=== PATIENT | female | born 2000 | race Caucasian/White ===

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

== ENCOUNTER → 2022-02-28 14:38 | Outpatient (CLI) | payer MEDICAID, SELFPAY ==
--- NOTE | 2022-02-28 14:38 | US_ITS ---
FINAL REPORT TECHNIQUE: Transvaginal sonographic images of the pelvis were obtained. CLINICAL HISTORY: pelvic pain FINDINGS: PELVIC ULTRASOUND The uterus measures 6.8 x 2.9 x 3.5 cm. The endometrial stripe measures 4 mm which is normal. The right ovary measures 3.8 x 2.6 x 2.3 cm and is normal. The left ovary measures 2.8 x 2.4 x 2.2 cm and is normal. Normal flow is seen by Doppler exam There is no free fluid. IMPRESSION: Unremarkable pelvic ultrasound. Reviewed, Interpreted and Dictated by Dominic Nicholson III, MD Transcribed by Damaris Montanez Authenticated and [facility]
== END ==
PROVIDERS: PCP Nurse Practitioner; Visit Provider Obstetrics & Gynecology
DX: R10.2 Pelvic and perineal pain (principal)
CPT/HCPCS: 76856

== ENCOUNTER 2022-05-24 08:04 | Emergency (ER) | payer MEDICAID, SELFPAY ==
--- NOTE | 2022-05-24 08:40 | EXP.UTC ---
Discharge Plan Disposition Patient Disposition: Home, Self-Care Condition: Good Prescriptions Prescriptions: New ondansetron 4 mg tablet,disintegrating 4 mg PO Q8H PRN (Reason: nausea and vomiting) Qty: 10 0RF cefdinir 300 mg capsule 300 mg PO BID Qty: 20 0RF prednisone 20 mg tablet 20 mg PO BID Qty: 10 0RF No Action lisinopril 10 mg tablet 10 mg PO DAILY citalopram [Celexa] 10 mg tablet 10 mg PO DAILY naproxen 500 mg tablet 500 mg PO BID PRN (Reason: pain) Qty: 30 0RF amlodipine 10 mg tablet 10 mg PO DAILY 30 Days norgestimate-ethinyl estradiol 0.18/0.215/0.25 mg-35 mcg (28) tablet 1 tab PO DAILY 28 Days hydroxyzine HCl 25 MG tablet 25 mg PO BIDP PRN (Reason: Anxiety) Referrals Follow up/Referrals: Trisha Cortes APRN [Primary Care Provider] - See instructions Activity Restrictions/Add. Instructions Additional Instructions/Restrictions: *Monitor Temp, Over the counter Motrin or Tylenol as directed/as needed Tylenol every 4 hours and Motrin every 6 hours (as long as your family doctor has told you that you can take it) for fever or pain. and straight to ER if unable to lower temp less than 101.0 after medication given *Warm salt water gargles may help to soothe the throat *Throat Lozenges? *Warm fluids like tea with honey may help to soothe the throat? *Sleep elevated *Humidifier/Vaporizer Drink extra fluids with and between meals. If you have difficulty drinking, try very small amounts of water or suck on ice chips. ? Avoid fruit juices, as these do not replace minerals and can actually increase diarrhea. ? Children and adults can use sports drinks to replenish electrolytes. Younger children and infants should use products formulated for children, like oral rehydration solutions. ? Eat food in small amounts and let your stomach recover. ? Get lots of rest. You may feel tired or weak. ? No greasy or fried foods for the next 24-48 hours BRAT diet Bananas Rice Apples and [place] ? Make sure to drink plenty of liquids ? Return if needed ? Straight to ER if any life threatening symptoms ? Zofran as prescribed ? You was given an outpatient order for diarrhea panel, please collect specimen and bring back to outpatient lab then call back to the [facility] or follow up with family doctor for results ? Follow up with family doctor in the next 48-72 hours if no improvement or any worsening of symptoms Your throat swab was sent for culture. Those results are typically sent to your primary care. Be sure to follow up in 2-3 days with your family doctor/primary care physician if no improvement so they can review those result and treat if necessary. If you don?t have a primary care doctor, I recommend you get one but in the mean time, you will have to return to a walk in clinic Follow up IMMEDIATELY for new or worsening symptoms or no Noticeable improvement over the next 48-72 hours. 911 for difficulty breathing or swallowing You were tested for today for COVID19 your test result should be back in the next 24-48 hours, you may check your results on the [facility] Health Portal Clinical Impressions Clinical Impression: URI (upper respiratory infection) Qualifiers: URI type: unspecified URI Qualified Code(s): J06.9 - Acute upper respiratory infection, unspecified Stand Alone Forms Stand Alone Forms: Work/School Release Instructions Patient Instructions: Sore Throat, Diarrhea, Acute Bronchitis, Nausea and Vomiting-Adult Discharge ED Provider: Maya Laguerre [facility] [place] HPI General Stated complaint: Cough, nausea, diahrrea, sore throat, SOA Time Seen by Provider: 05/24/22 08:40 History of Present Illness Provider Complaint: Patient states that she has been having sore throat, sinus congestion, N/V/D and cough States that at times the cough makes her feel a little SOA States that toda
[2022-05-24 08:51] VITALS: BP 143/92; PULSE 78; RESP 18; TEMP 36.8; O2SAT 98; BMI 48.9
[2022-05-24 08:51] LABS: UTC Influenza A Antigen Negative (Negative); UTC Influenza B Antigen Negative (Negative); UTC Strep Screen (Rapid) Negative (Negative)
[2022-05-24 09:04] VITALS: BP 143/92; PULSE 78; RESP 18; TEMP 36.8
[2022-05-24 09:08] LABS: Adenovirus,PCR Not Detected (NotDetected); Bordetella Pertussis Not Detected (NotDetected); Chlamydophila Pneumoniae, PCR Not Detected (NotDetected); Coronavirus 19, PCR Not Detected (NotDetected); Coronavirus 229E Not Detected (NotDetected); Coronavirus NL63 Not Detected (NotDetected); Coronavirus OC43 Not Detected (NotDetected); Coronovirus HKU1,PCR Not Detected (NotDetected); Human Metapneumovirus Not Detected (NotDetected); Influenza A, PCR Not Detected (NotDetected); Influenza AH1, 2009 Not Detected (NotDetected); Influenza AH1, PCR Not Detected (NotDetected); Influenza AH3,PCR Not Detected (NotDetected); Influenza B, PCR Not Detected (NotDetected); Mycoplasma Pneumoniae, PCR Not Detected (NotDetected); Parainfluenza 1, PCR Not Detected (NotDetected); Parainfluenza 2, PCR Not Detected (NotDetected); Parainfluenza 3, PCR Not Detected (NotDetected); Parainfluenza 4, PCR Not Detected (NotDetected); Respiratory Syncytial Virus Not Detected (NotDetected); Rhinovirus/Enterovirus Not Detected (NotDetected)
== END 2022-05-24 09:04 | disposition home or self-care (01) ==
PROVIDERS: Emergency Provider Nurse Practitioner; PCP Nurse Practitioner
DX: J06.9 Acute upper respiratory infection, unspecified (principal)
CPT/HCPCS: 87581; 87632; 87798; 87804; 87880; 99212; C9803; G0463; U0003; U0005

== ENCOUNTER 2022-05-29 14:10 | Emergency (ER) | payer MEDICAID, SELFPAY ==
[2022-05-29 15:05] VITALS: BP 164/65; PULSE 67; RESP 20; TEMP 37.2; O2SAT 98; BMI 45.1
--- NOTE | 2022-05-29 15:33 | EXP.UTC ---
Discharge Plan Disposition Patient Disposition: Home, Self-Care Condition: Good Prescriptions Prescriptions: New azithromycin [azithromycin] 250 mg tablet 250 mg PO DIRECTED Qty: 6 0RF Rx Instructions: Take two (2) tablets on day #1, then one (1) tablet day #2 thru #5 fluconazole [Diflucan] 100 mg tablet 100 mg PO ONCE Qty: 1 1RF Rx Instructions: one tab after finishing antibiotics and may repeat after 3 days if no improvement Discontinued cefdinir 300 mg capsule 300 mg PO BID Qty: 20 0RF No Action lisinopril 10 mg tablet 10 mg PO DAILY citalopram [Celexa] 10 mg tablet 10 mg PO DAILY naproxen 500 mg tablet 500 mg PO BID PRN (Reason: pain) Qty: 30 0RF amlodipine 10 mg tablet 10 mg PO DAILY 30 Days norgestimate-ethinyl estradiol 0.18/0.215/0.25 mg-35 mcg (28) tablet 1 tab PO DAILY 28 Days hydroxyzine HCl 25 MG tablet 25 mg PO BIDP PRN (Reason: Anxiety) ondansetron 4 mg tablet,disintegrating 4 mg PO Q8H PRN (Reason: nausea and vomiting) Qty: 10 0RF prednisone 20 mg tablet 20 mg PO BID Qty: 10 0RF Referrals Follow up/Referrals: Coni Cortes PA [Primary Care Provider] - See instructions Activity Restrictions/Add. Instructions Additional Instructions/Restrictions: Start antibiotic today. Be sure to complete entire prescription even if feeling better Tylenol and ibuprofen as needed for pain or fever Humidifier/vaporizer/hot steamy shower Follow-up with primary care tomorrow. Follow-up immediately in the ER of the [facility] for new or worsening symptoms or no noticeable improvement over the next 48-72 hours. Stop smoking Inhaler every 4-6 hours as needed. Should help open airways improved cough, wheezing, shortness of breath Zack Carrion will not cause drowsiness to use at bedtime to help stop cough so that she can get some sleep Start steroids today. Helps with inflammation therefore coughing and wheezing. Follow directions on package. Clinical Impressions Clinical Impression: Bronchitis Stand Alone Forms Stand Alone Forms: Work/School Release Discharge ED Provider: Michelle ([facility])Nabil [facility] [place] General Stated complaint: Chest congestion, cough, possible yeast infection Mode of Arrival: Ambulatory Source of Information: Patient Limitations: No Limitations Time Seen by Provider: 05/29/22 15:33 Description of Symptoms (Recalled from Triage Doc. by RN): PATIENT C/O EAR PAIN, POSSIBLE YEAST INFECTION, AND WORSENING BRONCHITIS HEENT Symptoms (Recalled from RN notes): Yes Resp Symptoms (Recalled from RN notes): Yes Skin Symptoms (Recalled from RN notes): No MS Symptoms (Recalled from RN notes): No Functional Status (Recalled from RN notes): WNL History of Present Illness Provider Complaint: 21 yr old female presents for worsening of bronchitis, and yeast infection. pt states she finished up steroids and started to feel better but last night and today she is having increase coughing, wheezing and thinks she is starting to get a yeast infection Related Data Home Medications Medication Instructions Recorded Confirmed lisinopril 10 mg tablet 10 mg PO DAILY bp 05/23/18 02/23/22 amlodipine 10 mg tablet 10 mg PO DAILY bp 30 days 06/14/18 02/23/22 norgestimate-ethinyl estradiol 1 tab PO DAILY bc 28 days 06/14/18 02/23/22 0.18 mg/0.215mg/0.25mg-35 mcg(28)tablet hydroxyzine HCl 25 mg tablet 25 mg PO BIDP PRN Anxiety 09/30/18 02/23/22 citalopram 10 mg tablet (Celexa) 10 mg PO DAILY 02/23/22 02/23/22 Previous Rx's Medication Instructions Recorded naproxen 500 mg tablet 500 mg PO BID PRN pain #30 tabs 02/23/22 ondansetron 4 mg disintegrating 4 mg PO Q8H PRN nausea and 05/24/22 tablet vomiting #10 tabs prednisone 20 mg tablet 20 mg PO BID #10 tabs 05/24/22 azithromycin 250 mg tablet 250 mg PO DIRECTED #6 tabs 05/29/22 fluconazole 100 mg tablet 100 mg PO ONCE #1 tab 05/29/22 (Diflucan) Allergies Allergy/AdvRe
[2022-05-29 15:47] VITALS: BP 164/65; PULSE 67; RESP 20; TEMP 37.2; O2SAT 98
== END 2022-05-29 15:57 | disposition home or self-care (01) ==
PROVIDERS: Emergency Provider Nurse Practitioner Family; PCP Physician Assistant
DX: J40 Bronchitis, not specified as acute or chronic (principal)
CPT/HCPCS: 99212; G0463

== ENCOUNTER 2022-07-14 11:56 | Emergency (ER) | payer MEDICAID, SELFPAY ==
--- NOTE | 2022-07-14 12:27 | EXP.UTC ---
Discharge Plan Disposition Patient Disposition: Home, Self-Care Condition: Good Prescriptions Prescriptions: New promethazine 25 mg Tablet 25 mg PO Q6H PRN (Reason: Nausea And Vomiting) Qty: 20 0RF ondansetron 4 mg Tablet,Disintegrating 4 mg PO Q8H PRN (Reason: Nausea) Qty: 20 0RF No Action lisinopril 10 mg tablet 10 mg PO DAILY citalopram [Celexa] 10 mg tablet 10 mg PO DAILY naproxen 500 mg tablet 500 mg PO BID PRN (Reason: pain) Qty: 30 0RF amlodipine 10 mg tablet 10 mg PO DAILY 30 Days norgestimate-ethinyl estradiol 0.18/0.215/0.25 mg-35 mcg (28) tablet 1 tab PO DAILY 28 Days azithromycin [azithromycin] 250 mg tablet 250 mg PO DIRECTED Qty: 6 0RF Rx Instructions: Take two (2) tablets on day #1, then one (1) tablet day #2 thru #5 fluconazole [Diflucan] 100 mg tablet 100 mg PO ONCE Qty: 1 1RF Rx Instructions: one tab after finishing antibiotics and may repeat after 3 days if no improvement hydroxyzine HCl 25 MG tablet 25 mg PO BIDP PRN (Reason: Anxiety) ondansetron 4 mg tablet,disintegrating 4 mg PO Q8H PRN (Reason: nausea and vomiting) Qty: 10 0RF prednisone 20 mg tablet 20 mg PO BID Qty: 10 0RF Referrals Follow up/Referrals: Trisha Cortes APRN [Primary Care Provider] - See instructions Activity Restrictions/Add. Instructions Additional Instructions/Restrictions: Drink plenty of fluids. Take tylenol or ibuprofen for pain or fever. Take the medications as directed. Follow up with your regular doctor. GO TO THE ER FOR ANY WORSENING SYMPTOMS Clinical Impressions Clinical Impression: Gastroenteritis Stand Alone Forms Stand Alone Forms: Work/School Release Instructions Patient Instructions: DI for Viral Gastroenteritis -- Adult, Ondansetron, Promethazine Discharge ED Provider: Tim Irvin [facility] General Stated complaint: Nausea, upset stomach Time Seen by Provider: 07/14/22 12:26 History of Present Illness Provider Complaint: She states that since early this morning she has had n/v/d. She had vomited X1. She has had multiple episodes of diarrhea. She denies fever but she has had some chilling. Related Data Home Medications Medication Instructions Recorded Confirmed lisinopril 10 mg tablet 10 mg PO DAILY bp 05/23/18 02/23/22 amlodipine 10 mg tablet 10 mg PO DAILY bp 30 days 06/14/18 02/23/22 norgestimate-ethinyl estradiol 1 tab PO DAILY bc 28 days 06/14/18 02/23/22 0.18 mg/0.215mg/0.25mg-35 mcg(28)tablet hydroxyzine HCl 25 mg tablet 25 mg PO BIDP PRN Anxiety 09/30/18 02/23/22 citalopram 10 mg tablet (Celexa) 10 mg PO DAILY 02/23/22 02/23/22 Previous Rx's Medication Instructions Recorded naproxen 500 mg tablet 500 mg PO BID PRN pain #30 tabs 02/23/22 ondansetron 4 mg disintegrating 4 mg PO Q8H PRN nausea and 05/24/22 tablet vomiting #10 tabs prednisone 20 mg tablet 20 mg PO BID #10 tabs 05/24/22 azithromycin 250 mg tablet 250 mg PO DIRECTED #6 tabs 05/29/22 fluconazole 100 mg tablet 100 mg PO ONCE #1 tab 05/29/22 (Diflucan) ondansetron 4 mg disintegrating 4 mg PO Q8H PRN Nausea #20 tabs 07/14/22 tablet promethazine 25 mg tablet 25 mg PO Q6H PRN Nausea And 07/14/22 Vomiting #20 tabs Allergies Allergy/AdvReac Type Severity Reaction Status Date / Time No Known Allergies Allergy Verified 05/24/22 08:54 [facility] Disclaimer: The information contained in this section may have been updated after the patient was seen, as this information can be updated by other users. Medical History Anxiety Depression Hypertension Urinary tract infection Social History Smoking Status: Never smoker alcohol intake: never substance use type: denies use current occupational status: other Travel in the last 8 weeks: None caffeine: No ROS Obtained: Yes All
[2022-07-14 12:35] VITALS: BP 144/63; PULSE 88; RESP 16; TEMP 37.1; O2SAT 98; BMI 49.4
[2022-07-14 13:00] VITALS: BP 144/63; PULSE 88; RESP 16; TEMP 37.1; O2SAT 98
== END 2022-07-14 13:04 | disposition home or self-care (01) ==
PROVIDERS: Emergency Provider Nurse Practitioner Family; PCP Nurse Practitioner
DX: K52.9 Noninfective gastroenteritis and colitis, unspecified (principal)
CPT/HCPCS: 99212; G0463

== ENCOUNTER 2022-07-18 16:02 | Emergency (ER) | payer MEDICAID, SELFPAY ==
--- NOTE | 2022-07-18 19:07 | EXP.UTC ---
Discharge Plan Disposition Patient Disposition: Home, Self-Care Condition: Good Prescriptions Prescriptions: No Action lisinopril 10 mg tablet 10 mg PO DAILY citalopram [Celexa] 10 mg tablet 10 mg PO DAILY naproxen 500 mg tablet 500 mg PO BID PRN (Reason: pain) Qty: 30 0RF amlodipine 10 mg tablet 10 mg PO DAILY 30 Days norgestimate-ethinyl estradiol 0.18/0.215/0.25 mg-35 mcg (28) tablet 1 tab PO DAILY 28 Days azithromycin [azithromycin] 250 mg tablet 250 mg PO DIRECTED Qty: 6 0RF Rx Instructions: Take two (2) tablets on day #1, then one (1) tablet day #2 thru #5 fluconazole [Diflucan] 100 mg tablet 100 mg PO ONCE Qty: 1 1RF Rx Instructions: one tab after finishing antibiotics and may repeat after 3 days if no improvement promethazine 25 mg Tablet 25 mg PO Q6H PRN (Reason: Nausea And Vomiting) Qty: 20 0RF ondansetron 4 mg Tablet,Disintegrating 4 mg PO Q8H PRN (Reason: Nausea) Qty: 20 0RF hydroxyzine HCl 25 MG tablet 25 mg PO BIDP PRN (Reason: Anxiety) ondansetron 4 mg tablet,disintegrating 4 mg PO Q8H PRN (Reason: nausea and vomiting) Qty: 10 0RF prednisone 20 mg tablet 20 mg PO BID Qty: 10 0RF Referrals Follow up/Referrals: Trisha Cortes APRN [Primary Care Provider] - See instructions Activity Restrictions/Add. Instructions Additional Instructions/Restrictions: *Monitor Temp, Over the counter Motrin or Tylenol as directed/as needed Tylenol every 4 hours and Motrin every 6 hours (as long as your family doctor has told you that you can take it) for fever or pain. and straight to ER if unable to lower temp less than 101.0 after medication given *Warm salt water gargles may help to soothe the throat *Throat Lozenges? *Warm fluids like tea with honey may help to soothe the throat? *Sleep elevated *Humidifier/Vaporizer Your throat swab was sent for culture. Those results are typically sent to your primary care. Be sure to follow up in 2-3 days with your family doctor/primary care physician if no improvement so they can review those result and treat if necessary. If you don?t have a primary care doctor, I recommend you get one but in the mean time, you will have to return to a walk in clinic Follow up IMMEDIATELY for new or worsening symptoms or no Noticeable improvement over the next 48-72 hours. 911 for difficulty breathing or swallowing You were tested for today for Upper Respiratory Panel with COVID19 your test result should be back in the next 24-48 hours, you may check your Results on the [facility] Portal Clinical Impressions Clinical Impression: Viral upper respiratory tract infection with cough Stand Alone Forms Stand Alone Forms: Work/School Release Instructions Patient Instructions: DI for COVID-19 (Suspected or Confirmed ), COVID-19 Viral Test Discharge ED Provider: Maya Laguerre [facility] [place] HPI General Stated complaint: no taste/smell, cough, sore throat, soa, h/a Time Seen by Provider: 07/18/22 19:08 History of Present Illness Provider Complaint: Patient states that she has been having a little sore throat, cough, nasal congestion and feeling achy States that this morning she got her some lemonaide and had them put her some strawberry in it and she couldnt taste it State that through out the day she noticed she couldnt taste or smell several things so she came in worried that she may have COVID and wanted to get tested Related Data Home Medications Medication Instructions Recorded Confirmed lisinopril 10 mg tablet 10 mg PO DAILY bp 05/23/18 02/23/22 amlodipine 10 mg tablet 10 mg PO DAILY bp 30 days 06/14/18 02/23/22 norgestimate-ethinyl estradiol 1 tab PO DAILY bc 28 days 06/14/18 02/23/22 0.18 mg/0.215mg/0.25mg-35 mcg(28)tablet hydroxyzine HCl 25 mg tablet 25 mg PO BIDP PRN Anxiety 09/30/18 02/23/22 citalopram 10 mg tablet (Celexa) 10 mg PO DAILY 02/23/22 02/23/22 Previo
[2022-07-18 19:11] LABS: Adenovirus,PCR Not Detected (NotDetected); Bordetella Pertussis Not Detected (NotDetected); Chlamydophila Pneumoniae, PCR Not Detected (NotDetected); Coronavirus 19, PCR Not Detected (NotDetected); Coronavirus 229E Not Detected (NotDetected); Coronavirus NL63 Not Detected (NotDetected); Coronavirus OC43 Not Detected (NotDetected); Coronovirus HKU1,PCR Not Detected (NotDetected); Human Metapneumovirus Not Detected (NotDetected); Influenza A, PCR Not Detected (NotDetected); Influenza AH1, 2009 Not Detected (NotDetected); Influenza AH1, PCR Not Detected (NotDetected); Influenza AH3,PCR Not Detected (NotDetected); Influenza B, PCR Not Detected (NotDetected); Mycoplasma Pneumoniae, PCR Not Detected (NotDetected); Parainfluenza 1, PCR Not Detected (NotDetected); Parainfluenza 2, PCR Not Detected (NotDetected); Parainfluenza 3, PCR Not Detected (NotDetected); Parainfluenza 4, PCR Not Detected (NotDetected); Respiratory Syncytial Virus Not Detected (NotDetected); Rhinovirus/Enterovirus Not Detected (NotDetected)
[2022-07-18 19:15] LABS: UTC Strep Screen (Rapid) Negative (Negative)
[2022-07-18 19:18] VITALS: BP 136/84; PULSE 101; RESP 19; TEMP 36.4; O2SAT 98; BMI 49.5
[2022-07-18 19:32] VITALS: BP 136/84; PULSE 101; RESP 19; TEMP 36.4; O2SAT 98
== END 2022-07-18 19:37 | disposition home or self-care (01) ==
PROVIDERS: Emergency Provider Nurse Practitioner; PCP Nurse Practitioner
DX: J06.9 Acute upper respiratory infection, unspecified (principal)
CPT/HCPCS: 87581; 87632; 87798; 87880; 99212; C9803; G0463; U0003; U0005

== ENCOUNTER 2022-08-01 18:06 | Emergency (ER) | payer OTHER, SELFPAY ==
[2022-08-01 18:07] VITALS: BP 155/85; PULSE 98; RESP 16; TEMP 36.7; O2SAT 100; BMI 48.4
[2022-08-01 18:25] LABS: Microscopic, Urine URINE MICROSCOPIC (MICROSCOPIC)
--- NOTE | 2022-08-01 18:25 | HMH.EDGENADL ---
Discharge Plan Disposition Patient Disposition: Home, Self-Care Condition: Good Prescriptions Prescriptions: New cefdinir 300 mg capsule 300 mg PO BID 10 Days Qty: 20 0RF No Action lisinopril 10 mg tablet 10 mg PO DAILY citalopram [Celexa] 10 mg tablet 10 mg PO DAILY naproxen 500 mg tablet 500 mg PO BID PRN (Reason: pain) Qty: 30 0RF amlodipine 10 mg tablet 10 mg PO DAILY 30 Days norgestimate-ethinyl estradiol 0.18/0.215/0.25 mg-35 mcg (28) tablet 1 tab PO DAILY 28 Days azithromycin [azithromycin] 250 mg tablet 250 mg PO DIRECTED Qty: 6 0RF Rx Instructions: Take two (2) tablets on day #1, then one (1) tablet day #2 thru #5 fluconazole [Diflucan] 100 mg tablet 100 mg PO ONCE Qty: 1 1RF Rx Instructions: one tab after finishing antibiotics and may repeat after 3 days if no improvement promethazine 25 mg Tablet 25 mg PO Q6H PRN (Reason: Nausea And Vomiting) Qty: 20 0RF ondansetron 4 mg Tablet,Disintegrating 4 mg PO Q8H PRN (Reason: Nausea) Qty: 20 0RF hydroxyzine HCl 25 MG tablet 25 mg PO BIDP PRN (Reason: Anxiety) ondansetron 4 mg tablet,disintegrating 4 mg PO Q8H PRN (Reason: nausea and vomiting) Qty: 10 0RF prednisone 20 mg tablet 20 mg PO BID Qty: 10 0RF Referrals Follow up/Referrals: Trisha Cortes APRN [Primary Care Provider] - See instructions Activity Restrictions/Add. Instructions Additional Instructions/Restrictions: Please take antibiotic as prescribed. Please follow up with your primary care physician in 2-3 days and return to ED for any worsening symptoms. Clinical Impressions Clinical Impression: UTI (urinary tract infection) Instructions Patient Instructions: DI for Urinary Tract Infection (UTI) Print Language Print Language: Mexican Discharge ED Provider: Cyn Carney General Adult HPI General Chief complaint: Urogenital-Female Stated complaint: blood in urine, fever, abd pain Time Seen by Provider: 08/01/22 18:07 Mode of Arrival: Ambulatory Source of Information: Patient Limitations: No Limitations History of Present Illness HPI narrative: Miss Yi is a 21 yo female presenting to the ED for dysuria and suprapubic pain for 2-3 days. Patient denies fevers, flank pain or any other systemic signs of infection. No N/V/D. No hematuria. Patient has been taking azo for pain control. MD complaint: dysuria, suprapubic pain Onset (ago): day(s) Location: abdomen (suprapubic) Radiation: non-radiation Severity: mild Severity scale (1-10): 3 Quality: burning Relieving factors: none Exacerbating factors: none Associated symptoms: denies other symptoms Related Data Home Medications Medication Instructions Recorded Confirmed lisinopril 10 mg tablet 10 mg PO DAILY bp 05/23/18 02/23/22 amlodipine 10 mg tablet 10 mg PO DAILY bp 30 days 06/14/18 02/23/22 norgestimate-ethinyl estradiol 1 tab PO DAILY bc 28 days 06/14/18 02/23/22 0.18 mg/0.215mg/0.25mg-35 mcg(28)tablet hydroxyzine HCl 25 mg tablet 25 mg PO BIDP PRN Anxiety 09/30/18 02/23/22 citalopram 10 mg tablet (Celexa) 10 mg PO DAILY 02/23/22 02/23/22 Previous Rx's Medication Instructions Recorded naproxen 500 mg tablet 500 mg PO BID PRN pain #30 tabs 02/23/22 ondansetron 4 mg disintegrating 4 mg PO Q8H PRN nausea and 05/24/22 tablet vomiting #10 tabs prednisone 20 mg tablet 20 mg PO BID #10 tabs 05/24/22 azithromycin 250 mg tablet 250 mg PO DIRECTED #6 tabs 05/29/22 fluconazole 100 mg tablet 100 mg PO ONCE #1 tab 05/29/22 (Diflucan) ondansetron 4 mg disintegrating 4 mg PO Q8H PRN Nausea #20 tabs 07/14/22 tablet promethazine 25 mg tablet 25 mg PO Q6H PRN Nausea And 07/14/22 Vomiting #20 tabs cefdinir 300 mg capsule 300 mg PO BID 10 days #20 caps 08/01/22 Allergies Allergy/AdvReac Type Severity Reaction Status Date / Time No Known Allergies Allergy Verified 05/24/22 08:54 [facility] Disclaimer: The information
[2022-08-01 18:41] LABS: Appearance,Urine CLEAR (Clear); Blood, Urine 2+ (Negative); Color,Urine ORANGE (Yellow); Glucose,Urine (UA) TRACE (Negative); Ketones,Urine TRACE (Negative); Leukocyte Esterase,Urine TRACE (Negative); Nitrate,Urine POSITIVE (Negative); PH,Urine 5.5 (5.0-8.5); Protein,Urine 3+ (Negative); Specific Gravity, Urine 1.025 (1.005-1.030)
[2022-08-01 18:42] LABS: Bilirubin,Urine 1+ (Negative)
[2022-08-01 18:51] LABS: Bacteria,Urine Trace /lpf; RBC,Urine 20-50 #/hpf (0-3)
[2022-08-01 19:05] VITALS: BP 138/75; PULSE 102; RESP 16; TEMP 36.3; O2SAT 98
== END 2022-08-01 19:06 | disposition home or self-care (01) ==
PROVIDERS: Emergency Provider Student in an Organized Health Care Education/Training Program; PCP Nurse Practitioner
DX: N39.0 Urinary tract infection, site not specified (principal); F41.9 Anxiety disorder, unspecified; Z87.440 Personal history of urinary (tract) infections; I10 Essential (primary) hypertension
CPT/HCPCS: 81001; 87086; 99283; 99284

== ENCOUNTER 2022-08-14 10:29 | Emergency (ER) | payer OTHER, SELFPAY ==
--- NOTE | 2022-08-14 10:32 | EXP.UTC ---
Discharge Plan Disposition Patient Disposition: Home, Self-Care Condition: Good Prescriptions Prescriptions: New azithromycin [Zithromax] 250 mg tablet 250 mg PO UD DOSE PK Qty: 6 0RF Rx Instructions: Take two (2) tablets today, then one (1) tablet days #2 thru #5 dxecaieqbpmvcdb-jugqmstdo-GP [Bromfed DM] 2-30-10 mg/5 mL Syrup 5 ml PO Q6H PRN (Reason: Cough) Qty: 240 0RF methylprednisolone 4 mg Tablets,Dose Pack 4 mg PO DIRECTED Qty: 21 0RF No Action lisinopril 10 mg tablet 10 mg PO DAILY citalopram [Celexa] 10 mg tablet 10 mg PO DAILY amlodipine 10 mg tablet 10 mg PO DAILY 30 Days norgestimate-ethinyl estradiol 0.18/0.215/0.25 mg-35 mcg (28) tablet 1 tab PO DAILY 28 Days hydroxyzine HCl 25 MG tablet 25 mg PO BIDP PRN (Reason: Anxiety) aripiprazole 2 mg tablet 2 mg PO DAILY Referrals Follow up/Referrals: Trisha Cortes APRN [Primary Care Provider] - See instructions Activity Restrictions/Add. Instructions Additional Instructions/Restrictions: Drink plenty of fluids. Take tylenol or ibuprofen for pain or fever. Take the medications as directed. Follow up with your regular doctor. GO TO THE ER FOR ANY WORSENING SYMPTOMS Clinical Impressions Clinical Impression: Acute viral syndrome, Bronchitis Stand Alone Forms Stand Alone Forms: Work/School Release Instructions Patient Instructions: DI for Viral Syndrome, Coronavirus Disease 2019, Preventing the Spread of Coronavirus Discharge Instructions Discharge ED Provider: Tim Irvin [facility] General Stated complaint: headache,nausea,cough,congestion,body aches Time Seen by Provider: 08/14/22 10:32 History of Present Illness Provider Complaint: She states that for the past 2 days she has ran a fever, had chills, and malaise. She has had a productive cough. Related Data Home Medications Medication Instructions Recorded Confirmed lisinopril 10 mg tablet 10 mg PO DAILY bp 05/23/18 08/14/22 amlodipine 10 mg tablet 10 mg PO DAILY bp 30 days 06/14/18 08/14/22 norgestimate-ethinyl estradiol 1 tab PO DAILY bc 28 days 06/14/18 08/14/22 0.18 mg/0.215mg/0.25mg-35 mcg(28)tablet hydroxyzine HCl 25 mg tablet 25 mg PO BIDP PRN Anxiety 09/30/18 08/14/22 citalopram 10 mg tablet (Celexa) 10 mg PO DAILY mood 02/23/22 08/14/22 aripiprazole 2 mg tablet 2 mg PO DAILY . 08/14/22 08/14/22 Previous Rx's Medication Instructions Recorded azithromycin 250 mg tablet 250 mg PO UD DOSE PK #6 tabs 08/14/22 (Zithromax) rucvhljpbfacwfc-ftogaywyemvksro-XF 5 ml PO Q6H PRN Cough #240 mL 08/14/22 2 mg-30 mg-10 mg/5 mL oral syrup (Bromfed DM) methylprednisolone 4 mg tablets in 4 mg PO DIRECTED #21 tabs 08/14/22 a dose pack Allergies Allergy/AdvReac Type Severity Reaction Status Date / Time No Known Allergies Allergy Verified 08/14/22 11:04 [facility] Disclaimer: The information contained in this section may have been updated after the patient was seen, as this information can be updated by other users. Medical History Anxiety Depression Hypertension Urinary tract infection Social History Smoking Status: Never smoker alcohol intake: never substance use type: denies use current occupational status: other Travel in the last 8 weeks: None caffeine: No ROS Obtained: Yes All systems reviewed & no additional complaints except as documented Constitutional Constitutional: Reports chills and Reports fever(s) Eyes Eyes: Denies eye discharge ENT Ears, Nose, Mouth, and Throat: Reports as per HPI Cardiovascular Cardiovascular: Denies chest pain Respiratory Respiratory: Denies chest congestion and Reports cough Gastrointestinal Gastrointestingal: Reports nausea; Denies abdominal pain, constipation, cramping, diarrhea or vomiting Musculoskeletal Musculoskeletal
[2022-08-14 10:45] VITALS: BP 152/76; PULSE 102; RESP 20; TEMP 36.8; O2SAT 98; BMI 48.4
[2022-08-14 11:49] VITALS: BP 152/76; PULSE 102; RESP 20; TEMP 36.8; O2SAT 98
== END 2022-08-14 11:48 | disposition home or self-care (01) ==
PROVIDERS: Emergency Provider Nurse Practitioner Family; PCP Nurse Practitioner
DX: J40 Bronchitis, not specified as acute or chronic (principal); B34.9 Viral infection, unspecified
CPT/HCPCS: 99212; 99213; C9803; G0463; U0003; U0005

== ENCOUNTER 2023-03-13 11:36 | Emergency (ER) | payer OTHER, SELFPAY ==
[2023-03-13 11:45] VITALS: BP 134/88; PULSE 94; RESP 18; TEMP 36.9; O2SAT 100; BMI 54.7
--- NOTE | 2023-03-13 12:15 | EXP.UTC ---
Discharge Plan Disposition Patient Disposition: Home, Self-Care Condition: Good Prescriptions Prescriptions: New amoxicillin 875 mg tablet 875 mg PO BID Qty: 20 0RF fluticasone propionate [Flonase Allergy Relief] 50 mcg/actuation spray,suspension 1 - 2 spray intranasal DAILY Qty: 16 0RF Rx Instructions: administer into each nostril No Action lisinopril 10 mg tablet 10 mg PO DAILY citalopram [Celexa] 10 mg tablet 10 mg PO DAILY amlodipine 10 mg tablet 10 mg PO DAILY 30 Days norgestimate-ethinyl estradiol 0.18/0.215/0.25 mg-35 mcg (28) tablet 1 tab PO DAILY 28 Days hydroxyzine HCl 25 MG tablet 25 mg PO BIDP PRN (Reason: Anxiety) aripiprazole 2 mg tablet 2 mg PO DAILY azithromycin [Zithromax] 250 mg tablet 250 mg PO UD DOSE PK Qty: 6 0RF Rx Instructions: Take two (2) tablets today, then one (1) tablet days #2 thru #5 viuhzedyudlycns-dobzvbipo-LR [Bromfed DM] 2-30-10 mg/5 mL Syrup 5 ml PO Q6H PRN (Reason: Cough) Qty: 240 0RF methylprednisolone 4 mg Tablets,Dose Pack 4 mg PO DIRECTED Qty: 21 0RF Referrals Follow up/Referrals: Trisha Cortes APRN [Primary Care Provider] - See instructions Ena Carter APRN [Nurse Practitioner] - See instructions Activity Restrictions/Add. Instructions Additional Instructions/Restrictions: Take medication as prescribed Follow up with your Family Doctor or ENT for further evaluation and treatment Return if needed Straight to ER if any life threatening symptoms Clinical Impressions Clinical Impression: Otitis media Qualifiers: Otitis media type: unspecified Laterality: left Qualified Code(s): H66.92 - Otitis media, unspecified, left ear Instructions Patient Instructions: Middle Ear Infection, Amoxicillin Discharge ED Provider: Maya Laguerre [facility] General Stated complaint: knot behind left ear, h/a, upset stomach Mode of Arrival: Ambulatory Source of Information: Patient Limitations: No Limitations Time Seen by Provider: 03/13/23 12:15 Description of Symptoms (Recalled from Triage Doc. by RN): PATIENT C/O BUMP BEHIND LEFT EAR, NAUSEA AND HEADACHE X 2 DAYS HEENT Symptoms (Recalled from RN notes): No Resp Symptoms (Recalled from RN notes): No Skin Symptoms (Recalled from RN notes): No MS Symptoms (Recalled from RN notes): No Functional Status (Recalled from RN notes): WNL History of Present Illness Provider Complaint: Patient states that she noticed a little bump like area on the back of her ear a few days ago that would move when she touched it thinks it may be a little cyst or something States that now she is having a throbbing pain in her left ear and feels like she may have an ear infection so she came in to get her ear checked out States that the pain in her ear even hurts into her throat area Related Data Home Medications Medication Instructions Recorded Confirmed lisinopril 10 mg tablet 10 mg PO DAILY bp 05/23/18 08/14/22 amlodipine 10 mg tablet 10 mg PO DAILY bp 30 days 06/14/18 08/14/22 norgestimate-ethinyl estradiol 1 tab PO DAILY bc 28 days 06/14/18 08/14/22 0.18 mg/0.215mg/0.25mg-35 mcg(28)tablet hydroxyzine HCl 25 mg tablet 25 mg PO BIDP PRN Anxiety /10/1608/14/22 citalopram 10 mg tablet (Celexa) 10 mg PO DAILY mood 02/23/22 08/14/22 aripiprazole 2 mg tablet 2 mg PO DAILY . 08/14/22 08/14/22 Previous Rx's Medication Instructions Recorded azithromycin 250 mg tablet 250 mg PO UD DOSE PK #6 tabs 08/14/22 (Zithromax) vokwrxjtsauiuqf-qwusdmdsdeqyaii-PT 5 ml PO Q6H PRN Cough #240 mL 08/14/22 2 mg-30 mg-10 mg/5 mL oral syrup (Bromfed DM) methylprednisolone 4 mg tablets in 4 mg PO DIRECTED #21 tabs 08/14/22 a dose pack amoxicillin 875 mg tablet 875 mg PO BID #20 tabs 03/13/23 fluticasone propionate 50 1 - 2 spray intranasal DAILY #16 03/13/23 mcg/actuation nasal grams spray,suspension (Flonase Allergy Relief) Allergies Allergy/AdvReac Type S
[2023-03-13 12:28] VITALS: BP 134/88; PULSE 94; RESP 18; TEMP 36.9; O2SAT 100
== END 2023-03-13 12:30 | disposition home or self-care (01) ==
PROVIDERS: Emergency Provider Nurse Practitioner; PCP Nurse Practitioner
DX: H66.92 Otitis media, unspecified, left ear (principal); I10 Essential (primary) hypertension; F41.9 Anxiety disorder, unspecified; F32.A Depression, unspecified
CPT/HCPCS: 99212; 99214; G0463

== ENCOUNTER 2023-05-08 12:03 | Emergency (ER) | payer OTHER, SELFPAY ==
[2023-05-08 13:10] VITALS: BP 153/92; PULSE 106; RESP 19; TEMP 36.7; O2SAT 99; BMI 52.4
[2023-05-08 13:34] LABS: UTC Influenza A Antigen Negative (Negative); UTC Strep Screen (Rapid) Negative (Negative)
[2023-05-08 13:35] LABS: UTC Influenza B Antigen Negative (Negative)
--- NOTE | 2023-05-08 13:42 | EXP.UTC ---
Discharge Plan Disposition Patient Disposition: Home, Self-Care Condition: Good Prescriptions Prescriptions: New cefdinir 300 mg capsule 300 mg PO BID 10 Days Qty: 20 0RF methylprednisolone [Medrol ([place])] 4 mg tablets,dose pack See Rx Instructions .Route .COMPLEX 6 Days Qty: 21 0RF Rx Instructions: taper pack; benzonatate 100 mg capsule 100 mg PO TID PRN (Reason: cough) Qty: 30 0RF ondansetron 4 mg tablet,disintegrating 4 mg PO Q8H PRN (Reason: nausea and vomiting) Qty: 10 0RF No Action lisinopril 10 mg tablet 10 mg PO DAILY citalopram [Celexa] 10 mg tablet 10 mg PO DAILY amlodipine 10 mg tablet 10 mg PO DAILY 30 Days norgestimate-ethinyl estradiol 0.18/0.215/0.25 mg-35 mcg (28) tablet 1 tab PO DAILY 28 Days hydroxyzine HCl 25 MG tablet 25 mg PO BIDP PRN (Reason: Anxiety) aripiprazole 2 mg tablet 2 mg PO DAILY buspirone 15 mg tablet 15 mg PO DAILY Referrals Follow up/Referrals: Trisha Cortes APRN [Primary Care Provider] - See instructions Activity Restrictions/Add. Instructions Additional Instructions/Restrictions: *Monitor Temp, Over the counter Motrin or Tylenol as directed/as needed Tylenol every 4 hours and Motrin every 6 hours (as long as your family doctor has told you that you can take it) for fever or pain. and straight to ER if unable to lower temp less than 101.0 after medication given *Warm salt water gargles may help to soothe the throat *Throat Lozenges? *Warm fluids like tea with honey may help to soothe the throat? *Sleep elevated *Humidifier/Vaporizer Take medication as prescribed Your throat swab was sent for culture. Those results are typically sent to your primary care. Be sure to follow up in 2-3 days with your family doctor/primary care physician if no improvement so they can review those result and treat if necessary. If you don?t have a primary care doctor, I recommend you get one but in the mean time, you will have to return to a walk in clinic Follow up IMMEDIATELY for new or worsening symptoms or no Noticeable improvement over the next 48-72 hours. 911 for difficulty breathing or swallowing You were tested for today for ?Upper Respiratory Panel with COVID19 your test result should be back in the next 24 you may check your results on the [facility] My Health Portal and if positive for COVID you will need to quarantine for 5 days Clinical Impressions Clinical Impression: Otitis media Qualifiers: Otitis media type: unspecified Laterality: left Qualified Code(s): H66.92 - Otitis media, unspecified, left ear Stand Alone Forms Stand Alone Forms: Work/School Release Instructions Patient Instructions: Sore Throat, DI for Sinusitis, Nausea and Vomiting-Adult Discharge ED Provider: Maya Laguerre [facility] [place] HPI General Stated complaint: sore throat, cough, nausea, drainage, body aches Mode of Arrival: Ambulatory Source of Information: Patient Limitations: No Limitations Time Seen by Provider: 05/08/23 13:42 Description of Symptoms (Recalled from Triage Doc. by RN): PATIENT C/O SORE THROAT, COUGH, RUNNY NOSE, SINUS DRAINAGE, BODY ACHES, FEVER AND NAUSEA X 2 DAYS HEENT Symptoms (Recalled from RN notes): Yes Resp Symptoms (Recalled from RN notes): Yes Skin Symptoms (Recalled from RN notes): No MS Symptoms (Recalled from RN notes): No Functional Status (Recalled from RN notes): WNL History of Present Illness Provider Complaint: Patient states that she started feeling bad about 2 days ago and has continued to feel worse State that she has been having bilateral ear pain, sore throat, fever, nausea sinus congestion and pressure and headache States that today she was feeling worse so she came in to get checked out Related Data Home Medications Medication Instructions Recorded Confirmed lisinopril 10 mg tablet 10 mg PO DAILY Hypertension 05/23/18 05/08/23 amlodipine 10 mg table
[2023-05-08 13:57] VITALS: BP 153/92; PULSE 106; RESP 19; TEMP 36.7; O2SAT 99
== END 2023-05-08 14:08 | disposition home or self-care (01) ==
PROVIDERS: Emergency Provider Nurse Practitioner; PCP Nurse Practitioner
DX: H66.92 Otitis media, unspecified, left ear (principal); J01.90 Acute sinusitis, unspecified; R11.2 Nausea with vomiting, unspecified; R50.9 Fever, unspecified; I10 Essential (primary) hypertension; F41.9 Anxiety disorder, unspecified; F32.A Depression, unspecified
CPT/HCPCS: 87635; 87804; 87880; 99212; 99214; G0463

== ENCOUNTER 2023-08-31 15:49 | Outpatient (CLI) | payer OTHER, SELFPAY ==
--- NOTE | 2023-08-31 15:55 | US_ITS ---
FINAL REPORT TECHNIQUE: Ultrasound images of the kidneys and bladder were obtained. CLINICAL HISTORY: REFLUX FINDINGS: The right kidney measures 8.6 cm in length. It is normal in echogenicity. The left kidney measures 9.2 cm in length. It is normal in echogenicity. There is no hydronephrosis to indicate significant reflux. There is lobulation of the right mid kidney, likely resulting in pseudo mass. Lobulation could be congenital or sequela of scarring. IMPRESSION: No dilatation of the collecting system to indicate reflux to the level of the kidneys. Mild lobulation right kidney which could be due to congenital lobulation or scarring. Reviewed, Interpreted and Dictated by Jose R Rocha MD Transcribed by Shayna Dukes Authenticated and [facility]
[2023-08-31 17:07] LABS: Hematocrit 39.9 % (37.0-47.0); Hemoglobin 13.9 g/dL (12.2-16.2); Mean Corpuscular HGB Conc 34.8 g/dL (31.8-35.4); Mean Corpuscular Hemoglobin 29.1 pg (27.0-31.2); Mean Corpuscular Volume 83.8 fl (81-99); Platelet Count 262 K/mm3 (142-424); Red Blood Count 4.76 M/mm3 (4.20-5.40); Red Cell Distribution Width 13.8 % (11.5-17.5); White Blood Count 5.8 K/mm3 (4.5-13.0)
[2023-08-31 17:42] LABS: Anion Gap 14.1 mEq/L (5-15); Blood Urea Nitrogen 10 mg/dl (7-17); Calcium 9.7 mg/dl (8.4-10.2); Carbon Dioxide 20 mmol/L (22.0-30.0); Chloride 109 mmol/L (98-107); Estimated Glomerular Filt Rate 71 ml/min (>60); GFR (African American) 86 ML/MIN (>60); Glucose 88 mg/dl (74-100); Potassium 4.1 mmoL/L (3.5-5.1); Sodium 139 mmol/L (136-145)
== END 2023-08-31 23:59 ==
LOC: RAD 15:51
PROVIDERS: PCP Nurse Practitioner; Visit Provider Nurse Practitioner Family
DX: N39.0 Urinary tract infection, site not specified (principal); N13.70 Vesicoureteral-reflux, unspecified
CPT/HCPCS: 36415; 76770; 80048; 85014; 85018; 85048; 85049

== ENCOUNTER 2024-03-10 11:44 | Emergency (ER) | payer OTHER, SELFPAY ==
[2024-03-10 11:45] VITALS: BP 155/93; PULSE 104; RESP 18; TEMP 36.8; O2SAT 98; BMI 51.7
[2024-03-10 11:49] VITALS: BP 155/93; PULSE 127; O2SAT 98
--- NOTE | 2024-03-10 11:54 | XR_ITS ---
PROCEDURE INFORMATION: Exam: XR Left Forearm Exam date and time: 03/10/2024 12:09 PM Age: 23 years old Clinical indication: Injury or trauma; Fall; Blunt trauma (contusions or hematomas); Arm, lower; Left TECHNIQUE: Imaging protocol: Radiologic exam of the left forearm. Views: 2 views. COMPARISON: CR XR WRIST LT MIN 3V 03/10/2024 12:05 PM FINDINGS: Bones/joints: Normal. Soft tissues: Normal. IMPRESSION: No acute findings.
--- NOTE | 2024-03-10 11:54 | XR_ITS ---
PROCEDURE INFORMATION: Exam: XR Left Wrist Exam date and time: 03/10/2024 12:05 PM Age: 23 years old Clinical indication: Injury or trauma; Fall; Blunt trauma (contusions or hematomas); Wrist; Left TECHNIQUE: Imaging protocol: Radiologic exam of the left wrist. Views: 3 or more views. COMPARISON: CR XR HAND LT MIN 3V 03/10/2024 12:04 PM FINDINGS: Bones/joints: Normal. Soft tissues: Normal. IMPRESSION: No acute findings.
--- NOTE | 2024-03-10 11:54 | XR_ITS ---
PROCEDURE INFORMATION: Exam: XR Left Hand Exam date and time: 03/10/2024 12:04 PM Age: 23 years old Clinical indication: Injury or trauma; Fall; Blunt trauma (contusions or hematomas); Hand; Left TECHNIQUE: Imaging protocol: Radiologic exam of the left hand. Views: 3 or more views. COMPARISON: CR XR HAND LT MIN 3V 03/10/2024 12:04 PM FINDINGS: Bones/joints: Normal. Soft tissues: Normal. IMPRESSION: No acute findings.
[2024-03-10 12:00] VITALS: BP 134/75; PULSE 109; O2SAT 99
--- NOTE | 2024-03-10 12:01 | ED_ITS ---
Discharge Plan Disposition Patient Disposition: Home, Self-Care Condition: Good Prescriptions Prescriptions: No Action lisinopril 10 mg tablet 10 mg PO DAILY citalopram [Celexa] 10 mg tablet 10 mg PO DAILY amlodipine 10 mg tablet 10 mg PO DAILY 30 Days norgestimate-ethinyl estradiol 0.18/0.215/0.25 mg-35 mcg (28) tablet 1 tab PO DAILY 28 Days hydroxyzine HCl 25 MG tablet 25 mg PO BIDP PRN (Reason: Anxiety) aripiprazole 2 mg tablet 2 mg PO DAILY buspirone 15 mg tablet 15 mg PO DAILY cefdinir 300 mg capsule 300 mg PO BID 10 Days Qty: 20 0RF methylprednisolone [Medrol ([place])] 4 mg tablets,dose pack See Rx Instructions .Route .COMPLEX 6 Days Qty: 21 0RF Rx Instructions: taper pack; benzonatate 100 mg capsule 100 mg PO TID PRN (Reason: cough) Qty: 30 0RF ondansetron 4 mg tablet,disintegrating 4 mg PO Q8H PRN (Reason: nausea and vomiting) Qty: 10 0RF Referrals Follow up/Referrals: Trisha Cortes APRN [Primary Care Provider] - See instructions Activity Restrictions/Add. Instructions Additional Instructions/Restrictions: Please use a splint as needed for comfort. Please follow-up for repeat x-ray if you have persistent pain. Please return with any new or worsening symptoms. Clinical Impressions Clinical Impression: Injury of wrist Qualifiers: Encounter type: initial encounter Laterality: left Qualified Code(s): S69.92XA - Unspecified injury of left wrist, hand and finger(s), initial encounter Print Language Print Language: [place] Discharge ED Provider: Blas Hughes Adult HPI General Chief complaint: PAIN Stated complaint: left wrist pain fall 03/09 Time Seen by Provider: 03/10/24 12:01 Mode of Arrival: Ambulatory Source of Information: Patient Limitations: No Limitations Description of Symptoms (Recalled from ER Triage Doc. by RN): PT REPORTS TRIPPING AND FALLING ON TO LEFT HAND. REPORTS LEFT WRIST PAIN. History of Present Illness HPI narrative: The patient presents with a chief complaint of left wrist pain after a fall. She reports that last night, while attempting to stand up from sitting on the grass, her foot went into a hole, causing her to fall backward and catch herself with her left hand. She believes her hand bent back further than it should have, resulting in pain. The patient describes the pain as being located from the base of her thumb to her wrist, with the most intense pain in the wrist area. The pain is present throughout the entire area, except for the fingertips. She also reports experiencing tightness and tingling in the affected area. She denies any numbness but admits to experiencing some tingling. Upon examination, the patient experienced pain when making a fist and had difficulty spreading her fingers. She also reported pain when pressure was applied to the wrist and thumb area. Please note that above description of symptoms, in this electronic medical record under categorization of recalled from ER triage doctor by RN are reflective of an initial nursing assessment, however, is not reflective of my full history and physical exam that was personally taken and clarified. Consequentially, this preceding description of symptoms, which may include the patient's categorized chief complaint in the EMR, do not reflect my personal clinical impression, and the ultimate description of history of present illness and patient stated complaints should be deferred to this section of the note. Unless stated otherwise or congruent with this section of the note, additional signs, symptoms, or incongruence should be interpreted as inaccurate with my clinical impression. Related Data Home Medications ?Medication ?Instructions ?Recorded ?Confirmed lisinopril 10 mg tablet 10 mg PO DAILY Hypertension 05/23/18 05/08/23 amlodipine 10 mg tablet 10 mg PO DAILY Hypertension 30 days 06/14/18 05/08/23 norgestimate-ethinyl estradiol 1 tab PO DAILY Control 28 06/14/18 05/08/23 0.18 mg/0.215mg/0.25mg-35 days mcg(28)tablet hydroxyzine HCl 25 mg tablet 25 mg PO BIDP PRN Anxiety 09/30/18 05/08/23 citalopram 10 mg tablet (Celexa) 10 mg PO DAILY Depression 02/23/22 05/08/23 aripiprazole 2 mg tablet 2 mg PO DAILY MOOD 08/14/22 05/08/23 buspirone 15 mg tablet 15 mg PO DAILY Depression 05/08/23 05/08/23 Previous Rx's ?Medication ?Instructions ?Recorded benzonatate 100 mg capsule 100 mg PO TID PRN cough #30 caps 05/08/23 cefdinir 300 mg capsule 300 mg PO BID 10 days #20 caps 05/08/23 methylprednisolone 4 mg tablets in See Rx Instructions .Route 05/08/23 a dose pack (Medrol ([place])) .COMPLEX 6 days #21 tabs ondansetron 4 mg disintegrating 4 mg PO Q8H PRN nausea and 05/08/23 tablet vomiting #10 tabs Allergies Allergy/AdvReac Type Severity Reaction Status Date / Time No Known Allergies Allergy Verified 08/14/22 11:04 [facility] Disclaimer: The information contained in this section may have been updated after the patient was seen, as this information can be updated by other users. Medical History Anxiety Depression Hypertension Urinary tract infection Social History Smoking Status: Never smoker alcohol intake: never substance use type: denies use current occupational status: other Travel in the last 8 weeks: None caffeine: No ROS Obtained: Yes other As per HPI Physical Exam General General appearance: alert and in no apparent distress Head Head exam: atraumatic and normocephalic Eye Eye exam: Present normal appearance Neck Neck exam: Present normal inspection Chest Chest inspection: Present normal inspection and symmetric chest wall rise Respiratory Respiratory exam: Present normal lung sounds bilaterally; Absent respiratory distress Cardiovascular Cardiovascular exam: Present regular rate and normal rhythm Abdominal Exam Abdominal exam: Present soft Neurological Exam Neurological exam: Present alert and oriented X3 Psychiatric Psychiatric exam: Present normal affect and normal mood Skin Skin exam: Present warm and dry Other Other exam information: Tenderness to palpation throughout left wrist, distally neurovascularly intact. No overt bony tenderness to palpation. Reported mild tenderness to palpation over anatomic snuffbox. Medical Decision Making Medical Records Medical records reviewed: Yes I reviewed the patient's medical records. [place] Inquiry Pt receiving controlled substance: No Vital Signs: 03/10/24 11:45 03/10/24 11:49 03/10/24 12:00 Temperature 98.3 F Temperature Source Oral Pulse Rate 127 H 109 H Pulse Rate [Radial] 104 H Respiratory Rate 18 Blood Pressure 155/93 H 134/75 Blood Pressure [Right Arm] 155/93 H Blood Pressure Mean [Right Arm] 113 Blood Pressure Source Blood Pressure Source [Right Arm] Automatic Cuff Blood Pressure Position Blood Pressure Position [Right Arm] Sitting 02 Sat by Pulse Oximetry 98 98 99 Oxygen Delivery Method Room Air Room Air Room Air 03/10/24 12:31 03/10/24 12:51 Temperature 98.0 F Temperature Source Oral Pulse Rate 93 H 93 H Pulse Rate [Radial] Respiratory Rate 18 Blood Pressure 149/76 H 149/76 H Blood Pressure [Right Arm] Blood Pressure Mean [Right Arm] Blood Pressure Source Automatic Cuff Blood Pressure Source [Right Arm] Blood Pressure Position Sitting Blood Pressure Position [Right Arm] 02 Sat by Pulse Oximetry 97 Oxygen Delivery Method Room Air Room Air Orders (Tests/Meds): ORDERS Category Date Time Status XR forearm LT 2V Stat Exams 03/10/24 11:54 Completed XR hand LT min 3V Stat Exams 03/10/24 11:54 Completed XR wrist LT min 3V Stat Exams 03/10/24 11:54 Completed Medical Decision Narrative: Patient with history and exam per above presenting for evaluation of wrist injury Diagnoses considered include fracture, sprain, strain, no clinical evidence to suggest vascular injury or nerve injury or injury elsewhere. ED workup and treatment included: ORDERS Category Date Time Status XR forearm LT 2V Stat Exams 03/10/24 11:54 Completed XR hand LT min 3V Stat Exams 03/10/24 11:54 Completed XR wrist LT min 3V Stat Exams 03/10/24 11:54 Completed Imaging was independently visualized and interpreted by me, significant for no acute findings Please refer to radiology report for full details. My clinical impression at this time is most consistent with wrist sprain. Although patient will follow-up with primary care physician for repeat evaluation given tenderness over anatomic snuffbox. I discussed my clinical impression with patient and answered all questions. At this time, the evidence for any other entities in the differential is insufficient to warrant any further testing or ED observation. This was explained to the patient. The patient was advised that persistent or worsening symptoms require further evaluation. I confirmed the patient's understanding of this discussion. Critical Care Critical Care Time Critical Care Time: No
--- NOTE | 2024-03-10 12:13 | PC.NURSE ---
PT TO XR
--- NOTE | 2024-03-10 12:21 | PC.NURSE ---
PT RETURNED FROM XR
--- NOTE | 2024-03-10 12:29 | PC.NURSE ---
DR BILLINGSLEY AT BEDSIDE
[2024-03-10 12:31] VITALS: BP 149/76; PULSE 93; O2SAT 97
--- NOTE | 2024-03-10 12:44 | PC.NURSE ---
DR BILLINGSLEY AT BEDSIDE TO UPDATE PT AND MOTHER
--- NOTE | 2024-03-10 12:48 | PC.NURSE ---
Pt placed in a velcro splint on her L wrist. Pt given instructions on care. CR
[2024-03-10 12:51] VITALS: BP 149/76; PULSE 93; RESP 18; TEMP 36.7; O2SAT 97
== END 2024-03-10 12:53 | disposition home or self-care (01) ==
PROVIDERS: Emergency Provider Emergency Medicine; PCP Nurse Practitioner
DX: S69.92XA Unspecified injury of left wrist, hand and finger(s), initial encounter (principal); W19.XXXA Unspecified fall, initial encounter
CPT/HCPCS: 73090; 73110; 73130; 99283

== ENCOUNTER 2024-05-22 10:20 | Outpatient (CLI) | payer OTHER, SELFPAY ==
--- NOTE | 2024-05-22 10:24 | US_ITS ---
PROCEDURE INFORMATION: Exam: US Right Breast, Complete Exam date and time: 05/22/2024 11:01 AM Age: 23 years old Clinical indication: Region of palpable concern in the right breast. TECHNIQUE: Imaging protocol: Complete ultrasound of all four quadrants of the right breast and the retroareolar regions, including ultrasound of the axilla when performed. COMPARISON: No relevant prior studies available. FINDINGS: ULTRASOUND: Breast ultrasound findings: Right breast ultrasound: No sonographic abnormality region of palpable concern at 11 o'clock 3 cm nipple. No cysts, masses, regions of shadowing or distortion are seen. No abnormal lymph nodes in the axilla. IMPRESSION: No sonographic finding to explain the region of palpable concern in the right breast. Recommend clinical follow-up. There are no findings suspicious for malignancy. Annual mammographic screening is recommended to commence at age 40 unless otherwise clinically indicated. ASSESSMENT: BI-RADS Category 1: Negative.
== END 2024-05-22 23:59 | disposition home or self-care (01) ==
LOC: RAD 10:20
PROVIDERS: PCP Nurse Practitioner; Visit Provider Nurse Practitioner
DX: N63.11 Unspecified lump in the right breast, upper outer quadrant (principal)
CPT/HCPCS: 76641

== ENCOUNTER 2025-03-17 08:05 | Outpatient (CLI) | payer OTHER, SELFPAY ==
--- OUTSIDE RECORDS SUMMARY | 2025-03-17 08:08 | XMS_ITS | Clinical Summary ---
Author Organization [facility] Address [address] [place] [address] Care Team Providers Care Instructor Private Name Role Phone Kassidy Rodriges APRN Primary Care Provider [phone] Allergies No known active allergies Medications amLODIPine (Norvasc) 10 MG tablet 10/24/2022 Active ARIPiprazole (Abilify) 2 MG tablet 10/24/2022 Active busPIRone (Buspar) 15 MG tablet 10/24/2022 Active citalopram (CeleXA) 20 MG tablet 10/24/2022 Active hydrOXYzine HCl (Atarax) 25 MG tablet 10/24/2022 Active lisinopril 5 MG tablet 7 mg. 10/24/2022 Active Tri-Sprintec 0.18/0.215/0.25 MG-35 MCG tablet 10/04/2022 Ac tive ondansetron ODT (Zofran-ODT) 4 MG disintegrating tablet 05/08/2023 Active Active Problems Problem Noted Date Diagnosed Date Urinary urgency 11/02/2023 Reflux of urine 10/31/2022 Recurrent UTI 10/31/2022 Myositis 09/30/2021 05/02/2023 Overview (05/02/2023): Problem Code: M60.9; Problem Code Type: ICD-10; Problem Code: M60.9; Problem Code Type: ICD-10; Problem Code: M60.9; Problem Code Type: ICD-10; Otogenic otalgia 08/26/2021 05/02/2023 Candidiasis of vulva 01/22/2021 05/02/2023 Dysuria 01/22/2021 05/02/2023 Overview (05/02/2023): Problem Code: R30.0; Problem Code Type: ICD-10; Problem Code: R30.0; Problem Code Type: ICD-10; Otitis externa of left ear 01/09/202105/02 Overview (05/02/2023): Problem Code: H60.332; Problem Code Type: ICD-10; Healthy pediatric patient 08/04/20202022 Muscle pain 09/23/2019 05/02/2023 Overview (05/02/2023): Problem Code: M79.10; Problem Code Type: ICD-10; Chronic fatigue syndrome 09/03/2019 023 Overview (05/02/2023): Problem Code: R53.82; Problem Code Type: ICD-10; 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 05/02/2023 Overview (05/02/2023): Problem Code: H53.8; Problem Code Type: ICD-10; Depression with anxiety 08/07/2019 Tachycardia 08/05/2019 05/02/2023 Acute cystitis 11/06/2018 05/02/2023 Overview (05/02/2023): Problem Code: J20; Problem Code Type: ICD-10; Problem Code: N30.00; Problem Code Type: ICD-10; Gastro-esophageal reflux disease with esophagiti s 09/18/2018 05/02/2023 Overview (05/02/2023): Problem Code: K21.0; Problem Code Type: ICD-10; Common cold 09/03/2018 05/02/2023 Epigastric pain 08/14/2018 05/02/2023 Overview (05/02/2023): Problem Code: R10.13; Problem Code Type: ICD-10; Allergic rhinitis due to pollen 07/09/2018 05/02/2023 Overview (05/02/2023): Problem Code: J30.1; Problem Code Type: ICD-10; Problem Code: J30.1; Problem Code Type: ICD-10; Cough 07/09/2018 05/02/2023 Overview (05/02/2023): Problem Code: R05; Problem Code Type: ICD-10; Problem Code: R05; Problem Code Type: ICD-10; Problem Code: R05; Problem Code Type: ICD-10; Disorder of upper respiratory system 05/17/2018 05/02/2023 Overview (05/02/2023): Problem Code: J06.9; Problem Code Type: ICD-10; Problem Code: J06.9; Problem Code Type: ICD-10; Noninflammatory disorder of vagina 02/13/2018 05/02/2023 Overview (05/02/2023): Problem Code: 623.8; Problem Code Type: ICD-9; Epidermoid cyst of skin 11/27/2017 05/02/20 Overview (05/02/2023): Problem Code: L72.3; Problem Code Type: ICD-10; Benign essential hypertension 10/03/2017 Overview (05/02/2023): Problem Code: 401.1; Problem Code Type: ICD-9; Problem Code: 401.1; Problem Code Type: ICD-9; Right lower quadrant pain 10/03/20172022 Overview (05/02/2023): Problem Code: R10.31; Problem Code Type: ICD-10; Sprain of distal tibiofibular ligament 7 05/02/2023 Overview (05/02/2023): Problem Code: S93.432A; Problem Code Type: ICD-10; Ankle joint pain 05/18/2017 05/02/2023 Diarrhea 04/04/2017 05/02/2023 Overview (05/02/2023): Problem Code: R19.7; Problem Code Type: ICD-10; Problem Code: R19.7; Problem Code Type: ICD-10; Problem Code: R19.7; Problem Code Type: ICD-10; Nausea and vomiting 04/04/2017 05/02/2023 Overview (05/02/2023): Problem Code: R11.0; Problem Code Type: ICD-10; Problem Code: R11.2; Problem Code Type: ICD-10; Moderate major depression, single episode 201605/02/2023 Overview (05/02/2023): Problem Code: F32.9; Problem Code Type: ICD-10; Problem Code: F32.1; Problem Code Type: ICD-10; 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 Chronic kidney disease, stage 2 (mild) 4 Hypertension 04/16/2014 Childhood obesity 04/16/2014 05/02/2023 Overview (05/02/2023): Problem Code: Z68.54; Problem Code Type: ICD-10; Problem Code: Z68.54; Problem Code Type: ICD-10; IBS (irritable bowel syndrome) 04/16/2014 1 Colitis 12/02/2013 05/02/2023 Encounters Date Type Department Care Team Description 01/14/2025 Telephone [facility] Urology [address] [place] [address] Maya Osman, CLINICAL APPEALS REVIEWER, DNP HCN Clinical Concern/Question; Appointment Changes from Last 3 Months Immunizations Immunization Administration Dates Next Due DTaP 11/29/2006, 4,08/04/2003,01/01 DTaP, Unspecified 03/21/2003 HPV 9-Valent 08/04/2020,02/13/2018 HPV, Quadrivalent 09/18/2018 Hep A, ped/adol, 2 dose 09/18/2018,02/13/2018 Hep B, Adolescent or Pediatric 2002 Hib (PRP-OMP) 03/21/2003 Hib / Hep B 02/20/2004,01/01/2003 IPV 11/29/2006, 4,03/21/2003,01/01 MMR 11/29/2006,05/20/2004 Meningococcal MCV4O 08/04/2020,02/13/2018 Moderna COVID-19 Vaccine (Re d Cap) 12+ years 09/17/2021,01/27/2021,12/19/2020 Pneumococcal Conjugate PCV 7 02/20/2004, 08/04/2003,03/21/2003,01/01 Tdap 09/18/2018 Varicella 02/20/2004 Family History Medical History Relation Name Comments Diabetes type II Maternal Grandfather Hypertension Maternal Grandmother Obesity Maternal Grandmother Conversions - Other Mother cardiova scular disease Enuresis Other 1 Asthma Other 2 Asthma Other 3 Kidney disease Other 4 Conversions - Other Other 5 Urinary reflux Hypertension Paternal Grandmother Relation Name Status Comments Maternal Grandfather Maternal Grandmother Mother Other 1 Other 2 Other 3 Other 4 Other 5 Paternal Grandmother Social History Tobacco Use Types Packs/Day Years Used Date Smoking Tobacco: Never Passive Smoke Exposure: Yes Smokeless Tobacco: Never Tobacco Cessation:Counseling Given: Not Answered Alcohol Use Standard Drinks/Week Comments Never 0 (1 standard drink = 0.6 oz pur e alcohol) PHQ-2 Answer Date Recorded Patient Health Questionnaire-2 Score 0 05/02/2024 PHQ-2A Answer Date Recorded Patient Health Questionnaire-2 Score 0 05/02/2023 Comments Unknown Sex and Gender Information Value Date Recorded Sex Assigned at Not on file Legal Sex Female 7:35 PM EDT Gender Identity Not on file Sexual Orientation Not on file Last Filed Vital Signs Vital Sign Reading Time Taken Comments Blood Pressure 158/73 10/31/2022 12:24 PM EDT Pulse 96 10/31/2022 12:24 PM EDT Temperature 36.8 C (98.3 F) 05/21/2019 3:54 PM EDT Respiratory Rate 16 08/07/2019 10:42 AM EST Oxygen Saturation - - Inhaled Oxygen Concentration - - Weight 145 kg (320 lb 8.8 oz) 05/02/2024 11:31 A M EDT Height 162.6 cm (5' 4 ) 05/02/2024 11:31 AM EDT Body Mass Index 55.02 05/02/2024 11:31 AM EDT Plan of Treatment Upcoming Encounters Date Type Department Care Team (Late st Contact Info) Description 03/24/2025 9:00 AM EDT Office Visit [facility] Urology [address], [address] [place] [address] Maya Osman, JEFFERSON, DNP [address] [place] [address] 03/24/2025 10:50 AM EDT Consult [facility] Medicine Specialties [address] [place] [address] Silvia Merlos, CLINICAL APPEALS REVIEWER [address] [place] [address] Health Maintenance Due Date Last Done Comments [facility]-HIV Screening 2002 [facility]-Hepatitis C Screening 2002 [facility]-Infant/Child/Adol SDOH Screenings 2002 [facility]-Varicella Vaccines (2 of 2 - 2-dose childhood series) 12/27/2006 02/20/2004 [facility]- SDOH Screenings 2020 [facility]-Adult SDOH Screenings 2020 [facility]-Pap Smear 2023 [id number] Vaccine ( season) 2024 09/17/2021, 01/27/2021, 12/19/2020 [facility]-Influenza Vaccine (#1) 2025 [facility]-Depression Screening 05/02/2025 05/02/2024 [facility]-DTaP,Tdap,and Td Vaccines (7 - Td or Tdap) 09/18/2028 09/18/2018, 11/29/2006, 05/20/2004, Additional history exists [facility]-Zoster Vaccines (1 of 2) 2052 02/20/2004 [facility]-HIB Vaccines Completed 02/20/2004, , 01/01/2003 [facility]-Hepatitis B Vaccines Completed 004, 01/01/2003, 2002 [facility]-Pneumococcal Vaccine: Pediatrics (0 to 5 Years) and At-Risk Patients (6 to 49 Years) Aged Out 02/20/2004, 08/04/2003, 03/21/2003, Additional history exists No longer eligible based on patient's age to complete this topic [facility]-IPV Vaccines Completed 11/29/2006, 11/2003, 03/21/2003, Additional history exists [facility]-Hepatitis A Vaccines Completed 09/18/2018, 01/28 HPV Vaccines Completed 08/04/2020, 08/31, 02/13/2018 [facility]-Obesity Intervention Completed 05/02/2024, 10/2023 [facility]-Rotavirus Vaccines Aged Out No lo nger eligible based on patient's age to complete this topic Insurance [facility] MEDICAID Care Teams Instructor Private Relationship Specialty Start Date End Date Kassidy Rodriges APRN [address] [place] [address] [facility] - General 12/11/20
--- OUTSIDE RECORDS SUMMARY | 2025-03-17 08:08 | XMS_ITS | Encounter Summary ---
Author Organization [facility] Address [address] [place] [address] Care Team Providers Care Convention Services Director Name Role Phone Kassdiy Rodriges JEFFERSON Primary Care Provider [phone] Reason for Referral * Consultation (Routine) - Closed Specialty Diagnoses / Procedures Referred By Racquel t Referred To Contact Nephrology Diagnoses Urinary tract infection without hematuria, site unspecified Trisha Cortes APRN [address] [place] [address] Phone: tel: fax: Referral ID Status Reason Start Date Expiration Date V isits Requested Visits Authorized [id number] Closed Specialty Services Required 08/09/2022 02/08/2024 1 1 Encounter Details Date Type Department Care Team (Late st Contact Info) Description 08/09/2022 Community [facility] [address] [place] [address] Trisha Cortes APRN [address] [place], [place] [id number] Urinary tract infection without hematuria, site unspecified (Primary Dx) Social History Tobacco Use Types Packs/Day Years Used Date Smoking Tobacco: Passive Smo ke Exposure - Never Smoker Comments Unknown Sex and Gender Information Value Date Recorded Sex Assigned at Not on file Legal Sex Female 7:35 PM EDT Gender Identity Not on file Sexual Orientation Not on file documented as of this encounter Plan of Treatment Upcoming Encounters Date Type Department Care Team (Late st Contact Info) Description 03/24/2025 9:00 AM EDT Office Visit [facility] Urology [address] [place] [address] Maya Osman, GARMENT FORM ASSEMBLER, DNP [address] [place] [address] 03/24/2025 10:50 AM EDT Consult [facility] Medicine Specialties [address] [place] [address] Silvia Merlos, GARMENT FORM ASSEMBLER [address] [place] [address] Scheduled Referrals Name Type Priority Associated Diagnoses Orde r Schedule Ambulatory referral to Nephrology Outpatient Referral Routine Urinary tract infection without hematuria, site unspecified Expected: 08/09/2022 (Approximate), Expires: 02/07/2024 documented as of this encounter Visit Diagnoses Diagnosis Urinary tract infection without hematuria, site unspecified- Primary documented in this encounter Care Teams Convention Services Director Relationship Specialty Start Date End Date Kassidy Rodriges, GARMENT FORM ASSEMBLER Count includes the [facility] [place] [address] PCP - General 12/11/20 documented as of this encounter
[2025-03-17 08:41] LABS: Hematocrit 41.4 % (37.0-47.0); Hemoglobin 13.9 g/dL (12.2-16.2); Immature Granulocytes % 0.1 %; Mean Corpuscular HGB Conc 33.6 g/dL (31.8-35.4); Mean Corpuscular Hemoglobin 28.1 pg (27.0-31.2); Mean Corpuscular Volume 83.8 fl (81-99); Nucleated Red Blood Cells % 0 %; Platelet Count 283 K/mm3 (142-424); Red Blood Count 4.94 M/mm3 (4.20-5.40); Red Cell Distribution Width-SD 39.7 fL; White Blood Count 6.7 K/mm3 (4.8-10.8)
[2025-03-17 09:24] LABS: Albumin Level 4.5 g/dl (3.5-5.0); Chloride 108 mmol/L (98-107); Sodium 139 mmol/L (136-145)
[2025-03-17 09:25] LABS: Potassium 4.2 mmoL/L (3.5-5.1)
[2025-03-17 09:27] LABS: Alanine Aminotransferase 16 U/L (12-78); Albumin/Globulin Ratio 1.9 (1.1-1.8); Alkaline Phosphatase 99 U/L (38-126); Anion Gap 14.2 mEq/L (5-15); Aspartate Amino Transferase 24 U/L (14-36); Bilirubin,Total 0.6 mg/dl (0.2-1.3); Blood Urea Nitrogen 12 mg/dl (7-17); Calcium 9.5 mg/dl (8.4-10.2); Carbon Dioxide 21 mmol/L (22.0-30.0); Creatinine,Serum 0.90 mg/dl (0.52-1.04); Estimated Glomerular Filt Rate 78 ml/min (>60); GFR (African American) 95 ML/MIN (>60); Globulin 2.4 g/dL (1.3-3.2); Glucose 97 mg/dl (74-100); Magnesium 1.7 mg/dl (1.6-2.3); Total Protein,Serum 6.9 g/dl (6.3-8.2)
[2025-03-17 09:41] LABS: Free T4 (Free Thyroxine) 1.03 ng/dl (0.78-2.19)
[2025-03-17 09:49] LABS: Hemoglobin A1C 4.9 % (4.0-6.0)
[2025-03-17 09:56] LABS: Thyroid Stimulating Hormone 1.72 uIU/mL (0.465-4.68)
[2025-03-17 16:25] LABS: 25-OH Vitamin D, Total 18.6 ng/mL (30-100)
[2025-03-17 19:42] LABS: Vitamin B12 218 pg/mL (239-931)
[2025-03-17 21:44] LABS: Folate 13.80 ng/mL
== END 2025-03-17 23:59 | disposition home or self-care (01) ==
PROVIDERS: PCP Nurse Practitioner; Visit Provider Nurse Practitioner
DX: R20.2 Paresthesia of skin (principal)
CPT/HCPCS: 36415; 80053; 82306; 82607; 82746; 83036; 83735; 84439; 84443; 85025

== ENCOUNTER 2025-03-26 08:08 | Outpatient (CLI) | payer OTHER, SELFPAY ==
--- OUTSIDE RECORDS SUMMARY | 2025-03-24 09:00 | XMS_ITS | Encounter Summary ---
Author Organization [facility] Address [address] [place] [address] Care Team Providers Care College Counselor Name Role Phone SebastianTrisha JEFFERSON Primary Care Provider + [phone] Maya Osman APRN, DNP Unavailable [phone] Reason for Referral * Imaging (Routine) - Authorized Specialty Diagnoses / Procedures Referred By Racquel t Referred To Contact Diagnoses Reflux of urine Recurrent UTI Procedures US Renal Complete Maya Osman APRN, DNP [address] [place] [address] Phone: tel: fax: Referral ID Status Reason Start Date Expiration Date V isits Requested Visits Authorized [id number] Authorized 03/24/2025 09/23/2026 1 1 Reason for Visit * Reason Comments Follow-up Pt notes that she do es get the burning sensation after urination often. She does note 2-3 UTIs since the last visit. Encounter Details Date Type Department Care Team (Late st Contact Info) Description 03/24/2025 9:00 AM EDT Office Visit [facility] [address] [place] [address] Maya Osman APRN, DNP [address] [facility] [address] [place] [address] High-tone pelvic floor dysfunction (Primary [...] APRN, DNP - 03/24/2025 9:00 AM EDT [facility] Clinic Note Consulting provider: [...] effective. 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 [id number]. She was advised to discuss this with her primary care provider during her upcoming appointment. 7. Due to history of VUR and UTIs, have SANDRA. Will call for most recent blood work. Follow-up A follow-up visit is scheduled in 3 months via telehealth. ADDENDUM: Outside lab results were obtained: 03/17/2025: CMP: Cr 0.9 eGFR 78 Plan: Keep 24 hour voiding diary, send via [employer] for my review Begin OTC D-mannose 2 grams daily for UTI prevention Behavioral modifications for pelvic floor dysfunction and IBS Begin Robaxin 500 mg 1 tablet at bedtime, slowly increase as needed/tolerated to a maximum dose of 2 tablets TID Follow-up with PCP regarding edema and elevated HR Will call for outside blood work Return in 3 months via with [facility] Maya Osman APRN, DNP Verbal consent was obtained to use ambient listening technology to assist in the documentation of the encounter: yes documented in this encounter Plan of Treatment Upcoming Encounters Date Type Department Care Team (Late st Contact Info) Description 07/03/2025 12:40 PM EST Office Visit [facility] Urology [address] [place] [address] Maya Osman APRN, DNP [address] [place] [address] Scheduled Orders Name Type Priority [...] Urine Color Yellow 03/24/2025 9:07 AM EDT [facility] UR[facility] POCT Urine Clarity Clear 03/24/2025 9:07 AM EDT [facility] POCT Urine Glucose Negative Negative mg/dL 03/24/2025 9:07 AM EDT [facility] POCT Urine Bilirubin Negative Negative mg/dL 03/24/2025 9:07 AM EDT [facility] POCT Urine Ketones Negative Negative mg/dL 03/24/2025 9:07 AM EDT [facility] POCT Urine Specific [place] 1.025 1.005 - 1.030 03/24/2025 9:07 AM EDT [facility] POCT Urine Blood Negative Negative 03/24/2025 9:07 AM EDT [facility] POCT pH, Urine 5.5 5.0 - 8.0 03/24/2025 9:07 AM EDT [facility] POCT Protein, Urine Negative Negative mg/dL 03/24/2025 9:07 AM EDT [facility] POCT Urobilinogen, Urine 0.2 0.2, 1.0 EU/dL 03/24/2025 9:07 AM EDT [facility] POCT Nitrite, Urine Negative Negative 03/24/2025 9:07 AM EDT [facility] POCT Urine Leukocyte Esterase Negative Negative 03/24/2025 9:07 AM EDT [facility] Urine 03/24/2025 9:06 AM EDT 03/24/2025 9:08 AM EDT Maya Osman APRN, DNP LAB POINT OF C ARE TEST DOCKED DEVICE UNSOLICITED RESULTS Final Result [facility] [address] [place], [place] documented in this encounter Visit Diagnoses [...] documented as of this encounter Care Teams College Counselor Relationship Specialty Start Date End Date Trisha Cortes APRN [address] [place] [address] PCP - General 03/24/25 Maya Osman APRN, GWENDOLYN [address] [place] [address] Nurse Practitioner Urology 03/24/25 documented as of this encounter
--- OUTSIDE RECORDS SUMMARY | 2025-03-24 10:50 | XMS_ITS | Encounter Summary ---
Author Organization [facility] Address [address] [place] [address] Care Team Providers Care Shingle Catcher Name Role Phone Trisha Cortes JEFFERSON Primary Care Provider + [phone] OsmanMaya maldonado APRN, DNP Unavailable [phone] Reason for Visit * Reason Comments Joint Pain Consult * Consultation (Routine) - Closed Specialty Diagnoses / Procedures Referred By Racquel t Referred To Contact Rheumatology Diagnoses Multiple joint pain Sebastian JAMILAH RicoN [address] [place] [address] Phone: tel: fax: Referral ID Status Reason Start Date Expiration Date V isits Requested Visits Authorized [id number] Closed Specialty Services Required 02/21/2025 08/23/2026 1 1 Encounter Details Date Type Department Care Team (Late st Contact Info) Description 03/24/2025 10:50 AM EDT Consult [facility] [address] [place] [address] Silvia Merlos, LEARNING ENGINEER [address] [place] [address] Back pain, unspecified back location, unspecified back pain laterality, unspecified chronicity (Primary Dx); Dry mouth; Spasms of the hands or feet; Vapes nicotine containing substance Social History Tobacco Use Types Packs/Day Years [...] Sign Reading Time Taken Comments Blood Pressure 123/72 03/24/2025 10:42 AM EDT Pulse 108 03/24/2025 10:42 AM EDT Temperature 36.9 C (98.4 F) 03/24/2025 10:42 AM EDT Respiratory Rate 16 03/24/2025 10:42 AM EDT Oxygen Saturation 100% 03/24/2025 10:42 AM EDT Inhaled Oxygen Concentration - - Weight 156 kg (343 lb 14.7 oz) 03/24/2025 10:42 AM EDT Height 162.6 cm (5' 4 ) 03/24/2025 10:42 AM EDT Body Mass Index 59.03 03/24/2025 10:42 AM EDT documented in this encounter Functional [...] drinking? 1 or 2 03/24/2025 10:47 AM EDT Nu Laguerre Q3: How often do you have six or more drinks on one occasion? Never 03/24/2025 10:47 AM EDT Nu Laguerre * Over the past 2 weeks, how often have you been bothered by any of the following problems? Question Answer Date of Assessment Author Little interest or pleasure in doing things Not at all 03/24/2025 10:45 AM SHERICET Nu Laguerre Feeling down, depressed, or hopeless Several days 03/24/2025 10:45 AM SHERICET Nu Laguerre Patient Health Questionnaire -2 Score 1 03/24/2025 10:45 AM EDT Nu Laguerre * Question Answer Date of Assessment Author Trouble falling or staying asleep, or sleeping too much Several days 03/24/2025 9:17 AM EDT Rosie Smith Feeling tired or having little energy Several days 03/24/2025 9:17 AM EDT Rosie Smith Poor appetite or overeating Several days 03/24/2025 9: 17 AM EDRosie Hayes Feeling bad about yourself - or that you are a failure or have let yourself or your family down Several days 03/24/2025 9:17 AM Rosie Barros Trouble concentrating on things, such as reading the newspaper or watching television Not at all 03/24/2025 9:17 AM EDT Rosie Smith Moving or speaking so slowly that other people could have noticed? Or the opposite - being so fidgety or restless that you have been moving around a lot more than usual. Several days 03/24/2025 9:17 AM EDRosie Hayes Thoughts that you would be better off or hurting yourself in some way Not at all 03/24/2025 9:17 AM EDT Lissa Smith Patient Health Questionnaire-9 Score 6 03/24/2025 9:17 AM EDT Tae Smith * If you checked off any problems [...] as of this encounter Miscellaneous Notes * Patient Instructions - Silvia Merlos APRN - 03/24/2025 10:50 AM EDT Recommend discussing neurology and [place] ophthalmology referral with primary care provider. documented in this encounter Plan of Treatment Upcoming Encounters Date Type Department Care Team (Late st Contact Info) Description 07/03/2025 12:40 PM EST Office Visit [facility] Urology [address] [place] [address] Maya Osman APRN, DNP [address] [place] [address] Scheduled Orders Name Type Priority Associated Diagnoses Orde r Schedule Cyclic Citrul Peptide Antibody IgG Lab Routine Dry mouth Spasms of the hands or feet Expected: 03/24/2025 (Approximate), Expires: 09/24/2026 XR Hand and Wrist Bilateral 2 Views Imaging Routine Dry mouth Expected: 03/24/2025 (Approximate), Expires: 09/24/2026 ENAII Lab Routine Dry mouth Expected: 03/24/2025 (Approximate), Expires: 09/25/2026 HLA B27 Typing Lab Routine Back pain, unspecified back location, unspecified back pain laterality, unspecified chronicity Expected: 03/24/2025 (Approximate), Expires: 09/24/2026 XR Sacroiliac Joints 3+ Views Imaging Routine Back pain, unspecified back location, unspecified back pain laterality, unspecified chronicity Expected: 03/24/2025, Expires: 09/25/2026 documented as of this encounter Visit Diagnoses Diagnosis Back pain, unspecified back location, unspecified back pain laterality, unspecified chronicity- Primary Dry mouth Disturbance of salivary secretion Spasms of the hands or feet [place] Vapes nicotine containing substance documented in this encounter Additional Health Concerns Assessment Noted Time PHQ-9 Depression Total Score: 6 03/24/20 9:17 AM EDT A fall risk assessment has been complete d for the patient 03/24/2025 10:45 AM EDT A Body Mass Index follow-up plan has been documented for the patient 03/24/2025 12:15 PM EDT documented as of this encounter Care Teams Shingle Catcher Relationship Specialty Start Date End Date Trisha Cortes APRN [address] [place] [address] PCP - General 03/24/25 Maya Osman APRN, GWENDOLYN [address] [place] [address] Nurse Practitioner Urology 03/24/25 documented as of this encounter
--- OUTSIDE RECORDS SUMMARY | 2025-03-26 08:14 | XMS_ITS | Encounter Summary ---
Author Organization [facility] Address [address] [place] [address] Care Team Providers Care Signwriter Name Role Phone Kassidy Rodriges JEFFERSON Primary Care Provider + [phone] Trisha Cortes APRN Primary Care Provider + [phone] Maya Osman APRN, DNP Unavailable + [phone] Reason for Referral * Consultation (Routine) - Closed Specialty Diagnoses / Procedures Referred By Racquel t Referred To Contact Nephrology Diagnoses Urinary tract infection without hematuria, site unspecified Trisha Cortes APRN [address] [place] [address] Phone: tel: fax: Referral ID Status Reason Start Date Expiration Date V isits Requested Visits Authorized [id number] Closed Specialty Services Required 08/09/2022 02/08/2024 1 1 Encounter Details Date Type Department Care Team (Late st Contact Info) Description 08/09/2022 Community [facility] [address] [place] [address] Trisha Cortes APRN [address] [place], [place] [id number] Urinary tract infection without hematuria, site unspecified [...] Description 07/03/2025 12:40 PM EST Office Visit [facility] [address] [place] [address] Maya Osman APRN, GWENDOYLN [address] [address] Scheduled Referrals Name Type Priority Associated Diagnoses Orde r Schedule Ambulatory referral to Nephrology Outpatient Referral Routine Urinary tract infection without hematuria, site unspecified Expected: 08/09/2022 (Approximate), Expires: 02/07/2024 documented as of this encounter Visit Diagnoses Diagnosis Urinary tract infection without hematuria, site unspecified- Primary documented in this encounter Care Teams Signwriter Relationship Specialty Start Date End Date Kassidy Rodriges APRN [address] [place] [address] PCP - General 12/11/20 03/23/25 Trisha Cortes APRN [address] [place] [address] PCP - General 03/24/25 Maya Osman APRN, GWENDOLYN [address] [id number] Nurse Practitioner Urology 03/24/25 documented as of this encounter
--- OUTSIDE RECORDS SUMMARY | 2025-03-26 08:14 | XMS_ITS | Clinical Summary ---
Author Organization [facility] Address [address] [place] [address] Care Team Providers Care Air Control Electronics Operator Name Role Phone Trisha Cortes JEFFERSON Primary Care Provider + [phone] OsmanMaya maldonado APRN, DNP Unavailable + [phone] Allergies No known active allergies Medications amLODIPine (Norvasc) 10 MG tablet 10/25/19 23 Active ARIPiprazole (Abilify) 2 MG tablet 10/25/19 23 Active busPIRone (Buspar) 15 MG tablet 10/25/19 23 Active citalopram (CeleXA) 20 MG tablet 10/25/19 23 Active hydrOXYzine HCl (Atarax) 25 MG tablet 10/25/19 23 Active lisinopril 5 MG tablet 7 mg. 10/25/19 23 Active cholecalciferol (Vitamin D-3) 1.25 MG (08005 UT) capsule Take 1 capsule by mouth 1 time per week. Active clonazePAM (KlonoPIN) 0.5 MG tablet TAKE 1/2 TABLET BY MOUTH ONCE A DAY NEEDED FOR ANXIETY Active Cariprazine HCl (VRAYLAR PO) 1.5 mg. Active hydrOXYzine pamoate (Vistaril) 25 MG capsule 2 capsules. 03/13/20 25 Active citalopram (CeleXA) 40 MG tablet Take 1 tablet by mouth daily. 03/21/20 25 Active methocarbamol (Robaxin) 500 MG tabletIndications: High-tone pelvic floor dysfunction Start by taking 1 pill by mouth every night. Slowly increase to 1 pill 2x/day as needed, with a maximum of 2 pills 3x/day. 180 tablet 11 03/24/20 25 Active Tri-Sprintec 0.18/0.215/0.25 MG-35 MCG tablet 10/05/19 025 Discontinued ondansetron ODT (Zofran-ODT) 4 MG disintegrating tablet 05/08/20 025 Discontinued Active Problems Problem Noted Date Diagnosed Date [...] Encounters Date Type Department Care Team Description 03/24/2025 10:50 AM EDT Consult [facility] Medicine Specialties [address], [address] [place] [phone] Silvia Merlos APRN Back pain, unspecified back location, unspecified back pain laterality, unspecified chronicity (Primary Dx); Dry mouth; Spasms of the hands or feet; Vapes nicotine containing substance 03/24/2025 9:00 AM EDT Office Visit [facility] Urology [address], [address] [place] [phone] Maya Osman APRN, GWENDOLYN High-tone pelvic floor dysfunction (Primary Dx); Reflux of urine; Recurrent UTI 03/24/2025 Telephone [facility] Urology [address] [phone] Maya Osman APRN, GWENDOLYN Lab Results 03/24/2025 Telephone [facility] Urology [address] [phone] Maya Osman APRN, DNP 03/24/2025 Travel 01/14/2025 Telephone [facility] Urology [address] [place] [phone] Maya Osman APRN, GWENDOLYN HCN Clinical Concern/Question; Appointment Changes from Last 3 Months Immunizations Immunization Administration Dates Next Due DTaP 11/29/2006, 4,08/04/2003,03/21,01/01/2003 DTaP, Unspecified 11/29/2006, 4,08/04/2003,03/21,01/01/2003 HPV 9-Valent 08/04/2020,02/13/2018 HPV, Quadrivalent 09/18/2018 Hep A, ped/adol, 2 dose 09/18/2018,02/13/2018 Hep B, Adolescent or Pediatric 2002 Hib (PRP-OMP) 03/21/2003 Hib / Hep B 02/20/2004,01/01/2003 IPV 11/29/2006, 4,03/21/2003,01/01 MMR 11/29/2006,05/20/2004 Meningococcal MCV4O 08/04/2020,02/13/2018 Meningococcal MCV4P 08/04/2020,02/13/2018 Moderna COVID-19 Vaccine (Re d Cap) 12+ years 09/17/2021,01/27/2021,12/19/2020 Pneumococcal Conjugate PCV 7 02/20/2004, 08/04/2003,03/21/2003,01/01 Tdap 09/18/2018 Varicella 02/20/2004 Family History Medical History Relation Name Comments Diabetes type II Maternal Grandfather Hypertension Maternal Grandmother Bridgette Del Rosario Obesity Maternal Grandmother Bridgette Del Rosario Conversions - Other Mother cardiova scular disease Enuresis Other 1 Asthma Other 2 Asthma Other 3 Kidney disease Other 4 Conversions - Other Other 5 Urinary reflux Hypertension Paternal Grandmother Relation Name Status Comments Maternal Grandfather Maternal Grandmother Bridgette Del Rosario Mother Other 1 Other 2 Other 3 [...] Mass Index 59.03 03/24/2025 10:42 AM EDT Plan of Treatment Upcoming Encounters Date Type Department Care Team (Late st Contact Info) Description 07/03/2025 12:40 PM EST Office Visit [place] [facility] [address], [address] [place] [address] Maya Osman APRN, DNP [address] [place] [address] Health Maintenance Due Date Last Done Comments [facility]-HIV Screening 2002 [facility]-Hepatitis C Screening 2002 [facility]-/Child/Adol SDOH Screenings 2002 [facility]-Varicella Vaccines (2 of 2 - 2-dose childhood series) 12/27/2006 02/20/2004 [facility]- SDOH Screenings 2020 [facility]-Adult SDOH Screenings 2020 [facility]-Pap Smear 2023 [id number] Vaccine ( season) 2024 09/17/2021, 01/27/2021, 12/19/2020 [facility]-Influenza Vaccine (#1) 2025 [facility]-Depression Screening 03/24/2026 03/24/2025, 03/01 [facility]-DTaP,Tdap,and Td Vaccines (7 - Td or Tdap) 09/18/2028 09/18/2018, 11/29/2006, 11/29/2006, Additional history exists [facility]-Zoster Vaccines (1 of [...] Completed 08/04/2020, 08/31, 02/13/2018 [facility]-Obesity Intervention Completed 025, 05/02/2024, 11/02/2023 [facility]-Rotavirus Vaccines Aged Out No lo nger eligible based on patient's age to complete this topic Procedures Procedure Name Priority Date/Time Associated Diagnosis Comments POCT URINALYSIS DIPSTICK Routine 03/24/2025 9:06 AM EDT from Last 3 Months Results * POCT URINALYSIS DIPSTICK (03/24/2025 9:06 AM EDT) POCT Urine Color Yellow 03/24/2025 9:[address] [facility] POCT Urine Clarity Clear 03/24/2025 9:[address] [facility] POCT Urine Glucose Negative Negative mg/dL 03/24/2025 9:[address] [facility] POCT Urine Bilirubin Negative Negative mg/dL 03/24/2025 9:[address] [facility] POCT Urine Ketones Negative Negative mg/dL 03/24/2025 9:[address] [facility] POCT Urine Specific [place] 1.025 1.005 - 1.030 03/24/2025 9:[address] [facility] POCT Urine Blood Negative Negative 03/24/2025 9:[address] [facility] POCT pH, Urine 5.5 5.0 - 8.0 03/24/2025 9:[address] [facility] POCT Protein, Urine Negative Negative mg/dL 03/24/2025 9:[address] [facility] POCT Urobilinogen, Urine 0.2 0.2, 1.0 EU/dL 03/24/2025 9:[address] [facility] POCT Nitrite, Urine Negative Negative 03/24/2025 9:[address] [facility] POCT Urine Leukocyte Esterase Negative Negative 03/24/2025 9:[address] [facility] Urine 03/24/2025 9:06 AM EDT 03/24/2025 9:08 AM EDT us Maya Osman CREDIT PROFESSIONAL, DNP LAB POINT OF C ARE TEST DOCKED DEVICE UNSOLICITED RESULTS Final Result Performing Organization Address City/State/[facility] de Phone Number [facility] [address], [place] from Last 3 Months Insurance [employer] [facility] MEDICAID Care Teams Air Control Electronics Operator Relationship Specialty Start Date End Date Trisha Cortes APRN [address] [place] [address] PCP - General 03/24/25 Maya Osman APRN, DNP [address] [facility] [address] [place] [address] Nurse Practitioner Urology 03/24/25
--- OUTSIDE RECORDS SUMMARY | 2025-03-26 08:14 | XMS_ITS | Clinical Summary ---
Author Organization [facility] Address [address] [place] [address] Care Team Providers Care Nutrition Instructor Name Role Phone Lazaro Bran M.D. Primary Care Provider [phone] Source Comments [facility] is fully rolled out with thefollowing exceptions:General Clinical Research [facility] Allergies No known active allergies Medications lisinopril (PRINIVIL) 5 MG tablet 5 mg 1 time a day. Active lisinopril (PRINIVIL) 2.5 MG tablet Take 2.5 mg by mouth every morning. Active Active Problems Problem Noted Date Diagnosed Date Colitis 12/02/2013 Social History Tobacco Use Types Packs/Day Years Used Date Smoking Tobacco: Never Assessed Comments Unknown Sex and Gender Information Value Date Recorded Sex Assigned at Not on file Legal Sex Female 10:11 AM EDT Gender Identity Not on file Sexual Orientation Not on file Last Filed Vital Signs Vital Sign Reading Time Taken Comments Blood Pressure 117/65 01/14/2014 11:26 AM EDT Pulse 96 01/14/2014 11:26 AM EDT Temperature 36.4 C (97.5 F) 01/14/2014 10:55 AM EDT Respiratory Rate 20 01/14/2014 11:26 AM EDT Oxygen Saturation 99% 01/14/2014 11:15 AM EDT Inhaled Oxygen Concentration - - Weight 74.2 kg (163 lb 9.3 oz) 01/14/2014 8:57 A M EDT Height 151 cm (4' 11.45 ) 01/14/2014 8:57 AM EDT Body Mass Index 32.54 01/14/2014 8:57 AM EDT Plan of Treatment Health Maintenance Due Date Last Done Comments MMR IMMUNIZATION (1 of 1 - S tandard series) 2003 DTAP/Tdap/Td IMMUNIZATION (1 - Tdap) 2009 VARICELLA IMMUNIZATION (1 of 2 - 13+ 2-dose series) 2015 HPV IMMUNIZATION (1 - 3-dose series) 2017 MENINGOCOCCAL B VACCINE (1 o f 2 - Standard) 2018 HEPATITIS B IMMUNIZATION (1 of 3 - 19+ 3-dose series) 2021 COVID-19 Vaccine (1 - 2023-2 5 season) 2024 AMB SEASONAL FLU VACCINE (#1) 05/31/2025 HIB IMMUNIZATION Aged Out No longer e ligible based on patient's age to complete this topic IPV IMMUNIZATION Aged Out No longer e ligible based on patient's age to complete this topic MCV4 IMMUNIZATION Aged Out No longer eligible based on patient's age to complete this topic PNEUMOCOCCAL IMMUNIZATION Aged Out No longer eligible based on patient's age to complete this topic Respiratory Syncytial Virus (RSV) <20mo Aged Out No longer eligible b ased on patient's age to complete this topic [facility] Care Teams Nutrition Instructor Relationship Specialty Start Date End Date Lazaro Bran M.D. [facility] [address] [place] [address] PCP - General External Family Practice 11/18/13
--- OUTSIDE RECORDS SUMMARY | 2025-03-26 08:15 | XMS_ITS | Encounter Summary ---
Author Organization [facility] Address [address] [place] [address] Care Team Providers Care Athletic Agent Name Role Phone Trisha Cortes APRN Primary Care Provider + [phone] OsmanMaya maldonado APRN, DNP Unavailable + [phone] Encounter Details Date Type Department Care Team (Latest Contact Info) Description 03/24/2025 Travel Social History Tobacco Use Types Packs/Day Years [...] on file documented as of this encounter Functional Status * AUDIT-C Score Answer Date of Assessment Author 2 03/24/2025 10:47 AM Nu Alfonso * Question Answer Date of Assessment Author Q1: How often do you have a drink containing alcohol? 2-4 times a month 03/24/2025 10:47 AM Nu Alfonso Q2: How many drinks containing alcohol do [...] little energy Several days 03/24/2025 9:17 AM Rosie Barros Poor appetite or overeating Several days 03/24/2025 9: 17 AM Rosie Barros Feeling bad about yourself - or that [...] 6 03/24/2025 9:17 AM EDT Tae Smith W * If you checked off any problems [...] Rosie Hollis documented as of this encounter Plan of Treatment Upcoming Encounters Date Type Department Care Team (Late st Contact Info) Description 07/03/2025 12:40 PM EST Office Visit [facility] [address], [address] [place] [address] Maya Osman APRN, GWENDOLYN [address] [phone] documented as of this encounter Visit Diagnoses Not on filedocumented in this encounter Additional Health Concerns Assessment Noted Time PHQ-9 Depression Total Score: 6 03/24/20 9:17 AM EDT A fall risk assessment has been complete d for the patient 03/24/2025 10:45 AM EDT A Body Mass Index follow-up plan has been documented for the patient 03/24/2025 12:15 PM EDT documented as of this encounter Care Teams Athletic Agent Relationship Specialty Start Date End Date Trisha Cortes APRN [address] [place] [address] PCP - General 03/24/25 Maya Osman APRN, GWENDOLYN [id number] [place] [address] Nurse Practitioner Urology 03/24/25 documented as of this encounter
--- OUTSIDE RECORDS SUMMARY | 2025-03-26 08:15 | XMS_ITS | Encounter Summary ---
Author Organization [facility] Address [address] [place] [address] Care Team Providers Care Insole And Heel Stiffener Name Role Phone SebastianTrisha JEFFERSON Primary Care Provider + [phone] Maya Osman APRN, GWENDOLYN Unavailable + [phone] Reason for Visit * Reason Onset Date Comments Lab Results 03/24/2025 Encounter Details Date Type Department Care Team (Late st Contact Info) Description 03/24/2025 Telephone [facility] [address] [place] [address] Maya Osman APRN, DNP [address] [place] [address] Lab Results Social History Tobacco Use Types Packs/Day Years [...] of Assessment Author 2 03/24/2025 10:47 AM SHERICET Nu Laguerre * Question Answer Date of [...] overeating Several days 03/24/2025 9: 17 AM EDT Rosie Smith Feeling bad about yourself - or that you are a failure or have let yourself or your family down Several days 03/24/2025 9:17 AM EDT Rosie Smith Trouble concentrating on things, such as reading the newspaper or watching television Not at all 03/24/2025 9:17 AM EDT Rosie Smith Moving or speaking so slowly that other people could have noticed? Or the opposite - being so fidgety or restless that you have been moving around a lot more than usual. Several days 03/24/2025 9:17 AM EDT Rosie Smith Thoughts that you would be better off [...] as of this encounter Miscellaneous Notes * Telephone Encounter - Purnima Guaman - 03/24/2025 10:40 AM EDT Uploaded 03/17/25 Lab Results from [facility] documented in this encounter Plan of Treatment Upcoming Encounters Date Type Department Care Team (Late st Contact Info) Description 07/03/2025 12:40 PM EST Office Visit [facility] [address] [place] [address] Maya Osman APRN, DNP [address] [place] [address] documented as of this encounter Visit [...] documented as of this encounter Care Teams Insole And Heel Stiffener Relationship Specialty Start Date End Date Trisha Cortes APRN [address] [place] [address] PCP - General 03/24/25 Maya Osman APRN, GWENDOLYN [address] [place] [address] Nurse Practitioner Urology 03/24/25 documented as of this encounter
--- OUTSIDE RECORDS SUMMARY | 2025-03-26 08:15 | XMS_ITS | Encounter Summary ---
Author Organization [facility] Address [address] [place] [address] Care Team Providers Care Momd Teacher Name Role Phone SebastianTrisha JEFFERSON Primary Care Provider + [phone] Maya Osman APRN, DNP Unavailable + [phone] Encounter Details Date Type Department Care Team (Late st Contact Info) Description 03/24/2025 Telephone [place] [facility] [address] [place] [address] Maya Osman APRN, DNP [address] [place] [address] Social History Tobacco Use Types Packs/Day Years [...] as of this encounter Functional Status * Over the past 2 weeks, how often have you been bothered by any of the following problems? Question Answer Date of Assessment Author Little interest or pleasure in doing things Not at all 03/24/2025 9:17 AM EDT Rosie Smith Feeling down, depressed, or hopeless Several days 03/24/2025 9:17 AM EDT Rosie Smith Patient Health Questionnaire-2 Score 1 03/24/2025 9:17 AM EDT Tae Smith * Question Answer Date of Assessment Author [...] encounter Miscellaneous Notes * Telephone Encounter - Rashmi Bermudez - 03/24/2025 10:38 AM EDT Labs received, uploaded to media, provider notified in original message. * Telephone Encounter - Rashmi Bermudez - 03/24/2025 10:33 AM EDT Images from the original note were not included. Maya Osman APRN, GWENDOLYN P [facility] Urology Medical Records Requests Will you please call [facility] for a copy of her most recent CMP/BMP; stated had performed last week. Unable to see via Care Everywhere. Thank you. ====== Called [phone], #1, spoke with Jennifer who is to fax labs, stated she had some done on 03/17/25. CH documented in this encounter Plan of Treatment Upcoming Encounters Date Type Department Care Team (Late st Contact Info) Description 07/03/2025 12:40 PM EST Office Visit [facility] Urology [address] [place] [address] Maya Osman APRN, GWENDOLYN [address] [place] [phone] documented as of this encounter Visit Diagnoses [...] documented as of this encounter Care Teams Momd Teacher Relationship Specialty Start Date End Date Trisha Cortes APRN [address] [place] [address] PCP - General 03/24/25 Maya Osman APRN, GWNEDOLYN [address] [place] [address] Nurse Practitioner Urology 03/24/25 documented as of this encounter
[2025-03-26 08:57] LABS: Hematocrit 41.4 % (37.0-47.0); Hemoglobin 13.4 g/dL (12.2-16.2); Immature Granulocytes % 0.5 %; Mean Corpuscular HGB Conc 32.4 g/dL (31.8-35.4); Mean Corpuscular Hemoglobin 27.2 pg (27.0-31.2); Mean Corpuscular Volume 84.1 fl (81-99); Nucleated Red Blood Cells % 0 %; Platelet Count 264 K/mm3 (142-424); Red Blood Count 4.92 M/mm3 (4.20-5.40); Red Cell Distribution Width-SD 39.8 fL; White Blood Count 6.5 K/mm3 (4.8-10.8)
[2025-03-26 09:36] LABS: Iron 88 ug/dL (37-170)
[2025-03-26 09:45] LABS: Total Iron Binding Capacity 382 ug/dL (265-497)
[2025-03-26 17:49] LABS: Folate 17.00 ng/mL
[2025-03-26 19:34] LABS: Ferritin 16.5 ng/ml (6.24-137)
[2025-03-26 19:48] LABS: Vitamin B12 246 pg/mL (239-931)
[2025-03-29 08:32] LABS: Intrinsic Factor Abs, Serum 1.0 AU/mL (0.0-1.1)
== END 2025-03-26 23:59 | disposition home or self-care (01) ==
LOC: LAB 08:10
PROVIDERS: PCP Nurse Practitioner; Visit Provider Nurse Practitioner Family
DX: D51.0 Vitamin B12 deficiency anemia due to intrinsic factor deficiency (principal); R68.2 Dry mouth, unspecified; R25.2 Cramp and spasm; M54.9 Dorsalgia, unspecified
CPT/HCPCS: 36415; 82607; 82728; 82746; 83516; 83540; 83550; 85025; 86200; 86340; 86812

== ENCOUNTER 2025-04-11 08:03 | Outpatient (CLI) | payer OTHER, SELFPAY ==
--- OUTSIDE RECORDS SUMMARY | 2025-03-24 09:00 | XMS_ITS | Encounter Summary ---
Author Organization [facility] Address [address] [address] Care Team Providers Care Computer Programming Manager Name Role Phone SebastianTrisha JEFFERSON Primary Care Provider + [phone] Maya Osman APRN, DNP Unavailable [phone] Reason for Referral * Imaging (Routine) - Authorized Specialty Diagnoses / Procedures Referred By Racquel t Referred To Contact Diagnoses Reflux of urine Recurrent UTI Procedures US Renal Complete Maya Osman APRN, DNP [address] [phone] Phone: tel: fax: Referral ID Status Reason Start Date Expiration Date V isits Requested Visits Authorized [id number] Authorized 03/24/2025 09/23/2026 1 1 Reason for Visit * Reason Comments Follow-up Pt notes that she do es get the burning sensation after urination often. She does note 2-3 UTIs since the last visit. Encounter Details Date Type Department Care Team (Late st Contact Info) Description 03/24/2025 9:00 AM EDT Office Visit [facility] [address] [phone] Maya Osman APRN, DNP [address] [facility] [address] [phone] High-tone pelvic floor dysfunction (Primary Dx); Reflux of urine; Recurrent UTI Social History Tobacco Use Types Packs/Day Years Used Date Smoking Tobacco: Never Passive Smoke Exposure: Yes Smokeless Tobacco: Never Alcohol Use Standard Drinks/Week Comments Never 0 (1 standard drink = 0.6 oz pur e alcohol) PHQ-2 Answer Date Recorded Patient Health Questionnaire-2 Score 1 03/24/2025 PHQ-9 Answer Date Recorded Patient Health Questionnaire-9 Score 6 03/24/2025 AUDIT-C Answer Date Recorded Q1: How often do you have a drink containing alc ohol? 2-4 times a month 03/24/2025 Q2: How many drinks containi ng alcohol do you have on a typical day when you are drinking? 1 or 2 03/24/2025 Q3: How often do you have si x or more drinks on one occasion? Never 03/24/2025 PHQ-2A Answer Date Recorded Patient Health Questionnaire-2 Score 0 05/02/2023 Comments No Sex and Gender Information Value Date Recorded Sex Assigned at Not on file Legal Sex Female 7:35 PM EDT Gender Identity Not on file Sexual Orientation Not on file documented as of this encounter Last Filed Vital Signs Vital Sign Reading Time Taken Comments Blood Pressure 132/80 03/24/2025 9:09 AM EDT Pulse 131 03/24/2025 9:09 AM EDT Pt notes it has been running high Temperature - - Respiratory Rate - - Oxygen Saturation 99% 03/24/2025 9:0 9 AM EDT Inhaled Oxygen Concentration - - Weight 155 kg (341 lb 11.4 oz) 03/24/2025 9:09 AM EDT Height 162.6 cm (5' 4 ) 03/24/2025 9:09 AM EDT Body Mass Index 58.65 03/24/2025 9:09 AM EDT documented in this encounter Functional Status * AUDIT-C Score Answer Date of Assessment Author 2 03/24/2025 10:47 AM EDT Nu Laguerre * Question Answer Date of Assessment Author Q1: How often do you have a drink containing alcohol? 2-4 times a month 03/24/2025 10:47 AM EDT Nu Laguerre Q2: How many drinks containing alcohol do you have on a typical day when you are drinking? 1 or 2 03/24/2025 10:47 AM Nu Alfonso Q3: How often do you have six or more drinks on one occasion? Never 03/24/2025 10:47 AM Nu Alfonso * Over the past 2 weeks, how often have you been bothered by any of the following problems? Question Answer Date of Assessment Author Little interest or pleasure in doing things Not at all 03/24/2025 10:45 AM Nu Alfonso Feeling down, depressed, or hopeless Several days 03/24/2025 10:45 AM Nu Alfonso Patient Health Questionnaire -2 Score 1 03/24/2025 10:45 AM Nu Alfonso * Question Answer Date of Assessment Author Trouble falling or staying asleep, or sleeping too much Several days 03/24/2025 9:17 AM Rosie Barros Feeling tired or having little energy Several days 03/24/2025 9:17 AM EDRosie Hayes Poor appetite or overeating Several days 03/24/2025 9: 17 AM EDRosie Hayes Feeling bad about yourself - or that you are a failure or have let yourself or your family down Several days 03/24/2025 9:17 AM Rosie Barros Trouble concentrating on things, such as reading the newspaper or watching television Not at all 03/24/2025 9:17 AM Rosie Barros Moving or speaking so slowly that other people could have noticed? Or the opposite - being so fidgety or restless that you have been moving around a lot more than usual. Several days 03/24/2025 9:17 AM Rosie Barros Thoughts that you would be better off or hurting yourself in some way Not at all 03/24/2025 9:17 AM EDLissa Hayes Patient Health Questionnaire-9 Score 6 03/24/2025 9:17 AM EDTae Hayes * If you checked off any problems on this questionnaire so far, Question Answer Date of Assessment Author How difficult have these problems made it for you to do your work, take care of things at home, or get along with other people? Somewhat difficult 03/24/2025 9:17 AM EDT Rosie Smith * How difficult have these problems made it for you to do your work, take care of things at home, or get along with other people? Answer Date of Assessment Author Somewhat difficult 03/24/2025 9:17 AM EDT Rosie Hollis documented as of this encounter Miscellaneous Notes * Progress Notes - Maya Osman APRN, DNP - 03/24/2025 9:00 AM EDT [facility] Note Consulting provider: No ref. provider found CC: Follow-up (Pt notes that she does get the burning sensation after urination often. She does note 2-3 UTIs since the last visit. ) HPI: Nury Yi is a 24 y.o. F who I initially saw October 2022 for consultation of recurrent UTIs and history of reflux. UTIs: Previously had near monthly UTIs, which had decreased in frequency within the last year as she had increased her water and cranberry juice intake. Recalled 1 UTI within the last year. Recalled that UTI became a kidney infection, treated with PO abx. Typically UTI symptoms include frequency, ur gency, dysuria, vaginal rawness, SP pressure. Would be treated with empiric abx with symptom resolution within 3 days, occasionally required 2 rounds of abx. History of reflux: From ages [age] she was always sick , at age 5 diagnosed with reflux on daily Macrodantin x 2 years. At age 7 had bilateral ureteral reimplantation surgery. Previously followed by pediatric nephrology. Continued amlodipine by PCP, Trisha Cortes APRN. Between infections: voiding frequency of 5-10x/day, nocturia 0-1x, denied other LUTS, neurological changes, or history of kidney stones. History of Present Illness The patient is a 24-year-old female who presents today for a 1-year follow-up of recurrent urinary tract infections (UTIs). UTIs: Since her last visit, she has experienced 2 to 3 UTIs, an increase from her usual one per year. Endorses pain after urination, which lasts for about 5 to 10 minutes before subsiding. This symptom is not constant but occurs intermittently. Worse at night in in AM. Occasionally, this symptom persists and develops into a UTI. She also notes a decrease in the frequency of urination, now only urinating 3 to 4 times a day compared to her previous 7 to 10 times. Despite increasing her fluid intake, she feels that her urine output is less than expected. States concern regarding decreased urinary output. She occasionally needs to exert pressure to initiate urination but generally feels that her bladder empties completely. Her UTI symptoms include frequent urination, burning sensation during urination, and lower back pain. Her last UTI treatment was approximately 4 to 5 months ago, which was effective. She was advised to take Azo [id number] three times a day for a day, which resolved her symptoms. She recently switched from toilet paper to water wipes for personal hygiene and believes this may be helping. She has not had any recent imaging studies of her kidneys. She has been experiencing twitching and other symptoms, which her primary care doctor attributed todehydration. She was advised to increase her fluid intake, which she did while on antibiotics for arecent illness. She has been experiencing a high heart rate, around 120 beats per minute, during her doctor's visits over the past 6 months. She feels physical symptoms of the high heart rate, such as a sensation ofher skin crawling. She did not experience these symptoms when she was on propranolol. She has been experiencing some swelling and believes she may have edema. PMHx: Patient Active Problem List Diagnosis Reflux of urine Recurrent UTI Bilateral reflux nephropathy Chronic kidney disease, stage 2 (mild) Depression with anxiety Hypertension Acute cystitis Allergic rhinitis due to pollen Ankle joint pain Benign essential hypertension Candidiasis of vulva Childhood obesity Chronic fatigue syndrome Colitis Common cold Cough Diarrhea Disorder of upper respiratory system Dysuria Epidermoid cyst of skin Epigastric pain Gastro-esophageal reflux disease with esophagitis Healthy pediatric patient IBS (irritable bowel syndrome) Moderate major depression, single episode (CMS/HCC) Muscle pain Myositis Nausea and vomiting Negative dysphotopsia Noninflammatory disorder of vagina Otitis externa of left ear Otogenic otalgia Right lower quadrant pain Sprain of distal tibiofibular ligament Tachycardia Urinary urgency Past Medical History: Diagnosis Date Abnormal weight gain Abnormal weight gain Anxiety Bipolar 1 disorder (CMS/HCC) Chronic kidney disease Hypertension Personal history of diseases of the blood and blood-forming organs and certain disorders involving the immune mechanism History of iron deficiency anemia Personal history of other endocrine, nutritional and metabolic disease History of hyperglycemia Personal history of urinary (tract) infections History of urinary tract infection PTSD (post-traumatic stress disorder) PSHx: Past Surgical History: Procedure Laterality Date OTHER SURGICAL HISTORY N/A Vesicoureteral Reimplantation from [employer] TONSILLECTOMY N/A Tonsillectomy from [employer] FHx: Family History Problem Relation Name Age of Onset Enuresis Other Asthma Other Asthma Other Conversions - Other Mother cardiovascular disease Hypertension Maternal Grandmother Bridgette Del Rosario Obesity Maternal Grandmother Bridgette Del Rosario Hypertension Paternal Grandmother Kidney disease Other Diabetes type II Maternal Grandfather Conversions - Other Other Urinary reflux Denies family history of kidney cancer or bladder cancer SHx: Social History Tobacco Use Smoking status: Never Passive exposure: Yes Smokeless tobacco: Never Vaping Use Vaping status: Every Day Substance Use Topics Alcohol use: Never Drug use: Never 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 G 0 Ovaries: present bilaterally Uterus: present Vaginal estrogen: No Systemic estrogen: No Review of Systems : See HPI Physical Exam: Vitals: 03/24/25 0909 BP: 132/80 Pulse: (!) 131 SpO2: 99% General: Pleasant, alert, in no acute distress, well appearing Pulmonary: no increased work of breathing or signs of respiratory distress. Musculoskeletal: normal gait and station. Psychiatric: oriented to person, place, and time. Mood and affect appeared normal. Results/Data: Recent Results (from the past 24 hours) POCT URINALYSIS DIPSTICK Collection Time: 03/24/25 9:06 AM Result Value Ref Range POCT Urine Color Yellow POCT Urine Clarity Clear POCT Urine Glucose Negative Negative mg/dL POCT Urine Bilirubin Negative Negative mg/dL POCT Urine Ketones Negative Negative mg/dL POCT Urine Specific [place] 1.025 1.005 - 1.030 POCT Urine Blood Negative Negative POCT pH, Urine 5.5 5.0 - 8.0 POCT Protein, Urine Negative Negative mg/dL POCT Urobilinogen, Urine 0.2 0.2, 1.0 EU/dL POCT Nitrite, Urine Negative Negative POCT Urine Leukocyte Esterase Negative Negative Labs: Lab Results Component Value Date HGBA1C 4.7 10/31/2017 Lab Results Component Value Date GLUCOSE 86 10/31/2017 NA 140 10/31/2017 K 3.0 (L) 10/31/2017 CO2 22 10/31/2017 CL 98 (L) 10/31/2017 BUN 7 10/31/2017 CREATININE 0.78 (H) 10/31/2017 EGFR 10/31/2017 GFR not estimated when patient is <18 years or if age is not specified. EGFR 10/31/2017 GFR not estimated when patient is <18 years or if age is not specified. Most recent outside blood work: 08/31/2023: BMP: Cr 1 eGFR 71. Cultures: No results found for: URINECX Previous outside UA/cultures: 08/01/2022: UA: SG 1.025, pH 5.5, trace glucose, trace protein 2_ blood, nitrite positive, trace LE. Urine culture: mixed tiffanie 08/08/2022: UA: SG 1.030, pH 5.5, all others negative. 02/24/2023: UA: SG 1.010, pH 5.5, all others negative 03/09/2023: UA: SG 1.010, pH 5.5, all others negative Imaging: Previous outside imagin08/31/2023: SANDRA: The right kidney measures 8.6 cm in length. It is normal in echogenicity. The left kidney measures 9.2 cm in length. It is normal in echogenicity. There is no hydronephrosis to indicate significant reflux. There is lobulation of the right mid kidney, likely resulting in pseduo mass. L obulation could be congenital or sequela of scarring. BMP: Cr 1 eGFR 71. Procedure: Assessment: Nury Yi is a 24 y.o. F Will call for outside labs Valerie Return in 3months via or sooner asneeded Assessment & Plan 1. Recurrent urinary tract infections (UTIs). Her urine sample today showed no signs of infection or blood. The burning sensation post-urination could be due to high tone pelvic floor dysfunction. Due to increased frequency of UTIs, will begin OTC D-mannose 2 grams daily. Will consider addition of Hiprex 1 gram BID in the future for continued UTIs. 2. High tone pelvic floor dysfunction. Discussed characterized by over-spasming of the pelvic floormuscles. This condition can cause pain after urination, frequency, urgency, incomplete emptying, difficulty initiating urination, and discomfort during intercourse or tampon use. Can contribute to bowel issues such as constipation, difficulty with bowel movements, and pain during bowel movements. Triggers for pelvic floor dysfunction include frequent UTIs, increased stress and anxiety, type A personality traits, constipation, IBS, surgical history, and trauma. The goal is to relax the pelvic floor muscles. A handout on high tone pelvic floor dysfunction was provided. She was encouraged to take warm baths or showers, allowing hot water to hit her lower abdomen and back, and to use a heating pad on these areas. She was also advised to prevent constipation by maintaining adequate fluid intake and using fiber supplements or MiraLAX if necessary. A prescription for methocarbamol 500 mg was provided, with instructions to start with half or one tablet at bedtime and increase the dose if needed, up to a maximum of 2 tablets three times a day. If symptoms persist, pelvic floor physical therapy may be considered. 3. Decreased urinary frequency: She was advised to maintain a voiding diary for 24 hours to monitorher fluid intake and output. An order for an ultrasound was given to check her kidney function. If she continues to experience symptoms, pelvic floor physical therapy may be considered. 4. Irritable bowel syndrome (IBS). Her IBS, which alternates between diarrhea and constipation, may contribute to her high tone pelvicfloor dysfunction. She was advised to manage her IBS symptoms by maintaining adequate fluid intake and using fiber supplements or MiraLAX if necessary. 5. Edema. She reported some swelling in her legs, which could be contributing to her decreased urine output. She was advised to follow up with her primary care provider regarding this issue. 6. Elevated heart rate. Her heart rate has been consistently in the 120s during doctor visits over the past 6 months. [id number]. She was advised to discuss this with her primary care provider during her upcoming appointment. 7. Due to history of VUR and UTIs, have SANDRA. Will call for most recent blood work. Follow-up A follow-up visit is scheduled in 3 months via telehealth. ADDENDUM: Outside lab results were obtained: 03/17/2025: CMP: Cr 0.9 eGFR 78 Plan: Keep 24 hour voiding diary, send via Med ePad for my review Begin OTC D-mannose 2 grams daily for UTI prevention Behavioral modifications for pelvic floor dysfunction and IBS Begin Robaxin 500 mg 1 tablet at bedtime, slowly increase as needed/tolerated to a maximum dose of 2 tablets TID Follow-up with PCP regarding edema and elevated HR Will call for outside blood work Return in 3 months via with [facility] Maya Osman APRN, DNP Verbal consent was obtained to use ambient listening technology to assist in the documentation of the encounter: yes documented in this encounter Plan of Treatment Upcoming Encounters Date Type Department Care Team (Late st Contact Info) Description 07/03/2025 12:40 PM EST Office Visit [facility] [address] [place] [address] Maya Osman APRN, DNP [address] [phone] 11/07/2025 10:[address] [facility] [address] [place] [address] Chasity Mendoza MD [address] [phone] Scheduled Orders Name Type Priority Associated Diagnoses Orde r Schedule US Renal Complete Imaging Routine Reflux of urine Recurrent UTI Expected: 03/24/2025 (Approximate), Expires: 09/24/2026 documented as of this encounter Procedures Procedure Name Priority Date/Time Associated Diagnosis Comments POCT URINALYSIS DIPSTICK Routine 03/24/2025 9:06 AM EDT documented in this encounter Results * POCT URINALYSIS DIPSTICK (03/24/2025 9:06 AM EDT) POCT Urine Color Yellow 03/24/2025 9:07 AM EDT [facility] POCT Urine Clarity Clear 03/24/2025 9:07 AM EDT [facility] POCT Urine Glucose Negative Negative mg/dL 03/24/2025 9:07 AM EDT [facility] POCT Urine Bilirubin Negative Negative mg/dL 03/24/2025 9:07 AM EDT [facility] POCT Urine Ketones Negative Negative mg/dL 03/24/2025 9:07 AM EDT [facility] POCT Urine Specific [place] 1.025 1.005 - 1.030 03/24/2025 9:07 AM EDT [facility] POCT Urine Blood Negative Negative 03/24/2025 9:07 AM EDT [facility] POCT pH, Urine 5.5 5.0 - 8.0 03/24/2025 9:07 AM EDT [facility] POCT Protein, Urine Negative Negative mg/dL 03/24/2025 9:07 AM EDT [facility] POCT Urobilinogen, Urine 0.2 0.2, 1.0 EU/dL 03/24/2025 9:07 AM EDT [facility] POCT Nitrite, Urine Negative Negative 03/24/2025 9:07 AM EDT [facility] POCT Urine Leukocyte Esterase Negative Negative 03/24/2025 9:07 AM EDT [facility] Urine 03/24/2025 9:06 AM EDT 03/24/2025 9:08 AM EDT Maya Osman APRN, DNP LAB POINT OF C ARE TEST DOCKED DEVICE UNSOLICITED RESULTS Final Result Performing Organization Address City/State/[facility] Co de Phone Number [facility] [address] [place], [place] documented in this encounter Visit Diagnoses Diagnosis High-tone pelvic floor dysfunction- Primary Reflux of urine Recurrent UTI Urinary tract infection, site not specified documented in this encounter Additional Health Concerns Assessment Noted Time PHQ-9 Depression Total Score: 6 03/24/20 9:17 AM EDT A fall risk assessment has been complete d for the patient 03/24/2025 10:45 AM EDT A Body Mass Index follow-up plan has been documented for the patient 03/24/2025 12:15 PM EDT documented as of this encounter Care Teams Computer Programming Manager Relationship Specialty Start Date End Date Trisha Cortes APRN [address] [place] [address] PCP - General 03/24/25 Maya Osman APRN, DNP [address] [facility] [address] [id number] Nurse Practitioner Urology 03/24/25 documented as of this encounter
--- OUTSIDE RECORDS SUMMARY | 2025-03-24 10:50 | XMS_ITS | Encounter Summary ---
Author Organization [facility] Address [address] [place] [address] Care Team Providers Care Crown Pouncer Name Role Phone Trisha Cortes JEFFERSON Primary Care Provider + [phone] OsmanMaya maldonado APRN, DNP Unavailable [phone] Reason for Visit * Reason Comments Joint Pain Consult * Consultation (Routine) - Closed Specialty Diagnoses / Procedures Referred By Racquel t Referred To Contact Rheumatology Diagnoses Multiple joint pain Sebastian JEFFERSON Rico [address] [place] [address] Phone: tel: fax: Referral ID Status Reason Start Date Expiration Date V isits Requested Visits Authorized [id number] Closed Specialty Services Required 02/21/2025 08/23/2026 1 1 Encounter Details Date Type Department Care Team (Late st Contact Info) Description 03/24/2025 10:50 AM EDT Consult [facility] [address] [place] [address] Silvia Merlos, WATCH TECHNICIAN [address] [place] [address] Back pain, unspecified back location, [...] [facility] referral with primary care provider. * Addendum Note - Pantera Hawley MD - 03/24/2025 10:50 AM EDTAddended by: PANTERA HAWLEY on: 03/26/2025 11:51 AM Modules accepted: Level of Service * Progress Notes - Silvia Merlos APRN - 03/24/2025 10:50 AM EDT Images from the original note were not included. Verbal consent was obtained to use ambient listening technology to assist in the documentation of the encounter: yes, but text was reviewed and then not used. 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 Chronic kidney disease, stage 2 (mild) 04/16/2014 Depression with anxiety 08/07/2019 Hypertension 04/16/2014 Acute cystitis 11/06/2018 Allergic rhinitis due to pollen 07/09/2018 Ankle joint pain 05/18/2017 Benign essential hypertension 10/03/2017 Candidiasis of vulva 01/22/2021 Childhood obesity 04/16/2014 Chronic fatigue syndrome 09/03/2019 Colitis 12/02/2013 Common cold 09/03/2018 Cough 07/09/2018 Diarrhea 04/04/2017 Disorder of upper respiratory system 05/17/2018 Dysuria 01/22/2021 Epidermoid cyst of skin 11/27/2017 Epigastric pain 08/14/2018 Gastro-esophageal reflux disease with esophagitis 09/18/2018 Healthy pediatric patient 08/04/2020 IBS (irritable bowel syndrome) 04/16/2014 Moderate major depression, single episode (CMS/HCC) 02/02/2017 Muscle pain 09/23/2019 Myositis 09/30/2021 Nausea and vomiting 04/04/2017 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 Noninflammatory disorder of vagina 02/13/2018 Otitis externa of left ear 01/09/2021 Otogenic otalgia 08/26/2021 Right lower quadrant pain 10/03/2017 Sprain of distal tibiofibular ligament 06/13/2017 Tachycardia 08/05/2019 Urinary urgency 11/02/2023 Resolved Ambulatory Problems Diagnosis Date Noted No Resolved Ambulatory Problems Past Medical History: Diagnosis Date Abnormal weight gain Anxiety Bipolar 1 disorder (CMS/HCC) Chronic kidney disease Personal history of diseases of the blood and blood-forming organs and certain disorders involving the immune mechanism Personal history of other endocrine, nutritional and metabolic disease Personal history of urinary (tract) infections PTSD (post-traumatic stress disorder) VERITO Yi is a 24 y.o. female with PMH significant for anxiety, depression, bi-polar, HTN, vitamin D deficiency, renal reflux (causing chronic kidney disease), who presents (03/24/25) for CONSULTATION at [facility]. Pt was referred by Trisha Cortes. Vitals: 03/24/25 1042 BP: 123/72 Pulse: 108 Resp: 16 Temp: 36.9 ??C (98.4 ??F) SpO2: 100% Allergies[1] Subjective Initially presenting at [facility] with the following hx: Referred with concern for multiple joint pain, Labs on 12/2024/ show negative CHANEL, normal RF, CRP and sed rate, obtained from referral notes. Initial evaluation at [facility] on 03/24/25 comes with mother. Has discussed symptoms with primary care provider and they felt symptoms could be MS related, has list of symptoms. See media 03/24/25 for list of symptoms from patient's phone, Some symptoms started as early as 2019. Started with fatigue, can't get out of bed fatigue. Reportsback pain, along spine and shooting down the leg. Reports tension pain in head, over occipital bone, had to hold head to reduce the pain. Worsening since 2021. Notes right hand/palm, spasm, twitching, constant since January 2025. Since the constant issues, feels arm weakness/aching, only on right side. Feels spontaneous body spasms/twitching/jerking, different areas at different times, started 02/2025, lasting 0.5-5 minutes. Occurring every hour or more. Reports spasm of tongue, tongue shriveled up on right side, this has occurred a few times, [id number] seconds. Feels frequent hot flashes and cold chills. Started December 2024, had heat stroke episode where she stopped sweating. Feels like she does not adjust to the temperature very well. Sensitive to light touch, bruises easily. Feels nodules under arms and back of legs. Has discoloration on legs, the michaels more. Reports elevated blood pressure for the last several years, unknown reason. Worsening prescription.Has seen [facility]. Has hypermobility of knees. States back and hip are the worst joints, worse at night. Feels stiff in the morning, 4-5 hours. Denies hot/red/swollen joints in the hands. Initial Rheum ROS: Rheumatological ROS positive for on 03/24/25:significant daily dry mouth (no issues with dental decay, worse recently, multiple mediations that could contribute). Has rock hard bump on roof of her mouth, has occurred three times, painful. Nail pitting (see media 03/24/25). Renal disease (see above). severe muscle weakness (struggling to do makup and brush teeth, no issues getting out of a chair. Notes balance issues recently, also worsening blurred vision. Issues swallowing, feels due to twitching in mouth. Rest ROS negative for: significant daily dry eyes, painless recurrent oral ulcers or nasal ulcers, alopecia, recurring serositis (pericarditis, pleurisy, peritonitis), psoriasis, no recurrent enthesitis, recurring rash, Photosensitivity (rashes, fever, fatigue, joint pain with <30 min exposure to sun), Raynaud's symptoms, digit ulcerations, gross hematuria, recurrent fevers with flares, recurrent sinusitis (more than 3 times per year), unexplained hearing loss, psychosis or delirium, seizures, Crohn's, ulcerative colitis, uveitis, MS or other demyelinating disease, blood clots. complications (One or more unexplained deaths after 10 weeks of gestation, deliverybefore 34 weeks due to severe preeclampsia or placental insufficiency, three or more unexplained consecutive miscarriages before 10 weeks of gestation, unexplained severe growth restriction). Family History: FH of autoimmune diseases? Mother, maternal grandmother and second cousin with MS. Maternal great grandmother with RA. Social History: Exposure to HCV, HBV, HIV or TB. No hx IV drug use. None hx of tobacco use. Current use of vape nicotine, advised to quit 03/24/25 hx of alcohol abuse. None Occupational hx: unable to work. Summery of prior rheumatology visits: Last visit labs: Office Visit on 03/24/2025 Component Date Value Ref Range Status POCT Urine Color 03/24/2025 Yellow Final POCT Urine Clarity 03/24/2025 Clear Final POCT Urine Glucose 03/24/2025 Negative Negative mg/dL Final POCT Urine Bilirubin 03/24/2025 Negative Negative mg/dL Final POCT Urine Ketones 03/24/2025 Negative Negative mg/dL Final POCT Urine Specific [place] 03/24/2025 1.025 1.005 - 1.030 Final POCT Urine Blood 03/24/2025 Negative Negative Final POCT pH, Urine 03/24/2025 5.5 5.0 - 8.0 Final POCT Protein, Urine 03/24/2025 Negative Negative mg/dL Final POCT Urobilinogen, Urine 03/24/2025 0.2 0.2, 1.0 EU/dL Final POCT Nitrite, Urine 03/24/2025 Negative Negative Final POCT Urine Leukocyte Esterase 03/24/2025 Negative Negative Final Follow up 03/24/25: Consult. Rheum Medication History: Review of Systems Physical Exam Constitutional: General: She is not in acute distress. Appearance: Normal appearance. She is well-developed. She is obese. She is not diaphoretic. HENT: Head: Normocephalic and atraumatic. Eyes: General: No scleral icterus. Right eye: No discharge. Left eye: No discharge. Conjunctiva/sclera: Conjunctivae normal. Pulmonary: Effort: Pulmonary effort is normal. No respiratory distress. Musculoskeletal: Comments: See homunculus. Skin: General: Skin is warm and dry. Neurological: Mental Status: She is alert and oriented to person, place, and time. Psychiatric: Mood and Affect: Mood normal. Behavior: Behavior normal. Thought Content: Thought content normal. Judgment: Judgment normal. The above medical information was reviewed for this encounter and updated as appropriate: Current Medications[2] Patient global assessment: 2/10 Rapid 3 score: 5.7/30 Swollen Joint Count: Swollen: 0 Tender Joint Count: Tender: 1 CDAI: CDAI Interpretation: 0-2.8 Remission 2.9 -10 Low disease activity 10.1-22.0 Moderate Activity 22.1-76.0 High Activity Assessment and Plan of Care: Plan of care developed with Nury Yi on (03/24/25): Consult labs/imagin. Back pain, unspecified back location, unspecified back pain laterality, unspecified chronicity -several hours morning back stiffness. This would be the symptom most consistent with an autoimmuneillness. Overall symptoms sound neurologic and have discussed requesting referral form primary careprovider for neurology. Hypermobility of knees, no other joints appear hypermobility, decreased flexibility of many joints. - HLA B27 Typing; Future - XR Sacroiliac Joints 3+ Views; Future 2. Dry mouth Chronic dry mouth symptoms, likely related to multiple mediations. Also reports elevated eye pressure and would recommend patient see [facility] for management. - Cyclic Citrul Peptide Antibody IgG; Future - XR Hand and Wrist Bilateral 2 Views; Future - ENAII; Future 3. Spasms of the hands or feet RF, sed rate and crp all normal, symptoms not consistent with RA, will complete workup with anti-ccp. - Cyclic Citrul Peptide Antibody IgG; Future 4. Current use of vape nicotine. advised to quit 03/24/25 RTC PRN if new concerning symptoms and/or pending labs/imaging. Patient is agreeable to the above treatment plan and had no further questions. Thanks for the opportunity to participate in the care of this patient! If there are any questions or concerns, please reach out to me personally. Thanks! Silvia Merlos APRN The patient was counseled about diagnostic results, instruction for management, risk factors reduction, prognosis, compliance with visits and treatment, risks and benefits of treatments options. Prior notes (by external physicians) and results were reviewed by me with independent interpretation of labs and imaging. My note will be sent to PCP and other consulting physicians. [1] No Known Allergies [2] Current Outpatient Medications Medication Sig Dispense Refill amLODIPine (Norvasc) 10 MG tablet busPIRone (Buspar) 15 MG tablet Cariprazine HCl (VRAYLAR PO) 1.5 mg. cholecalciferol (Vitamin D-3) 1.25 MG (37989 UT) capsule Take 1 capsule by mouth 1 time per week. citalopram (CeleXA) 40 MG tablet Take 1 tablet by mouth daily. clonazePAM (KlonoPIN) 0.5 MG tablet TAKE 1/2 TABLET BY MOUTH ONCE A DAY NEEDED FOR ANXIETY hydrOXYzine pamoate (Vistaril) 25 MG capsule 2 capsules. lisinopril 5 MG tablet 7 mg. methocarbamol (Robaxin) 500 MG tablet Start by taking 1 pill by mouth every night. Slowly increase to 1 pill 2x/day as needed, with a maximum of 2 pills 3x/day. 180 tablet 11 ARIPiprazole (Abilify) 2 MG tablet (Patient not taking: Reported on 03/24/2025) citalopram (CeleXA) 20 MG tablet hydrOXYzine HCl (Atarax) 25 MG tablet No current facility-administered medications for this visit. Cosigned by Pantera Hawley MD at 03/26/2025 11:50 AM EDT Associated attestation - Pantera Hawley MD - 03/26/2025 11:50 AM EDT I saw and evaluated the patient with the AJAY. I discussed the case with the AJAY and agree with the findings and plan as documented. The patient was counseled about diagnostic results, instruction for management, risk factors reduction, prognosis, compliance with visits and treatment, risks and benefits of treatments options. Prior notes (by external physicians) and results were reviewed by me with independent interpretation of labs and imaging. My note will be sent to PCP and other consulting physicians. Pantera Hawley MD Hockey Player Division of Rheumatology Department of Internal Medicine [facility] documented in this encounter Plan of Treatment Upcoming Encounters Date Type Department Care Team (Late st Contact Info) Description 07/03/2025 12:40 PM EST Office Visit [facility] Urology [address] [place] [address] Maya Osman APRN, DNP [address] [place] [address] 11/07/2025 10:00 AM EDT Consult [facility] [address] [place] [address] Chasity Mendoza MD [address] [place] [address] Scheduled Orders Name Type Priority [...] documented as of this encounter Care Teams Crown Pouncer Relationship Specialty Start Date End Date Trisha Cortes APRN [address] [place] [address] PCP - General 03/24/25 Maya Osman APRN, DNP [address] [facility] [address] [place] [address] Nurse Practitioner Urology 03/24/25 documented as of this encounter
--- NOTE | 2025-04-11 | XR_ITS ---
FINAL REPORT CLINICAL HISTORY: evaluation for inflammatory changes COMPARISON: None FINDINGS: RIGHT HAND Two views demonstrate no acute fracture or dislocation. The joint spaces appear normal. There is normal mineralization. No erosions are identified. No acute soft tissue abnormality is seen. IMPRESSION: No acute bony abnormality. Reviewed, Interpreted and Dictated by Alondra Rivera MD Transcribed by Beth Yang Authenticated and [facility]
--- NOTE | 2025-04-11 | XR_ITS ---
FINAL REPORT CLINICAL HISTORY: evaluation for inflammatory changes COMPARISON: None FINDINGS: LEFT HAND Two views demonstrate no acute fracture or dislocation. The joint spaces appear normal. There is normal mineralization. No erosions are identified. No acute soft tissue abnormality is seen. IMPRESSION: No acute bony abnormality. Reviewed, Interpreted and Dictated by Alondra Rivera MD Transcribed by Beth Yang Authenticated and [facility]
--- NOTE | 2025-04-11 08:08 | XR_ITS ---
FINAL REPORT CLINICAL HISTORY: evaluation for inflammatory changes. back pain COMPARISON: None FINDINGS: SACROILIAC JOINTS SERIES AP and oblique views were obtained. There is no acute fracture or dislocation. The joint spaces appear normal. The visualized bony structures are well aligned. There are no erosions. There is no ankylosis. No soft tissue abnormality is seen. IMPRESSION: No acute bony abnormality. Reviewed, Interpreted and Dictated by Alondra Rivera MD Transcribed by Beth Yang Authenticated and . [facility]
--- NOTE | 2025-04-11 08:08 | XR_ITS ---
FINAL REPORT CLINICAL HISTORY: BACK PAIN, DRY MOUTH. evaluation for inflammatory changes COMPARISON: None FINDINGS: RIGHT WRIST Two views demonstrate no acute fracture or dislocation. The joint spaces appear normal. No acute soft tissue abnormality is seen. IMPRESSION: No acute bony abnormality. Reviewed, Interpreted and Dictated by Alondra Rivera MD Transcribed by Beth Yang Authenticated and [facility]
--- NOTE | 2025-04-11 08:08 | XR_ITS ---
FINAL REPORT CLINICAL HISTORY: evaluation for inflammatory changes COMPARISON: None FINDINGS: LEFT WRIST Two views demonstrate no acute fracture or dislocation. The joint spaces appear normal. No acute soft tissue abnormality is seen. IMPRESSION: No acute bony abnormality. Reviewed, Interpreted and Dictated by Alondra Rivera MD Transcribed by Beth Yang Authenticated and [facility]
--- OUTSIDE RECORDS SUMMARY | 2025-04-11 08:27 | XMS_ITS | Clinical Summary ---
Author Organization [facility] Address [address] [place] [address] Care Team Providers Care Interdisciplinary Professor Name Role Phone Lazaro Bran M.D. Primary Care Provider [phone] Source Comments [facility] is fully rolled out with thefollowing exceptions:General Clinical Research [facility] Allergies No known active allergies [...] of 3 - 19+ 3-dose series) 2021 AMB SEASONAL FLU VACCINE (#1) 03/31/2025 COVID-19 Vaccine (1 - 2023-2 5 season) 2025 HIB IMMUNIZATION Aged Out No longer e [...] patient's age to complete this topic [facility] Care Teams Interdisciplinary Professor Relationship Specialty Start Date End Date Lazaro Bran M.D. [facility] [address] [place] [address] PCP - General External Family Practice 11/18/13
--- OUTSIDE RECORDS SUMMARY | 2025-04-11 08:27 | XMS_ITS | Encounter Summary ---
Author Organization [facility] Address [address] [place] [address] Care Team Providers Care Director Patient Financial Services Name Role Phone Kassidy Rodriges JEFFERSON Primary Care Provider + [phone] Trisha Cortes APRN Primary Care Provider + [phone] Maya Osman APRN, DNP Unavailable + [phone] Reason for Referral * Consultation (Routine) - Closed Specialty Diagnoses / Procedures Referred By Racquel t Referred To Contact Nephrology Diagnoses Urinary tract infection without hematuria, site unspecified Trisha Cortes APRN [address] [place] [address] Phone: tel: fax: Referral ID Status Reason Start Date Expiration Date V isits Requested Visits Authorized [id number] Closed Specialty Services Required 08/09/2022 02/08/2024 1 1 Encounter Details Date Type Department Care Team (Late st Contact Info) Description 08/09/2022 Community Orders Community Practice [address] [place] [address] Trisha Cortes APRN [address] [place], [place] [id number] Urinary tract infection without hematuria, site unspecified [...] Description 07/03/2025 12:40 PM EST Office Visit [facility] Urology [address] [place] [address] Maya Osman APRN, GWENDOLYN [address] [facility] [address] [place] [address] 11/07/2025 10:00 AM EDT Consult [facility] [address] [place] [address] Chasity Mendoza MD [address] [facility] [address] [place] [address] Scheduled Referrals Name Type Priority Associated Diagnoses Orde r Schedule Ambulatory referral to Nephrology Outpatient Referral Routine Urinary tract infection without hematuria, site unspecified Expected: 08/09/2022 (Approximate), Expires: 02/07/2024 documented as of this encounter Visit Diagnoses Diagnosis Urinary tract infection without hematuria, site unspecified- Primary documented in this encounter Care Teams Director Patient Financial Services Relationship Specialty Start Date End Date Kassidy Rodriges APRN [address] [place], [place] [id number] PCP - General 12/11/20 03/23/25 Trisha Cortes APRN [address] [place], [place] [id number] PCP - General 03/24/25 Maya Osman APRN, GWENDOLYN [address] [facility] [address] [place] [address] Nurse Practitioner Urology 03/24/25 documented as of this encounter
--- OUTSIDE RECORDS SUMMARY | 2025-04-11 08:28 | XMS_ITS | Clinical Summary ---
Author Organization [facility] Address [address] [place] [address] Care Team Providers Care Lamina Searcher Name Role Phone Trisha Cortes JEFFERSON Primary Care Provider + [phone] OsmanMaya maldonado APRN, DNP Unavailable + [phone] Allergies No known active allergies Medications amLODIPine (Norvasc) 10 MG tablet 10/25/19 23 Active ARIPiprazole (Abilify) 2 MG tablet 10/25/19 23 Active busPIRone (Buspar) 15 MG tablet 10/25/19 23 Active citalopram (CeleXA) 20 MG tablet 10/25/19 23 Active hydrOXYzine HCl (Atarax) 25 MG tablet 10/25/19 23 Active lisinopril 5 MG tablet 7 mg. 10/25/19 23 Active cholecalciferol (Vitamin D-3) 1.25 MG (71556 UT) capsule Take 1 capsule by mouth [...] Encounters Date Type Department Care Team Description 04/09/2025 Orders Only [facility] Medicine Specialties [address], [address] [place] [address] Provider, Historical 04/02/2025 Telephone [facility] Urology [address], [address] [place] [address] Maya Osman APRN, GWENDOLYN HCN Clinical Concern/Question; HCN Status Update Call #1 03/24/2025 10:50 AM EDT Consult [facility] Medicine Specialties [address], [facility] [place] [address] Silvia Merlos APRN Back pain, unspecified back location, unspecified back pain laterality, unspecified chronicity (Primary Dx); Dry mouth; Spasms of the hands or feet; Vapes nicotine containing substance 03/24/2025 9:00 AM EDT Office Visit [facility] Urology [address], [address] [place] [address] Maya Osman APRN, GWENDOLYN High-tone pelvic floor dysfunction (Primary Dx); Reflux of urine; Recurrent UTI 03/24/2025 Telephone [facility] Urology [address], [address] [place] [address] Maya Osman APRN, GWENDOLYN Lab Results 03/24/2025 Telephone [facility] Urology [address], [address] [place] [address] [place] [address] Maya Osman APRN, DNP 03/24/2025 Travel 01/14/2025 Telephone [facility] [address], [address] [place] [address] Maya Osman, JEFFERSON, DNP HCN Clinical Concern/Question; Appointment Changes from [...] Description 07/03/2025 12:40 PM EST Office Visit [facility] Urology [address], [address] [place] [address] Maya Osman, JEFFERSON, DNP [address] [place] [address] 11/07/2025 10:00 AM EDT Consult [place] [facility] [address], [address] [place] [address] Chasity Mendoza MD [address] [place] [address] Health Maintenance Due Date Last Done Comments [facility]-HIV Screening 2002 [facility]-Hepatitis C Screening 2002 [facility]-Infant/Child/Adol SDOH Screenings 2002 [facility]-Varicella Vaccines (2 of 2 - 2-dose childhood series) 12/27/2006 02/20/2004 [facility]- SDOH Screenings 2020 [facility]-Adult SDOH Screenings 2020 [facility]-Pap Smear 2023 [id number] Vaccine ( - 2024- season) 2025 09/17/2021, 01/27/2021, 12/19/2020 [facility]-Influenza Vaccine (#1) 2025 [...] Procedure Name Priority Date/Time Associated Diagnosis Comments HLA B27 TYPING Routine 04/09/2025 3:45 PM EDT CYCLIC CITRUL PEPTIDE ANTIBODY IGG Routine 04/09/2025 3:45 PM EDT POCT URINALYSIS DIPSTICK Routine 03/24/2025 9:06 AM EDT from Last 3 Months Results * HLA B27 Typing (04/09/2025 3:45 PM EDT) Blood Venous blood specimen / Unknown [facility] Provider LAB BLOOD ORDERABLES Final R esult * Cyclic Citrul Peptide Antibody IgG (04/09/2025 3:45 PM EDT) Blood Venous blood specimen / Unknown [facility] Provider LAB BLOOD ORDERABLES Final R esult * POCT URINALYSIS DIPSTICK (03/24/2025 9:06 AM EDT) POCT Urine Color Yellow 03/24/2025 9:07 AM EDT [facility] UROLOGY POCT Urine Clarity Clear 03/24/2025 9:07 AM EDT [facility] UROLOGY POCT Urine Glucose Negative Negative mg/dL 03/24/2025 9:07 AM EDT [facility] UROLOGY POCT Urine Bilirubin Negative Negative mg/dL 03/24/2025 9:07 AM EDT [facility] UROLOGY POCT Urine Ketones Negative Negative mg/dL 03/24/2025 9:07 AM EDT [facility] UROLOGY POCT Urine Specific [place] 1.025 1.005 - 1.030 03/24/2025 9:07 AM EDT [facility] UROLOGY POCT Urine Blood Negative Negative 03/24/2025 9:07 AM EDT [facility] UROLOGY POCT pH, Urine 5.5 5.0 - 8.0 03/24/2025 9:07 AM EDT [facility] UROLOGY POCT Protein, Urine Negative Negative mg/dL 03/24/2025 9:07 AM EDT [facility] UROLOGY POCT Urobilinogen, Urine 0.2 0.2, 1.0 EU/dL 03/24/2025 9:07 AM EDT [facility] UROLOGY POCT Nitrite, Urine Negative Negative 03/24/2025 9:07 AM EDT [facility] UROLOGY POCT Urine Leukocyte Esterase Negative Negative 03/24/2025 9:07 AM EDT [facility] UROLOGY Urine 03/24/2025 9:06 AM EDT 03/24/2025 9:08 AM EDT us Maya Osman APRN, GWENDOLYN LAB POINT OF C ARE TEST DOCKED DEVICE UNSOLICITED RESULTS Final Result Performing Organization Address City/State/[facility] Co de Phone Number [facility] UROLOGY [address], [place] from Last 3 Months Insurance MEDICAID Care Teams Lamina Searcher Relationship Specialty Start Date End Date Trisha Cortes APRN [address] [place] [address] PCP - General 03/24/25 Maya Osman APRN, GWENDOLYN [address] [facility] [address] [place] [address] Nurse Practitioner Urology 03/24/25
--- OUTSIDE RECORDS SUMMARY | 2025-04-11 08:28 | XMS_ITS | Encounter Summary ---
Author Organization [facility] Address [address] [place] [address] Care Team Providers Care Microarray Operations Vice President Name Role Phone SebastianTrisha JEFFERSON Primary Care Provider + [phone] Maya Osman APRN, DNP Unavailable + [phone] Reason for Visit * Reason Onset Date Comments HCN Clinical Concern/Question 04/02/2025 HCN Status Update Call #1 04/02/2025 Encounter Details Date Type Department Care Team (Late st Contact Info) Description 04/02/2025 Telephone [place] [facility] [address], [address] [place] [address] Maya Osman, JEFFERSON, DNP [address] [place] [address] HCN Clinical Concern/Question; HCN Status Update Call #1 Social History Tobacco Use Types Packs/Day Years [...] on file documented as of this encounter Miscellaneous Notes * Telephone Encounter - Chan Paris - 04/03/2025 12:29 PM EDT Status Update Call #1 1st call regarding the status of the initial request. Best contact number: [phone] (mobile) Optimal time of day to reach caller: ANYTIME Additional comments/information from caller: None Note: Please do not reply to this message. Follow-up communication and further actions as a result of this message need to be communicated with the patient directly, if the patient is not active onMyChart. If the patient is active on MyChart, they will receive notification of the communication/outcome via [employer]. * Telephone Encounter - Maya Osman APRN, DNP - 04/02/2025 11:27 AM EDT Can add to waitlist or can be seen via TH in next available TH slot if sooner than previous appt. Thank you. * Telephone Encounter - Chan Paris - 04/02/2025 8:58 AM EDT Clinical Concern/Question Reason for Call: None She is needing to be seen. The fluid intake and void amount (for 24 hours) is41oz more than her output. MKS said that she needed to be seen if there was a significant difference. Best contact number: [phone] (mobile) Optimal time of day to reach caller: ANYTIME Additional comments/information from caller: None Note: Please do not reply to this message. Follow-up communication and further actions as a result of this message need to be communicated with the patient directly, if the patient is not active onMyChart. If the patient is active on MyChart, they will receive notification of the communication/outcome via MyChart. documented in this encounter Plan of Treatment Upcoming Encounters Date Type Department Care Team (Late st Contact Info) Description 07/03/2025 12:40 PM EST Office Visit [facility] Urology [address], [address] [place] [address] Maya Osman APRN, DNP [address] [place] [address] 11/07/2025 10:00 AM EDT Consult [facility] [address], [address] [place] [address] Chasity Mendoza MD [address] [place] [address] documented as of this encounter [...] documented as of this encounter Care Teams Microarray Operations Vice President Relationship Specialty Start Date End Date Trisha Cortes APRN [address] [place] [address] PCP - General 03/24/25 Maya Osman APRN, GWENDOLYN [address] [place] [address] Nurse Practitioner Urology 03/24/25 documented as of this encounter
--- OUTSIDE RECORDS SUMMARY | 2025-04-11 08:28 | XMS_ITS | Encounter Summary ---
Author Organization [facility] Address [address] [place] [address] Care Team Providers Care Salvager Helper Name Role Phone SebastianTrisha JEFFERSON Primary Care Provider + [phone] Maya Osman APRN, DNP Unavailable + [phone] Encounter Details Date Type Department Care Team (Late st Contact Info) Description 03/24/2025 Telephone [place] [facility] [address], [address] [place] [address] Maya Osman APRN, DNP [address] [place] [address] Social History Tobacco Use Types [...] included. Maya Osman APRN, GWENDOLYN [facility] Urology Medical Records Requests Will you please call [facility] for a copy of her most recent CMP/BMP; stated had performed last week. Unable to see via Care Everywhere. Thank you. ====== Called [phone], #1, spoke with Jennifer who is to fax labs, stated she had some done on 03/17/25. CH documented in this encounter Plan of Treatment Upcoming Encounters Date Type Department Care Team (Late st Contact Info) Description 07/03/2025 12:40 PM EST Office Visit [facility] Urology [address], [address] [place] [address] Maya Osman APRN, GWENDOLYN [address] [place] [address] 11/07/2025 10:00 AM EDT Consult [facility] [address], 1[address] [place] [address] Chasity Mendoza MD [address] [place] [address] documented as of this encounter [...] documented as of this encounter Care Teams Salvager Helper Relationship Specialty Start Date End Date Trisha Cortes APRN [address] [place] [address] PCP - General 03/24/25 Maya Osman APRN, GWENDOLYN [address] [place] [address] Nurse Practitioner Urology 03/24/25 documented as of this encounter
--- OUTSIDE RECORDS SUMMARY | 2025-04-11 08:28 | XMS_ITS | Encounter Summary ---
Author Organization [facility] Address [address] [place] [address] Care Team Providers Care Funeral Home Makeup Artist Name Role Phone SebastianTrisha JEFFERSON Primary Care Provider + [phone] Maya Osman APRN, GWENDOLYN Unavailable + [phone] Reason for Visit * Reason Onset Date Comments Lab Results 03/24/2025 Encounter Details Date Type Department Care Team (Late st Contact Info) Description 03/24/2025 Telephone [place] [facility] [address], [address] [place] [address] Maya Osman APRN, DNP [address] [place] [address] Lab Results Social History Tobacco [...] AM EDT Uploaded 03/17/25 Lab Results from [facility] documented in this encounter Plan of Treatment Upcoming Encounters Date Type Department Care Team (Late st Contact Info) Description 07/03/2025 12:40 PM EST Office Visit [facility] Urology [address], [address] [place] [address] Maya Osman APRN, DNP [address] [place] [address] 11/07/2025 10:00 AM EDT Consult [facility] [address], [address]st [place] [address] Chasity Mendoza MD [address] [place] [address] documented as of this encounter [...] documented as of this encounter Care Teams Funeral Home Makeup Artist Relationship Specialty Start Date End Date Trisha Cortes APRN [address] [place] [address] PCP - General 03/24/25 Maya Osman APRN, GWENDOLYN [address] [place] [address] Nurse Practitioner Urology 03/24/25 documented as of this encounter
--- OUTSIDE RECORDS SUMMARY | 2025-04-11 08:28 | XMS_ITS | Encounter Summary ---
Author Organization [facility] Address [address] [place] [address] Care Team Providers Care Resistor Coater Name Role Phone Trisha Cortes JEFFERSON Primary Care Provider + [phone] OsmanMaya maldonado APRN, DNP Unavailable + [phone] Encounter Details Date Type Department Care Team (Late st Contact Info) Description 04/09/2025 Orders Only [facility] Medicine Specialties [address], [address] [place] [address] Provider, [place] [address] [place] [address] Social History Tobacco Use Types Packs/Day Years [...] Description 07/03/2025 12:40 PM EST Office Visit [facility] Urology [address], [address] [place] [address] Maya Osman APRN, GWENDOLYN [address] [place] [address] 11/07/2025 10:00 AM EDT Consult [facility] [address], [address] [place] [address] Chasity Mendoza MD [address] [place] [address] documented as of this encounter Procedures Procedure Name Priority Date/Time Associated Diagnosis Comments HLA B27 TYPING Routine 04/09/2025 3:45 PM EDT CYCLIC CITRUL PEPTIDE ANTIBODY IGG Routine 04/09/2025 3:45 PM EDT documented in this encounter Results * HLA B27 Typing (04/09/2025 3:45 PM EDT) Blood Venous blood specimen / Unknown Historical Provider LAB BLOOD ORDERABLES Final R esult * Cyclic Citrul Peptide Antibody IgG (04/09/2025 3:45 PM EDT) Blood Venous blood specimen / Unknown Historical Provider LAB BLOOD ORDERABLES Final R esult documented in this encounter Visit Diagnoses Not on filedocumented in this encounter Additional Health Concerns Assessment Noted Time PHQ-9 Depression Total Score: 6 03/24/20 25 9:17 AM EDT A fall risk assessment has been complete d for the patient 03/24/2025 10:45 AM EDT A Body Mass Index follow-up plan has been documented for the patient 03/24/2025 12:15 PM EDT documented as of this encounter Care Teams Resistor Coater Relationship Specialty Start Date End Date Trisha Cortes APRN [address] [place] [address] PCP - General 03/24/25 Maya Osman APRN, DNP [address] [place] [address] Nurse Practitioner Urology 03/24/25 documented as of this encounter
--- OUTSIDE RECORDS SUMMARY | 2025-04-11 08:28 | XMS_ITS | Encounter Summary ---
Author Organization Address [address] [place] [address] Care Team Providers Care Aluminum Boat Inspector Name Role Phone Trisha Cortes APRN Primary Care Provider + [phone] OsmanMaya maldonado APRN, DNP Unavailable + [phone] Encounter Details Date Type Department Care Team [...] 07/03/2025 12:40 PM EST Office Visit [facility] Urology [address], [address] [place] [address] Maya Osman APRN, GWENDOLYN [address] [place] [address] 11/07/2025 10:[address] [facility] [address], [address] [place] [address] Chasity Mendoza MD [address] [place] [address] documented as of this encounter [...] documented as of this encounter Care Teams Aluminum Boat Inspector Relationship Specialty Start Date End Date Trisha Cortes APRN [address] [place] [address] PCP - General 03/24/25 Maya Osman APRN, GWENDOLYN [address] [place] [address] Nurse Practitioner Urology 03/24/25 documented as of this encounter
== END 2025-04-11 23:59 | disposition home or self-care (01) ==
LOC: RAD 08:04
PROVIDERS: PCP Nurse Practitioner; Visit Provider Nurse Practitioner Family
DX: M54.9 Dorsalgia, unspecified (principal); R68.2 Dry mouth, unspecified
CPT/HCPCS: 72202; 73100; 73120

== ENCOUNTER 2025-04-16 13:30 | Outpatient (CLI) | payer OTHER, SELFPAY ==
--- OUTSIDE RECORDS SUMMARY | 2025-03-24 09:00 | XMS_ITS | Encounter Summary ---
Author Organization [facility] Address [address] [place] [address] Care Team Providers Care Air Quality Manager Name Role Phone SebastianTrisha JEFFERSON Primary Care Provider + [phone] Maya Osman APRN, DNP Unavailable [phone] Reason for Referral * Imaging (Routine) - Authorized Specialty Diagnoses / Procedures Referred By Racquel t Referred To Contact Diagnoses Reflux of urine Recurrent UTI Procedures US Renal Complete Maya Osman APRN, DNP [address] [place] [address] Phone: tel: fax: Referral ID Status Reason Start Date Expiration Date V isits Requested Visits Authorized [id number] Authorized 03/24/2025 09/23/2026 1 1 Reason for Visit * Reason Comments Follow-up Pt notes that she do es get the burning sensation after urination often. She does note 2-3 UTIs since the last visit. Encounter Details Date Type Department Care Team (Late st Contact Info) Description 03/24/2025 9:00 AM EDT Office Visit [facility] [address] [place] [address] Maya Osman APRN, DNP [address] [facility] [address] [place] [address] High-tone pelvic floor dysfunction (Primary Dx); [...] APRN, DNP - 03/24/2025 9:00 AM EDT [facility] Urology Clinic Note Consulting provider: No ref. [...] effective. 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 [id number]. She was advised to discuss this with her primary care provider during her upcoming appointment. 7. Due to history of VUR and UTIs, have SANDRA. Will call for most recent blood work. Follow-up A follow-up visit is scheduled in 3 months via telehealth. ADDENDUM: Outside lab results were obtained: 03/17/2025: CMP: Cr 0.9 eGFR 78 Plan: Keep 24 hour voiding diary, send via [employer] for my review Begin OTC D-mannose 2 grams daily for UTI prevention Behavioral modifications for pelvic floor dysfunction and IBS Begin Robaxin 500 mg 1 tablet at bedtime, slowly increase as needed/tolerated to a maximum dose of 2 tablets TID Follow-up with PCP regarding edema and elevated HR Will call for outside blood work Return in 3 months via with [facility] Maya Osman APRN, DNP Verbal consent was obtained to use ambient listening technology to assist in the documentation of the encounter: yes documented in this encounter Plan of Treatment Upcoming Encounters Date Type Department Care Team (Late st Contact Info) Description 07/03/2025 12:40 PM EST Office Visit [facility] Urology [address] [place] [address] Maya Osman APRN, DNP [address] [place] [address] 11/07/2025 10:00 AM EDT Consult [facility] [address] [place] [address] Chasity Mendoza MD [address] [place] [address] Scheduled Orders Name Type Priority Associated [...] Urine Color Yellow 03/24/2025 9:[address] [facility] POCT Urine Clarity Clear 03/24/2025 9:[address] [facility] POCT Urine Glucose Negative Negative mg/dL 03/24/2025 9:[address] [facility] POCT Urine Bilirubin Negative Negative mg/dL 03/24/2025 9:[address] [facility] POCT Urine Ketones Negative Negative mg/dL 03/24/2025 9:[address] [facility] POCT Urine Specific [place] 1.025 1.005 - 1.030 03/24/2025 9:[address] [facility] POCT Urine Blood Negative Negative 03/24/2025 9:[address] [facility] POCT pH, Urine 5.5 5.0 - 8.0 03/24/2025 9:[address] [facility] POCT Protein, Urine Negative Negative mg/dL 03/24/2025 9:[address] [facility] POCT Urobilinogen, Urine 0.2 0.2, 1.0 EU/dL 03/24/2025 9:[address] [facility] POCT Nitrite, Urine Negative Negative 03/24/2025 9:[address] [facility] POCT Urine Leukocyte Esterase Negative Negative 03/24/2025 9:[address] [facility] Urine 03/24/2025 9:06 AM EDT 03/24/2025 9:08 AM EDT Maya Osman APRN, DNP LAB POINT OF C ARE TEST DOCKED DEVICE UNSOLICITED RESULTS Final Result Performing Organization Address City/State/[facility] Co de Phone Number [facility] [address] [place], [place] documented in this encounter Visit Diagnoses [...] documented as of this encounter Care Teams Air Quality Manager Relationship Specialty Start Date End Date Trisha Cortes APRN [address] [place] [address] PCP - General 03/24/25 Maya Osman APRN, DNP [address] [facility] [address] [place] [address] Nurse Practitioner Urology 03/24/25 documented as of this encounter
--- OUTSIDE RECORDS SUMMARY | 2025-03-24 10:50 | XMS_ITS | Encounter Summary ---
Author Organization [facility] Address [address] [place] [address] Care Team Providers Care Manager Recovery Name Role Phone Trisha Cortes JEFFERSON Primary Care Provider + [phone] OsmanMaya maldonado APRN, DNP Unavailable [phone] Reason for Visit * Reason Comments Joint Pain Consult * Consultation (Routine) - Closed Specialty Diagnoses / Procedures Referred By Racquel t Referred To Contact Rheumatology Diagnoses Multiple joint pain Sebastian JEFFERSON Rico [address] [place] [address] Phone: tel: fax: Referral ID Status Reason Start Date Expiration Date V isits Requested Visits Authorized [id number] Closed Specialty Services Required 02/21/2025 08/23/2026 1 1 Encounter Details Date Type Department Care Team (Late st Contact Info) Description 03/24/2025 10:50 AM EDT Consult [facility] [address] [place] [address] Silvia Merlos, WORKING MANAGER [address] [place] [address] Back pain, unspecified back location, [...] side, this has occurred a few times, [id number] seconds. Feels frequent hot flashes and cold [...] Negative Negative mg/dL Final POCT Urine Specific [place] 03/24/2025 1.025 1.005 - 1.030 Final POCT [...] 1.5 mg. cholecalciferol (Vitamin D-3) 1.25 MG (92923 UT) capsule Take 1 capsule by mouth [...] and other consulting physicians. Pantera Hawley MD Termite Renewal Inspector Division of Rheumatology Department of Internal Medicine [facility] documented in this encounter Plan of Treatment Upcoming Encounters Date Type Department Care Team (Late st Contact Info) Description 07/03/2025 12:40 PM EST Office Visit [facility] Urology [address] [place] [address] Maya Osman APRN, DNP [address] [place] [address] 11/07/2025 10:00 AM EDT Consult [facility] [address] [place] [address] Chasity Mendoza MD [address] [place] [address] Scheduled Orders Name Type Priority [...] documented as of this encounter Care Teams Manager Recovery Relationship Specialty Start Date End Date Trisha Cortes APRN [address] [place] [address] PCP - General 03/24/25 Maya Osman APRN, DNP [address] [facility] [address] [place] [address] Nurse Practitioner Urology 03/24/25 documented as of this encounter
--- OUTSIDE RECORDS SUMMARY | 2025-04-16 10:40 | XMS_ITS | Encounter Summary ---
Author Organization [facility] Address [address] [place] [address] Care Team Providers Care Careers Counsellor Name Role Phone Trisha Cortes JEFFERSON Primary Care Provider + [phone] Maya Osman APRN, DNP Unavailable [phone] Reason for Referral * Consultation (Routine) - Pending Review Specialty Diagnoses / Procedures Referred By Contac t Referred To Contact Physical Therapy Diagnoses Recurrent UTI High-tone pelvic floor dysfunction Maya Osman APRN, DNP [address] [address] Phone: tel: fax: Referral ID Status Reason Start Date Expiration Date Visits Requested Visits Authorized [id number] Pending Review Specialty Services Required 04/16/2025 10/16/2026 1 1 * Medications - Authorized Specialty Diagnoses / Procedures Referred By Contac t Referred To Contact Diagnoses High-tone pelvic floor dysfunction Maya Osman APRN, DNP [address] [address] Phone: tel: fax: Referral ID Status Reason Start Date Expiration Date V isits Requested Visits Authorized [id number] Authorized 1 1 Reason for Visit * Reason Comments UTI Burning with urinati on and pain in lower back. Encounter Details Date Type Department Care Team (Late st Contact Info) Description 04/16/2025 10:40 AM EDT Office Visit [facility] [address] [place] [address] Osman, Maya Barakat, HOSPITAL LABORATORY TECHNICIAN, DNP [address] [place] [address] Recurrent UTI (Primary Dx); High-tone [...] all 04/16/2025 10:23 AM EDT Lissa Smith Feeling down, depressed, or hopeless Not at all 04/16/2025 10:23 AM EDT Lissa Smith Patient Health Questionnaire -2 Score 0 04/16/2025 10:23 AM EDT Lissa Smith documented as of this encounter Miscellaneous Notes * Progress Notes - Maya Osman, JEFFERSON, DNP - 04/16/2025 10:40 AM EDT [facility] Note Consulting provider: No ref. 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 [...] avoid nocturia Follow-up - Ultrasound scheduled at [facility] today. Return for previously scheduled appt inD2024 Plan: Continue OTC D-mannose 2 grams daily [...] Description 07/03/2025 12:40 PM EST Office Visit [facility] Urology [address] [place] [id number] Maya Osman APRN, DNP [address] [place] [address] 11/07/2025 10:00 AM EDT Consult [facility] [address] [place] [address] Chasity Mendoza MD [address] [place] [address] Scheduled Orders Name Type Priority Associated Diagnoses Orde r Schedule Urine Culture Microbiology Routine Recurrent UTI High-tone pelvic floor dysfunction Ordered: 04/16/2025 Urinalysis, Microscopic Lab Routine Recurrent UTI High-tone pelvic floor dysfunction Ordered: 04/16/2025 Scheduled Referrals Name Type Priority Associated Diagnoses Order Schedule Ambulatory referral to Pelvic Floor Physical Therapy Outpatient Referral Routine Recurrent UTI High-tone pelvic floor dysfunction 1 Occurrences starting 04/16/2025 until 10/18/2026 documented as of this encounter Procedures Procedure Name Priority Date/Time Associated Diagnosis Comments POC US BLADDER SCAN FOR VOLUME Routine 04/16/2025 10:28 AM EDT Recurrent UTI POCT URINALYSIS DIPSTICK Routine 04/16/2025 10:13 AM EDT documented in this encounter Results * POC US Bladder Volume (04/16/2025 10:28 AM EDT) Urine, Volume 0 mL IMAGING Anatomical Region Laterality Modality Other Maya Osman HOSPITAL LABORATORY TECHNICIAN, DNP IMG POINT OF CARE ULTR ASOUND Final Result * (ABNORMAL) POCT URINALYSIS DIPSTICK (04/16/2025 10:13 AM EDT) POCT Urine Color Yellow 04/16/2025 10:15 AM EDT [facility] POCT Urine Clarity Sl.Cloudy 04/16/2025 10:15 AM EDT [facility] POCT Urine Glucose Negative Negative mg/dL 04/16/2025 10:15 AM EDT [facility] POCT Urine Bilirubin Negative Negative mg/dL 04/16/2025 10:15 AM EDT [facility] POCT Urine Ketones Negative Negative mg/dL 04/16/2025 10:15 AM EDT [facility] POCT Urine Specific [place] 1.015 1.005 - 1.030 04/16/2025 10:15 AM EDT [facility] POCT Urine Blood Negative Negative 04/16/2025 10:15 AM EDT [facility] POCT pH, Urine 6.0 5.0 - 8.0 04/16/2025 10:15 AM EDT [facility] POCT Protein, Urine Negative Negative mg/dL 04/16/2025 10:15 AM EDT [facility] POCT Urobilinogen, Urine 0.2 0.2, 1.0 EU/dL 04/16/2025 10:15 AM EDT [facility] POCT Nitrite, Urine Negative Negative 04/16/2025 10:15 AM EDT [facility] POCT Urine Leukocyte Esterase Trace(A) Negative 04/16/2025 10:15 AM EDT [facility] Urine 04/16/2025 10:1 3 AM EDT 04/16/2025 10:15 AM EDT Maya Osman APRN, DNP LAB POINT OF C ARE TEST DOCKED DEVICE UNSOLICITED RESULTS Final Result [facility] [address] [place], [place] documented in this encounter Visit Diagnoses [...] documented as of this encounter Care Teams Careers Counsellor Relationship Specialty Start Date End Date Trisha Cortes APRN [address] [place] [address] PCP - General 03/24/25 Maya Osman APRN, GWENDOLYN [address] [place] [address] Nurse Practitioner Urology 03/24/25 documented as of this encounter
--- NOTE | 2025-04-16 13:33 | US_ITS ---
FINAL REPORT TECHNIQUE: Ultrasound images of the kidneys and bladder were obtained. CLINICAL HISTORY: REFLUX OF URINE COMPARISON: None FINDINGS: The right kidney measures 9.7 cm in length. It is normal in echogenicity. There is no hydronephrosis. The left kidney measures 11 cm in length. It is normal in echogenicity. There is no hydronephrosis. IMPRESSION: No hydronephrosis. No significant atrophy or scarring is identified. Reviewed, Interpreted and Dictated by Jose R Rocha MD Transcribed by Fidelina Denson Authenticated and [facility]
--- OUTSIDE RECORDS SUMMARY | 2025-04-16 13:40 | XMS_ITS | Clinical Summary ---
Author Organization [facility] Address [address] [place] [address] Care Team Providers Care Wheel Loader Operator Name Role Phone Trisha Cortes JEFFERSON Primary Care Provider + [phone] OsmanMaya maldonado APRN, DNP Unavailable + [phone] Allergies No known active allergies Medications amLODIPine (Norvasc) 10 MG tablet 023 Active ARIPiprazole (Abilify) 2 MG tablet 023 Active busPIRone (Buspar) 15 MG tablet 023 Active citalopram (CeleXA) 20 MG tablet 023 Active hydrOXYzine HCl (Atarax) 25 MG tablet 023 Active lisinopril 5 MG tablet 7 mg. 023 Active clonazePAM (KlonoPIN) 0.5 MG tablet TAKE 1/2 TABLET BY MOUTH ONCE A DAY NEEDED FOR ANXIETY Active hydrOXYzine pamoate (Vistaril) 25 MG capsule 2 capsules. 025 Active citalopram (CeleXA) 40 MG tablet Take 1 tablet by mouth daily. 025 Active cyanocobalamin (Vitamin B-12) 1000 MCG/ML injection Inject 1 mL every week by subcutaneous route for 30 days. 025 Active ergocalciferol 1.25 MG (07460 UT) capsule Take 1 capsule by mouth 1 time per week. 025 Active hydroCHLOROthiazi de 12.5 MG PO tablet TAKE 1 TABLET BY MOUTH ONCE A DAY NEEDED FOR EDEMA Active propranolol (Inderal) 10 MG tablet Take 2 tablets by mouth 2 times a day. 025 Active sulfamethoxazole- trimethoprim (Bactrim DS) 800-160 MG tablet take 1 tablet by mouth every twelve hours for 10 days 025 Active Vraylar 1.5 MG capsule Take 1 capsule by mouth daily. Active metaxalone (Skelaxin) 400 MG tabletIndications :High-tone pelvic floor dysfunction Start by taking 1 pill by mouth at bedtime. Increase to 1 pill 2x/day as needed, maximum of 2 pills 3x/day as needed/tolerate d. 180 tablet 11 025 Active Tri-Sprintec 0.18/0.215/0.25 MG-35 MCG tablet 023 2024 Discontinued ondansetron ODT (Zofran-ODT) 4 MG disintegrating tablet 023 2024 Discontinued cholecalciferol (Vitamin D-3) 1.25 MG (78679 UT) capsule Take 1 capsule by mouth 1 time per week. 2024 Discontinued(D ose adjustment) Cariprazine HCl (VRAYLAR PO) 1.5 mg. 2024 Discontinued(D ose adjustment) methocarbamol (Robaxin) 500 MG tabletIndications :High-tone pelvic floor dysfunction Start by taking 1 pill by mouth every night. Slowly increase to 1 pill 2x/day as needed, with a maximum of 2 pills 3x/day. 180 tablet 11 025 2024 Discontinued Active Problems Problem Noted Date Diagnosed [...] Encounters Date Type Department Care Team Description 04/16/2025 10:40 AM EDT Office Visit [facility] Urology [address], [address] [place] [address] Maya Osman, DATER ASSEMBLER, DNP Recurrent UTI (Primary Dx); High-tone pelvic floor dysfunction 04/16/2025 Travel 04/14/2025 Telephone [facility] Urology [address], [address] [place] [address] Maya Osman APRN, GWENDOLYN HCN Same Day Appt/Overbook Request; Final U/C 04/11/2025 Telephone [facility]rology [address] [facility] [place] [address] Maya Osman, JEFFERSON, GWENDOLYN HCN Paperwork/Documentat ion Request 04/09/2025 Orders Only [facility] Medicine Specialties [address], [address] [place] [address] [place] [address] Provider, Historical 04/02/2025 Telephone [facility] Urology [address] [place] [address] [place] [address] Maya Osman APRN, GWENDOLYN HCN Clinical Concern/Question; HCN Status Update Call #1 03/24/2025 10:50 AM EDT Consult [facility] Medicine Specialties [address], [address] [place] [address] [place] [address] Silvia Merlos APRN Back pain, unspecified back location, unspecified back pain laterality, unspecified chronicity (Primary Dx); Dry mouth; Spasms of the hands or feet; Vapes nicotine containing substance 03/24/2025 9:00 AM EDT Office Visit [facility] Urology [address], [address] [place] [address] [place] [address] Maya Osman APRN, GWENDOLYN High-tone pelvic floor dysfunction (Primary Dx); Reflux of urine; Recurrent UTI 03/24/2025 Telephone [facility]rology [address], [address] [place] [address] [place] [address] Maya Osman APRN, GWENDOLYN Lab Results 03/24/2025 Telephone [facility]rology [address], [address] [place] [address] [place] [address] Maya Osman APRN, GWENDOLYN 03/24/2025 Travel 01/14/2025 Telephone [facility]rology [address], [address] [place] [address] [place] [address] Maya Osman, DATER ASSEMBLER, DNP HCN Clinical Concern/Question; Appointment Changes from [...] Pulse 97 04/16/2025 10:16 AM EDT Temperature 36.9 C (98.4 F) 03/24/2025 10:42 AM EDT Respiratory Rate 16 03/24/2025 10:42 AM EDT Oxygen Saturation 100% 04/16/2025 10:16 AM EDT Inhaled Oxygen Concentration - - Weight 156 kg (343 lb 14.7 oz) 04/16/2025 10:16 AM EDT Height 162.6 cm (5' 4 ) 04/16/2025 10:16 AM EDT Body Mass Index 59.03 04/16/2025 10:16 AM EDT Plan of Treatment Upcoming Encounters Date Type Department Care Team (Late st Contact Info) Description 07/03/2025 12:40 PM EST Office Visit [facility] Urology [address], [address] [place] [address] Maya Osman APRN, DNP [address] [place] [address] 11/07/2025 10:00 AM EDT Consult [facility] [address], [address] [place] [address] Chasity Mendoza MD [address] [place] [address] [place] [address] Health Maintenance Due Date Last Done Comments [facility]-HIV Screening 2002 [facility]-Hepatitis C Screening 2002 [facility]-Infant/Child/Adol SDOH Screenings 2002 [facility]-Varicella Vaccines (2 of 2 - 2-dose childhood series) 12/27/2006 02/20/2004 [facility]- SDOH Screenings 2020 [facility]-Adult SDOH Screenings 2020 [facility]-Pap Smear 2023 [id number] Vaccine (2024- season) 2025 09/17/2021, 01/27/2021, 12/19/2020 [facility]-Influenza Vaccine (#1) 2025 [facility]-Depression Screening 04/16/2026 04/16/2025, 03/01 [facility]-DTaP,Tdap,and Td Vaccines (7 - Td [...] 08/04/2020, 08/31, 02/13/2018 [facility]-Obesity Intervention Completed 025, 03/24/2025, 05/02/2024, Additional history exists [facility]-Rotavirus Vaccines Aged Out No lo nger eligible based on patient's age to complete this topic Procedures Procedure Name Priority Date/Time Associated Diagnosis Comments POC US BLADDER SCAN FOR VOLUME Routine 04/16/2025 10:28 AM EDT Recurrent UTI POCT URINALYSIS DIPSTICK Routine 04/16/2025 10:13 AM EDT HLA B27 TYPING Routine 04/09/2025 3:45 PM EDT CYCLIC CITRUL PEPTIDE ANTIBODY IGG Routine 04/09/2025 3:45 PM EDT POCT URINALYSIS DIPSTICK Routine 03/24/2025 9:06 AM EDT from Last 3 Months Results * POC US Bladder Volume (04/16/2025 10:28 AM EDT) Urine, Volume 0 mL IMAGING Anatomical Region Laterality Modality Other Maya Osman DATER ASSEMBLER, DNP IMG POINT OF CARE ULTR ASOUND Final Result * (ABNORMAL) POCT URINALYSIS DIPSTICK (04/16/2025 10:13 AM EDT) Only the most recent of2 resultswithin the time period is included. POCT Urine Color Yellow 04/16/2025 10:15 AM EDT [facility] POCT Urine Clarity Sl.Cloudy 04/16/2025 10:15 AM EDT [facility] POCT Urine Glucose Negative Negative mg/dL 04/16/2025 10:15 AM EDT [facility] POCT Urine Bilirubin Negative Negative mg/dL 04/16/2025 10:15 AM EDT [facility] POCT Urine Ketones Negative Negative mg/dL 04/16/2025 10:15 AM EDT [facility] POCT Urine Specific [place] 1.015 1.005 - 1.030 04/16/2025 10:15 AM EDT [facility] POCT Urine Blood Negative Negative 04/16/2025 10:15 AM EDT [facility] POCT pH, Urine 6.0 5.0 - 8.0 04/16/2025 10:15 AM EDT [facility] POCT Protein, Urine Negative Negative mg/dL 04/16/2025 10:15 AM EDT [facility] POCT Urobilinogen, Urine 0.2 0.2, 1.0 EU/dL 04/16/2025 10:15 AM EDT [facility] POCT Nitrite, Urine Negative Negative 04/16/2025 10:15 AM EDT [facility] POCT Urine Leukocyte Esterase Trace(A) Negative 04/16/2025 10:15 AM EDT [facility] Urine 04/16/2025 10:1 3 AM EDT 04/16/2025 10:15 AM EDT Result [facility] Maya Osman DATER ASSEMBLER, DNP LAB POINT OF C ARE TEST DOCKED DEVICE UNSOLICITED RESULTS Final Result [facility] [address], [place] * HLA B27 Typing (04/09/2025 3:45 PM EDT) Blood Venous blood specimen / Unknown Result [facility] Provider LAB BLOOD ORDERABLES Final R esult * Cyclic Citrul Peptide Antibody IgG (04/09/2025 3:45 PM EDT) Blood Venous blood specimen / Unknown [facility] Provider LAB BLOOD ORDERABLES Final R esult from Last 3 Months Insurance [employer] [facility] MEDICAID Care Teams Wheel Loader Operator Relationship Specialty Start Date End Date Trisha Cortes APRN [address] [place] [address] PCP - General 03/24/25 Maya Osman APRN, DNP [address] [facility] [address] [place] [address] Nurse Practitioner Urology 03/24/25
--- OUTSIDE RECORDS SUMMARY | 2025-04-16 13:40 | XMS_ITS | Clinical Summary ---
Author Organization [facility] Address [address] [place] [address] Care Team Providers Care Research Specialist Name Role Phone Lazaro Bran M.D. Primary Care Provider [phone] Source Comments [facility] is fully rolled out with thefollowing exceptions:General Clinical Research [facility] Allergies No known active allergies Medications lisinopril [...] patient's age to complete this topic Insurance [facility] Care Teams Research Specialist Relationship Specialty Start Date End Date Lazaro Bran M.D. [facility] [address] [place] [address] PCP - General External Family Practice 11/18/13
--- OUTSIDE RECORDS SUMMARY | 2025-04-16 13:40 | XMS_ITS | Encounter Summary ---
Author Organization [facility] Address [address] [place] [address] Care Team Providers Care Engineering Surveyor Name Role Phone Trisha Cortes APRN Primary Care Provider + [phone] OsmanMaya maldonado APRN, DNP Unavailable + [phone] Encounter Details Date Type Department Care Team [...] Description 07/03/2025 12:40 PM EST Office Visit [facility] [address], [address]nd [place] [address] Maya Osman APRN, GWENDOLYN [address] [place] [address] 11/07/2025 10:00 AM EDT Consult [facility] [address], 1st [place] [address] Chasity Mendoza MD [address] [place] [address] documented as of this encounter [...] documented as of this encounter Care Teams Engineering Surveyor Relationship Specialty Start Date End Date Trisha Cortes APRN [address] [place] [address] PCP - General 03/24/25 Maya Osman APRN, GWENDOLYN [address] [place] [address] [place] [address] Nurse Practitioner Urology 03/24/25 documented as of this encounter
--- OUTSIDE RECORDS SUMMARY | 2025-04-16 13:40 | XMS_ITS | Encounter Summary ---
Author Organization [facility] Address [address] [place] [address] Care Team Providers Care Ball Points Inspector Name Role Phone Kassidy Rodriges JEFFERSON Primary Care Provider + [phone] Trisha Cortes APRN Primary Care Provider + [phone] Maya Osman APRN, DNP Unavailable + [phone] Reason for Referral * Consultation (Routine) - Closed Specialty Diagnoses / Procedures Referred By Racquel t Referred To Contact Nephrology Diagnoses Urinary tract infection without hematuria, site unspecified Trisha Cortes APRN [address] [place] [address] Phone: tel: fax: Referral ID Status Reason Start Date Expiration Date V isits Requested Visits Authorized [id number] Closed Specialty Services Required 08/09/2022 02/08/2024 1 1 Encounter Details Date Type Department Care Team (Late st Contact Info) Description 08/09/2022 Community Orders [facility] [address] [place] [address] Trisha Cortes APRN [address] [place], [place] [id number] Urinary tract infection without hematuria, site unspecified [...] Description 07/03/2025 12:40 PM EST Office Visit [facility] Urology [address], [address] [place] [address] Maya Osman APRN, GWENDOLYN [address] [facility] [address] [place] [address] 11/07/2025 10:00 AM EDT Consult [facility] [address], 1st [place] [address] Chasity Mendoza MD [address] [facility] [address] [place] [address] Scheduled Referrals Name Type Priority Associated Diagnoses Orde r Schedule Ambulatory referral to Nephrology Outpatient Referral Routine Urinary tract infection without hematuria, site unspecified Expected: 08/09/2022 (Approximate), Expires: 02/07/2024 documented as of this encounter Visit Diagnoses Diagnosis Urinary tract infection without hematuria, site unspecified- Primary documented in this encounter Care Teams Ball Points Inspector Relationship Specialty Start Date End Date Kassidy Rodriges APRN [address] [place], [place] [address] PCP - General 12/11/20 03/23/25 Trisha Cortes APRN [address] [place], [place] [id number] PCP - General 03/24/25 Maya Osman APRN, GWENDOLYN [address] [facility] [address] [place] [address] Nurse Practitioner Urology 03/24/25 documented as of this encounter
--- OUTSIDE RECORDS SUMMARY | 2025-04-16 13:40 | XMS_ITS | Encounter Summary ---
Author Organization [facility] Address [address] [place] [address] Care Team Providers Care Tuyere Fitter Name Role Phone SebastianTrisha JEFFERSON Primary Care Provider + [phone] Maya Osman APRN, DNP Unavailable + [phone] Encounter Details Date Type Department Care Team (Late st Contact Info) Description 03/24/2025 Telephone [facility] [address], [address] [place] [address] Maya Osman APRN, DNP [address] [place] [address] Social History Tobacco Use Types [...] down Several days 03/24/2025 9:17 AM EDT oRsie Smith Trouble concentrating on things, such as [...] included. Maya Osman APRN, GWENDOLYN P [facility] Urology Medical Records Requests Will you please call [facility] for a copy of her most recent CMP/BMP; stated had performed last week. Unable to see via Care Everywhere. Thank you. ====== Called [phone], #1, spoke with Jennifer who is to fax labs, stated she had some done on 03/17/25. CH documented in this encounter Plan of Treatment Upcoming Encounters Date Type Department Care Team (Late st Contact Info) Description 07/03/2025 12:40 PM EST Office Visit [facility] Urology [address], [address] [place] [address] Maya Osman APRN, GWENDOLYN [address] [place] [address] 11/07/2025 10:00 AM EDT Consult [facility] [address], 1st [place] [address] Chasity Mendoza MD [address] [place] [address] documented as of this encounter [...] documented as of this encounter Care Teams Tuyere Fitter Relationship Specialty Start Date End Date Trisha Cortes APRN [address] [place] [address] PCP - General 03/24/25 Maya Osman APRN, GWENDOLYN [address] [place] [address] Nurse Practitioner Urology 03/24/25 documented as of this encounter
--- OUTSIDE RECORDS SUMMARY | 2025-04-16 13:40 | XMS_ITS | Encounter Summary ---
Author Organization [facility] Address [address] [place] [address] Care Team Providers Care Search Engine Marketing Specialist Name Role Phone Trisha Cortes JEFFERSON Primary Care Provider + [phone] OsmanMaya maldonado APRN, DNP Unavailable + [phone] Encounter Details Date Type Department Care Team (Late st Contact Info) Description 04/09/2025 Orders Only [facility] Medicine Specialties [address], [address] [place] [address] Provider, [address] [place] [address] Social History Tobacco Use Types [...] Description 07/03/2025 12:40 PM EST Office Visit [facility] Urology [address], [address] [place] [address] Maya Osman APRN, GWENDOLYN [address] [place] [address] 11/07/2025 10:00 AM EDT Consult [facility] [address], [address] [place] [address] Chasity Mendoza MD [address] [place] [address] documented as of this encounter [...] documented as of this encounter Care Teams Search Engine Marketing Specialist Relationship Specialty Start Date End Date Trisha Cortes APRN [address] [place] [address] PCP - General 03/24/25 Maya Osman APRN, DNP [address] [place] [address] Nurse Practitioner Urology 03/24/25 documented as of this encounter
--- OUTSIDE RECORDS SUMMARY | 2025-04-16 13:40 | XMS_ITS | Encounter Summary ---
Author Organization [facility] Address [address] [place] [address] Care Team Providers Care Reception Specialist Name Role Phone SebastianTrisha JEFFERSON Primary Care Provider + [phone] Maya Osman APRN, DNP Unavailable + [phone] Reason for Visit * Reason Onset Date Comments HCN Clinical Concern/Question 04/02/2025 HCN Status Update Call #1 04/02/2025 Encounter Details Date Type Department Care Team (Late st Contact Info) Description 04/02/2025 Telephone [facility] [address], [address] [place] [address] Maya Osman, JEFFERSON, DNP [address] [place] [address] HCN Clinical Concern/Question; HCN Status [...] of the initial request. Best contact number: [phone] (mobile) Optimal time of day to reach caller: ANYTIME Additional comments/information from caller: None Note: Please do not reply to this message. Follow-up communication and further actions as a result of this message need to be communicated with the patient directly, if the patient is not active onMyChart. If the patient is active on MyChart, they will receive notification of the communication/outcome via [employer]. * Telephone Encounter - Maya Osman APRN, [...] was a significant difference. Best contact number: [phone] (mobile) Optimal time of day to reach [...] 07/03/2025 12:40 PM EST Office Visit [facility] Urology [address], [address] [place] [address] Maya Osman APRN, DNP [address] [place] [address] 11/07/2025 10:00 AM EDT Consult [facility] [address], [address] [place] [address] Chasity Mendoza MD [address] [place] [address] documented as of this encounter [...] documented as of this encounter Care Teams Reception Specialist Relationship Specialty Start Date End Date Trisha Cortes APRN [address] [place] [address] PCP - General 03/24/25 Maya Osman APRN, GWENDOLYN [address] [place] [address] Nurse Practitioner Urology 03/24/25 documented as of this encounter
--- OUTSIDE RECORDS SUMMARY | 2025-04-16 13:41 | XMS_ITS | Encounter Summary ---
Author Organization [facility] Address [address] [place] [address] Care Team Providers Care Web Content Writer Name Role Phone SebastianTrisha JEFFERSON Primary Care Provider + [phone] Maya Osman APRN, GWENDOLYN Unavailable + [phone] Reason for Visit * Reason Onset Date Comments Lab Results 03/24/2025 Encounter Details Date Type Department Care Team (Late st Contact Info) Description 03/24/2025 Telephone [facility] [address], [address] [place] [address] Maya Osman APRN, DNP [address] [place] [address] Lab Results Social History Tobacco [...] AM EDT Uploaded 03/17/25 Lab Results from [facility] documented in this encounter Plan of Treatment Upcoming Encounters Date Type Department Care Team (Late st Contact Info) Description 07/03/2025 12:40 PM EST Office Visit [facility] Urology [address], 2nd [place] [address] Maya Osman APRN, DNP [address] [place] [address] 11/07/2025 10:00 AM EDT Consult [facility] [address], 1st [place] [address] Chasity Mendoza MD [address] [place] [address] documented as of this encounter [...] documented as of this encounter Care Teams Web Content Writer Relationship Specialty Start Date End Date Trisha Cortes APRN [address] [place] [address] PCP - General 03/24/25 Maya Osman APRN, GWENDOLYN [address] [place] [address] Nurse Practitioner Urology 03/24/25 documented as of this encounter
--- OUTSIDE RECORDS SUMMARY | 2025-04-16 13:41 | XMS_ITS | Encounter Summary ---
Author Organization [facility] Address [address] [place] [address] Care Team Providers Care Registered Dietitian Name Role Phone SebastianTrisha JEFFERSON Primary Care Provider + [phone] Maya Osman APRN, DNP Unavailable + [phone] Reason for Visit * Reason Onset Date Comments HCN Same Day Appt/Overbook Request 04/14/2025 Final U/C 04/14/2025 Encounter Details Date Type Department Care Team (Late st Contact Info) Description 04/14/2025 Telephone [facility] [address], [address] [place] [address] Maya Osman, JEFFERSON, DNP [address] [place] [address] [facility]CN Same Day Appt/Overbook Request; Final U/C Social History Tobacco Use Types Packs/Day Years [...] encounter Miscellaneous Notes * Telephone Encounter - Maya Osman APRN, DNP - 04/16/2025 10:31 AM EDT Will review during appt today. * Telephone Encounter - Purnima Guaman - 04/15/2025 1:51 PM EDT Uploaded 04/14/2025 Final Urine Culture Results from [facility] * Telephone Encounter - Hermelinda Saleh - 04/15/2025 1:45 PM EDT 04/15- patient is scheduled tomorrow in UDS slot. 07/03 has been changed to in person. MKM * Telephone Encounter - Maya Osman APRN, DNP - 04/15/2025 1:01 PM EDT patient day coordinator - Can change 07/03 from TH to inperson. Clinical staff - please call to assess pain/symptoms. Can schedule tomorrow in open UDS slot at 1040. If unable to come or pain worsens she should present to ER. * Telephone Encounter - Hermelinda Saleh - 04/15/2025 10:36 AM EDT 04/15- Please advise. First available is in 2025 with all female providers including waitlisted patients. Patient is requesting in person, 07/03 is Maya Osman DNP, APRN telehealth time. MKM * Telephone Encounter - Emily Harris - 04/14/2025 11:14 AM EDT Same Day Appt/Overbook Request Reason for Call: Increased pain Best contact number: [phone] (home) Optimal time of day to reach caller: ANYTIME Additional comments/information from caller: Pt mother is calling requesting to make appt for daughter who is having increased pain with UTI and kidney stones. States this is the worst pain she has ever had. Please advise. Also states an appt n 06/30 was cancelled and needs that R/S for an in personvisit. Note: Please do not reply to this message. Follow-up communication and further actions as a result of this message need to be communicated with the patient directly, if the patient is not active onMyChart. If the patient is active on MyChart, they will receive notification of the communication/outcome via Beatsyhart. documented in this encounter Plan of Treatment Upcoming Encounters Date Type Department Care Team (Late st Contact Info) Description 07/03/2025 12:40 PM EST [facility] [address] [place] [address] Maya Osman APRN, GWENDOLYN [address] [place] [address] 11/07/2025 10:00 AM EDT [facility] [address] [place] [address] Chasity Mendoza MD [address] [place] [address] documented as of this encounter [...] documented as of this encounter Care Teams Registered Dietitian Relationship Specialty Start Date End Date Trisha Cortes APRN [address] [place] [address] PCP - General 03/24/25 Maya Osman APRN, GWENDOLYN [address] [place] [address] Nurse Practitioner Urology 03/24/25 documented as of this encounter
--- OUTSIDE RECORDS SUMMARY | 2025-04-16 13:41 | XMS_ITS | Encounter Summary ---
Author Organization [facility] Address [address] [place] [address] Care Team Providers Care Juice Tester Name Role Phone SebastianTrisha JEFFERSON Primary Care Provider + [phone] Maya Osman APRN, DNP Unavailable + [phone] Reason for Visit * Reason Onset Date Comments HCN Paperwork/Documentation Request 04/11/2025 Encounter Details Date Type Department Care Team (Late st Contact Info) Description 04/11/2025 Telephone [facility] [address] [place] [address] Maya Osman APRN, DNP [address] [place] [address] [facility]CN Paperwork/Documentation Request Social History Tobacco Use Types Packs/Day Years [...] encounter Miscellaneous Notes * Telephone Encounter - Noelle Schreiber LPN - 04/11/2025 11:07 AM EDT I called [facility] and told them there was no PA required. They requested to send another order with the detail on it and they will get the patient scheduled. Sent new order as requested. * Telephone Encounter - Charli Parham - 04/11/2025 10:39 AM EDT Clinical Concern/Question Reason for Call: Gladis maoyrga/ [facility] Received order for Renal US needing a PA sent over before they are able to schedule Please fax over to [phone] Best contact number: Other: [phone] Optimal time of day to reach caller: ANYTIME Additional comments/information from caller: None Note: Please do not reply to this message. Follow-up communication and further actions as a result of this message need to be communicated with the patient directly, if the patient is not active onMyChart. If the patient is active on MyChart, they will receive notification of the communication/outcome via Finoverahart. documented in this encounter Plan of Treatment Upcoming Encounters Date Type Department Care Team (Late st Contact Info) Description 07/03/2025 12:40 PM EST Office Visit [facility] Urology [address] [place] [address] Maya Osman APRN, GWENDOLYN [address] [place] [address] 11/07/2025 10:00 AM EDT Consult [facility] [address] [place] [address] Chasity Mendoza MD [address] [place] [address] documented as of this encounter [...] documented as of this encounter Care Teams Juice Tester Relationship Specialty Start Date End Date Trisha Cortes APRN [address] [place] [address] PCP - General 03/24/25 Maya Osman APRN, GWENDOLYN [address] [place] [address] Nurse Practitioner Urology 03/24/25 documented as of this encounter
--- OUTSIDE RECORDS SUMMARY | 2025-04-16 13:41 | XMS_ITS | Encounter Summary ---
Author Organization [facility] Address [address] [place] [address] Care Team Providers Care Websphere Commerce Architect Name Role Phone Trisha Cortes CLINICAL PSYCHOLOGIST Primary Care Provider + [phone] OsmanMaya maldonado APRN, DNP Unavailable + [phone] Encounter Details Date Type Department Care Team (Latest Contact Info) Description 04/16/2025 Travel Social History Tobacco Use Types Packs/Day [...] Lissa Smith documented as of this encounter Plan of Treatment Upcoming Encounters Date Type Department Care Team (Late st Contact Info) Description 07/03/2025 12:40 PM EST Office Visit [facility] Urology [address] [place] [address] Maya Osman APRN, GWENDOLYN [address] [place] [address] 11/07/2025 10:00 AM EDT Consult [facility] [address] [place] [address] Chasity Mendoza MD [address] [place] [address] documented as of this encounter [...] documented as of this encounter Care Teams Websphere Commerce Architect Relationship Specialty Start Date End Date Trisha Cortes APRN [address] [place] [address] PCP - General 03/24/25 Maya Osman APRN, DNP [address] [place] [address] Nurse Practitioner Urology 03/24/25 documented as of this encounter
== END 2025-04-16 23:59 | disposition home or self-care (01) ==
LOC: RAD 13:31
PROVIDERS: PCP Nurse Practitioner; Visit Provider Nurse Practitioner Family
DX: N13.70 Vesicoureteral-reflux, unspecified (principal); N39.0 Urinary tract infection, site not specified
CPT/HCPCS: 76770

== ENCOUNTER 2025-06-03 10:10 | Outpatient (CLI) | payer OTHER, SELFPAY ==
--- OUTSIDE RECORDS SUMMARY | 2025-04-16 09:40 | XMS_ITS | Encounter Summary ---
Author Organization [facility] Address [address] [place] [address] Care Team Providers Care Power Engineer Name Role Phone SebastianTrisha JEFFERSON Primary Care Provider + [phone] Maya Osman APRN, DNP Unavailable [phone] Reason for Referral * Consultation (Routine) - Pending Review Specialty Diagnoses / Procedures Referred By Racquel gilmore Referred To Contact Physical Therapy Diagnoses Recurrent UTI High-tone pelvic floor dysfunction Maya Osman APRN, DNP [address] [place] [address] Phone: tel: fax: Referral ID Status Reason Start Date Expiration Date Visits Requested Visits Authorized [id number] Pending Review Specialty Services Required 04/16/2025 10/16/2026 1 1 Reason for Visit * Reason Comments UTI Burning with urinati on and pain in lower back. Encounter Details Date Type Department Care Team (Late st Contact Info) Description 04/16/2025 10:40 AM EDT Office Visit [facility] [address] [place] [address] Maya Osman APRN, DNP [address] [place] [address] Recurrent UTI (Primary Dx); High-tone pelvic floor dysfunction Social History Tobacco Use Types Packs/Day Years Used Date Smoking Tobacco: Never Passive Smoke Exposure: Yes Smokeless Tobacco: Never Alcohol Use Standard Drinks/Week Comments Never 0 (1 standard drink = 0.6 oz pur e alcohol) PHQ-2 Answer Date Recorded Patient Health Questionnaire-2 Score 0 04/16/2025 PHQ-9 Answer Date Recorded Patient Health Questionnaire-9 [...] Sign Reading Time Taken Comments Blood Pressure 125/76 04/16/2025 10:16 AM EDT Pulse 97 04/16/2025 10:16 AM EDT Temperature - - Respiratory Rate - - Oxygen Saturation 100% 04/16/2025 10:16 AM EDT Inhaled Oxygen Concentration - - Weight 156 kg (343 lb 14.7 oz) 04/16/2025 10:16 AM EDT Height 162.6 cm (5' 4 ) 04/16/2025 10:16 AM EDT Body Mass Index 59.03 04/16/2025 10:16 AM EDT documented in this encounter Functional Status * Over the past 2 weeks, how often have you been bothered by any of the following problems? Question Answer Date of Assessment Author Little interest or pleasure in doing things Not at all 04/16/2025 10:23 AM EDT Sa yusra Smith LPN Feeling down, depressed, or hopeless Not at all 04/16/2025 10:23 AM EDT Lissa Smith LPN Patient Health Questionnaire-2 Score 0 04/16/2025 10:23 AM EDT Joe Smith LPN documented as of this encounter Miscellaneous Notes * Progress Notes - Dawson Maya Barakat APRN, DNP - 04/16/2025 10:40 AM EDT [facility] Note Consulting provider: No ref. provider found CC: UTI (Burning with urination and pain in lower back.) HPI: Nury Yi is a 24 y.o. F with a history of recurrent UTIs and VUR. UTIs: Typical UTI symptoms include frequency, urgency, dysuria, vaginal rawness, SP pressure. Wouldbe treated with empiric abx with symptom resolution within 3 days, occasionally required 2 rounds of abx. -Feb 2025, recalled 2-3 UTIs/year, increased fro her typical 1/year. Symptoms included pain after urination that would linger. History of reflux: From ages [age] she was always sick , at age 5 diagnosed with reflux on daily Macrodantin x 2 years. At age 7 had bilateral ureteral reimplantation surgery. Previously followed by pediatric nephrology. Continued amlodipine by PCP, Trisha Cortes APRN. LUTS: Between infections: voiding frequency of 5-10x/day, nocturia 0-1x, denied other LUTS, neurological changes, or history of kidney stones. Pelvic floor dysfunction: History of Present Illness 24-year-old female with UTI concerns. UTI Concerns - Severe pain despite treatment by outside provider. - Reviewed records from Trisha Cortes APRN, dated 04/11/2025: urine culture 25-50 K mixed tiffanie, urinalysis specific gravity 1.025, pH 6.0, moderate leukocytes, trace ketones. - Symptoms began last Monday or , sought medical attention Monday, diagnosed with UTI, prescribed Bactrim, no improvement. - Reports fluid retention and edema. Medication Side Effects - Taking Robaxin nightly and every other morning for 2 weeks, initially alleviated pain, now causesdaytime drowsiness and blurry vision in mornings. - Previously tried cyclobenzaprine, caused excessive sleepiness. Abdominal Pain - Sharp right lower abdominal pain upon waking, persisted throughout day, radiated to back, hip, and upwards, similar to previous ovarian cyst rupture. - Pain subsided after 2 hours, recurring intermittently, triggered by movement, deep breaths, laughter, or bending over. - Describes pain as a jolt from kidney, spreading to legs, buttocks, sides, and front. - Reports heavy feeling and pain in lower stomach. Avoiding deep breaths due to pain, does not believe related to back pain. Prescribed hydrochlorothiazide for leg edema, not taken due to fear of side effects. Currently on propranolol, improved heart rate. 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 G 0 Ovaries: present bilaterally Uterus: present Vaginal estrogen: No Systemic estrogen: No Review of Systems : See HPI Physical Exam: Vitals: 04/16/25 1016 BP: 125/76 Pulse: 97 SpO2: 100% Physical Exam General Appearance: No acute distress Vital signs: WNL HEENT: WNL Respiratory: WNL Gastrointestinal: Right lower abdominal tenderness Extremities: Leg swelling Skin: Warm, dry, no rash Neurological: Normal Psychiatric: Normal Results/Data: Recent Results (from the past 24 hours) POCT URINALYSIS DIPSTICK Collection Time: 04/16/25 10:13 AM Result Value Ref Range POCT Urine Color Yellow POCT Urine Clarity Sl.Cloudy POCT Urine Glucose Negative Negative mg/dL POCT Urine Bilirubin Negative Negative mg/dL POCT Urine Ketones Negative Negative mg/dL POCT Urine Specific [place] 1.015 1.005 - 1.030 POCT Urine Blood Negative Negative POCT pH, Urine 6.0 5.0 - 8.0 POCT Protein, Urine Negative Negative mg/dL POCT Urobilinogen, Urine 0.2 0.2, 1.0 EU/dL POCT Nitrite, Urine Negative Negative POCT Urine Leukocyte Esterase Trace (A) Negative POC US Bladder Volume Collection Time: 04/16/25 10:28 AM Result Value Ref Range Urine, Volume 0 mL Results - Outside records were reviewed and interpreted independently - Laboratory Studies: - Urine culture (04/11/2025): 25-50 K mixed tiffanie - Urinalysis (04/11/2025): - Specific gravity: 1.025 - pH: 6.0 - Moderate leukocytes - Trace ketones - All others negative Labs: Lab Results Component Value Date HGBA1C [...] not specified. Most recent outside blood work: 03/17/2025: CMP: Cr 0.9 eGFR 78 Cultures: No results found for: URINECX Previous [...] y.o. F Will call for outside labs Robaxin and high Return in 3months via or sooner asneeded Assessment & Plan 1. Pelvic floor dysfunction: Symptoms consistent with pelvic floor dysfunction, intermittent pain associated with movement. Pain location suggests pelvic floor muscle involvement. Contributing factors: constipation, UTIs, stress, anxiety. - Discontinue methocarbamol due to blurred vision and daytime fatigue - Prescribe Skelaxin - Refer to physical therapy, order and contact list provided 2. Urinary tract infection (UTI): Urine culture from 04/11/2025 showed 25-50 K mixed tiffanie, indicative of normal vaginal contamination. Today's urinalysis: small amount of white blood cells, no nitrites or blood. Previous Bactrim treatment ineffective, discussed symptoms likely related to pelvic floor dysfunction. - Send clean-catch urine specimen for culture and microscopy 3. Edema: Normal kidney function, likely prerenal origin. - Continue hydrochlorothiazide for edema management - Advise daytime diuretic use to avoid nocturia Follow-up - Ultrasound scheduled at [facility] today. Return for previously scheduled appt inDec 2024 Plan: Continue OTC D-mannose 2 grams daily for UTI prevention Behavioral modifications for pelvic floor dysfunction and IBS Stop Robaxin 500 mg 1 tablet at bedtime, begin Skelaxin 400 mg 1 tablet at bedtime, slowly increaseas needed/tolerated to a maximum dose of 2 tablets TID Have SANDRA today, will watch for results Will send urine for microscopic analysis and culture Return for previously scheduled appointment in Jun 2025 or sooner as needed Maya Osman APRN, DNP Verbal consent was obtained to use ambient listening technology to assist in the documentation of the encounter: yes documented in this encounter Plan of Treatment Upcoming Encounters Date Type Department Care Team (Late st Contact Info) Description 07/03/2025 12:40 PM EST Office Visit [facility] Urology [address] [place] [address] Maya Osman APRN, DNP [address] [place] [address] 11/07/2025 10:00 AM EDT Consult [facility] [address] [place] [address] Chasity Mendoza MD [address] [place] [address] Scheduled Referrals Name Type Priority Associated Diagnoses Order Schedule Ambulatory referral to Pelvic Floor Physical Therapy Outpatient Referral Routine Recurrent UTI High-tone pelvic floor dysfunction 1 Occurrences starting 04/16/2025 until 10/18/2026 documented as of this encounter Procedures Procedure Name Priority Date/Time Associated Diagnosis Comments URINALYSIS, MICROSCOPIC Routine 04/16/2025 11:12 AM EDT Recurrent UTI High-tone pelvic floor dysfunction URINE CULTURE Routine 04/16/2025 11:12 AM EDT Recurrent UTI High-tone pelvic floor dysfunction POC US BLADDER SCAN FOR VOLUME Routine 04/16/2025 10:28 AM EDT Recurrent UTI POCT URINALYSIS DIPSTICK Routine 04/16/2025 10:13 AM EDT documented in this encounter Results * Urinalysis, Microscopic (04/16/2025 11:12 AM EDT) RBC, Urine 2 0 to 3 /HPF LAB URINALYSIS - AUTOMATED METHOD 04/16/2025 4:09 PM EDT [facility] WBC, Urine 0 - 5 0 to 5 /HPF LAB URINALYSIS - AUTOMATED METHOD 04/16/2025 4:09 PM EDT [facility] Squamous Epithelial Cells 3 - 5 0 to 5 /HPF LAB URINALYSIS - AUTOMATED METHOD 04/16/2025 4:09 PM EDT [facility] Hyaline Casts 0 - 2 0 to 5 /LPF LAB URINALYSIS - AUTOMATED METHOD 04/16/2025 4:09 PM EDT [facility] Bacteria, Urine Negative Negative LAB URINALYSIS - AUTOMATED METHOD 04/16/2025 4:09 PM EDT [facility] Urine Urine specimen obtained by clean catch procedure / Unknown Non-blood Collection / Unknown 04/16/2025 11:12 AM EDT 04/16/2025 2:27 PM EDT us Maya Osman APRN, GWENDOLYN LAB URINE ORDERABLES F inal Result Performing Organization Address City/[facility]/ZIP Co de Phone Number [facility] [address] [place] [address] * Urine Culture (04/16/2025 11:12 AM EDT) Culture 10,000 - 100,000 CFU/mL Mixed urogenital, fecal, or skin tiffanie present. 04/17/2025 1:42 PM EDT [facility] Urine Urine specimen obtained by clean catch procedure / Unknown Non-blood Collection / Unknown 04/16/2025 11:12 AM EDT 04/16/2025 2:27 PM EDT us Maya Osman APRN, GWENDOLYN LAB MICROBIOLOGY - GEN ERAL ORDERABLES Final Result [facility] [address] [place] [address] * POC US Bladder Volume (04/16/2025 10:28 AM EDT) Urine, Volume 0 mL IMAGING Anatomical Region Laterality Modality Other us Maya Osman HUMAN RESOURCES MGR, DNP IMG POINT OF CARE ULTR ASOUND Final Result * (ABNORMAL) POCT URINALYSIS DIPSTICK (04/16/2025 10:13 AM EDT) POCT Urine Color Yellow 04/16/2025 10:[address] [facility] POCT Urine Clarity Sl.Cloudy 04/16/2025 10:[address] [facility] POCT Urine Glucose Negative Negative mg/dL 04/16/2025 10:[address] [facility] POCT Urine Bilirubin Negative Negative mg/dL 04/16/2025 10:[address] [facility] POCT Urine Ketones Negative Negative mg/dL 04/16/2025 10:[address] [facility] POCT Urine Specific [place] 1.015 1.005 - 1.030 04/16/2025 10:[address] [facility] POCT Urine Blood Negative Negative 04/16/2025 10:[address] [facility] POCT pH, Urine 6.0 5.0 - 8.0 04/16/2025 10:[address] [facility] POCT Protein, Urine Negative Negative mg/dL 04/16/2025 10:[address] [facility] POCT Urobilinogen, Urine 0.2 0.2, 1.0 EU/dL 04/16/2025 10:[address] [facility] POCT Nitrite, Urine Negative Negative 04/16/2025 10:[address] [facility] POCT Urine Leukocyte Esterase Trace(A) Negative 04/16/2025 10:[address] [facility] Urine 04/16/2025 10:1 3 AM EDT 04/16/2025 10:15 AM EDT Maya Osman APRN, DNP LAB POINT OF C ARE TEST DOCKED DEVICE UNSOLICITED RESULTS Final Result [facility] [address] [place], [place] documented in this encounter Visit Diagnoses Diagnosis Recurrent UTI- Primary Urinary tract infection, site not specified High-tone pelvic floor dysfunction documented in this encounter Additional Health Concerns Assessment Noted Time PHQ-9 Depression Total Score: 6 03/24/20 9:17 AM EDT A fall risk assessment has been complete d for the patient 04/16/2025 10:23 AM EDT A Body Mass Index follow-up plan has been documented for the patient 04/16/2025 11:12 AM EDT documented as of this encounter Care Teams Power Engineer Relationship Specialty Start Date End Date Trisha Cortes APRN [address] [place] [address] PCP - General 03/24/25 Maya Osman APRN, GWENDOLYN [address] [place] [address] Nurse Practitioner Urology 03/24/25 documented as of this encounter
--- OUTSIDE RECORDS SUMMARY | 2025-06-02 09:20 | XMS_ITS | Encounter Summary ---
Author Organization [facility] Address [address] [place] [address] Care Team Providers Care Director Of Financial Planning Name Role Phone Trisha Cortes JEFFERSON Primary Care Provider + [phone] Maya Osman APRN, DNP Unavailable + [phone] Reason for Visit * Reason Comments Follow-up Back Pain Encounter Details Date Type Department Care Team (Late st Contact Info) Description 06/02/2025 9:20 AM EST Office Visit [facility] [address] [place] [address] Silvia Merlos APRN [address] [place] [address] Dry mouth (Primary Dx) Social [...] 06/02/2025 9:34 AM Jennifer Munoz R * Question Answer Date of Assessment Author [...] on one occasion? Never 06/02/2025 9:34 AM Yudy Munoz R * Over the past 2 [...] Score 0 06/02/2025 9:36 AM Garry Munoz * Question Answer Date of Assessment Author [...] moving around a lot more than usual. Not at all 06/02/2025 9:36 AM Garry Munoz Thoughts that you would be better off or hurting yourself in some way Not at all 06/02/2025 9:36 AM Yudy Munoz Patient Health Questionnaire-9 Score 2 06/02/2025 9:36 AM Kelly Munoz * How difficult have these problems made it for you to do your work, take care of things at home, or get along with other people? Answer Date of Assessment Author Not difficult at all 06/02/2025 9:36 AM Jennifer Patel documented as of this encounter Miscellaneous Notes * Progress Notes - Silvia Merlos, BANDOLEER STRAIGHTENER STAMPER - 06/02/2025 9:20 AM EST Images from [...] side, this has occurred a few times, -22 seconds. Feels frequent hot flashes and cold [...] Negative Negative mg/dL Final POCT Urine Specific [place] 04/16/2025 1.015 1.005 - 1.030 Final POCT [...] is currently no information documented on the homunculus. Go to the Rheumatology activity andcomplete the homunculus joint exam. Current Medications[2] Patient global assessment: [...] out to me personally. Thanks! Silvia Merlos, BANDOLEER STRAIGHTENER STAMPER Time Spent: I personally spent a total [...] route for 30 days. ergocalciferol 1.25 MG (77014 UT) capsule Take 1 capsule by mouth [...] [facility] Urology [address] [place] [address] Maya Osman APRN, DNP [address] [place] [address] 11/07/2025 10:00 AM EDT Consult [facility] [address] [place] [address] Chasity Mendoza MD [address] [place] [address] documented as of this encounter Visit Diagnoses [...] documented as of this encounter Care Teams Director Of Financial Planning Relationship Specialty Start Date End Date Trisha Cortes APRN [address] [place], [place] [id number] PCP - General 03/24/25 Maya Osman APRN, GWENDOLYN [address] [place] [address] Nurse Practitioner Urology 03/24/25 documented as of this encounter
--- OUTSIDE RECORDS SUMMARY | 2025-06-03 10:14 | XMS_ITS | Encounter Summary ---
Author Organization [facility] Address [address] [place] [address] Care Team Providers Care Light Rail Vehicle Operator Name Role Phone Trisha Cortes APRN Primary Care Provider + [phone] OsmanMaya maldonado APRN, DNP Unavailable + [phone] Encounter Details Date Type Department Care Team (Late st Contact Info) Description 05/19/2025 Results Follow-Up [facility] Medicine Specialties [address] [place] [address] Silvia Merlos APRN [address] [place] [address] Social History Tobacco Use Types [...] Description 07/03/2025 12:40 PM EST Office Visit [facility] [address] [place] [address] Maya Osman APRN, GWENDOLYN [address] [place] [address] 11/07/2025 10:00 AM EDT Consult [facility] [address] [place] [address] Chasity Mendoza MD [address] [place] [address] documented as of this encounter [...] documented as of this encounter Care Teams Light Rail Vehicle Operator Relationship Specialty Start Date End Date Trisha Cortes APRN [address] [place] [address] PCP - General 03/24/25 Maya Osman APRN, DNP [address] [place] [address] Nurse Practitioner Urology 03/24/25 documented as of this encounter
--- OUTSIDE RECORDS SUMMARY | 2025-06-03 10:14 | XMS_ITS | Continuity of Care Document ---
Author Organization [facility] [employer] [facility] Address [address] [place] [id number] Care Team Providers Care Lpn Instructor Name Role Phone CHRIS BARGER Primary Care Provider Brandy cordova Assessment No assessment recorded. Plan of Treatment Reminders Order Date Submit Date Provider Last Modified By Organization Details Last Modified Time Details Appointments None recorded. Lab rapid flu (A+B) [address], [address], 13:13:44 rapid SARS CoV 2 Ag, QL, [place], upper respiratory specimen [address], [address], 13:13:44 urinalysis, dipstick [address], [address], 13:02:41 test, urine [address], [address], 13:02:42 Referral None recorded. Procedures None recorded. Surgeries None recorded. Imaging None recorded. Medication Orders ciprofloxac in 500 mg tablet 2024 [facility], [address], [address], 13:15:06 ondansetron 4 mg disintegrat ing tablet 2024 [facility], [address], [address], 13:15:07 Probiotic 20 billion cell capsule 2024 [facility], [address], [address], 13:15:07 Patient TargetsNo targets recorded. Patient InstructionsNo instructions recorded. Reason for Referral None Reported. Results Created Date Observation Date Name Description Value Unit Range Abnormal Flag Note LastModifiedBy Organization Detail LastModifiedTime 05/24/2005/24/2025 rapid SARS CoV 2 Ag, QL, [place], upper respi rator y speci men SARS CoV Ag negati ve Not Available [address], [address], 05/24/2025 12:44:32 05/24/2005/24/2025 rapid flu (A+B) Flu A negati ve Not Available [address], [address], 05/24/2025 12:44:26 05/24/2005/24/2025 rapid flu (A+B) Flu B negati ve Not Available [address], [address], 05/24/2025 12:44:26 05/24/2005/24/2025 urina lysis , dipst ick Leukocytes Trace Not Available [address] [place], [address], 05/24/2025 12:44:33 05/24/2005/24/2025 urina lysis , dipst ick Nitrite negati ve Not Available [address], [address], 05/24/2025 12:44:33 05/24/2005/24/2025 urina lysis , dipst ick Urobilinogen .2 Not Available [address], [address], 05/24/2025 12:44:33 05/24/2005/24/2025 urina lysis , dipst ick Protein Negati ve Not Available [address], [address], 05/24/2025 12:44:33 05/24/2005/24/2025 urina lysis , dipst ick pH 5.5 Not Available [address], [address], 05/24/2025 12:44:33 05/24/2005/24/2025 urina lysis , dipst ick Blood Negati ve Not Available [address], [address], 05/24/2025 12:44:33 05/24/2005/24/2025 urina lysis , dipst ick Specific [place] 1.025 Not Available [address], [address], 05/24/2025 12:44:33 05/24/2005/24/2025 urina lysis , dipst ick Ketone Small Not Available [address] [place], [address], 05/24/2025 12:44:33 05/24/2005/24/2025 urina lysis , dipst ick Bilirubin Negati ve Not Available [address], [address], 05/24/2025 12:44:33 05/24/2005/24/2025 urina lysis , dipst ick Glucose Negati ve Not Available [address], [address], 05/24/2025 12:44:33 05/24/2005/24/2025 urina lysis , dipst ick Appearance Cloudy Not Available [address], [address], 05/24/2025 12:44:33 05/24/2005/24/2025 urina lysis , dipst ick Color Dark Yellow Not Available [address], [address], 05/24/2025 12:44:33 05/24/2005/24/2025 pregn geovanny test, urine HCG negati ve Not Available [address], [address], 05/24/2025 12:44:34 Result Notes None recorded. Problems Name Problem SNOMED Code Status Onset Date Resolution Date Notes Provider Name and Address Organization Details Recorded Time Moderate major depressi on, single episode 71677010 Completed 201604/28/2017 Problem Code: F32.1; Problem Code Type: ICD-10; Not Available [facility] 20:58:04 Major depressi on, single episode 25882281 Completed 201603/09/2017 Problem Code: F32.9; Problem Code Type: ICD-10; Not Available [employer] 2 20:58:05 Depressi ve disorder 02562289 Completed 201604/28/2017 Problem Code: 311; Problem Code Type: ICD-9; Not Available [facility] 2 20:58:19 Nausea and vomiting 52568692 Completed 201604/18/2017 Problem Code: R11.2; Problem Code Type: ICD-10; Not Available [facility] 2 20:58:11 Diarrhea 56783792 Completed 201604/18/2017 Problem Code: R19.7; Problem Code Type: ICD-10; DIMITRI luke [facility] [employer] [facility]. 08:25:35 Depressi ve disorder 97544272 Completed 201601/22/2021 Problem Code: 311; Problem Code Type: ICD-9; Not Available [facility] 2 20:58:20 Generali zed anxiety disorder 73207241 Completed 201605/18/2017 Problem Code: F41.1; Problem Code Type: ICD-10; Not Available [facility] 2 20:58:05 Pain of joint of ankle 273329527 Completed 201606/01/2017 Not Available [facility] 2 20:58:18 Joint pain in ankle and foot Completed 201606/01/2017 Problem Code: 719.47; Problem Code Type: ICD-9; Not Available [facility] 2 20:58:26 Depressi ve disorder 40207276 Completed 201601/22/2021 Problem Code: 311; Problem Code Type: ICD-9; Not Available [facility] 2 20:58:20 Sprain of distal tibiofib ular ligament 28148822 Completed 201608/12/2017 Problem Code: S93.432A ; Problem Code Type: ICD-10; Not Available [facility] 2 20:58:23 Right lower quadrant pain 365706586 Completed 201712/02/2017 Problem Code: R10.31; Problem Code Type: ICD-10; Not Available [facility] 2 20:58:11 Generali zed anxiety disorder 27440350 Completed 201701/22/2021 Problem Code: 300.02; Problem Code Type: ICD-9; Not Available [facility] 2 20:58:18 Depressi ve disorder 83597796 Completed 201701/22/2021 Problem Code: 311; Problem Code Type: ICD-9; Not Available [facility] 2 20:58:18 Benign essentia l hyperten citlali 0566975 Completed 201701/22/2021 Problem Code: 401.1; Problem Code Type: ICD-9; Not Available [facility] 2 20:58:26 Epidermo id cyst of skin 403477008 Completed 201701/31/2020 Problem Code: L72.3; Problem Code Type: ICD-10; Not Available [facility] 2 20:58:07 Uses combined oral contrace ption 193272605 Completed 201701/26/2018 Problem Code: Z30.011; Problem Code Type: ICD-10; Not Available [facility] 2 20:58:16 Benign essentia l hyperten citlali 0912634 Completed 201701/22/2021 Problem Code: 401.1; Problem Code Type: ICD-9; Not Available [facility] 2 20:58:19 Oral contrace ptive prescrib ed Completed 201701/26/2018 Problem Code: V25.01; Problem Code Type: ICD-9; Not Available [facility] 2 20:58:23 Vaginola bial hernia Completed 201704/14/2018 Problem Code: N89.8; Problem Code Type: ICD-10; Not Available [facility] 2 20:58:09 Noninfla mmatory disorder of the vagina 14671600 Completed 201704/14/2018 Problem Code: 623.8; Problem Code Type: ICD-9; Not Available [facility] 2 20:58:22 Acute pharyngi tis 468967166 Completed 201707/16/2018 Problem Code: J02.8; Problem Code Type: ICD-10; DIMITRI SOLISNER [employer] 2 08:25:35 Disorder of upper respirat ory system 618238825 Completed 201705/31/2018 Problem Code: J06.9; Problem Code Type: ICD-10; Not Available [facility] 2 20:58:06 Acute upper respirat ory infectio n of multiple sites Completed 201705/31/2018 Problem Code: 465.8; Problem Code Type: ICD-9; Not Available [facility] 2 20:58:20 Allergic rhinitis caused by pollen 82029562 Completed 201709/07/2018 Problem Code: J30.1; Problem Code Type: ICD-10; Not Available [facility] 2 20:58:16 Cough 54101826 Completed 201707/23/2018 Problem Code: R05; Problem Code Type: ICD-10; Deann [place] Laiyaoyao, [employer] 4 14:51:23 Epigastr ic pain 19983527 Completed 201804/15/2022 Problem Code: R10.13; Problem Code Type: ICD-10; DIMITRI SOLISNER [employer] 2 08:25:36 Common cold 73035534 Completed 201804/15/2022 DIMITRISALVATORE CSOTT [employer] 2 08:25:36 Gastro-e sophagea l reflux disease with esophagi tis 697317230 Active 2018 Problem Code: K21.0; Problem Code Type: ICD-10; Not Available [facility] 2 20:58:07 Influenz a vaccine needed 97519869619 06 Completed 201801/31/2020 Problem Code: Z23; Problem Code Type: ICD-10; [employer]ALVATORE [employer] 2 08:25:35 Acute pharyngi tis 147194676 Completed 201801/31/2020 DIMITRI SCOTT [employer] 2 08:25:35 Acute pharyngi tis 021300581 Completed 201804/15/2022 Problem Code: J02.8; Problem Code Type: ICD-10; DIMITRI SCOTT [employer] 2 08:25:35 Urinary tract infectio us disease 42213967 Completed 201801/31/2020 Problem Code: N39.0; Problem Code Type: ICD-10; Not Available [facility] 2 20:58:08 Acute cystitis 27118016 Completed 201804/15/2022 Problem Code: N30.00; Problem Code Type: ICD-10; DIMITRI SCOTT [employer] 2 08:25:35 Diarrhea 54025930 Completed 201801/31/2020 Problem Code: R19.7; Problem Code Type: ICD-10; DIMITRI SCOTT [employer] 2 08:25:35 Disorder of upper respirat ory system 105922768 Completed 201801/31/2020 Problem Code: J06.9; Problem Code Type: ICD-10; Not Available [facility] 2 20:58:06 Generali zed anxiety disorder 30921845 Active 2019 Problem Code: F41.1; Problem Code Type: ICD-10; Not Available [facility] 2 20:58:05 Hyperten sive disorder 34839131 Active 2019 Problem Code: I10; Problem Code Type: ICD-10; Not Available [facility] 2 20:58:05 Tachycar kvng 7838933 Completed 201904/15/2022 DIMITRISALVATORE SCOTT [employer] 2 08:25:35 Childhoo d obesity 630622886 Completed 201901/22/2021 Problem Code: Z68.54; Problem Code Type: ICD-10; Not Available [facility] 2 20:58:17 Negative dysphoto psia 345666944 Completed 201901/31/2020 Problem Code: H53.8; Problem Code Type: ICD-10; Not Available [facility] 2 20:58:05 Chronic fatigue syndrome 86381763 Completed 201901/31/2020 Problem Code: R53.82; Problem Code Type: ICD-10; Not Available [facility] 2 20:58:12 Acute respirat ory infectio ns 936431424 Completed 201904/15/2022 Problem Code: J22; Problem Code Type: ICD-10; DIMITRI SCOTT [employer] 2 08:25:35 Muscle pain 26526902 Completed 201904/15/2022 Problem Code: M79.10; Problem Code Type: ICD-10; DIMITRI SCOTT [employer] 2 08:25:35 Well child 783473050 Completed 202004/15/2022 DIMITRISALVATORE SCOTT [employer], [employer] 2 08:25:35 Childhoo d obesity 432718139 Completed 202001/22/2021 Problem Code: Z68.54; Problem Code Type: ICD-10; Not Available [facility] 2 20:58:16 Influenz a vaccine needed 61574480164 06 Completed 202001/22/2021 Problem Code: Z23; Problem Code Type: ICD-10; DIMITRI SCOTT Lai[employer]ao, [employer] 2 08:25:35 Influenz a vaccine needed 38498099151 06 Completed 202004/15/2022 Problem Code: Z23; Problem Code Type: ICD-10; DIMITRI SCOTT Lai[employer], [employer] 2 08:25:35 Otitis externa of left ear 85993928491 79852 Completed 202001/22/2021 Problem Code: H60.332; Problem Code Type: ICD-10; Not Available [facility] 2 20:58:05 Candidia sis of vulva 5149468 Completed 202004/15/2022 [employer] 2 08:25:35 Dysuria 68327026 Completed 202008/26/2021 Problem Code: R30.0; Problem Code Type: ICD-10; Deann luke, [employer]. 5 16:05:22 Influenz a vaccine needed 90365287519 06 Completed 202008/26/2021 Problem Code: Z23; Problem Code Type: ICD-10; DIMITRI luke [employer] 2 08:25:35 Exposure to SARS-CoV -2 Completed 202008/26/2021 Problem Code: Z20.822; Problem Code Type: ICD-10; Not Available [facility] 2 20:58:14 Otogenic otalgia 16697562 Completed 202104/15/2022 DIMITRI luke, [employer] 2 08:25:35 Urinary tract infectio us disease 32749307 Completed 202109/30/2021 Problem Code: N39.0; Problem Code Type: ICD-10; Not Available [facility] 2 20:58:09 Dysuria 28439783 Completed 202109/30/2021 Problem Code: R30.0; Problem Code Type: ICD-10; Deann luke [employer] 5 16:05:22 Uses combined oral contrace ption 832139994 Completed 202109/30/2021 Problem Code: Z30.41; Problem Code Type: ICD-10; Not Available [facility] 2 20:58:14 Finding of body mass index 782382975 Completed 202109/30/2021 Problem Code: Z68.41; Problem Code Type: ICD-10; Not Available [facility] 2 20:58:17 Acute pharyngi tis 812191283 Completed 202110/15/2021 DIMITRI luke, [employer] 2 08:25:35 Myositis 72354537 Completed 202110/15/2021 Problem Code: M60.9; Problem Code Type: ICD-10; DIMITRI luke, [employer] 2 08:25:35 General examinat ion of patient Completed 202104/15/2022 DIMITRI luke, [employer]. 2 08:25:35 Finding of body mass index 390258935 Completed 202110/18/2021 Problem Code: Z68.41; Problem Code Type: ICD-10; Not Available [facility] 2 20:58:17 Myositis 35929139 Completed 202111/16/2021 Problem Code: M60.9; Problem Code Type: ICD-10; DIMITRI luke, [employer] 2 08:25:35 Cough 64663799 Completed 202104/15/2022 Problem Code: R05; Problem Code Type: ICD-10; Deann luke, [employer]. 4 14:51:23 Diarrhea 69279770 Completed 202104/15/2022 Problem Code: R19.7; Problem Code Type: ICD-10; DIMITRI luke, [employer] 2 08:25:35 Allergic rhinitis caused by pollen 40716220 Completed 202102/18/2022 Problem Code: J30.1; Problem Code Type: ICD-10; Not Available [facility] 2 20:58:07 Nausea 026290183 Completed 202102/18/2022 Problem Code: R11.0; Problem Code Type: ICD-10; Not Available [facility] 2 20:58:10 Candidia sis of vulva 8919870 Completed 202102/18/2022 DIMITRI SOLISNER marly, [employer] 2 08:25:35 Acute bronchit is 78954064 Completed 202104/15/2022 Problem Code: J20; Problem Code Type: ICD-10; DIMITRI SOLISQUINN luke, [employer] 2 08:25:35 Cough 72680180 Completed 202102/18/2022 Problem Code: R05; Problem Code Type: ICD-10; Deann luke, [employer] 4 14:51:23 Myositis 58132930 Completed 202104/15/2022 Problem Code: M60.9; Problem Code Type: ICD-10; DIMITRI luke, [employer] 2 08:25:35 Cough 36848595 Active 2023 Problem Code: R05; Problem Code Type: ICD-10; Deann Ogden null, [employer] 4 14:51:23 Sore throat 584513171 Active 2023 Deann luke, [employer] 4 14:51:36 Acute cough Active 2024 Deann luke, [employer] 5 15:25:22 Paresthe arnold 75554663 Active 2024 KERI RIBEIRO NP [address] [place] [address], [address] , [employer] 5 11:29:32 Vitamin D deficien cy 52886627 Active 2024 KERI RIBEIRO NP [address] [place], [address] , [employer] 5 11:56:04 Pelvic floor dysfunct ion 753810862 Active 2024 Deann luke [employer] 11:14:02 Cobalami n deficien cy 658890971 Active 2024 Deann luke [employer] 17:11:29 Dysuria 45109329 Active 2024 Problem Code: R30.0; Problem Code Type: ICD-10; Deann luke [employer] 16:05:22 Acute vomiting 03840815 Active 2024 Ariane Garcia, SENIOR C [employer] ENGINE[employer] [address] [place], [address] , [employer]. 12:44:16 Gastroen teritis 21447223 Active 2024 Arianedonaldo Garcia, [employer] [address] [place], [address] , [employer]. 13:13:52 Problem Notes None recorded. Procedures Surgical History Date Name Laterality Status Provider Name and Address Organization Details Recorded Time 04/22/2024 Date of Last Pap Smear completed Deann Ogden [employer]. 05/16/2024 10:37:35 Imaging Results None recorded. Procedure Notes None recorded. Medical Equipment None Reported. Allergies No known drug allergies Medications Name Sig Start Date Stop Date Status Note LastModified by Organization Details LastModified Time amoxicill in 500 mg capsule take 1 capsule (500 mg) by oral route every 12 hours for 10 days 08/12 completed Not Available Not Available Not Available fluconazo le 100 mg tablet TAKE ONE TABLET BY MOUTH A ONE-TIME DOSE, MAY REPEAT AFTER FINISHIN G ANTIBIOT ICS AND MAY REPEAT AFTER 3 DAYS IF NO IMPROVEM ENT. 08/08 completed Not Available Not Available Not Available buspirone 5 mg tablet 2 tablets po q hs 06/13 completed Not Available Not Available Not Available promethaz ine-DM 6.25 mg-15 mg/5 mL oral syrup Take 1 teaspoon by mouth q 4 to 6 hr 12/07 completed Not Available Not Available Not Available doxycycli ne hyclate 100 mg capsule 07/08 completed Not Available Not Available Not Available Effexor XR 75 mg capsule,e xtended release Take 1 capsule( s) by mouth daily 06/13 completed Not Available Not Available Not Available citalopra m 40 mg tablet TAKE 1 TABLET BY MOUTH ONCE A DAY active Not Available Not Available No t Available cetirizin e 10 mg tablet Take 1 tablet every day by oral route. 08/07 completed Not Available Not Available Not Available Retin-A 0.025 % topical cream active Not Available Not Available Not Available fluconazo le 150 mg tablet Take 1 tablet every day by oral route for 1 day. 03/03 completed Not Available Not Available Not Available citalopra m 10 mg tablet TAKE ONE TABLET BY MOUTH ONCE A DAY 08/08 completed Not Available Not Available Not Available promethaz ine 12.5 mg tablet Take 1 tablet every 4-6 hours by oral route as needed. 09/06 completed Not Available Not Available Not Available Effexor XR 37.5 mg capsule,e xtended release Take 1 capsule( s) by mouth daily 04/04 completed Not Available Not Available Not Available Paxil 20 mg tablet Take 1 tablet(s ) by mouth daily 03/09 completed Not Available Not Available Not Available prednison e 20 mg tablet take 1 tablet (20 mg) by oral route 3 times per day x3 days 03/03 completed Not Available Not Available Not Available clonazepa m 0.5 mg tablet TAKE 1 TABLET BY MOUTH ONCE A DAY NEEDED FOR ANXIETY active Not Available Not Available No t Available Zithromax Z-[place] 250 mg tablet TAKE 2 TABLETS (500 MG) BY ORAL ROUTE ONCE DAILY FOR 1 DAY THEN 1 TABLET (250 MG) BY ORAL ROUTE ONCE DAILY FOR 4 DAYS 03/03 completed Not Available Not Available Not Available metronida zole 500 mg tablet take 1 tablet (500 mg) by oral route 2 times per day for 7 days 02/18 completed Not Available Not Available Not Available hydroxyzi ne HCl 50 mg tablet TAKE 1 TABLET (50 MG) BY ORAL ROUTE 2 TIMES PER DAY active Not Available Not Available No t Available dextromet horphan-g uaifenesi n 10 mg-100 mg/5 mL oral syrup Take 1 teaspoon by mouth q4h prn for cough 07/16 completed Not Available Not Available Not Available amlodipin e 5 mg tablet 03/22 completed Not Available Not Available Not Available ciproflox acin 500 mg tablet TAKE 1 TABLET BY MOUTH EVERY 12 HOURS FOR 5 DAYS active Not Available Not Available No t Available sulfameth oxazole 800 mg-trimet hoprim 160 mg tablet TAKE 1 TABLET BY MOUTH EVERY TWELVE HOURS FOR 10 DAYS 04/22 completed Not Available Not Available Not Available Zofran 4 mg tablet EVERY 6 HOURS NEEDED N/V 06/03 completed Not Available Not Available Not Available propranol ol 10 mg tablet TAKE 2 TABLETS BY MOUTH 2 TIMES A DAY active Not Available Not Available No t Available amoxicill in 875 mg tablet Take 1 tablet by mouth two times a day for 10 days 08/07 completed Not Available Not Available Not Available citalopra m 20 mg tablet take 1 tablet (20 mg) by oral route once daily 03/22 completed Not Available Not Available Not Available Depo-Prov era 150 mg/mL intramusc ular suspensio n Inject 1 mL every 3 months by intramus cular route. 08/07 completed Not Available Not Available Not Available Robaxin 500 mg tablet Take 2 tablets 4 times a day by oral route. active pt unsure of dosage or directio ns Not Available Not Available Not Available amlodipin e 10 mg tablet TAKE ONE TABLET BY MOUTH ONCE A DAY active Not Available Not Available No t Available benzonata te 100 mg capsule 08/07 completed Not Available Not Available Not Available doxycycli ne monohydra te 100 mg capsule TAKE 1 CAPSULE BY MOUTH 2 TIMES A DAY FOR 10 DAYS 03/25 completed Not Available Not Available Not Available cyanocoba lida (vit B-12) 1,000 mcg/mL injection solution Inject 1 mL every week by subcutan eous route for 30 days. 2024 active Not Available Not Available Not Avai lable buspirone 10 mg tablet 1 tab po bid 09/27 completed Not Available Not Available Not Available Effexor XR 150 mg capsule,e xtended release Take 1 capsule( s) by mouth daily 01/30 completed Not Available Not Available Not Available promethaz ine 25 mg tablet 08/07 completed Not Available Not Available Not Available Ear Drops (carbamid e peroxide) 6.5 % INSTILL 5 DROPS INTO AFFECTED EAR(S) BY OTIC ROUTE 2 TIMES PER DAY 03/09 completed Not Available Not Available Not Available fluoxetin e 10 mg capsule 08/07 completed Not Available Not Available Not Available hydroxyzi ne HCl 25 mg tablet Take 1 tablet 3 times a day by oral route as needed for 30 days. 02/24 completed Not Available Not Available Not Available ranitidin e 150 mg capsule Take 1 capsule( s) by mouth bid 04/16 completed Not Available Not Available Not Available lisinopri l 5 mg tablet TAKE 1 AND 1/2 TABLETS BY MOUTH ONCE A DAY active Not Available Not Available No t Available mupirocin 2 % topical ointment active Not Available Not Available Not Available ergocalci ferol (vitamin D2) 1,250 mcg (50,000 unit) capsule TAKE 1 CAPSULE BY MOUTH ONCE WEEKLY active Not Available Not Available No t Available methylpre dnisolone 4 mg tablets in a dose pack as directed 08/07 completed Not Available Not Available Not Available ondansetr on 4 mg disintegr ating tablet DISSOLVE 1 TABLET IN MOUTH AND ALLOW TO DISSOLVE THEN SWALLOW EVERY 4 TO 6 HOURS NEEDED FOR NAUSEA AND VOMITING active Not Available Not Available No t Available cefdinir 300 mg capsule 08/07 completed Not Available Not Available Not Available fluticaso ne propionat e 50 mcg/actua tion nasal spray,[place] pension 08/07 completed Not Available Not Available Not Available lisinopri l 2.5 mg tablet one and 1/2 a day 08/08 completed Not Available Not Available Not Available loratadin e 10 mg tablet take 1 tablet (10 mg) by oral route once daily 08/07 completed Not Available Not Available Not Available naproxen 500 mg tablet Take 1 tablet twice a day by oral route as needed. 08/07 completed Not Available Not Available Not Available amoxicill in 875 mg-potass ium clavulana te 125 mg tablet Take 1 tablet every 12 hours by oral route for 7 days. 12/06 completed Not Available Not Available Not Available buspirone 15 mg tablet TAKE ONE TABLET BY MOUTH 2 TIMES A DAY active Not Available Not Available No t Available hydroxyzi ne pamoate 25 mg capsule TAKE 1 CAPSULE BY MOUTH 1 TO 2 times DAILY NEEDED anxiety 03/25 completed Not Available Not Available Not Available metaxalon e 800 mg tablet START BY TAKING 1/2 TABLET BY MOUTH AT BEDTIME MAY INCREASE TO 1/2 TABLET 2 TIMES A DAY NEEDED MAX OF 1 TABLET 3 TIMES A DAY NEEDED active Not Available Not Available No t Available cyclobenz aprine 5 mg tablet Take 1 tablet 3 times a day by oral route as needed for 30 days. 03/25 completed Not Available Not Available Not Available clonazepa m 0.25 mg disintegr ating tablet Place 1 tablet twice a day by translin gual route. 03/25 completed Not Available Not Available Not Available ciproflox acin 0.3 %-dexamet hasone 0.1 % ear drops,aquil[place] pension instill 4 drops into affected ear(s) by otic route 2 times per day for 7 days 01/22 completed Not Available Not Available Not Available Tri-Sprin basilio (28) 0.18 mg(7)/0.2 15 mg(7)/0.2 5 mg(7)-0.0 35 mg tablet TAKE ONE TABLET BY MOUTH ONCE A DAY DIRECTED 04/22 completed Not Available Not Available Not Available aripipraz ole 2 mg tablet TAKE 1 TABLET BY MOUTH AT BEDTIME 03/14 completed Not Available Not Available Not Available hydrochlo rothiazid e 12.5 mg tablet TAKE 1 TABLET BY MOUTH ONCE A DAY NEEDED FOR EDEMA active Not Available Not Available No t Available cholecalc iferol (vitamin D3) 1,250 mcg (50,000 unit) capsule TAKE 1 CAPSULE BY MOUTH ONCE WEEKLY 03/25 completed Not Available Not Available Not Available Probiotic 20 billion cell capsule Take 1 capsule every day by oral route for 14 days. 2024 active Not Available Not Available Not Avai lable Vraylar 1.5 mg capsule TAKE 1 CAPSULE BY MOUTH ONCE A DAY active Not Available Not Available No t Available Vraylar 03/25 completed Not Available Not Available Not Available AZO D-Mannose 500 mg capsule Take by oral route. active 2000 mg per day. Not Available Not Available Not Available Vitals Date Recorded Body height Body mass index (BMI) Body weight Body temperature Heart rate Oxygen saturation Oxygen saturation in Arterial blood by Pulse oximetry Systolic And Diastolic Provider Name and Address Organization Details Last Updated DateTime 168.91 cm 53.1 kg/m2 738774. 25 g 99.1 [degF] 105 /min 99 % 99 % 137/83 mm[Hg] Dulce Hong [employer] 12:41:46 Social History Question Answer Notes LastModified by Organizat ion Details LastModified Time Tobacco Smoking Status Never Smoker DIMITRI luke [employer] 04/15/2022 08:26:39 Do You Wear A Helmet When Biking? No [email or web address] Information not available 12/27/2024 Are You Blind Or Do You Have Difficulty Seeing? No Information n ot available 12/02/2022 Are You A Caregiver? No Information not available 12/02/2022 In The 14 Days Before Symptom Onset, Have You Had Close Contact With A Laboratory-confirm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
--- OUTSIDE RECORDS SUMMARY | 2025-06-03 10:14 | XMS_ITS | Continuity of Care Document ---
Author Organization [employer] [facility] Address [address] [place] [id number] Care Team Providers Care Dealer Analyst Name Role Phone TRISHA CORTES Primary Care Provider Brandy cordova Assessment No assessment recorded. Plan of Treatment Reminders Order Date Submit Date Provider Last Modified By Organization Details Last Modified Time Details Appointments None recorded. Lab urinalysis, dipstick 2024 025 [email or web address] [facility], [address] [place] [address], [phone], 5 18:01:58 culture, urine 2024 025 CORPUS CHRISTI [facility], [address] [place] [address], [place], [address], 5 06:06:33 Referral None recorded. Procedures None recorded. Surgeries None recorded. Imaging None recorded. Medication Orders Bactrim DS 800 mg-160 mg tablet 2024 025 [facility], [address] [place] [address], [id number], 5 08:53:15 cyanocobala min (vit B-12) 1,000 mcg/mL injection solution 2024 025 [email or web address] Not available 16:46:14 Patient TargetsNo targets recorded. Patient InstructionsNo instructions recorded. Reason for Referral None Reported. Results Created Date Observation Date Name Description Value Unit Range Abnormal Flag Note LastModifiedBy Organization Detail LastModifiedTime 04/11/20 25 04/14/2025 URINE CULTU RE, ROUTI NE urine culture, routine Final report Not Available [facility] ([facility]) [address] [facility], [place], [address], 04/14/2025 06:06:33 04/11/20 25 04/14/2025 URINE CULTU RE, ROUTI NE result 1 COMMEN T Mixed uroge nital tiffanie 25,00 0-50, 000 colon y formi ng units per mL Not Available [facility] ([facility]) [address] [facility], [place], [address], 04/14/2025 06:06:33 04/11/20 25 04/11/2025 urina lysis , dipst ick Leukocytes Modera te Not Available [address], [address], 04/11/2025 16:05:28 04/11/20 25 04/11/2025 urina lysis , dipst ick Nitrite negati ve Not Available [address], [address], 04/11/2025 16:05:28 04/11/20 25 04/11/2025 urina lysis , dipst ick Urobilinogen .2 Not Available [address], [address], 04/11/2025 16:05:28 04/11/20 25 04/11/2025 urina lysis , dipst ick Protein Negati ve Not Available [address], [address], 04/11/2025 16:05:28 04/11/20 25 04/11/2025 urina lysis , dipst ick pH 6.0 Not Available [address] [place], [address], 04/11/2025 16:05:28 04/11/2004/11/2025 urina lysis , dipst ick Blood Negati ve Not Available [address], [address], 04/11/2025 16:05:28 04/11/2004/11/2025 urina lysis , dipst ick Specific [place] 1.025 Not Available [address], [address], 04/11/2025 16:05:28 04/11/2004/11/2025 urina lysis , dipst ick Ketone Trace Not Available [address], [address], 04/11/2025 16:05:28 04/11/2004/11/2025 urina lysis , dipst ick Bilirubin Negati ve Not Available [address], [address], 04/11/2025 16:05:28 04/11/2004/11/2025 urina lysis , dipst ick Glucose Negati ve Not Available [address], [address], 04/11/2025 16:05:28 04/11/2004/11/2025 urina lysis , dipst ick Appearance Clear Not Available [address], [address], 04/11/2025 16:05:28 04/11/20 25 04/11/2025 urina lysis , dipst ick Color Dark Yellow Not Available [address], [address], 04/11/2025 16:05:28 04/11/20 25 04/11/2025 XR, wrist , 2 view No observ ation record ed. [address], [place], [address], 04/18/2025 13:47:13 04/11/20 25 04/11/2025 XR, hand, 2 view No observ ation record ed. [address], [place], [address], 04/18/2025 13:47:32 04/11/20 25 04/11/2025 XR, sacro iliac joint (s), 3 or more view No observ ation record ed. [address], [place], [address], 04/18/2025 13:48:51 04/11/20 25 04/11/2025 XR, hand, 2 view No observ ation record ed. [address], [place], [address], 04/18/2025 13:49:13 04/11/20 25 04/11/2025 XR, wrist No observ ation record ed. [address], [place], [address], 04/18/2025 13:49:29 04/17/20 25 04/16/2025 US, rogelio y No observ ation record ed. [address], [place], [address], 04/18/2025 13:49:53 Result Notes None recorded. Problems Name Problem SNOMED Code Status Onset Date Resolution Date Notes Provider Name and Address Organization Details Recorded Time Moderate major depressi on, single episode 68309195 Completed 201604/28/2017 Problem Code: F32.1; Problem Code Type: ICD-10; Not Available [facility] 2 20:58:04 Major depressi on, single episode 26822182 Completed 201603/09/2017 Problem Code: F32.9; Problem Code Type: ICD-10; Not Available [facility] 2 20:58:05 Depressi ve disorder 76446399 Completed 201604/28/2017 Problem Code: 311; Problem Code Type: ICD-9; Not Available [facility] 2 20:58:19 Nausea and vomiting 76229624 Completed 201604/18/2017 Problem Code: R11.2; Problem Code Type: ICD-10; Not Available [facility] 2 20:58:11 Diarrhea 04021107 Completed 201604/18/2017 Problem Code: R19.7; Problem Code Type: ICD-10; DIMITRI luke [facility] [employer] [facility]. 2 08:25:35 Depressi ve disorder 48231308 Completed 201601/22/2021 Problem Code: 311; Problem Code Type: ICD-9; Not Available [facility] 2 20:58:20 Generali zed anxiety disorder 25218487 Completed 201605/18/2017 Problem Code: F41.1; Problem Code Type: ICD-10; Not Available [facility] 2 20:58:05 Pain of joint of ankle 384371849 Completed 201606/01/2017 Not Available [facility] 2 20:58:18 Joint pain in ankle and foot Completed 201606/01/2017 Problem Code: 719.47; Problem Code Type: ICD-9; Not Available [facility] 2 20:58:26 Depressi ve disorder 73836806 Completed 201601/22/2021 Problem Code: 311; Problem Code Type: ICD-9; Not Available [facility] 2 20:58:20 Sprain of distal tibiofib ular ligament 01110469 Completed 201608/12/2017 Problem Code: S93.432A ; Problem Code Type: ICD-10; Not Available [facility] 2 20:58:23 Right lower quadrant pain 787893875 Completed 201712/02/2017 Problem Code: R10.31; Problem Code Type: ICD-10; Not Available [facility] 2 20:58:11 Generali zed anxiety disorder 87754937 Completed 201701/22/2021 Problem Code: 300.02; Problem Code Type: ICD-9; Not Available [facility] 2 20:58:18 Depressi ve disorder 38036815 Completed 201701/22/2021 Problem Code: 311; Problem Code Type: ICD-9; Not Available [facility] 2 20:58:18 Benign essentia l hyperten citlali 2427614 Completed 201701/22/2021 Problem Code: 401.1; Problem Code Type: ICD-9; Not Available [facility] 2 20:58:26 Epidermo id cyst of skin 888391988 Completed 201701/31/2020 Problem Code: L72.3; Problem Code Type: ICD-10; Not Available [facility] 2 20:58:07 Uses combined oral contrace ption 535876999 Completed 201701/26/2018 Problem Code: Z30.011; Problem Code Type: ICD-10; Not Available [facility] 2 20:58:16 Benign essentia l hyperten citlali 7897846 Completed 201701/22/2021 Problem Code: 401.1; Problem Code Type: ICD-9; Not Available [facility] 2 20:58:19 Oral contrace ptive prescrib ed Completed 201701/26/2018 Problem Code: V25.01; Problem Code Type: ICD-9; Not Available [facility] 2 20:58:23 Vaginola bial hernia Completed 201704/14/2018 Problem Code: N89.8; Problem Code Type: ICD-10; Not Available [facility] 2 20:58:09 Noninfla mmatory disorder of the vagina 94234816 Completed 201704/14/2018 Problem Code: 623.8; Problem Code Type: ICD-9; Not Available [facility] 2 20:58:22 Acute pharyngi tis 142620876 Completed 201707/16/2018 Problem Code: J02.8; Problem Code Type: ICD-10; [employer] 2 08:25:35 Disorder of upper respirat ory system 225691466 Completed 201705/31/2018 Problem Code: J06.9; Problem Code Type: ICD-10; Not Available [facility] 2 20:58:06 Acute upper respirat ory infectio n of multiple sites Completed 201705/31/2018 Problem Code: 465.8; Problem Code Type: ICD-9; Not Available [facility] 2 20:58:20 Allergic rhinitis caused by pollen 60881947 Completed 201709/07/2018 Problem Code: J30.1; Problem Code Type: ICD-10; Not Available [facility] 2 20:58:16 Cough 43831342 Completed 201707/23/2018 Problem Code: R05; Problem Code Type: ICD-10; Deann luke, [employer] 4 14:51:23 Epigastr ic pain 35339361 Completed 201804/15/2022 Problem Code: R10.13; Problem Code Type: ICD-10; DIMITRI luke [employer] 2 08:25:36 Common cold 50383146 Completed 201804/15/2022 DIMITRI luke [employer]. 2 08:25:36 Gastro-e sophagea l reflux disease with esophagi tis 610045425 Active 2018 Problem Code: K21.0; Problem Code Type: ICD-10; Not Available [facility] 2 20:58:07 Influenz a vaccine needed 72267297102 06 Completed 201801/31/2020 Problem Code: Z23; Problem Code Type: ICD-10; DIMITRI luke, [employer] 2 08:25:35 Acute pharyngi tis 631534104 Completed 201801/31/2020 DIMITRI luke, [employer] 2 08:25:35 Acute pharyngi tis 816903814 Completed 201804/15/2022 Problem Code: J02.8; Problem Code Type: ICD-10; DIMITRI SCOTT [place], [employer] 2 08:25:35 Urinary tract infectio us disease 06342171 Completed 201801/31/2020 Problem Code: N39.0; Problem Code Type: ICD-10; Not Available [facility] 2 20:58:08 Acute cystitis 52203272 Completed 201804/15/2022 Problem Code: N30.00; Problem Code Type: ICD-10; DIMITRI luke, [employer] 2 08:25:35 Diarrhea 03250064 Completed 201801/31/2020 Problem Code: R19.7; Problem Code Type: ICD-10; DIMITRI luke, [employer] 2 08:25:35 Disorder of upper respirat ory system 471010402 Completed 201801/31/2020 Problem Code: J06.9; Problem Code Type: ICD-10; Not Available [facility] 2 20:58:06 Generali zed anxiety disorder 12708244 Active 2019 Problem Code: F41.1; Problem Code Type: ICD-10; Not Available [facility] 2 20:58:05 Hyperten sive disorder 36552155 Active 2019 Problem Code: I10; Problem Code Type: ICD-10; Not Available [facility] 2 20:58:05 Tachycar kvng 0421558 Completed 201904/15/2022 DIMITRI luke, [employer] 2 08:25:35 Childhoo d obesity 775197233 Completed 201901/22/2021 Problem Code: Z68.54; Problem Code Type: ICD-10; Not Available [facility] 2 20:58:17 Negative dysphoto psia 410149638 Completed 201901/31/2020 Problem Code: H53.8; Problem Code Type: ICD-10; Not Available [facility] 2 20:58:05 Chronic fatigue syndrome 44033114 Completed 201901/31/2020 Problem Code: R53.82; Problem Code Type: ICD-10; Not Available [facility] 2 20:58:12 Acute respirat ory infectio ns 287829269 Completed 201904/15/2022 Problem Code: J22; Problem Code Type: ICD-10; DIMITRISALVATORE SCOTT [employer] 2 08:25:35 Muscle pain 22250809 Completed 201904/15/2022 Problem Code: M79.10; Problem Code Type: ICD-10; DIMITRI TYLER marly, [employer]. 2 08:25:35 Well child 485079214 Completed 202004/15/2022 DIMITRISALVATORE SCOTT marly, [employer]. 2 08:25:35 Childhoo d obesity 357378735 Completed 202001/22/2021 Problem Code: Z68.54; Problem Code Type: ICD-10; Not Available [facility] 2 20:58:16 Influenz a vaccine needed 49196411243 06 Completed 202001/22/2021 Problem Code: Z23; Problem Code Type: ICD-10; DIMITRI luke, [employer]. 2 08:25:35 Influenz a vaccine needed 35515061656 06 Completed 202004/15/2022 Problem Code: Z23; Problem Code Type: ICD-10; [employer] 2 08:25:35 Otitis externa of left ear 11593869106 58913 Completed 202001/22/2021 Problem Code: H60.332; Problem Code Type: ICD-10; Not Available [facility] 2 20:58:05 Candidia sis of vulva 1677871 Completed 202004/15/2022 DMIITRISALVATORE SCOTT [employer]. 2 08:25:35 Dysuria 73833853 Completed 202008/26/2021 Problem Code: R30.0; Problem Code Type: ICD-10; Deann [employer]. 5 16:05:22 Influenz a vaccine needed 87343613870 06 Completed 202008/26/2021 Problem Code: Z23; Problem Code Type: ICD-10; DIMITRI SOLISNER [employer]. 08:25:35 Exposure to SARS-CoV -2 Completed 202008/26/2021 Problem Code: Z20.822; Problem Code Type: ICD-10; Not Available [facility] 2 20:58:14 Otogenic otalgia 96780989 Completed 202104/15/2022 DIMITRISALVATORE SCOTT [employer]. 2 08:25:35 Urinary tract infectio us disease 27478131 Completed 202109/30/2021 Problem Code: N39.0; Problem Code Type: ICD-10; Not Available [facility] 20:58:09 Dysuria 95311016 Completed 202109/30/2021 Problem Code: R30.0; Problem Code Type: ICD-10; Deann luke [employer] 5 16:05:22 Uses combined oral contrace ption 508565498 Completed 202109/30/2021 Problem Code: Z30.41; Problem Code Type: ICD-10; Not Available [facility] 2 20:58:14 Finding of body mass index 780659402 Completed 202109/30/2021 Problem Code: Z68.41; Problem Code Type: ICD-10; Not Available [facility] 2 20:58:17 Acute pharyngi tis 508221116 Completed 202110/15/2021 DIMITRI luke, [employer]. 2 08:25:35 Myositis 29204971 Completed 202110/15/2021 Problem Code: M60.9; Problem Code Type: ICD-10; DIMITRISALVATORE SCOTT marly, [employer]. 2 08:25:35 General examinat ion of patient Completed 202104/15/2022 DIMITRISALVATORE SCOTT [employer]. 2 08:25:35 Finding of body mass index 415733786 Completed 202110/18/2021 Problem Code: Z68.41; Problem Code Type: ICD-10; Not Available [facility] 2 20:58:17 Myositis 85304459 Completed 202111/16/2021 Problem Code: M60.9; Problem Code Type: ICD-10; DIMITRI luke, [employer]. 2 08:25:35 Cough 88471472 Completed 202104/15/2022 Problem Code: R05; Problem Code Type: ICD-10; Deann luke, [employer]. 4 14:51:23 Diarrhea 28955549 Completed 202104/15/2022 Problem Code: R19.7; Problem Code Type: ICD-10; DIMITRI luke, [employer]. 2 08:25:35 Allergic rhinitis caused by pollen 82231769 Completed 202102/18/2022 Problem Code: J30.1; Problem Code Type: ICD-10; Not Available [facility] 2 20:58:07 Nausea 723828281 Completed 202102/18/2022 Problem Code: R11.0; Problem Code Type: ICD-10; Not Available [facility] 2 20:58:10 Candidia sis of vulva 4503102 Completed 202102/18/2022 DIMITRI luke, [employer] 2 08:25:35 Acute bronchit is 96902935 Completed 202104/15/2022 Problem Code: J20; Problem Code Type: ICD-10; DIMITRI luke, [employer] 2 08:25:35 Cough 36575761 Completed 202102/18/2022 Problem Code: R05; Problem Code Type: ICD-10; Deann luke, [employer] 4 14:51:23 Myositis 79235668 Completed 202104/15/2022 Problem Code: M60.9; Problem Code Type: ICD-10; DIMITRI luke, [employer] 2 08:25:35 Cough 13375513 Active 2023 Problem Code: R05; Problem Code Type: ICD-10; Deann Ogden null, [employer] 4 14:51:23 Sore throat 877033858 Active 2023 Deann Ogden null, [employer] 4 14:51:36 Acute cough Active 2024 Deann Ogden null, [employer] 5 15:25:22 Paresthe arnold 10253687 Active 2024 KERI RIBEIRO, GRAIN [employer]ER [address] [place] [address], [address] , [employer] 5 11:29:32 Vitamin D deficien cy 68505046 Active 2024 KERISHANIKA RIBEIRO, NAOMY [address] [place], [address] , [employer] 5 11:56:04 Pelvic floor dysfunct ion 684958393 Active 2024 Deann luke, [employer] 5 11:14:02 Cobalami n babak cy 642895163 Active 2024 Deann luke, [employer] 5 17:11:29 Dysuria 76547120 Active 2024 Problem Code: R30.0; Problem Code Type: ICD-10; Deann luke, [employer] 16:05:22 Acute vomiting 28339050 Active 2024 Ariane Garcia APRN [address], [place], [address] [place] [address] , [employer] 5 12:44:16 Gastroen teritis 34694058 Active 2024 Ariane Garcia APRN [address] [place], [address] , [employer] 5 13:13:52 Problem Notes None recorded. Procedures Surgical History Date Name Laterality Status Provider Name and Address Organization Details Recorded Time 04/22/2024 Date of Last Pap Smear completed Deann Ogden [employer]. 05/16/2024 10:37:35 Imaging Results None recorded. Procedure [...] height Body mass index (BMI) Body weight Heart rate Oxygen saturation Oxygen saturation in Arterial blood by Pulse oximetry Body temperature Systolic And Diastolic Provider Name and Address Organization Details Last Updated DateTime 5 168.91 cm 55 kg/m2 094353. 96 g 129 /min 98 % 98 % 99.2 [degF] 131/83 mm[Hg] Deann Ogden [email or web address] 16:10:19 Social History Question Answer Notes LastModified by Organizat ion Details LastModified Time Tobacco Smoking Status Never Smoker DIMITRI luke [employer] 04/15/2022 08:26:39 Do You Wear A Helmet When Biking? No [email or web address] Information not available 12/27/2024 Are You Blind [...] Of Your Most Recent Tobacco Screening? 05/24/2025 [email or web address] Information not available 05/24/2025 What Is Your [...] available 12/02/2022 Do You Participate In Social Media? Yes Information not available 12/27/2024 Do You [...] anxious, or unable to sleep at night)? [id number] Information not available 12/27/2024 Do you have difficulty concentrating, remembering or making decisions? No Information no t available 12/02/2022 Family History Relationship Description Onset Age of this Age Resolved Age Notes LastModified by Organization Details LastModified Time Unspecified Relation Family history of neurological disorder [email or web address] Not available 04/15 08:26:04 Unspecified Relation Family history of Depression [email or web address] Not available 03/31 08:26:10 Unspecified Relation Family history of Myocardial infarction [email or web address] Not available 03/31 08:26:16 Medical History Condition Response Emergency room visit since last appointm ent. N Acid Reflux (GERD) N Fibromyalgia N Hospitalizations N Acne N ADD/ADHD N Abuse/Domestic Violence N Hypertension Y Gynecological History Statement/Question Response Date of Last Pap Smear 04/22/2024 Most Recent Mammogram Obstetrics History GPAL:G 0 P 0 0 0 0 Immunizations Vaccine Type Date Status Note Provider Nam e and Address Organization Details Recorded Time Hep B, adolescent or pediatric 3 completed Not Available [facility] 04/05/2022 22:56:38 varicella 4 completed Not Available [facility] 04/05/2022 22:56:39 MMR 7 completed Not Available [facility] 04/05/2022 22:56:40 MMR 4 completed Not Available [facility] 04/05/2022 22:56:40 Hep A, ped/adol, 2 dose 8 completed DIMITRI luke, [employer] 08/08/2022 15:17:17 Hep A, ped/adol, 2 dose 9 completed DIMITRI luke, [employer] 08/08/2022 15:17:17 HPV9 8 completed DIMITRI luke, [employer] 08/08/2022 15:17:17 COVID-19, mRNA, LNP-S, PF, 100 mcg/0.5mL dose or 50 mcg/0.25mL dose 1 completed DIMITRISALVATORE SCOTT null, [employer] 08/08/2022 15:17:17 COVID-19, mRNA, LNP-S, PF, 100 mcg/0.5mL dose or 50 mcg/0.25mL dose 1 completed DIMITRI SCOTT null, [employer] 08/08/2022 15:17:17 HPV9 1 completed DIMITRI TYLER null, [employer] 08/08/2022 15:17:17 meningococcal MCV4P 1 completed Deann Mossyrock null, [employer] 12/04/2023 14:15:48 HPV, quadrivalent 9 completed Deann Mossyrock null, [employer] 12/04/2023 14:15:47 DTaP 4 completed Deann Mossyrock null, [employer] 12/04/2023 14:15:48 DTaP 7 completed Deann Mossyrock null, [employer] 12/04/2023 14:15:48 DTaP 3 completed Deann Mossyrock null, [employer] 12/04/2023 14:15:48 DTaP 3 completed Deann Mossyrock null, [employer] 12/04/2023 14:15:48 DTaP 4 completed Deann Mossyrock null, [employer] 12/04/2023 14:15:48 meningococcal MCV4P 8 completed Deann Mossyrock null, [employer] 12/04/2023 14:15:48 Hib (PRP-OMP) 3 completed Not Available [facility] 04/05/2022 22:56:46 Tdap 9 completed DIMITRI luke, [employer] 08/08/2022 15:17:17 pneumococcal conjugate PCV 7 4 completed Not Available [facility] 04/05/2022 22:56:47 pneumococcal conjugate PCV 7 3 completed Not Available [facility] 04/05/2022 22:56:47 pneumococcal conjugate PCV 7 4 completed Not Available [facility] 04/05/2022 22:56:47 pneumococcal conjugate PCV 7 3 completed Not Available [facility] 04/05/2022 22:56:47 Hib-Hep B 3 completed Not Available [facility] 04/05/2022 22:56:47 Hib-Hep B 4 completed Not Available [facility] 04/05/2022 22:56:48 COVID-19, mRNA, LNP-S, PF, 100 mcg/0.5mL dose or 50 mcg/0.25mL dose 2 completed DIMITRI SCOTT null, [employer] 08/08/2022 15:17:17 IPV 4 completed Deann Liceay null, [employer] 12/04/2023 14:15:47 IPV 7 completed Deann Baerlly null, [employer] 12/04/2023 14:15:47 IPV 3 completed Deann Liceay null, [employer] 12/04/2023 14:15:47 IPV 3 completed Deann Baerlly null, [employer] 12/04/2023 14:15:47 Meningococcal MCV4O 1 completed Deann Liceay null, [employer] 12/04/2023 14:15:48 Meningococcal MCV4O 8 completed Deann Liceay null, [employer] 12/04/2023 14:15:48 DTaP, unspecified formulation 4 completed Deann Ogden null, [place] [employer] 12/04/2023 14:15:48 DTaP, unspecified formulation 7 completed Deann Liceay null, [facility] 12/04/2023 14:15:48 DTaP, unspecified formulation 3 completed Deann Liceay null, [place] [employer] 12/04/2023 14:15:48 DTaP, unspecified formulation 3 completed Deann Liceay null, [place] [employer] 12/04/2023 14:15:48 DTaP, unspecified formulation 4 completed Deann Liceay null, [place] [employer] 12/04/2023 14:15:48 Past Encounters Encounter ID Performer Location Encounter Start Date Encounter Closed Date Diagnosis/Indication Diagnosis SNOMED-CT Code Diagnosis ICD10 Code Diagnosis IMO Codes Diagnosis Note [id number] KERI RIBEIRO NP [place] [address] 0 03/14/2025 10:52:27 03/14/2025 12:42:57 Paresthesia 41144126 R20.2 92685 Discuss reasons to seek emergency care, patient verbalized understand ing.Rechec k labs, follow up with PCP. Vitamin D deficiency 347 66646 E55.9 52046 Restart vit D replacemen t. [id number] Trisha Sebastian [place] [address] 03/25/2025 11:02:17 03/25/2025 13:39:20 Tachycardia 1482078 R00.0 85482 Paresthesia 01072600 R20 .2 1772953 Body mass index 40+ - severely obese 449985519 Z68.43 947490 [id number] Trishauri Cortes [place] [address] 0 03/28/2025 09:23:22 03/28/2025 10:41:37 Cobalamin deficiency 142071784 E53.8 369675 [id number] Trisha Cortes [address] [address] 04/04/2025 14:20:47 04/04/2025 15:42:06 Cobalamin deficiency 751156041 E53.8 92686 Edema of l ower extremity 759676863 R60.0 57793 Xerostomia 31780374 R68. 2 8024 Body mass index 40+ - severely obese 597763620 Z68.43 743776 [id number] Trisha Cortes [address] [address] 04/11/2025 15:53:35 04/15/2025 10:46:53 Dysuria 29721936 R30.0 38106 Cobalamin deficiency 190 489388 E53.8 Acute urin judith tract infection 764101257 N39.0 244911 Body mass index 40+ - severely obese 000039723 Z68.43 570224 Health Concerns Section Related Observation LastModified by Organization Detai ls LastModified Time None Recorded Concern Status LastModified by Organization Details LastModified Time None Recorded Payers Encounter Date Sequence Insurance Name Policy Number Policy Horne Covered Member ID Horne Member ID Guarantor Name 04/11/2025 1 [facility] (MEDICAID HMO) Nury Yi [id number] Nury Yi Notes Date Note Type Note Provider Name and Address Organization Details Recorded Time 04/11/2025 text/html pt here today for b12 injection. pt states that she is doing well with that. pt does c/o dysuria x2 days. pt states that she took an AZO 2 days ago and it didnt help. UA positive for UTI. i will order abx and urine culture. educated pt on new med. pt voiced understanding. increase water intake, avoid soaking in baths, wipe front to back after toileting, and urinate before and after sexual intercourse. return for worsening symptoms. pt also wanted me to look in her left ear. states that it was twitching a few days ago. bilateral ears WNL. Trisha Cortes APRN [address] [place] [address], [phone], [place] - [employer] 04/11/2025 16:42:42 OBGyn Episode No OBEpisode recorded.
--- OUTSIDE RECORDS SUMMARY | 2025-06-03 10:14 | XMS_ITS | Encounter Summary ---
Author Organization [facility] Address [address] [place] [address] Care Team Providers Care Spray Technician Name Role Phone Trisha Cortes JEFFERSON Primary Care Provider + [phone] OsmanMaya maldonado APRN, DNP Unavailable + [phone] Reason for Visit * Reason Onset Date Comments Rcvd Report 04/18/2025 Encounter Details Date Type Department Care Team (Late st Contact Info) Description 04/18/2025 Telephone [place] [facility] [address], [address] [place] [address] Wendy Banegas RN `````````````````````````` ``````````````````````[facility] - OPERATING ROOM, PAV A Rcvd Report Social History Tobacco Use Types Packs/Day Years [...] * Telephone Encounter - Purnima Guaman - 04/18/2025 9:09 AM EDT Uploaded 04/16/25 Kidney US Report from [facility] * Telephone Encounter - Wendy Banegas RN - 04/18/2025 8:52 AM EDT Contacted [facility]. Requested the SANDRA from 04/16/25 to be Powershared and the results to be faxed. documented in this encounter Plan of Treatment Upcoming Encounters Date Type Department Care Team (Late st Contact Info) Description 07/03/2025 12:40 PM EST Office Visit [place] [facility] [address], [address] [place] [address] Maya Osman APRN, DNP [address] [place] [address] 11/07/2025 10:00 AM EDT Consult [place] [facility] [address], [address] [place] [address] Chasity Mendoza MD [address] [place] [address] documented as of this encounter [...] documented as of this encounter Care Teams Spray Technician Relationship Specialty Start Date End Date Trisha Cortes APRN [address] [place] [address] PCP - General 03/24/25 Maya Osman APRN, GWENDOLYN [address] [facility] [address] [place] [address] Nurse Practitioner Urology 03/24/25 documented as of this encounter
--- OUTSIDE RECORDS SUMMARY | 2025-06-03 10:14 | XMS_ITS | Clinical Summary ---
Author Organization [facility] Address [address] [place] [address] Care Team Providers Care Senior Auditor Name Role Phone Trisha Cortes JEFFERSON Primary Care Provider + [phone] OsmanMaya maldonado APRN, DNP Unavailable + [phone] Allergies No known active allergies Medications amLODIPine (Norvasc) 10 MG tablet 023 Active busPIRone (Buspar) 15 MG tablet 023 Active lisinopril 5 MG tablet 7 mg. 023 Active clonazePAM (KlonoPIN) 0.5 MG tablet TAKE 1/2 TABLET BY MOUTH ONCE A DAY NEEDED FOR ANXIETY Active citalopram (CeleXA) 40 MG tablet Take 1 tablet by mouth daily. 025 Active ergocalciferol 1.25 MG (02438 UT) capsule Take 1 capsule by mouth 1 time per week. 025 Active hydroCHLOROthiazi de 12.5 MG PO tablet TAKE 1 TABLET BY MOUTH ONCE A DAY NEEDED FOR EDEMA Active propranolol (Inderal) 10 MG tablet Take 2 tablets by mouth 2 times a day. 025 Active Vraylar 1.5 MG capsule Take 1 capsule by mouth daily. 025 Active D-Mannose 500 MG capsule Take by mouth. Activ e ondansetron ODT (Zofran-ODT) 4 MG disintegrating tablet DISSOLVE 1 TABLET IN MOUTH AND ALLOW TO DISSOLVE THEN SWALLOW EVERY 4 TO 6 HOURS NEEDED FOR NAUSEA AND VOMITING Active Bacillus Coagulans-Guar Gum (BENEFIBER ADVANCED PO) Take by mouth. Ac tive methocarbamol (Robaxin) 500 MG tablet Take 1 tablet by mouth daily. Active ARIPiprazole (Abilify) 2 MG tablet 023 2024 Discontinued citalopram (CeleXA) 20 MG tablet 023 2024 Discontinued hydrOXYzine HCl (Atarax) 25 MG tablet 023 2024 Discontinued hydrOXYzine pamoate (Vistaril) 25 MG capsule 2 capsules. 025 2024 Discontinued cyanocobalamin (Vitamin B-12) 1000 MCG/ML injection Inject 1 mL every week by subcutaneous route for 30 days. 025 2024 Discontinued sulfamethoxazole- trimethoprim (Bactrim DS) 800-160 MG tablet take 1 tablet by mouth every twelve hours for 10 days 025 2024 Discontinued metaxalone (Skelaxin) 400 MG tabletIndications :High-tone pelvic floor dysfunction Start by taking 1 pill by mouth at bedtime. Increase to 1 pill 2x/day as needed, maximum of 2 pills 3x/day as needed/tolerate d. 180 tablet 11 025 2024 Discontinued Active Problems Problem Noted Date Diagnosed Date Urinary urgency 11/02/2023 Reflux of urine 10/31/2022 Myositis 09/30/2021 05/02/2023 Overview (05/02/2023): Problem [...] Depression with anxiety 08/07/2019 Tachycardia 08/05/2019 05/02/2023 Gastro-esophageal reflux disease with esophagiti s 09/18/2018 05/02/2023 Overview (05/02/2023): Problem Code: K21.0; Problem Code Type: ICD-10; Common cold 09/03/2018 05/02/2023 Allergic rhinitis due to pollen 07/09/2018 05/02/2023 Overview (05/02/2023): Problem Code: J30.1; Problem Code Type: ICD-10; Problem Code: J30.1; Problem Code Type: ICD-10; Disorder of upper [...] Type: ICD-10; Ankle joint pain 05/18/2017 05/02/2023 Moderate major depression, single episode 201605/02/2023 Overview (05/02/2023): Problem Code: F32.9; Problem Code Type: ICD-10; Problem Code: F32.1; Problem Code Type: ICD-10; 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 Chronic kidney disease, stage 2 (mild) 4 Hypertension 04/16/2014 Childhood obesity 04/16/2014 05/02/2023 Overview (05/02/2023): Problem Code: Z68.54; Problem Code Type: ICD-10; Problem Code: Z68.54; Problem Code Type: ICD-10; IBS (irritable bowel syndrome) 04/16/2014 1 Resolved Problems Problem Noted Date Diagnosed Date Resolved Date Recurrent UTI 10/31/2022 04/20/2025 Acute cystitis 11/06/2018 05/02/2023 04/20/2025 Overview (05/02/2023): Problem Code: J20; Problem Code Type: ICD-10; Problem Code: N30.00; Problem Code Type: ICD-10; Epigastric pain 08/14/2018 05/02/2023 04/20/2025 Overview (05/02/2023): Problem Code: R10.13; Problem Code Type: ICD-10; Cough 07/09/2018 05/02/2023 04/20/2025 Overview (05/02/2023): Problem Code: R05; Problem Code Type: ICD-10; Problem Code: R05; Problem Code Type: ICD-10; Problem Code: R05; Problem Code Type: ICD-10; Diarrhea 04/04/2017 05/02/2023 04/20/2025 Overview (05/02/2023): Problem Code: R19.7; Problem Code Type: ICD-10; Problem Code: R19.7; Problem Code Type: ICD-10; Problem Code: R19.7; Problem Code Type: ICD-10; Nausea and vomiting 04/04/2017 05/02/2023 04/20/20 25 Overview (05/02/2023): Problem Code: R11.0; Problem Code Type: ICD-10; Problem Code: R11.2; Problem Code Type: ICD-10; Colitis 12/02/2013 05/02/2023 04/20/2025 Encounters Date Type Department Care Team Description 06/02/2025 9:20 AM EST Office Visit [facility] [address], [address] [place] [address] Silvia Merlos APRN Dry mouth (Primary Dx) 06/02/2025 Travel 05/19/2025 Results Follow-Up [facility] [address], [address] [place] [address] Silvia Merlos APRN 05/19/2025 Orders Only [facility] [address], [address] [place] [phone] Armando Temple RN Dry mouth; Back pain, unspecified back location, unspecified back pain laterality, unspecified chronicity; Spasms of the hands or feet 04/18/2025 Results Follow-Up [facility] Urology [address], [address] [place] [phone] Maya Osman, JEFFERSON, GWENDOLYN 04/18/2025 Telephone [facility] [address], [facility] [place] [address] Wendy Banegas RN Rcvd Report 04/16/2025 10:40 AM EDT Office Visit [facility] [address], [facility] [address] [place] [phone] Maya Osman, JEFFERSON, GWENDOLYN Recurrent UTI (Primary Dx); High-tone pelvic floor dysfunction 04/16/2025 Orders Only External Location [address] [place] [phone] Provider, External 04/16/2025 Travel 04/14/2025 Telephone [facility] [address], [address] [place] [address] [place] [address] Maya Osman, JEFFERSON, GWENDOLYN HCN Same Day Appt/Overbook Request; Final U/C 04/11/2025 Telephone [facility] [address], [facility] [place] [phone] Maya Osman, JEFFERSON, GWENDOLYN HCN Paperwork/Documenta tion Request 04/09/2025 Orders Only [facility] [address], [facility] [place] [address] Provider, Historical 04/02/2025 Telephone [facility] [address], [address] [place] [address] Maya Osman, JEFFERSON, GWENDOLYN HCN Clinical Concern/Question; HCN Status Update Call #1 03/24/2025 10:50 AM EDT Consult [facility] [address] [facility], [address] [place] [address] Silvia Merlos APRN Back pain, unspecified back location, unspecified back pain laterality, unspecified chronicity (Primary Dx); Dry mouth; Spasms of the hands or feet; Vapes nicotine containing substance 03/24/2025 9:00 AM EDT Office Visit [facility] [address] [place] [address], [address] [place] [address] Maya Osman, JEFFERSON, DNP High-tone pelvic floor dysfunction (Primary Dx); Reflux of urine; Recurrent UTI 03/24/2025 Telephone [facility] [address] [place] [address], [address] [place] [address] Maya Osman, JEFFERSON, DNP Lab Results 03/24/2025 Telephone [facility] [address] [place] [address], [address] [place] [address] Maya Osman, JEFFERSON, DNP 03/24/2025 Travel from Last 3 Months Immunizations Immunization Administration [...] Mass Index 57.97 06/02/2025 9:33 AM EST Plan of Treatment Upcoming Encounters Date Type Department Care Team (Late st Contact Info) Description 07/03/2025 12:40 PM EST Office Visit [facility] [address], [address] [place] [address] Maya Osman APRN, DNP [address] [place] [address] 11/07/2025 10:00 AM EDT Consult [facility] [address], [address] [place] [address] Chasity Mendoza MD [address] [place] [address] Health Maintenance Due Date Last Done Comments [facility]-HIV Screening 2002 [facility]-Hepatitis C Screening 2002 [facility]-Infant/Child/Adol SDOH Screenings 2002 [facility]-Varicella Vaccines (2 of 2 - 2-dose childhood series) 12/27/2006 02/20/2004 [facility]- SDOH Screenings 2020 [facility]-Adult SDOH Screenings 2020 [facility]-Pap Smear 2023 [facility]-NPHGO-35 Vaccine ( season) 2025 09/17/2021, 01/27/2021, 12/19/2020 [facility]-Influenza Vaccine (#1) 2025 [facility]-Depression Screening 06/02/2026 06/02/2025, 110 09/2024 [facility]-DTaP,Tdap,and Td Vaccines (7 - Td or [...] 08/04/2020, 08/31, 02/13/2018 [facility]-Obesity Intervention Completed 025, 04/16/2025, 03/24/2025, Additional history exists [facility]-Rotavirus Vaccines Aged Out No lo nger eligible based on patient's age to complete this topic Procedures Procedure Name Priority Date/Time Associated Diagnosis Comments HLA B27 TYPING Routine 05/19/2025 7:33 AM EDT Back pain, unspecified back location, unspecified back pain laterality, unspecified chronicity CYCLIC CITRUL PEPTIDE ANTIBODY IGG Routine 05/19/2025 7:33 AM EDT Dry mouth Spasms of the hands or feet XR SACROILIAC JOINTS 3+ VIEWS Routine 05/19/2025 7:33 AM EDT Back pain, unspecified back location, unspecified back pain laterality, unspecified chronicity XR HAND WRIST BILATERAL 2 VIEWS Routine 05/19/2025 7:33 AM EDT Dry mouth US ABDOMEN OUTSIDE IMAGES 04/16/2025 1:24 PM EDT URINALYSIS, MICROSCOPIC Routine 04/16/2025 11:12 AM EDT [...] EDT from Last 3 Months Results * XR Hand and Wrist Bilateral 2 Views (05/19/2025 7:33 AM EDT) Anatomical Region Laterality Modality Hand, Wrist Bilateral Digital Radiogra phy Silvia Merlos INSOLE TAPER IMG XR PROCEDURES Final Re sult * HLA B27 Typing (05/19/2025 7:33 AM EDT) Only the most recent of2 resultswithin the time period is included. Blood Venous blood specimen / Unknown Silvializette Merlos APRN LAB BLOOD ORDERABLES Final Result Performing Organization Address [facility] Co de Phone Number EXTERNAL LAB * Cyclic Citrul Peptide Antibody IgG (05/19/2025 7:33 AM EDT) Only the most recent of2 resultswithin the time period is included. Blood Venous blood specimen / Unknown Silvializette Merlos APRN LAB BLOOD ORDERABLES Final Result Performing Organization Address City/[facility]/ZIP Co de Phone Number EXTERNAL LAB * XR Sacroiliac Joints 3+ Views (05/19/2025 7:33 AM EDT) Anatomical Region Laterality Modality Body, Spine, Pelvis Digital Radi ography Silvia Merlos INSOLE TAPER IMG XR PROCEDURES Final Re sult * US ABDOMEN OUTSIDE IMAGES (04/16/2025 1:24 PM EDT) Anatomical Region Laterality Modality Ultrasound 04/16/2025 1:24 PM EDT us External Provider IMG US PROCEDURES Edited Resul t - Final * Urinalysis, Microscopic (04/16/2025 11:12 AM EDT) RBC, Urine 2 0 to 3 /HPF LAB URINALYSIS - AUTOMATED METHOD 04/16/2025 4:09 PM EDT [facility] WBC, Urine 0 - 5 0 to 5 /HPF LAB URINALYSIS - AUTOMATED METHOD 04/16/2025 4:09 PM EDT [facility] Squamous Epithelial Cells 3 - 5 0 to 5 /HPF LAB URINALYSIS - AUTOMATED METHOD 04/16/2025 4:09 PM EDT [facility] Hyaline Casts 0 - 2 0 to 5 /LPF LAB URINALYSIS - AUTOMATED METHOD 04/16/2025 4:09 PM EDT [facility] Bacteria, Urine Negative Negative LAB URINALYSIS - AUTOMATED METHOD 04/16/2025 4:09 PM EDT [facility] Urine Urine specimen obtained by clean catch procedure / Unknown Non-blood Collection / Unknown 04/16/2025 11:12 AM EDT 04/16/2025 2:27 PM EDT us Maya Osman INSOLE TAPER, DNP LAB URINE ORDERABLES F inal Result [facility] [address] [place] [address] * Urine Culture (04/16/2025 11:12 AM EDT) Culture 10,000 - 100,000 CFU/mL Mixed urogenital, fecal, or skin tiffanie present. 04/17/2025 1:42 PM EDT [facility] Urine Urine specimen obtained by clean catch procedure / Unknown Non-blood Collection / Unknown 04/16/2025 11:12 AM EDT 04/16/2025 2:27 PM EDT us Maya Barakat Dawson PAULINO DNP LAB MICROBIOLOGY - GEN ERAL ORDERABLES Final Result [facility] [address] [place] [address] * POC US Bladder Volume (04/16/2025 10:28 AM EDT) Urine, Volume 0 mL IMAGING Anatomical Region Laterality Modality Other Maya Barakat Dawson PAULINO DNP IMG POINT OF CARE ULTR ASOUND Final Result * (ABNORMAL) POCT URINALYSIS DIPSTICK (04/16/2025 10:13 AM EDT) Only the most recent of2 resultswithin the time period is included. POCT Urine Color Yellow 04/16/2025 10:15 AM EDT [facility] POCT Urine Clarity Sl.Cloudy 04/16/2025 10:15 AM EDT [facility] POCT Urine Glucose Negative Negative mg/dL 04/16/2025 10:15 AM EDT [facility] POCT Urine Bilirubin Negative Negative mg/dL 04/16/2025 10:15 AM EDT [facility] POCT Urine Ketones Negative Negative mg/dL 04/16/2025 10:15 AM EDT [facility] POCT Urine Specific [place] 1.015 1.005 - 1.030 04/16/2025 10:15 AM EDT [facility] POCT Urine Blood Negative Negative 04/16/2025 10:15 AM EDT [facility] POCT pH, Urine 6.0 5.0 - 8.0 04/16/2025 10:15 AM EDT [facility] POCT Protein, Urine Negative Negative mg/dL 04/16/2025 10:15 AM EDT [facility] POCT Urobilinogen, Urine 0.2 0.2, 1.0 EU/dL 04/16/2025 10:15 AM EDT [facility] POCT Nitrite, Urine Negative Negative 04/16/2025 10:15 AM EDT [facility] POCT Urine Leukocyte Esterase Trace(A) Negative 04/16/2025 10:15 AM EDT [facility] Urine 04/16/2025 10:1 3 AM EDT 04/16/2025 10:15 AM EDT Maya Osman APRN, DNP LAB POINT OF C ARE TEST DOCKED DEVICE UNSOLICITED RESULTS Final Result [facility] [address], [place] from Last [address] [facility] Care Teams Senior Auditor Relationship Specialty Start Date End Date Trisha Cortes APRN [address] [place] [address] PCP - General 03/24/25 Maya Osman APRN, DNP [address] [place] [address] Nurse Practitioner Urology 03/24/25
--- OUTSIDE RECORDS SUMMARY | 2025-06-03 10:15 | XMS_ITS | Encounter Summary ---
Author Organization [facility] Address [address] [place] [address] Care Team Providers Care Gate Operator Name Role Phone SebastianTrisha JEFFERSON Primary Care Provider + [phone] Maya Osman APRN, DNP Unavailable + [phone] Reason for Visit * Reason Onset Date Comments HCN Same Day Appt/Overbook Request 04/14/2025 Final U/C 04/14/2025 Encounter Details Date Type Department Care Team (Late st Contact Info) Description 04/14/2025 Telephone [place] [facility] [address], [address] [place] [address] Maya Osman, JEFFERSON, DNP [address] [place] [address] HCN Same Day Appt/Overbook Request; [...] Uploaded 04/14/2025 Final Urine Culture Results from [facility] * Telephone Encounter - Hermelinda Saleh - 04/15/2025 1:45 PM EDT 04/15- patient is scheduled tomorrow in UDS slot. 07/03 has been changed to in person. [facility] * Telephone Encounter - Maya Osman APRN, DNP - 04/15/2025 1:01 PM EDT front desk auxiliary - Can change 07/03 from TH to [...] for Call: Increased pain Best contact number: [phone] (home) Optimal time of day to reach [...] will receive notification of the communication/outcome via [employer]. documented in this encounter Plan of Treatment Upcoming Encounters Date Type Department Care Team (Late st Contact Info) Description 07/03/2025 12:40 PM EST Office Visit [facility] [address], [address] [place] [address] Maya Osman APRN, DNP [address] [place] [address] 11/07/2025 10:00 AM EDT Consult [place] [facility] [address], [address] [place] [address] Chasity Mendoza MD [address] [place] [address] documented as of this encounter [...] documented as of this encounter Care Teams Gate Operator Relationship Specialty Start Date End Date Trisha Cortes APRN [address] [place] [address] PCP - General 03/24/25 Maya Osman APRN, GWENDOLYN [address] [place] [address] Nurse Practitioner Urology 03/24/25 documented as of this encounter
--- OUTSIDE RECORDS SUMMARY | 2025-06-03 10:15 | XMS_ITS | Encounter Summary ---
Author Organization [facility] Address [address] [place] [address] Care Team Providers Care Real Property Evaluator Name Role Phone Trisha Cortes APRN Primary Care Provider + [phone] OsmanMaya maldonado APRN, DNP Unavailable + [phone] Encounter Details Date Type Department Care Team (Late st Contact Info) Description 05/19/2025 Orders Only [facility] Medicine [facility]ties [address] [place] [address] Armando Temple, RN Dry mouth; Back pain, unspecified back location, unspecified back pain laterality, unspecified chronicity; Spasms of the hands or feet Social History Tobacco Use Types Packs/Day Years [...] Description 07/03/2025 12:40 PM EST Office Visit [facility] [address], [address] [place] [address] Maya Osman APRN, DNP [address] [place] [address] 11/07/2025 10:00 AM EDT Consult [facility] [address], [address] [place] [address] Chasity Mendoza MD [address] [facility] [address] [place] [address] documented as of this encounter Procedures Procedure Name Priority Date/Time Associated Diagnosis Comments XR HAND WRIST BILATERAL 2 VIEWS Routine 05/19/2025 7:33 AM EDT Dry mouth HLA B27 TYPING Routine 05/19/2025 7:33 AM EDT Back pain, unspecified back location, unspecified back pain laterality, unspecified chronicity CYCLIC CITRUL PEPTIDE ANTIBODY IGG Routine 05/19/2025 7:33 AM EDT Dry mouth Spasms of the hands or feet XR SACROILIAC JOINTS 3+ VIEWS Routine 05/19/2025 7:33 AM EDT Back pain, unspecified back location, unspecified back pain laterality, unspecified chronicity documented in this encounter Results * HLA B27 Typing (05/19/2025 7:33 AM EDT) Blood Venous blood specimen / Unknown us Silvia Merlos FOSTER CARE WORKER LAB BLOOD ORDERABLES Final Result EXTERNAL LAB * Cyclic Citrul Peptide Antibody IgG (05/19/2025 7:33 AM EDT) Blood Venous blood specimen / Unknown us Silvia Merlos JEFFERSON LAB BLOOD ORDERABLES Final Result EXTERNAL LAB * XR Sacroiliac Joints 3+ Views (05/19/2025 7:33 AM EDT) Anatomical Region Laterality Modality Body, Spine, Pelvis Digital Radi ography us Silvia Merlos FOSTER CARE WORKER IMG XR PROCEDURES Final Re sult * XR Hand and Wrist Bilateral 2 Views (05/19/2025 7:33 AM EDT) Anatomical Region Laterality Modality Hand, Wrist Bilateral Digital Radiogra phy us Silvia Merlos APRN IMG XR PROCEDURES Final Re sult documented in this encounter Visit Diagnoses Diagnosis Dry mouth Disturbance of salivary secretion Back pain, unspecified back location, unspecified back pain laterality, unspecified chronicity Spasms of the hands or feet [place] documented in this encounter Additional Health Concerns Assessment Noted Time PHQ-9 Depression Total Score: 6 03/24/20 9:17 AM EDT A fall risk assessment has been complete d for the patient 04/16/2025 10:23 AM EDT A Body Mass Index follow-up plan has been documented for the patient 04/16/2025 11:12 AM EDT documented as of this encounter Care Teams Real Property Evaluator Relationship Specialty Start Date End Date Trisha Cortes APRN [address] [place] [address] PCP - General 03/24/25 Maya Osman APRN, DNP [address] [place] [address] Nurse Practitioner Urology 03/24/25 documented as of this encounter
--- OUTSIDE RECORDS SUMMARY | 2025-06-03 10:15 | XMS_ITS | Encounter Summary ---
Author Organization [facility] Address [address] [place] [address] Care Team Providers Care Batter Mixer Helper Name Role Phone Trisha Cortes JEFFERSON Primary Care Provider + [phone] OsmanMaya maldonado APRN, DNP Unavailable + [phone] Encounter Details Date Type Department Care Team (Late st Contact Info) Description 04/16/2025 Orders Only External Location [address] [place] [address] Provider, External Social History Tobacco Use Types Packs/Day Years [...] Smith LPN documented as of this encounter Plan of Treatment Upcoming Encounters Date Type Department Care Team (Late st Contact Info) Description 07/03/2025 12:40 PM EST Office Visit [facility] [address] [place] [address] Maya Osman APRN, DNP [address] [place] [address] 11/07/2025 10:[address] [facility] [address] [place] [address] Chasity Mendoza MD [address] [place] [address] documented as of this encounter Procedures Procedure Name Priority Date/Time Associated Diagnosis Comments US ABDOMEN OUTSIDE IMAGES 04/16/2025 1:24 PM EDT documented in this encounter Results * US ABDOMEN OUTSIDE IMAGES (04/16/2025 1:24 PM EDT) Anatomical Region Laterality Modality Ultrasound 04/16/2025 1:24 PM EDT us External Provider IMG US PROCEDURES Edited Resul t - Final documented in this encounter Visit Diagnoses Not [...] documented as of this encounter Care Teams Batter Mixer Helper Relationship Specialty Start Date End Date Trisha Cortes APRN [address] [place] [address] PCP - General 03/24/25 Maya Osman APRN, DNP [address] [facility] [address] [place] [address] Nurse Practitioner Urology 03/24/25 documented as of this encounter
--- OUTSIDE RECORDS SUMMARY | 2025-06-03 10:15 | XMS_ITS | Continuity of Care Document ---
Author Organization [place] - [employer], [facility] Address [address] [place] [address] Care Team Providers Care Director Radio News Name Role Phone TRISHA CORTES Primary Care Provider Brandy codrova Assessment No assessment recorded. Plan of Treatment Reminders Order Date Submit Date Provider Last Modified By Organization Details Last Modified Time Details Appointments None recorded. Lab None recorded. Referral None recorded. Procedures None recorded. Surgeries None recorded. Imaging None recorded. Medication Orders hydrochloro thiazide 12.5 mg tablet 2024 025 VARINDER [facility], [facility], [id number], 5 11:11:46 cyanocobala min (vit B-12) 1,000 mcg/mL injection solution 2024 025 [email or web address] 38 [facility], [address] [place] [address], [id number], 5 15:14:43 Patient TargetsNo targets recorded. Patient InstructionsNo instructions recorded. Reason for Referral None Reported. Results Created Date Observation Date Name Description Value Unit Range Abnormal Flag Note LastModifiedBy Organization Detail LastModifiedTime 04/11/2004/11/2025 XR, wrist , 2 view No observ ation record ed. [facility] [address], [place], [address], 04/18/2025 13:47:13 04/11/202025 XR, hand, 2 view No observ ation record ed. [address], [place], [address], 04/18/2025 13:47:32 04/11/20 25 04/11/2025 XR, sacro iliac joint (s), 3 or more view No observ ation record ed. [address], [place], [address], 04/18/2025 13:48:51 04/11/20 25 04/11/2025 XR, hand, 2 view No observ ation record ed. [place] [address], [place], [address], 04/18/2025 13:49:13 04/11/2004/11/2025 XR, wrist No observ ation record ed. [address], [place], [address], 04/18/2025 13:49:29 04/17/2004/16/2025 US, rogelio y No observ ation record ed. [place] [address], [place], [address], 04/18/2025 13:49:53 Result Notes None recorded. Problems Name Problem SNOMED Code Status Onset Date Resolution Date Notes Provider Name and Address Organization Details Recorded Time Moderate major depressi on, single episode 23436353 Completed 201604/28/2017 Problem Code: F32.1; Problem Code Type: ICD-10; Not Available [facility] 2 20:58:04 Major depressi on, single episode 34445368 Completed 201603/09/2017 Problem Code: F32.9; Problem Code Type: ICD-10; Not Available [facility] 20:58:05 Depressi ve disorder 12953869 Completed 201604/28/2017 Problem Code: 311; Problem Code Type: ICD-9; Not Available [facility] 2 20:58:19 Nausea and vomiting 10270820 Completed 201604/18/2017 Problem Code: R11.2; Problem Code Type: ICD-10; Not Available [facility] 2 20:58:11 Diarrhea 44653252 Completed 201604/18/2017 Problem Code: R19.7; Problem Code Type: ICD-10; DIMITRI luke [facility] [employer] [facility]. 08:25:35 Depressi ve disorder 16076742 Completed 201601/22/2021 Problem Code: 311; Problem Code Type: ICD-9; Not Available [facility] 2 20:58:20 Generali zed anxiety disorder 41320746 Completed 201605/18/2017 Problem Code: F41.1; Problem Code Type: ICD-10; Not Available [facility] 2 20:58:05 Pain of joint of ankle 636105254 Completed 201606/01/2017 Not Available [facility] 2 20:58:18 Joint pain in ankle and foot Completed 201606/01/2017 Problem Code: 719.47; Problem Code Type: ICD-9; Not Available [facility] 2 20:58:26 Depressi ve disorder 22724983 Completed 201601/22/2021 Problem Code: 311; Problem Code Type: ICD-9; Not Available [facility] 2 20:58:20 Sprain of distal tibiofib ular ligament 34251172 Completed 201608/12/2017 Problem Code: S93.432A ; Problem Code Type: ICD-10; Not Available [facility] 2 20:58:23 Right lower quadrant pain 952774826 Completed 201712/02/2017 Problem Code: R10.31; Problem Code Type: ICD-10; Not Available [facility] 2 20:58:11 Generali zed anxiety disorder 91230508 Completed 201701/22/2021 Problem Code: 300.02; Problem Code Type: ICD-9; Not Available [facility] 2 20:58:18 Depressi ve disorder 12725014 Completed 201701/22/2021 Problem Code: 311; Problem Code Type: ICD-9; Not Available [facility] 2 20:58:18 Benign essentia l hyperten citlali 7513282 Completed 201701/22/2021 Problem Code: 401.1; Problem Code Type: ICD-9; Not Available [facility] 2 20:58:26 Epidermo id cyst of skin 806635922 Completed 201701/31/2020 Problem Code: L72.3; Problem Code Type: ICD-10; Not Available [facility] 2 20:58:07 Uses combined oral contrace ption 497529744 Completed 201701/26/2018 Problem Code: Z30.011; Problem Code Type: ICD-10; Not Available [facility] 2 20:58:16 Benign essentia l hyperten citlali 4396061 Completed 201701/22/2021 Problem Code: 401.1; Problem Code Type: ICD-9; Not Available [facility] 2 20:58:19 Oral contrace ptive prescrib ed Completed 201701/26/2018 Problem Code: V25.01; Problem Code Type: ICD-9; Not Available [facility] 2 20:58:23 Vaginola bial hernia Completed 201704/14/2018 Problem Code: N89.8; Problem Code Type: ICD-10; Not Available [facility] 2 20:58:09 Noninfla mmatory disorder of the vagina 49501833 Completed 201704/14/2018 Problem Code: 623.8; Problem Code Type: ICD-9; Not Available [facility] 2 20:58:22 Acute pharyngi tis 207019693 Completed 201707/16/2018 Problem Code: J02.8; Problem Code Type: ICD-10; DIMITRI luke [facility] [employer] 2 08:25:35 Disorder of upper respirat ory system 640018990 Completed 201705/31/2018 Problem Code: J06.9; Problem Code Type: ICD-10; Not Available [facility] 2 20:58:06 Acute upper respirat ory infectio n of multiple sites Completed 201705/31/2018 Problem Code: 465.8; Problem Code Type: ICD-9; Not Available [facility] 2 20:58:20 Allergic rhinitis caused by pollen 14473083 Completed 201709/07/2018 Problem Code: J30.1; Problem Code Type: ICD-10; Not Available [facility] 2 20:58:16 Cough 54140706 Completed 201707/23/2018 Problem Code: R05; Problem Code Type: ICD-10; Denan Ogden [employer] 4 14:51:23 Epigastr ic pain 78928779 Completed 201804/15/2022 Problem Code: R10.13; Problem Code Type: ICD-10; DIMITRI TYLER [employer] 2 08:25:36 Common cold 34426137 Completed 201804/15/2022 DIMITRI TYLER [employer] 2 08:25:36 Gastro-e sophagea l reflux disease with esophagi tis 364651627 Active 2018 Problem Code: K21.0; Problem Code Type: ICD-10; Not Available [facility] 2 20:58:07 Influenz a vaccine needed 02143942296 06 Completed 201801/31/2020 Problem Code: Z23; Problem Code Type: ICD-10; DIMITRI SCOTT [employer] 2 08:25:35 Acute pharyngi tis 500885215 Completed 201801/31/2020 DIMITRI TYLER [employer] 2 08:25:35 Acute pharyngi tis 921026960 Completed 201804/15/2022 Problem Code: J02.8; Problem Code Type: ICD-10; DIMITRI TYLER luke, [employer] 2 08:25:35 Urinary tract infectio us disease 48344774 Completed 201801/31/2020 Problem Code: N39.0; Problem Code Type: ICD-10; Not Available [facility] 2 20:58:08 Acute cystitis 70105248 Completed 201804/15/2022 Problem Code: N30.00; Problem Code Type: ICD-10; DIMITRI SOLISQUINN luke, [employer] 2 08:25:35 Diarrhea 20526954 Completed 201801/31/2020 Problem Code: R19.7; Problem Code Type: ICD-10; DIMITRI TYLER luke, [employer] 2 08:25:35 Disorder of upper respirat ory system 705506303 Completed 201801/31/2020 Problem Code: J06.9; Problem Code Type: ICD-10; Not Available [facility] 2 20:58:06 Generali zed anxiety disorder 15345747 Active 2019 Problem Code: F41.1; Problem Code Type: ICD-10; Not Available [facility] 2 20:58:05 Hyperten sive disorder 08425848 Active 2019 Problem Code: I10; Problem Code Type: ICD-10; Not Available [facility] 2 20:58:05 Tachycar kvng 9426863 Completed 201904/15/2022 DIMITRI TYLER luke, [employer] 2 08:25:35 Childhoo d obesity 932007393 Completed 201901/22/2021 Problem Code: Z68.54; Problem Code Type: ICD-10; Not Available [facility] 2 20:58:17 Negative dysphoto psia 385273979 Completed 201901/31/2020 Problem Code: H53.8; Problem Code Type: ICD-10; Not Available [facility] 2 20:58:05 Chronic fatigue syndrome 67925052 Completed 201901/31/2020 Problem Code: R53.82; Problem Code Type: ICD-10; Not Available [facility] 20:58:12 Acute respirat ory infectio ns 721109299 Completed 201904/15/2022 Problem Code: J22; Problem Code Type: ICD-10; DIMITRI TYLER [employer] 08:25:35 Muscle pain 24972076 Completed 201904/15/2022 Problem Code: M79.10; Problem Code Type: ICD-10; DIMITRISALVATORE SOLISNER [employer] 2 08:25:35 Well child 062667687 Completed 202004/15/2022 [employer] 2 08:25:35 Childhoo d obesity 647958504 Completed 202001/22/2021 Problem Code: Z68.54; Problem Code Type: ICD-10; Not Available [facility] 20:58:16 Influenz a vaccine needed 30664162843 Completed 202001/22/2021 Problem Code: Z23; Problem Code Type: ICD-10; [employer] 2 08:25:35 Influenz a vaccine needed 18626951328 Completed 202004/15/2022 Problem Code: Z23; Problem Code Type: ICD-10; DIMITRI TYLER [employer] 2 08:25:35 Otitis externa of left ear 68976412416 41925 Completed 202001/22/2021 Problem Code: H60.332; Problem Code Type: ICD-10; Not Available [facility] 20:58:05 Candidia sis of vulva 8409927 Completed 202004/15/2022 DIMITRI luke [employer] 2 08:25:35 Dysuria 51080721 Completed 202008/26/2021 Problem Code: R30.0; Problem Code Type: ICD-10; Deann Melvi luke [employer] 5 16:05:22 Influenz a vaccine needed 84045093241 06 Completed 202008/26/2021 Problem Code: Z23; Problem Code Type: ICD-10; DIMITRI TYLER marly [employer]. 08:25:35 Exposure to SARS-CoV -2 Completed 202008/26/2021 Problem Code: Z20.822; Problem Code Type: ICD-10; Not Available [facility] 20:58:14 Otogenic otalgia 46286921 Completed 202104/15/2022 DIMITRI SCOTT [employer] 2 08:25:35 Urinary tract infectio us disease 78164978 Completed 202109/30/2021 Problem Code: N39.0; Problem Code Type: ICD-10; Not Available [facility] 2 20:58:09 Dysuria 09057529 Completed 202109/30/2021 Problem Code: R30.0; Problem Code Type: ICD-10; Deann luke [employer] 5 16:05:22 Uses combined oral contrace ption 178328745 Completed 202109/30/2021 Problem Code: Z30.41; Problem Code Type: ICD-10; Not Available [facility] 2 20:58:14 Finding of body mass index 833372978 Completed 202109/30/2021 Problem Code: Z68.41; Problem Code Type: ICD-10; Not Available [facility] 2 20:58:17 Acute pharyngi tis 944382858 Completed 202110/15/2021 DIMITRI TYLER [employer] 2 08:25:35 Myositis 84570219 Completed 202110/15/2021 Problem Code: M60.9; Problem Code Type: ICD-10; DIMITRI luke, [employer] 2 08:25:35 General examinat ion of patient Completed 202104/15/2022 [employer] 2 08:25:35 Finding of body mass index 676367579 Completed 202110/18/2021 Problem Code: Z68.41; Problem Code Type: ICD-10; Not Available [facility] 2 20:58:17 Myositis 93440891 Completed 202111/16/2021 Problem Code: M60.9; Problem Code Type: ICD-10; [employer] 2 08:25:35 Cough 74181017 Completed 202104/15/2022 Problem Code: R05; Problem Code Type: ICD-10; Deann Baerlly marly, [employer] 4 14:51:23 Diarrhea 89461923 Completed 202104/15/2022 Problem Code: R19.7; Problem Code Type: ICD-10; [employer] 2 08:25:35 Allergic rhinitis caused by pollen 12768466 Completed 202102/18/2022 Problem Code: J30.1; Problem Code Type: ICD-10; Not Available [facility] 2 20:58:07 Nausea 043540038 Completed 202102/18/2022 Problem Code: R11.0; Problem Code Type: ICD-10; Not Available [facility] 2 20:58:10 Candidia sis of vulva 3957744 Completed 202102/18/2022 DIMITRI SCOTT [employer] 2 08:25:35 Acute bronchit is 77377519 Completed 202104/15/2022 Problem Code: J20; Problem Code Type: ICD-10; DIMITRI luke, [email or web address] 2 08:25:35 Cough 80366850 Completed 202102/18/2022 Problem Code: R05; Problem Code Type: ICD-10; Deann luke, [employer] 4 14:51:23 Myositis 56465939 Completed 202104/15/2022 Problem Code: M60.9; Problem Code Type: ICD-10; DIMITRI luke, [employer] 2 08:25:35 Cough 92478378 Active 2023 Problem Code: R05; Problem Code Type: ICD-10; Deann luke, [employer] 4 14:51:23 Sore throat 595741281 Active 2023 Deann Ogden null, [employer] 4 14:51:36 Acute cough Active 2024 Deann luke, [employer] 5 15:25:22 Paresthe arnold 43398798 Active 2024 KERI RIBEIRO NP [address] [place] [address], [address] , [employer] 5 11:29:32 Vitamin D deficien cy 17479866 Active 2024 KERI RIBEIRO NP [address] [place], [address] , [employer] 5 11:56:04 Pelvic floor dysfunct ion 951081122 Active 2024 Deann Baerlly marly, [employer] 5 11:14:02 Cobalami n deficien cy 539161554 Active 2024 Deann [employer] 17:11:29 Dysuria 05197986 Active 2024 Problem Code: R30.0; Problem Code Type: ICD-10; Deann luke [employer] 16:05:22 Acute vomiting 88592070 Active 2024 Ariane Garcia, [employer] [address] [place], [address] , [employer] 12:44:16 Gastroen teritis 49506774 Active 2024 Ariane Garcia [employer] [address] [place], [address] , [employer]. 13:13:52 Problem Notes None recorded. Procedures Surgical History Date Name Laterality Status Provider Name and Address Organization Details Recorded Time 04/22/2024 Date of Last Pap Smear completed Deann Ogden [employer] 05/16/2024 10:37:35 Imaging Results None recorded. Procedure [...] Not Available Vitals Date Recorded Body height Provider Name an d Address Organization Details Last Updated DateTime 04/04/2025 168.91 cm Deann Ogden [employer] 04/04/2025 14:24:50 Date Recorded Body mass index (BMI) Body weight Oxygen saturation Oxygen saturation in Arterial blood by Pulse oximetry Heart rate Systolic And Diastolic Provider Name and Address Organization Details Last Updated DateTime 55.2 kg/m2 683260. 25 g 98 % 98 % 102 /min 123/87 mm[Hg] Clover Kang [employer] 14:32:22 Social History Question Answer Notes LastModified by Organizat ion Details LastModified Time Tobacco Smoking Status Never Smoker DIMITRI luke [employer]. 04/15/2022 08:26:39 Do You Wear A Helmet When Biking? No [email or web address] Information not available 12/27/2024 Are You Blind [...] Of Your Most Recent Tobacco Screening? 05/24/2025 [email or web address] Information not available 05/24/2025 What Is Your [...] available 12/02/2022 Do You Participate In Social [employer]? Yes [email or web address] Information not available 12/27/2024 Do You Use [...] anxious, or unable to sleep at night)? [email or web address] Information not available 12/27/2024 Do you have difficulty concentrating, remembering or making decisions? No [email or web address] Information no t available 12/02/2022 Family History Relationship Description Onset Age of this Age Resolved Age Notes LastModified by Organization Details LastModified Time Unspecified Relation Family history of neurological disorder [email or web address] Not available 04/15 08:26:04 Unspecified Relation Family history of Depression [email or web address] Not available 03/31 08:26:10 Unspecified Relation Family history of Myocardial infarction [email or web address] Not available 03/31 08:26:16 Medical History Condition [...] adolescent or pediatric 3 completed Not Available [facility] 04/05/2022 22:56:38 varicella 4 completed Not Available [facility] 04/05/2022 22:56:39 MMR 7 completed Not Available [facility] 04/05/2022 22:56:40 MMR 4 completed Not Available [facility] 04/05/2022 22:56:40 Hep A, ped/adol, 2 dose 8 completed DIMITRI luke, [email or web address] 08/08/2022 15:17:17 Hep A, ped/adol, 2 dose 9 completed DIMITRI luke, [email or web address] 08/08/2022 15:17:17 HPV9 8 completed DIMITRI luke, [email or web address] 08/08/2022 15:17:17 COVID-19, mRNA, LNP-S, PF, 100 mcg/0.5mL dose or 50 mcg/0.25mL dose 1 completed DIMITRI luke, [email or web address] 08/08/2022 15:17:17 COVID-19, mRNA, LNP-S, PF, 100 mcg/0.5mL dose or 50 mcg/0.25mL dose 1 completed DIMITRI SCOTT null, [email or web address] 08/08/2022 15:17:17 HPV9 1 completed DIMITRI SCOTT null, [email or web address] 08/08/2022 15:17:17 meningococcal MCV4P 1 completed Deann Liceay null, [email or web address] 12/04/2023 14:15:48 HPV, quadrivalent 9 completed Deann Neligh null, [email or web address] 12/04/2023 14:15:47 DTaP 4 completed Deann Neligh null, [email or web address] 12/04/2023 14:15:48 DTaP 7 completed Deann Neligh null, [email or web address] 12/04/2023 14:15:48 DTaP 3 completed Deann Neligh null, [email or web address] 12/04/2023 14:15:48 DTaP 3 completed Deann Neligh null, [email or web address] 12/04/2023 14:15:48 DTaP 4 completed Deann Neligh null, [email or web address] 12/04/2023 14:15:48 meningococcal MCV4P 8 completed Deann Neligh null, [email or web address] 12/04/2023 14:15:48 Hib (PRP-OMP) 3 completed Not Available [facility] 04/05/2022 22:56:46 Tdap 9 completed DIMITRI SCOTT null, [email or web address] 08/08/2022 15:17:17 pneumococcal conjugate PCV 7 4 completed Not Available [employer] 04/05/2022 22:56:47 pneumococcal conjugate PCV 7 3 completed Not Available [facility] 04/05/2022 22:56:47 pneumococcal conjugate PCV 7 4 completed Not Available [facility] 04/05/2022 22:56:47 pneumococcal conjugate PCV 7 3 completed Not Available [facility] 04/05/2022 22:56:47 Hib-Hep B 3 completed Not Available [facility] 04/05/2022 22:56:47 Hib-Hep B 4 completed Not Available [facility] 04/05/2022 22:56:48 COVID-19, mRNA, LNP-S, PF, 100 mcg/0.5mL dose or 50 mcg/0.25mL dose 2 completed DIMITRI SCOTT null, [email or web address] 08/08/2022 15:17:17 IPV 4 completed Deann Liceay null, [email or web address] 12/04/2023 14:15:47 IPV 7 completed Deann Neligh null, [email or web address] 12/04/2023 14:15:47 IPV 3 completed Deann Neligh null, [email or web address] 12/04/2023 14:15:47 IPV 3 completed Deann Neligh null, [email or web address] 12/04/2023 14:15:47 Meningococcal MCV4O 1 completed Deann Neligh null, [email or web address] 12/04/2023 14:15:48 Meningococcal MCV4O 8 completed Deann Neligh null, [email or web address] 12/04/2023 14:15:48 DTaP, unspecified formulation 4 completed Deann Neligh null, [email or web address] 12/04/2023 14:15:48 DTaP, unspecified formulation 7 completed Deann Neligh null, [email or web address] 12/04/2023 14:15:48 DTaP, unspecified formulation 3 completed Deann Ogden null, [facility] [employer] 12/04/2023 14:15:48 DTaP, unspecified formulation 3 completed Deann Ogden null, [facility] [employer] 12/04/2023 14:15:48 DTaP, unspecified formulation 4 completed Deann Ogden null, [facility] [employer] 12/04/2023 14:15:48 Past Encounters Encounter ID Performer Location Encounter Start Date Encounter Closed Date Diagnosis/Indication Diagnosis SNOMED-CT Code Diagnosis ICD10 Code Diagnosis IMO Codes Diagnosis Note [id number] KERI RIBEIRO NP [place] [address] 03/14/2025 10:52:27 03/14/2025 12:42:57 Paresthesia 83220273 R20.2 08757 Discuss reasons to seek emergency care, patient verbalized understand ing.Rechec k labs, follow up with PCP. Vitamin D deficiency 347 28702 E55.9 51459 Restart vit D replacemen t. [id number] [place] [address] 03/25/2025 11:02:17 03/25/2025 13:39:20 Tachycardia 8537137 R00.0 81282 Paresthesia 48995158 R20 .2 8215539 Body mass index 40+ - severely obese 814151461 Z68.43 325661 [id number] Trisha Cortes [place] [address] 0 03/28/2025 09:23:22 03/28/2025 10:41:37 Cobalamin deficiency 487969568 E53.8 554095 [id number] Trisha Cortes [place] [address] 04/04/2025 14:20:47 04/04/2025 15:42:06 Cobalamin deficiency 144586855 E53.8 07406 Edema of l ower extremity 889405921 R60.0 42087 Xerostomia 72336415 R68. 2 8024 Body mass index 40+ - severely obese 175969210 Z68.43 672432 Health Concerns Section Related Observation LastModified by Organization Detai ls LastModified Time None Recorded Concern Status LastModified by Organization Details LastModified Time None Recorded Payers Encounter Date Sequence Insurance Name Policy Number Policy Horne Covered Member ID Horne Member ID Guarantor Name 04/04/2025 1 [employer] [facility] (MEDICAID HMO) Nury Yi [id number] Nury Yi Notes Date Note Type Note Provider Name and Address Organization Details Recorded Time 04/04/2025 text/html pt here today wanting to go over recent lab results and get 2nd b12 injection. went over recent lab results and told pt that she does not have pernicious anemia and that she just needs some b 12. this will be her 2nd injection and after the 4th injection will recheck. pt states that she went to urologist and she wants to do an US. last one was 08/2023 and was neg. she did a 24 hour urine input and output and states that she was 41 oz over on input. states that she does have edema more so in the evenings but typically will have BLE elevated during the day. pt states that she no longer works due to health issues. states that she drinks around 1000ML of water per day in addition to juice, soda and coffee. states that her mouth is dry so wants to drink more. on exam today pt has trace edema to feet. pt has gained 7 lbs since last visit 10 days ago. i advised pt to get compression stockings to wear daily. educated pt on how to wear them and when to put them on and take them off. pt voiced understanding. i will order HCTZ to take PRN if pt has BLE edema. until she goes to see urologist and see what they think, if she still needs to take. pt voiced understanding. Trisha Cortes APRN [address] [facility], [place], [address], [place] - [employer] 04/04/2025 15:55:53 OBGyn Episode No OBEpisode recorded.
--- OUTSIDE RECORDS SUMMARY | 2025-06-03 10:15 | XMS_ITS | Encounter Summary ---
Author Organization [facility] Address [address] [place] [address] Care Team Providers Care [employer] Business [employer] Developer Name Role Phone Trisha Cortes APRN Primary Care Provider + [phone] OsmanMaya maldonado APRN, DNP Unavailable + [phone] Encounter Details Date Type Department Care Team [...] Description 07/03/2025 12:40 PM EST Office Visit [facility] [address] [place] [address] Maya Osman APRN, GWENDOLYN [address] [place] [address] 11/07/2025 10:00 AM EDT Consult [facility] [address] [place] [address] Chasity Mendoza MD [address] [place] [address] documented as of this encounter [...] documented as of this encounter Care Teams [employer] Developer Relationship Specialty Start Date End Date Trisha Cortes APRN [address] [place] [address] PCP - General 03/24/25 Maya Osman APRN, DNP [address] [place] [address] Nurse Practitioner Urology 03/24/25 documented as of this encounter
--- OUTSIDE RECORDS SUMMARY | 2025-06-03 10:15 | XMS_ITS | Encounter Summary ---
Author Organization [facility] Address [address] [place] [address] Care Team Providers Care Esol Instructor Name Role Phone SebastianTrisha JEFFERSON Primary Care Provider + [phone] Maya Osman APRN, DNP Unavailable + [phone] Reason for Visit * Reason Onset Date Comments HCN Clinical Concern/Question 04/02/2025 HCN Status Update Call #1 04/02/2025 Encounter Details Date Type Department Care Team (Late st Contact Info) Description 04/02/2025 Telephone [facility] Clinic Urology [address] [place] [address] Maya Osman, JEFFERSON, DNP [address] [place] [address] HCN Clinical Concern/Question; HCN Status [...] of the initial request. Best contact number: [phone] (mobile) Optimal time of day to reach caller: ANYTIME Additional comments/information from caller: None Note: Please do not reply to this message. Follow-up communication and further actions as a result of this message need to be communicated with the patient directly, if the patient is not active onMyChart. If the patient is active on MyChart, they will receive notification of the communication/outcome via [employer]. * Telephone Encounter - Maya Osman APRN, DNP - 04/02/2025 11:27 AM EDT Can add to waitlist or can be seen via TH in next available TH slot if sooner than previous appt. Thank you. * Telephone Encounter - Paris Chan Chung - 04/02/2025 8:58 AM EDT Clinical Concern/Question Reason for Call: None She is needing to be seen. The fluid intake and void amount (for 24 hours) is41oz more than her output. MKS said that she needed to be seen if there was a significant difference. Best contact number: [phone] (mobile) Optimal time of day to reach caller: ANYTIME Additional comments/information from caller: None Note: Please do not reply to this message. Follow-up communication and further actions as a result of this message need to be communicated with the patient directly, if the patient is not active onMyChart. If the patient is active on MyChart, they will receive notification of the communication/outcome via [employer]. documented in this encounter Plan of Treatment Upcoming Encounters Date Type Department Care Team (Late st Contact Info) Description 07/03/2025 12:40 PM EST Office Visit [facility] Urology [address] [place] [address] Maya Osman APRN, GWENDOLYN [address] [place] [address] 11/07/2025 10:00 AM EDT Consult [facility] [address] [place] [address] Chasity Mendoza MD [address] [place] [id number] documented as of this encounter Visit Diagnoses [...] documented as of this encounter Care Teams Esol Instructor Relationship Specialty Start Date End Date Trisha Cortes APRN [address] [place] [address] PCP - General 03/24/25 Maya Osman APRN, DNP [address] [facility] [address] [place] [address] Nurse Practitioner Urology 03/24/25 documented as of this encounter
--- OUTSIDE RECORDS SUMMARY | 2025-06-03 10:15 | XMS_ITS | Encounter Summary ---
Author Organization [facility] Address [address] [place] [address] Care Team Providers Care Private Investigator Name Role Phone SebastianTrisha JEFFERSON Primary Care Provider + [phone] Maya Osman APRN, DNP Unavailable + [phone] Encounter Details Date Type Department Care Team (Late st Contact Info) Description 04/18/2025 Results Follow-Up [facility] Urology [address] [place] [address] Maya Osman APRN, DNP [address] [place] [address] Social History Tobacco Use Types [...] Description 07/03/2025 12:40 PM EST Office Visit [facility] [address] [place] [address] Maya Osman APRN, GWENDOLYN [address] [place] [address] 11/07/2025 10:[address] [facility] [address] [place] [address] Chasity Mendoza MD [address] [place] [address] documented as of this encounter [...] documented as of this encounter Care Teams Private Investigator Relationship Specialty Start Date End Date Trisha Cortes APRN [address] [place] [address] PCP - General 03/24/25 Maya Osman APRN, DNP [address] [place] [id number] Nurse Practitioner Urology 03/24/25 documented as of this encounter
--- OUTSIDE RECORDS SUMMARY | 2025-06-03 10:15 | XMS_ITS | Continuity of Care Document ---
Author Organization [employer], [facility] Address [address] [place] [address] Care Team Providers Care Improvement Specialist Name Role Phone TRISHA CORTES Primary Care Provider Unavailabl tasha Assessment No assessment recorded. Plan of Treatment Reminders Order Date Submit Date Provider Last Modified By Organization Details Last Modified Time Details Appointments None recorded. Lab cobalamin and folate panel, serum - pt coming in 1 month 2024 025 [email or web address] [facility] ([facility], [address] [place] [address], [place], [address], 5 15:38:13 Referral nephrologis t referral - first avail 2024 025 mandy Ledezma MD, [address] [place] [address] , [facility], [place], [address], 5 15:38:14 Procedures None recorded. Surgeries None recorded. Imaging None recorded. Medication Orders cyanocobala min (vit B-12) 1,000 mcg/mL injection solution 2024 025 [email or web address] Not available 10:09:47 Patient TargetsNo targets recorded. Patient InstructionsNo instructions recorded. 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 Referral for Hy pertensive renal disease first avail Referring Physician: Trisha Cortes, Family Medicine, Encounter Date: 04/22/2025 Results Created Date Observation Date Name Description Value Unit Range Abnormal Flag Note LastModifiedBy Organization Detail LastModifiedTime 04/11/2004/14/2025 URINE CULTU RE, DOTTIE NE urine culture, routine Final report Not Available [facility] ([facility]) [address] [facility], [place], [address], 04/14/2025 06:06:33 04/11/2004/14/2025 URINE CULTU RE, DOTTIE NE result 1 COMMEN T Mixed uroge nital tiffanie 25,00 0-50, 000 colon y formi ng units per mL Not Available [facility] ([facility]) [address] [facility], [place], [address], 04/14/2025 06:06:33 04/11/2004/11/2025 urina lysis , dipst ick Leukocytes Modera te Not Available [address], [address], 04/11/2025 16:05:28 04/11/2004/11/2025 urina lysis , dipst ick Nitrite negati ve Not Available [address], [address], 04/11/2025 16:05:28 04/11/2004/11/2025 urina lysis , dipst ick Urobilinogen .2 Not Available [address], [address], 04/11/2025 16:05:28 04/11/2004/11/2025 urina lysis , dipst ick Protein Negati ve Not Available [address], [address], 04/11/2025 16:05:28 04/11/2004/11/2025 urina lysis , dipst ick pH 6.0 Not Available [address], [address], 04/11/2025 16:05:28 04/11/2004/11/2025 urina lysis , dipst ick Blood Negati ve Not Available [address], [address], 04/11/2025 16:05:28 04/11/2004/11/2025 urina lysis , dipst ick Specific Mcgrath 1.025 Not Available [address], [address], 04/11/2025 16:05:28 04/11/2004/11/2025 urina lysis , dipst ick Ketone Trace Not Available [address], [address], 04/11/2025 16:05:28 04/11/2004/11/2025 urina lysis , dipst ick Bilirubin Negati ve Not Available [address], [address], 04/11/2025 16:05:28 04/11/2004/11/2025 urina lysis , dipst ick Glucose Negati ve Not Available [address], [address], 04/11/2025 16:05:28 04/11/2004/11/2025 urina lysis , dipst ick Appearance Clear Not Available [address], [address], 04/11/2025 16:05:28 04/11/2004/11/2025 urina lysis , dipst ick Color Dark Yellow Not Available [address], [address], 04/11/2025 16:05:28 04/11/20 25 04/11/2025 XR, wrist , 2 view No observ ation record ed. [address], [place], [address], 04/18/2025 13:47:13 04/11/20 25 04/11/2025 XR, hand, 2 view No observ ation record ed. [address], [place], [address], 04/18/2025 13:47:32 04/11/20 25 04/11/2025 XR, sacro iliac joint (s), 3 or more view No observ ation record ed. [address], [place], [address], 04/18/2025 13:48:51 04/11/2004/11/2025 XR, hand, 2 view No observ ation record ed. [address], [place], [address], 04/18/2025 13:49:13 04/11/2004/11/2025 XR, wrist No observ ation record ed. [address], [place], [address], 04/18/2025 13:49:29 04/17/2004/16/2025 US, rogelio y No observ ation record ed. [address], [place], [address], 04/18/2025 13:49:53 Result Notes None recorded. Problems Name Problem SNOMED Code Status Onset Date Resolution Date Notes Provider Name and Address Organization Details Recorded Time Moderate major depressi on, single episode 60092277 Completed 201604/28/2017 Problem Code: F32.1; Problem Code Type: ICD-10; Not Available [facility] 2 20:58:04 Major depressi on, single episode 87490154 Completed 201603/09/2017 Problem Code: F32.9; Problem Code Type: ICD-10; Not Available [facility] 2 20:58:05 Depressi ve disorder 97140294 Completed 201604/28/2017 Problem Code: 311; Problem Code Type: ICD-9; Not Available [facility] 2 20:58:19 Nausea and vomiting 75366244 Completed 201604/18/2017 Problem Code: R11.2; Problem Code Type: ICD-10; Not Available [facility] 2 20:58:11 Diarrhea 45139531 Completed 201604/18/2017 Problem Code: R19.7; Problem Code Type: ICD-10; DIMITRI luke [facility] [employer] 08:25:35 Depressi ve disorder 83630271 Completed 201601/22/2021 Problem Code: 311; Problem Code Type: ICD-9; Not Available [facility] 2 20:58:20 Generali zed anxiety disorder 43422242 Completed 201605/18/2017 Problem Code: F41.1; Problem Code Type: ICD-10; Not Available [facility] 2 20:58:05 Pain of joint of ankle 429539098 Completed 201606/01/2017 Not Available [facility] 2 20:58:18 Joint pain in ankle and foot Completed 201606/01/2017 Problem Code: 719.47; Problem Code Type: ICD-9; Not Available [facility] 2 20:58:26 Depressi ve disorder 54465860 Completed 201601/22/2021 Problem Code: 311; Problem Code Type: ICD-9; Not Available [facility] 2 20:58:20 Sprain of distal tibiofib ular ligament 35488414 Completed 201608/12/2017 Problem Code: S93.432A ; Problem Code Type: ICD-10; Not Available [facility] 2 20:58:23 Right lower quadrant pain 482739668 Completed 201712/02/2017 Problem Code: R10.31; Problem Code Type: ICD-10; Not Available [facility] 2 20:58:11 Generali zed anxiety disorder 90302104 Completed 201701/22/2021 Problem Code: 300.02; Problem Code Type: ICD-9; Not Available [facility] 2 20:58:18 Depressi ve disorder 48885068 Completed 201701/22/2021 Problem Code: 311; Problem Code Type: ICD-9; Not Available [facility] 2 20:58:18 Benign essentia l hyperten citlali 9484598 Completed 201701/22/2021 Problem Code: 401.1; Problem Code Type: ICD-9; Not Available [facility] 2 20:58:26 Epidermo id cyst of skin 657165993 Completed 201701/31/2020 Problem Code: L72.3; Problem Code Type: ICD-10; Not Available [facility] 2 20:58:07 Uses combined oral contrace ption 587430178 Completed 201701/26/2018 Problem Code: Z30.011; Problem Code Type: ICD-10; Not Available [facility] 2 20:58:16 Benign essentia l hyperten citlali 6338318 Completed 201701/22/2021 Problem Code: 401.1; Problem Code Type: ICD-9; Not Available [facility] 2 20:58:19 Oral contrace ptive prescrib ed Completed 201701/26/2018 Problem Code: V25.01; Problem Code Type: ICD-9; Not Available [facility] 2 20:58:23 Vaginola bial hernia Completed 201704/14/2018 Problem Code: N89.8; Problem Code Type: ICD-10; Not Available [facility] 2 20:58:09 Noninfla mmatory disorder of the vagina 17209297 Completed 201704/14/2018 Problem Code: 623.8; Problem Code Type: ICD-9; Not Available [facility] 2 20:58:22 Acute pharyngi tis 657712690 Completed 201707/16/2018 Problem Code: J02.8; Problem Code Type: ICD-10; DIMITRISALVATORE luke, [employer] 2 08:25:35 Disorder of upper respirat ory system 176642973 Completed 201705/31/2018 Problem Code: J06.9; Problem Code Type: ICD-10; Not Available [facility] 2 20:58:06 Acute upper respirat ory infectio n of multiple sites Completed 201705/31/2018 Problem Code: 465.8; Problem Code Type: ICD-9; Not Available [facility] 2 20:58:20 Allergic rhinitis caused by pollen 75592381 Completed 201709/07/2018 Problem Code: J30.1; Problem Code Type: ICD-10; Not Available [facility] 2 20:58:16 Cough 98628693 Completed 201707/23/2018 Problem Code: R05; Problem Code Type: ICD-10; Deann luke, [employer] 4 14:51:23 Epigastr ic pain 42618631 Completed 201804/15/2022 Problem Code: R10.13; Problem Code Type: ICD-10; DIMITRI luke, [employer] 2 08:25:36 Common cold 22034392 Completed 201804/15/2022 DIMITRISALVATORE luke, [employer] 2 08:25:36 Gastro-e sophagea l reflux disease with esophagi tis 292257904 Active 2018 Problem Code: K21.0; Problem Code Type: ICD-10; Not Available [facility] 2 20:58:07 Influenz a vaccine needed 44227788645 06 Completed 201801/31/2020 Problem Code: Z23; Problem Code Type: ICD-10; DIMITRI lukeCX. 2 08:25:35 Acute pharyngi tis 469803438 Completed 201801/31/2020 [employer] 2 08:25:35 Acute pharyngi tis 982600507 Completed 201804/15/2022 Problem Code: J02.8; Problem Code Type: ICD-10; [employer]RI [employer] 2 08:25:35 Urinary tract infectio us disease 10256381 Completed 201801/31/2020 Problem Code: N39.0; Problem Code Type: ICD-10; Not Available [facility] 2 20:58:08 Acute cystitis 40569406 Completed 201804/15/2022 Problem Code: N30.00; Problem Code Type: ICD-10; DIMITRI lukeCX. 2 08:25:35 Diarrhea 72725779 Completed 201801/31/2020 Problem Code: R19.7; Problem Code Type: ICD-10; DIMITRI lukeCX. 2 08:25:35 Disorder of upper respirat ory system 339169951 Completed 201801/31/2020 Problem Code: J06.9; Problem Code Type: ICD-10; Not Available [facility] 2 20:58:06 Generali zed anxiety disorder 69194275 Active 2019 Problem Code: F41.1; Problem Code Type: ICD-10; Not Available [facility] 2 20:58:05 Hyperten sive disorder 91010140 Active 2019 Problem Code: I10; Problem Code Type: ICD-10; Not Available [facility] 2 20:58:05 Tachycar kvng 0985265 Completed 201904/15/2022 [employer] 2 08:25:35 Childhoo d obesity 559539484 Completed 201901/22/2021 Problem Code: Z68.54; Problem Code Type: ICD-10; Not Available [facility] 2 20:58:17 Negative dysphoto psia 322246374 Completed 201901/31/2020 Problem Code: H53.8; Problem Code Type: ICD-10; Not Available [facility] 2 20:58:05 Chronic fatigue syndrome 82506027 Completed 201901/31/2020 Problem Code: R53.82; Problem Code Type: ICD-10; Not Available [facility] 2 20:58:12 Acute respirat ory infectio ns 103121248 Completed 201904/15/2022 Problem Code: J22; Problem Code Type: ICD-10; DIMITRI luke, [employer] 2 08:25:35 Muscle pain 20782280 Completed 201904/15/2022 Problem Code: M79.10; Problem Code Type: ICD-10; DIMITRI luke, [employer] 2 08:25:35 Well child 435518046 Completed 202004/15/2022 DIMITRISALVATORE SCOTT null, [employer] 2 08:25:35 Childhoo d obesity 293767098 Completed 202001/22/2021 Problem Code: Z68.54; Problem Code Type: ICD-10; Not Available [facility] 2 20:58:16 Influenz a vaccine needed 13647717763 Completed 202001/22/2021 Problem Code: Z23; Problem Code Type: ICD-10; DIMITRI SCOTT null, [employer] 2 08:25:35 Influenz a vaccine needed 42956658633 Completed 202004/15/2022 Problem Code: Z23; Problem Code Type: ICD-10; DIMITRI luke, [employer] 2 08:25:35 Otitis externa of left ear 84043739701 05168 Completed 202001/22/2021 Problem Code: H60.332; Problem Code Type: ICD-10; Not Available [facility] 2 20:58:05 Candidia sis of vulva 8288215 Completed 202004/15/2022 DIMITRI [employer] 2 08:25:35 Dysuria 17703542 Completed 202008/26/2021 Problem Code: R30.0; Problem Code Type: ICD-10; Deann lukeCX. 5 16:05:22 Influenz a vaccine needed 27733805935 06 Completed 202008/26/2021 Problem Code: Z23; Problem Code Type: ICD-10; DIMITRI [facility] 2 08:25:35 Exposure to SARS-CoV -2 Completed 202008/26/2021 Problem Code: Z20.822; Problem Code Type: ICD-10; Not Available [facility] 2 20:58:14 Otogenic otalgia 58209199 Completed 202104/15/2022 DIMITRI luke, [employer] 2 08:25:35 Urinary tract infectio us disease 04688875 Completed 202109/30/2021 Problem Code: N39.0; Problem Code Type: ICD-10; Not Available [facility] 2 20:58:09 Dysuria 96870656 Completed 202109/30/2021 Problem Code: R30.0; Problem Code Type: ICD-10; Deann luke [employer] 5 16:05:22 Uses combined oral contrace ption 184144495 Completed 202109/30/2021 Problem Code: Z30.41; Problem Code Type: ICD-10; Not Available [facility] 2 20:58:14 Finding of body mass index 810187320 Completed 202109/30/2021 Problem Code: Z68.41; Problem Code Type: ICD-10; Not Available [facility] 2 20:58:17 Acute pharyngi tis 635401540 Completed 202110/15/2021 DIMITRI lukeCX. 2 08:25:35 Myositis 31370345 Completed 202110/15/2021 Problem Code: M60.9; Problem Code Type: ICD-10; DIMITRI luke, [employer] 2 08:25:35 General examinat ion of patient Completed 202104/15/2022 DIMITRI [facility] 2 08:25:35 Finding of body mass index 252665407 Completed 202110/18/2021 Problem Code: Z68.41; Problem Code Type: ICD-10; Not Available [facility] 2 20:58:17 Myositis 59925170 Completed 202111/16/2021 Problem Code: M60.9; Problem Code Type: ICD-10; DIMITRI luke, [employer] 2 08:25:35 Cough 44017443 Completed 202104/15/2022 Problem Code: R05; Problem Code Type: ICD-10; Deann luke, [employer] 4 14:51:23 Diarrhea 93796552 Completed 202104/15/2022 Problem Code: R19.7; Problem Code Type: ICD-10; DIMITRI SOLISNER marlyCX. 2 08:25:35 Allergic rhinitis caused by pollen 05739154 Completed 202102/18/2022 Problem Code: J30.1; Problem Code Type: ICD-10; Not Available [facility] 2 20:58:07 Nausea 239576834 Completed 202102/18/2022 Problem Code: R11.0; Problem Code Type: ICD-10; Not Available [facility] 2 20:58:10 Candidia sis of vulva 2360369 Completed 202102/18/2022 DIMITRI luke, [employer] 2 08:25:35 Acute bronchit is 27487854 Completed 202104/15/2022 Problem Code: J20; Problem Code Type: ICD-10; DIMITRI luke, [employer] 2 08:25:35 Cough 44501460 Completed 202102/18/2022 Problem Code: R05; Problem Code Type: ICD-10; Deann Baerlly marly, [employer] 4 14:51:23 Myositis 02368473 Completed 202104/15/2022 Problem Code: M60.9; Problem Code Type: ICD-10; DIMITRI luke, [employer] 2 08:25:35 Cough 73636956 Active 2023 Problem Code: R05; Problem Code Type: ICD-10; Deann Baerlly null, [employer] 4 14:51:23 Sore throat 073290384 Active 2023 Deann Ogden null, [employer] 4 14:51:36 Acute cough Active 2024 Deann Ogden null, [employer] 5 15:25:22 Paresthe arnold 09511515 Active 2024 KERI RIBEIRO NP [address] [place] [address], [address] , [employer] 5 11:29:32 Vitamin D deficien 52664172 Active 2024 KERI RIBEIRO NP [address] [place] [address], [address] , [employer] 11:56:04 Pelvic floor dysfunct ion 358902740 Active 2024 Deann luke, [employer] 11:14:02 Cobalami n deficien cy 441473038 Active 2024 Deann luke [employer] 17:11:29 Dysuria 87127813 Active 2024 Problem Code: R30.0; Problem Code Type: ICD-10; Deann luke [employer] 16:05:22 Acute vomiting 05639985 Active 2024 Ariane Garcia APRN [address] [place] [address], [address] , [employer] 12:44:16 Gastroen teritis 22346973 Active 2024 Ariane Garcia, GROUP WORK PROGRAM DIRECTOR [address] [place] [address], [address] , [employer]. 13:13:52 Problem Notes None recorded. Procedures Surgical History Date Name Laterality Status Provider Name and Address Organization Details Recorded Time 04/22/2024 Date of Last Pap Smear completed Deann Ogden [employer] 05/16/2024 10:37:35 Imaging Results None recorded. Procedure [...] Organization Details Last Updated DateTime 168.91 cm 55 kg/m2 665198. 96 g 113 /min 98 % 98 % 131/84 mm[Hg] Deann Ogden [employer] 08:48:41 Social History Question Answer Notes LastModified by Organizat ion Details LastModified Time Tobacco Smoking Status Never Smoker DIMITRI luke [employer] 04/15/2022 08:26:39 Do You Wear A Helmet When Biking? No [email or web address] Information not available 12/27/2024 Are You Blind [...] Of Your Most Recent Tobacco Screening? 05/24/2025 [email or web address] Information not available 05/24/2025 What Is Your [...] Do You Participate In Social Media? Yes [email or web address] Information not available 12/27/2024 Do You Use [...] anxious, or unable to sleep at night)? NW1000-3 [email or web address] Information not available 12/27/2024 Do you have difficulty concentrating, remembering or making decisions? No Information no t available 12/02/2022 Family History Relationship Description Onset Age of this Age Resolved Age Notes LastModified by Organization Details LastModified Time Unspecified Relation Family history of neurological disorder Not available 04/15 08:26:04 Unspecified Relation Family history of Depression [email or web address] Not available 03/31 08:26:10 Unspecified Relation Family history of Myocardial infarction [email or web address] Not available 03/31 08:26:16 Medical History Condition Response Acid Reflux (GERD) N Fibromyalgia N Hospitalizations N Acne N Emergency room visit since last appointm ent. N ADD/ADHD N Abuse/Domestic Violence N Hypertension Y Gynecological History Statement/Question Response Date of Last Pap Smear 04/22/2024 Most Recent Mammogram Obstetrics History GPAL:G 0 P 0 0 0 0 Immunizations Vaccine Type Date Status Note Provider Nam e and Address Organization Details Recorded Time Hep B, adolescent or pediatric 3 completed Not Available [facility] 04/05/2022 22:56:38 varicella 4 completed Not Available [facility] 04/05/2022 22:56:39 MMR 7 completed Not Available [facility] 04/05/2022 22:56:40 MMR 4 completed Not Available [facility] 04/05/2022 22:56:40 Hep A, ped/adol, 2 dose 8 completed DIMITRI luke, [employer] 08/08/2022 15:17:17 Hep A, ped/adol, 2 dose 9 completed DIMITRI luke, [employer] 08/08/2022 15:17:17 HPV9 8 completed DIMITRI luke, [employer] 08/08/2022 15:17:17 COVID-19, mRNA, LNP-S, PF, 100 mcg/0.5mL dose or 50 mcg/0.25mL dose 1 completed DIMITRI SCOTT null, [employer] 08/08/2022 15:17:17 COVID-19, mRNA, LNP-S, PF, 100 mcg/0.5mL dose or 50 mcg/0.25mL dose 1 completed DIMITRI SCOTT null, [employer] 08/08/2022 15:17:17 HPV9 1 completed DIMITRI SCOTT null, [employer] 08/08/2022 15:17:17 meningococcal MCV4P 1 completed Deann Liceay null, [employer] 12/04/2023 14:15:48 HPV, quadrivalent 9 completed Deann Villarreal null, [employer] 12/04/2023 14:15:47 DTaP 4 completed Deann Villarreal null, [employer] 12/04/2023 14:15:48 DTaP 7 completed Deann Villarreal null, [employer] 12/04/2023 14:15:48 DTaP 3 completed Deann Villarreal null, [employer] 12/04/2023 14:15:48 DTaP 3 completed Deann Villarreal null, [employer] 12/04/2023 14:15:48 DTaP 4 completed Deann Villarreal null, [employer] 12/04/2023 14:15:48 meningococcal MCV4P 8 completed Deann Villarreal null, [employer] 12/04/2023 14:15:48 Hib (PRP-OMP) 3 completed Not Available [facility] 04/05/2022 22:56:46 Tdap 9 completed DIMITRI SCOTT null, [employer] 08/08/2022 15:17:17 pneumococcal conjugate PCV 7 4 completed Not Available [facility] 04/05/2022 22:56:47 pneumococcal conjugate PCV 7 3 completed Not Available [facility] 04/05/2022 22:56:47 pneumococcal conjugate PCV 7 4 completed Not Available [facility] 04/05/2022 22:56:47 pneumococcal conjugate PCV 7 3 completed Not Available [facility] 04/05/2022 22:56:47 Hib-Hep B 3 completed Not Available [facility] 04/05/2022 22:56:47 Hib-Hep B 4 completed Not Available [facility] 04/05/2022 22:56:48 COVID-19, mRNA, LNP-S, PF, 100 mcg/0.5mL dose or 50 mcg/0.25mL dose 2 completed DIMITRI SCOTT null, [employer] 08/08/2022 15:17:17 IPV 4 completed Deann Baerlly null, [employer] 12/04/2023 14:15:47 IPV 7 completed Deann Villarreal null, [employer] 12/04/2023 14:15:47 IPV 3 completed Deann Villarreal null, [employer] 12/04/2023 14:15:47 IPV 3 completed Deann Baerlly null, [employer] 12/04/2023 14:15:47 Meningococcal MCV4O 1 completed Deann Villarreal null, [employer] 12/04/2023 14:15:48 Meningococcal MCV4O 8 completed Deann Villarreal null, [employer] 12/04/2023 14:15:48 DTaP, unspecified formulation 4 completed Deann Villarreal null, [employer] 12/04/2023 14:15:48 DTaP, unspecified formulation 7 completed Deann Villarreal null, [place] [employer] 12/04/2023 14:15:48 DTaP, unspecified formulation 3 completed Deann Baerlly null, [employer] 12/04/2023 14:15:48 DTaP, unspecified formulation 3 completed Deann Baerlly null, [place] [employer] 12/04/2023 14:15:48 DTaP, unspecified formulation 4 completed Deann Liceay null, [employer] 12/04/2023 14:15:48 Past Encounters Encounter ID Performer Location Encounter Start Date Encounter Closed Date Diagnosis/Indication Diagnosis SNOMED-CT Code Diagnosis ICD10 Code Diagnosis IMO Codes Diagnosis Note [id number] Trisha Cortes [place] [address] 0 03/25/2025 11:02:17 03/25/2025 13:39:20 Tachycardia 4135195 R00.0 38414 Paresthesia 32192778 R20 .2 7226986 Body mass index 40+ - severely obese 365432335 Z68.43 520880 [id number] Trisha Cortes [place] [address] 0 03/28/2025 09:23:22 03/28/2025 10:41:37 Cobalamin deficiency 847223578 E53.8 673840 [id number] Trisha Cortes [place] [address] 0 04/04/2025 14:20:47 04/04/2025 15:42:06 Cobalamin deficiency 492615891 E53.8 95213 Edema of l ower extremity 298523102 R60.0 90417 Xerostomia 93778896 R68. 2 8024 Body mass index 40+ - severely obese 095954503 Z68.43 964483 [id number] Trisha Cortes [place] [address] 0 04/11/2025 15:53:35 04/15/2025 10:46:53 Dysuria 00082617 R30.0 23061 Cobalamin deficiency 190 366497 E53.8 Acute urin judith tract infection 182127403 N39.0 457307 Body mass index 40+ - severely obese 612188925 Z68.43 177346 [id number] Trisha Cortes APRN [address] [phone] 04/22/2025 08:28:32 04/22/2025 09:30:17 Cobalamin deficiency 991444410 E53.8 #4, patient will need labs to reassess Hypertensi ve renal disease 69650457 I12.9 770929 Body mass index 40+ - severely obese 087860185 Z68.43 000284 Health Concerns Section Related Observation LastModified by Organization Detai ls LastModified Time None Recorded Concern Status LastModified by Organization Details LastModified Time None Recorded Payers Encounter Date Sequence Insurance Name Policy Number Policy Horne Covered Member ID Horne Member ID Guarantor Name 04/22/2025 1 [facility] (MEDICAID HMO) Nury Yi [id number] Nury Yi Notes Date Note Type Note Provider Name and Address Organization Details Recorded Time 04/22/2025 text/html pt here today for last B12 injection. pt is concerned about her kidneys. states that the urologist did an US and it was WNL (in chart). she is concerned that her input does not match her output. states that she did have reflux as a child and that she did have a procedure as a child and she has a big scar on her belly. she would like to be evaluated by a chronic disease epidemiologist. she is seeing a neurologist for the tingling in jul. states that the vit b injections have not gone away since getting them. Trisha Cortes APRN [address] [place] [address], [phone], [place] [facility] [employer] 04/22/2025 17:53:58 OBGyn Episode No OBEpisode recorded.
--- OUTSIDE RECORDS SUMMARY | 2025-06-03 10:15 | XMS_ITS | Encounter Summary ---
Author Organization [facility] Address [address] [place] [address] Care Team Providers Care Parking Enforcement Technician Name Role Phone Trisha Cortes JEFFERSON Primary Care Provider + [phone] OsmanMaya maldonado APRN, DNP Unavailable + [phone] Encounter Details Date Type Department Care Team (Late st Contact Info) Description 04/09/2025 Orders Only [facility] Medicine Specialties [address] [place] [address] Provider, [place] [place] [address] Social History Tobacco Use Types [...] Description 07/03/2025 12:40 PM EST Office Visit [facility] Urology [address] [place] [address] Maya sOman APRN, GWENDOLYN [address] [place] [address] 11/07/2025 10:00 AM EDT Consult [facility] [address] [place] [address] Chasity Mendoza MD [address] [place] [address] documented as of this encounter [...] documented as of this encounter Care Teams Parking Enforcement Technician Relationship Specialty Start Date End Date Trisha Cortes APRN [address] [place] [address] PCP - General 03/24/25 Maya Osman APRN, DNP [address] [place] [address] Nurse Practitioner Urology 03/24/25 documented as of this encounter
--- OUTSIDE RECORDS SUMMARY | 2025-06-03 10:15 | XMS_ITS | Encounter Summary ---
Author Organization [facility] Address [address] [place] [address] Care Team Providers Care Product Mgmt Dev Manager Name Role Phone SebastianTrisha JEFFERSON Primary Care Provider + [phone] Maya Osman APRN, GWENDOLYN Unavailable + [phone] Reason for Visit * Reason Onset Date Comments Lab Results 03/24/2025 Encounter Details Date Type Department Care Team (Late st Contact Info) Description 03/24/2025 Telephone [facility] [address] [place] [address] Maya Osman APRN, DNP [address] [place] [address] Lab Results Social History Tobacco [...] too much Several days 03/24/2025 9:17 AM EDRosie Hayes LPN Feeling tired or having little energy Several days 03/24/2025 9:17 AM EDT Rosie Smith LPN Poor appetite or overeating Several days 03/24/2025 9: 17 AM Rosie Barros LPN Feeling bad about yourself - or that you are a failure or have let yourself or your family down Several days 03/24/2025 9:17 AM Rosie Barros LPN Trouble concentrating on things, such as reading the newspaper or watching television Not at all 03/24/2025 9:17 AM EDT Rosie Smith LPN Moving or speaking so slowly that other people could have noticed? Or the opposite - being so fidgety or restless that you have been moving around a lot more than usual. Several days 03/24/2025 9:17 AM EDT Rosie Smith LPN Thoughts that you would be better off or hurting yourself in some way Not at all 03/24/2025 9:17 AM EDT Lissa Smith LPN Patient Health Questionnaire-9 Score 6 03/24/2025 9:17 AM EDT Tae Smith LPN * How difficult have these problems made it for you to do your work, take care of things at home, or get along with other people? Answer Date of Assessment Author Somewhat difficult 03/24/2025 9:17 AM EDT Rosie Hollis LPN * How difficult have these problems made it for you to do your work, take care of things at home, or get along with other people? Answer Date of Assessment Author Somewhat difficult 03/24/2025 9:17 AM EDT Rosie Hollis LPN documented as of this encounter Miscellaneous Notes * Telephone Encounter - Purnima Guaman - 03/24/2025 10:40 AM EDT Uploaded 03/17/25 Lab Results from [facility] documented in this encounter Plan of Treatment Upcoming Encounters Date Type Department Care Team (Late st Contact Info) Description 07/03/2025 12:40 PM EST Office Visit [facility] Urology [address] [place] [address] Maya Osman APRN, DNP [address] [place] [address] 11/07/2025 10:00 AM EDT Consult [facility] [address] [place] [address] Chasity Mendoza MD [address] [place] [address] documented as of this encounter [...] documented as of this encounter Care Teams Product Mgmt Dev Manager Relationship Specialty Start Date End Date Trisha Cortes APRN [address] [place] [address] PCP - General 03/24/25 Maya Osman APRN, DNP [address] [place] [address] Nurse Practitioner Urology 03/24/25 documented as of this encounter
--- OUTSIDE RECORDS SUMMARY | 2025-06-03 10:15 | XMS_ITS | Encounter Summary ---
Author Organization [facility] Address [address] [place] [address] Care Team Providers Care Lead Scientist Name Role Phone Trisha Cortes APRN Primary Care Provider + [phone] OsmanMaya maldonado APRN, DNP Unavailable + [phone] Encounter Details Date Type Department Care Team (Latest Contact Info) Description 06/02/2025 Travel Social History Tobacco Use Types Packs/Day [...] 2 06/02/2025 9:34 AM Jennifer Munoz * Question Answer Date of Assessment [...] occasion? Never 06/02/2025 9:34 AM Garry Munoz * Over the past 2 weeks, [...] way Not at all 06/02/2025 9:36 AM EST Yudy Solis in R Patient Health Questionnaire-9 Score 2 06/02/2025 9:36 AM EST Kelly Solis R * How difficult have these problems made it for you to do your work, take care of things at home, or get along with other people? Answer Date of Assessment Author Not difficult at all 06/02/2025 9:36 AM EST Jennifer Horen documented as of this encounter Plan of Treatment Upcoming Encounters Date Type Department Care Team (Late st Contact Info) Description 07/03/2025 12:40 PM EST Office Visit [facility] Urology [address] [place] [address] Maya Osman APRN, GEWNDOLYN [address] [place] [address] 11/07/2025 10:00 AM EDT Consult [facility] [address] [place] [address] Chasity Mendoza MD [address] [place] [address] documented as of this encounter [...] documented as of this encounter Care Teams Lead Scientist Relationship Specialty Start Date End Date Trisha Cortes APRN [address] [place] [address] PCP - General 03/24/25 Maya Osman APRN, GWENDOLYN [address] [place] [address] Nurse Practitioner Urology 03/24/25 documented as of this encounter
--- OUTSIDE RECORDS SUMMARY | 2025-06-03 10:15 | XMS_ITS | Encounter Summary ---
Author Organization [facility] Address [address] [place] [address] Care Team Providers Care Grounds Manager Name Role Phone Kassidy Rodriges JEFFERSON Primary Care Provider + [phone] Trisha Cortes APRN Primary Care Provider + [phone] Maya Osman APRN, DNP Unavailable + [phone] Reason for Referral * Consultation (Routine) - Closed Specialty Diagnoses / Procedures Referred By Racquel t Referred To Contact Nephrology Diagnoses Urinary tract infection without hematuria, site unspecified Trisha Cortes APRN [address] [place] [address] Phone: tel: fax: Referral ID Status Reason Start Date Expiration Date V isits Requested Visits Authorized [id number] Closed Specialty Services Required 08/09/2022 02/08/2024 1 1 Encounter Details Date Type Department Care Team (Late st Contact Info) Description 08/09/2022 Community Orders [facility] [address] [place] [address] Trisha Cortes APRN [address] [place], [place] [id number] Urinary tract infection without hematuria, site unspecified [...] [facility] Urology [address] [place] [address] Maya Osman APRN, GWENDOLYN [address] [facility] [address] [place] [address] 11/07/2025 10:00 AM EDT Consult [facility] [address] [place] [address] Chasity Mendoza MD [address] [facility] [address] [place] [address] Scheduled Referrals Name Type Priority Associated Diagnoses Orde r Schedule Ambulatory referral to Nephrology Outpatient Referral Routine Urinary tract infection without hematuria, site unspecified Expected: 08/09/2022 (Approximate), Expires: 02/07/2024 documented as of this encounter Visit Diagnoses Diagnosis Urinary tract infection without hematuria, site unspecified- Primary documented in this encounter Care Teams Grounds Manager Relationship Specialty Start Date End Date Kassidy Rodriges APRN [address] [place], [place] [address] PCP - General 12/11/20 03/23/25 Trisha Cortes APRN [address] [place], [place] [id number] PCP - General 03/24/25 Maya Osman APRN, GWENDOLYN [address] [facility] [address] [place] [address] Nurse Practitioner Urology 03/24/25 documented as of this encounter
--- OUTSIDE RECORDS SUMMARY | 2025-06-03 10:15 | XMS_ITS | Encounter Summary ---
Author Organization [facility] Address [address] [place] [address] Care Team Providers Care Torch Brazer Name Role Phone SebastianTrisha JEFFERSON Primary Care Provider + [phone] Maya Osman APRN, DNP Unavailable + [phone] Reason for Visit * Reason Onset Date Comments HCN Paperwork/Documentation Request 04/11/2025 Encounter Details Date Type Department Care Team (Late st Contact Info) Description 04/11/2025 Telephone [facility] [address] [place] [address] Maya Osman APRN, DNP [address] [place] [address] HCN Paperwork/Documentation Request Social History [...] - 04/11/2025 11:07 AM EDT I called [facility] and told them there was no PA required. They requested to send another order with the detail on it and they will get the patient scheduled. Sent new order as requested. * Telephone Encounter - Charli Parham - 04/11/2025 10:39 AM EDT Clinical Concern/Question Reason for Call: Gladis mayorga/ [facility] Received order for Renal US needing a PA sent over before they are able to schedule Please fax over to [phone] Best contact number: Other: [phone] Optimal time of day to reach caller: ANYTIME Additional comments/information from caller: None Note: Please do not reply to this message. Follow-up communication and further actions as a result of this message need to be communicated with the patient directly, if the patient is not active onMyChart. If the patient is active on MyChart, they will receive notification of the communication/outcome via [employer]. documented in this encounter Plan of Treatment Upcoming Encounters Date Type Department Care Team (Late st Contact Info) Description 07/03/2025 12:40 PM EST Office Visit [facility] Urology [address] [place] [address] Maya Osman APRN, GWENDOLYN [address] [place] [address] 11/07/2025 10:00 AM EDT Consult [facility] [address] [place] [address] Chasity Mendoza MD [address] [place] [address] documented as of this encounter [...] documented as of this encounter Care Teams Torch Brazer Relationship Specialty Start Date End Date Trisha Cortes APRN [address] [place] [address] PCP - General 03/24/25 Maya Osman APRN, GWENDOLYN [address] [place] [address] Nurse Practitioner Urology 03/24/25 documented as of this encounter
--- OUTSIDE RECORDS SUMMARY | 2025-06-03 10:16 | XMS_ITS | Data Portability ---
Author Organization [facility] [employer] [facility] Address [address] [place] [address] Care Team Providers Care Case Preparer And Liner Name Role Phone TRISHA CORTES Primary Care Provider Brandy cordova Assessment No assessment recorded. Plan of Treatment Reminders Order Date Submit Date Provider Last Modified By Organization Details Last Modified Time Details Appointments None recorded. Lab rapid flu (A+B) [address], [address], 13:13:44 rapid SARS CoV 2 Ag, QL, [place], upper respiratory specimen [address], [address], 13:13:44 urinalysis, dipstick [address], [address], 13:02:41 test, urine [address], [address], 13:02:42 cobalamin and folate panel, serum - pt coming in 1 month 2024 025 [email or web address] [facility] ([facility]), [address] [facility], [place], [address], 15:38:13 urinalysis, dipstick [address], [address] [place] [address], [place], [address], 18:01:58 culture, urine 2024 025 CONRAD [facility] ([facility]), [address] [facility], [place], [address], 5 06:06:33 Referral nephrologis t referral - first avail 2024 025 [email or web address] Mike Ledezma MD, [address] , [place], [address], 15:38:14 Procedures None recorded. Surgeries None recorded. Imaging None recorded. Medication Orders ciprofloxac in 500 mg tablet 2024 025 [facility], [address], [address], 5 13:15:06 ondansetron 4 mg disintegrat ing tablet 2024 025 [facility], [address], [address], 5 13:15:07 Probiotic 20 billion cell capsule 2024 025 [facility], [address], [address], 5 13:15:07 cyanocobala min (vit B-12) 1,000 mcg/mL injection solution 2024 025 [email or web address] 1 Not available 10:09:47 Bactrim DS 800 mg-160 mg tablet 2024 025 [facility], [facility], [id number], 5 08:53:15 cyanocobala min (vit B-12) 1,000 mcg/mL injection solution 2024 025 [email or web address] 1 Not available 16:46:14 hydrochloro thiazide 12.5 mg tablet 2024 025 [facility], [address] [place] [address], [id number], 5 11:11:46 cyanocobala min (vit B-12) 1,000 mcg/mL injection solution 2024 025 [email or web address] 38 [facility], [address] [place] [address], [id number], 5 15:14:43 cyanocobala min (vit B-12) 1,000 mcg/mL injection solution 2024 025 [email or web address] [facility], [address], [id number], 09:57:04 Patient TargetsNo targets recorded. Patient InstructionsNo instructions recorded. Reason for Referral Application Internship Referral for Hy pertensive renal disease first avail Referring Physician: Trisha Cortes, Family Medicine, Encounter Date: 04/22/2025 Results Created Date Observation Date Name Description Value Unit Range Abnormal Flag Note LastModifiedBy Organization Detail LastModifiedTime 04/11/2004/14/2025 URINE CULTU RE, DOTTIE NE urine culture, routine Final report Not Available [facility] ([facility]) [address], [place], [address], 04/14/2025 06:06:33 04/11/2004/14/2025 URINE CULTU RE, ROUTI NE result 1 COMMEN T Mixed uroge nital tiffanie 25,00 0-50, 000 colon y formi ng units per mL Not Available [facility] ([facility]) [address] [facility], [place], [address], 04/14/2025 06:06:33 04/11/2004/11/2025 urina lysis , dipst ick Leukocytes Modera te Not Available [address], [address], 04/11/2025 16:05:28 04/11/2004/11/2025 urina lysis , dipst ick Nitrite negati ve Not Available [address], [address], 04/11/2025 16:05:28 04/11/2004/11/2025 urina lysis , dipst ick Urobilinogen .2 Not Available [address], [address], 04/11/2025 16:05:28 04/11/20 25 04/11/2025 urina lysis , dipst ick Protein Negati ve Not Available [address], [address], 04/11/2025 16:05:28 04/11/20 25 04/11/2025 urina lysis , dipst ick pH 6.0 Not Available [address], [address], 04/11/2025 16:05:28 04/11/20 25 04/11/2025 urina lysis , dipst ick Blood Negati ve Not Available [address], [address], 04/11/2025 16:05:28 04/11/2004/11/2025 urina lysis , dipst ick Specific [facility] 1.025 Not Available [address], [address], 04/11/2025 16:05:28 04/11/2004/11/2025 urina lysis , dipst ick Ketone Trace Not Available [address], [address], 04/11/2025 16:05:28 04/11/2004/11/2025 urina lysis , dipst ick Bilirubin Negati ve Not Available [address], [address], 04/11/2025 16:05:28 04/11/2004/11/2025 urina lysis , dipst ick Glucose Negati ve Not Available [address], [address], 04/11/2025 16:05:28 04/11/2004/11/2025 urina lysis , dipst ick Appearance Clear Not Available [address], [address], 04/11/2025 16:05:28 04/11/2004/11/2025 urina lysis , dipst ick Color Dark Yellow Not Available [address], [address], 04/11/2025 16:05:28 05/24/2005/24/2025 rapid SARS CoV 2 Ag, QL, [place], upper respi rator y speci men SARS CoV Ag negati ve Not Available [address] [place], [address], 05/24/2025 12:44:32 05/24/2005/24/2025 rapid flu (A+B) Flu A negati ve Not Available [address], [address], 05/24/2025 12:44:26 05/24/2005/24/2025 rapid flu (A+B) Flu B negati ve Not Available [address], [address], 05/24/2025 12:44:26 05/24/2005/24/2025 urina lysis , dipst ick Leukocytes Trace Not Available [address], [address], 05/24/2025 12:44:33 05/24/2005/24/2025 urina lysis , dipst ick Nitrite negati ve Not Available [address], [address], 05/24/2025 12:44:33 05/24/2005/24/2025 urina lysis , dipst ick Urobilinogen .2 Not Available [address], [address], 05/24/2025 12:44:33 05/24/2005/24/2025 urina lysis , dipst ick Protein Negati ve Not Available [address], [address], 05/24/2025 12:44:33 05/24/2005/24/2025 urina lysis , dipst ick pH 5.5 Not Available [address] [place], [address], 05/24/2025 12:44:33 05/24/2005/24/2025 urina lysis , dipst ick Blood Negati ve Not Available [address], [address], 05/24/2025 12:44:33 05/24/2005/24/2025 urina lysis , dipst ick Specific [facility] 1.025 Not Available [address], [address], 05/24/2025 12:44:33 05/24/2005/24/2025 urina lysis , dipst ick Ketone Small Not Available [address], [address], 05/24/2025 12:44:33 05/24/2005/24/2025 urina lysis , dipst ick Bilirubin Negati ve Not Available [address], [address], 05/24/2025 12:44:33 05/24/2005/24/2025 urina lysis , dipst ick Glucose Negati ve Not Available [address], [address], 05/24/2025 12:44:33 05/24/2005/24/2025 urina lysis , dipst ick Appearance Cloudy Not Available [address], [address], 05/24/2025 12:44:33 05/24/2005/24/2025 urina lysis , dipst ick Color Dark Yellow Not Available [address], [address], 05/24/2025 12:44:33 05/24/2005/24/2025 pregn geovanny test, urine HCG negati ve Not Available [address], [place], [address], 05/24/2025 12:44:34 04/11/2004/11/2025 XR, wrist , 2 view No observ ation record ed. [address], [place], [address], 04/18/2025 13:47:13 04/11/2004/11/2025 XR, hand, 2 view No observ ation record ed. [address], [place], [address], 04/18/2025 13:47:32 04/11/2004/11/2025 XR, sacro iliac joint (s), 3 or more view No observ ation record ed. [address], [place], [address], 04/18/2025 13:48:51 04/11/2004/11/2025 XR, hand, 2 view No observ ation record ed. [address], [place], [address], 04/18/2025 13:49:13 04/11/2004/11/2025 XR, wrist No observ ation record ed. [address], [place], [address], 04/18/2025 13:49:29 04/17/20 25 04/16/2025 US, kidne y No observ ation record ed. [address], [place], [address], 04/18/2025 13:49:53 Result Notes None recorded. Problems Name Problem SNOMED Code Status Onset Date Resolution Date Notes Provider Name and Address Organization Details Recorded Time Moderate major depressi on, single episode 27737619 Completed 201604/28/2017 Problem Code: F32.1; Problem Code Type: ICD-10; Not Available [facility] 2 20:58:04 Major depressi on, single episode 36389408 Completed 201603/09/2017 Problem Code: F32.9; Problem Code Type: ICD-10; Not Available [facility] 2 20:58:05 Depressi ve disorder 58112738 Completed 201604/28/2017 Problem Code: 311; Problem Code Type: ICD-9; Not Available [facility] 2 20:58:19 Nausea and vomiting 21880616 Completed 201604/18/2017 Problem Code: R11.2; Problem Code Type: ICD-10; Not Available [facility] 2 20:58:11 Diarrhea 35790405 Completed 201604/18/2017 Problem Code: R19.7; Problem Code Type: ICD-10; DIMITRI luke [facility] [employer] 2 08:25:35 Depressi ve disorder 03733765 Completed 201601/22/2021 Problem Code: 311; Problem Code Type: ICD-9; Not Available [facility] 2 20:58:20 Generali zed anxiety disorder 34045495 Completed 201605/18/2017 Problem Code: F41.1; Problem Code Type: ICD-10; Not Available [facility] 2 20:58:05 Pain of joint of ankle 079845792 Completed 201606/01/2017 Not Available [facility] 2 20:58:18 Joint pain in ankle and foot Completed 201606/01/2017 Problem Code: 719.47; Problem Code Type: ICD-9; Not Available [facility] 2 20:58:26 Depressi ve disorder 66029855 Completed 201601/22/2021 Problem Code: 311; Problem Code Type: ICD-9; Not Available [facility] 2 20:58:20 Sprain of distal tibiofib ular ligament 71087505 Completed 201608/12/2017 Problem Code: S93.432A ; Problem Code Type: ICD-10; Not Available [facility] 2 20:58:23 Right lower quadrant pain 806389000 Completed 201712/02/2017 Problem Code: R10.31; Problem Code Type: ICD-10; Not Available [facility] 2 20:58:11 Generali zed anxiety disorder 31674707 Completed 201701/22/2021 Problem Code: 300.02; Problem Code Type: ICD-9; Not Available [facility] 2 20:58:18 Depressi ve disorder 66590528 Completed 201701/22/2021 Problem Code: 311; Problem Code Type: ICD-9; Not Available [facility] 2 20:58:18 Benign essentia l hyperten citlali 8925190 Completed 201701/22/2021 Problem Code: 401.1; Problem Code Type: ICD-9; Not Available [facility] 2 20:58:26 Epidermo id cyst of skin 383910340 Completed 201701/31/2020 Problem Code: L72.3; Problem Code Type: ICD-10; Not Available [facility] 2 20:58:07 Uses combined oral contrace ption 939221838 Completed 201701/26/2018 Problem Code: Z30.011; Problem Code Type: ICD-10; Not Available [facility] 2 20:58:16 Benign essentia l hyperten citlali 9815621 Completed 201701/22/2021 Problem Code: 401.1; Problem Code Type: ICD-9; Not Available [facility] 2 20:58:19 Oral contrace ptive prescrib ed Completed 201701/26/2018 Problem Code: V25.01; Problem Code Type: ICD-9; Not Available [employer] 2 20:58:23 Vaginola bial hernia Completed 201704/14/2018 Problem Code: N89.8; Problem Code Type: ICD-10; Not Available [facility] 2 20:58:09 Noninfla mmatory disorder of the vagina 58642905 Completed 201704/14/2018 Problem Code: 623.8; Problem Code Type: ICD-9; Not Available [facility] 2 20:58:22 Acute pharyngi tis 961785842 Completed 201707/16/2018 Problem Code: J02.8; Problem Code Type: ICD-10; DIMITRI luke [employer] 2 08:25:35 Disorder of upper respirat ory system 679369781 Completed 201705/31/2018 Problem Code: J06.9; Problem Code Type: ICD-10; Not Available [facility] 2 20:58:06 Acute upper respirat ory infectio n of multiple sites Completed 201705/31/2018 Problem Code: 465.8; Problem Code Type: ICD-9; Not Available [facility] 2 20:58:20 Allergic rhinitis caused by pollen 13049294 Completed 201709/07/2018 Problem Code: J30.1; Problem Code Type: ICD-10; Not Available [facility] 2 20:58:16 Cough 93068390 Completed 201707/23/2018 Problem Code: R05; Problem Code Type: ICD-10; Deann luke [facility] 4 14:51:23 Epigastr ic pain 58297152 Completed 201804/15/2022 Problem Code: R10.13; Problem Code Type: ICD-10; DIMITRI luke [facility] 2 08:25:36 Common cold 23604061 Completed 201804/15/2022 DIMITRI luke [facility] 2 08:25:36 Gastro-e sophagea l reflux disease with esophagi tis 006640827 Active 2018 Problem Code: K21.0; Problem Code Type: ICD-10; Not Available [facility] 2 20:58:07 Influenz a vaccine needed 36482734008 06 Completed 201801/31/2020 Problem Code: Z23; Problem Code Type: ICD-10; DIMITRI SOLISNER [employer], [facility] 2 08:25:35 Acute pharyngi tis 026312012 Completed 201801/31/2020 DIMITRISALVATORE SOLISNER null, [facility] 2 08:25:35 Acute pharyngi tis 811710980 Completed 201804/15/2022 Problem Code: J02.8; Problem Code Type: ICD-10; DIMITRI SOLISNER [employer], [facility] 2 08:25:35 Urinary tract infectio us disease 84106829 Completed 201801/31/2020 Problem Code: N39.0; Problem Code Type: ICD-10; Not Available [facility] 2 20:58:08 Acute cystitis 36576990 Completed 201804/15/2022 Problem Code: N30.00; Problem Code Type: ICD-10; DIMITRI SOLISNER [employer], [facility] 2 08:25:35 Diarrhea 07796622 Completed 201801/31/2020 Problem Code: R19.7; Problem Code Type: ICD-10; DIMITRI SCOTT [employer], [facility] 2 08:25:35 Disorder of upper respirat ory system 029683414 Completed 201801/31/2020 Problem Code: J06.9; Problem Code Type: ICD-10; Not Available [facility] 2 20:58:06 Generali zed anxiety disorder 64612001 Active 2019 Problem Code: F41.1; Problem Code Type: ICD-10; Not Available [facility] 2 20:58:05 Hyperten sive disorder 80915073 Active 2019 Problem Code: I10; Problem Code Type: ICD-10; Not Available [facility] 2 20:58:05 Tachycar kvng 1533491 Completed 201904/15/2022 DIMITRI luke, [facility] 2 08:25:35 Childhoo d obesity 308893318 Completed 201901/22/2021 Problem Code: Z68.54; Problem Code Type: ICD-10; Not Available [facility] 2 20:58:17 Negative dysphoto psia 387879764 Completed 201901/31/2020 Problem Code: H53.8; Problem Code Type: ICD-10; Not Available [facility] 2 20:58:05 Chronic fatigue syndrome 26710119 Completed 201901/31/2020 Problem Code: R53.82; Problem Code Type: ICD-10; Not Available [facility] 2 20:58:12 Acute respirat ory infectio ns 095218302 Completed 201904/15/2022 Problem Code: J22; Problem Code Type: ICD-10; DIMITRISALVATORE luke, [facility] 2 08:25:35 Muscle pain 84763728 Completed 201904/15/2022 Problem Code: M79.10; Problem Code Type: ICD-10; DIMITRI luke, [facility] 2 08:25:35 Well child 465136114 Completed 202004/15/2022 DIMITRISALVATORE luke, [employer] 2 08:25:35 Childhoo d obesity 081764042 Completed 202001/22/2021 Problem Code: Z68.54; Problem Code Type: ICD-10; Not Available [facility] 2 20:58:16 Influenz a vaccine needed 00409695983 06 Completed 202001/22/2021 Problem Code: Z23; Problem Code Type: ICD-10; [facility] [employer] 2 08:25:35 Influenz a vaccine needed 02444333747 06 Completed 202004/15/2022 Problem Code: Z23; Problem Code Type: ICD-10; [facility] [employer] 2 08:25:35 Otitis externa of left ear 73696193169 24480 Completed 202001/22/2021 Problem Code: H60.332; Problem Code Type: ICD-10; Not Available [facility] 2 20:58:05 Candidia sis of vulva 5486156 Completed 202004/15/2022 DIMITRI SCOTT [employer] 2 08:25:35 Dysuria 18614297 Completed 202008/26/2021 Problem Code: R30.0; Problem Code Type: ICD-10; Deann Ogden [employer], [employer] 5 16:05:22 Influenz a vaccine needed 52205089446 06 Completed 202008/26/2021 Problem Code: Z23; Problem Code Type: ICD-10; [facility] [employer] 2 08:25:35 Exposure to SARS-CoV -2 Completed 202008/26/2021 Problem Code: Z20.822; Problem Code Type: ICD-10; Not Available [facility] 2 20:58:14 Otogenic otalgia 59645189 Completed 202104/15/2022 DIMITRI SCOTT [employer] 2 08:25:35 Urinary tract infectio us disease 86286641 Completed 202109/30/2021 Problem Code: N39.0; Problem Code Type: ICD-10; Not Available [facility] 2 20:58:09 Dysuria 58536309 Completed 202109/30/2021 Problem Code: R30.0; Problem Code Type: ICD-10; Deann luke, [employer] 5 16:05:22 Uses combined oral contrace ption 995074880 Completed 202109/30/2021 Problem Code: Z30.41; Problem Code Type: ICD-10; Not Available [facility] 2 20:58:14 Finding of body mass index 569839768 Completed 202109/30/2021 Problem Code: Z68.41; Problem Code Type: ICD-10; Not Available [facility] 2 20:58:17 Acute pharyngi tis 215816766 Completed 202110/15/2021 DIMITRISALVATORE SCOTT marly, [employer] 2 08:25:35 Myositis 42534922 Completed 202110/15/2021 Problem Code: M60.9; Problem Code Type: ICD-10; DIMITRISALVATORE SCOTT marly, [employer] 2 08:25:35 General examinat ion of patient Completed 202104/15/2022 DIMITRISALVATORE SCOTT marly, [employer] 2 08:25:35 Finding of body mass index 652972107 Completed 202110/18/2021 Problem Code: Z68.41; Problem Code Type: ICD-10; Not Available [facility] 2 20:58:17 Myositis 84820417 Completed 202111/16/2021 Problem Code: M60.9; Problem Code Type: ICD-10; DIMITRI luke, [employer] 2 08:25:35 Cough 27775821 Completed 202104/15/2022 Problem Code: R05; Problem Code Type: ICD-10; Deann luke, [facility] 4 14:51:23 Diarrhea 51936269 Completed 202104/15/2022 Problem Code: R19.7; Problem Code Type: ICD-10; DIMITRISALVATORE SCOTT marly, [employer] 2 08:25:35 Allergic rhinitis caused by pollen 71307706 Completed 202102/18/2022 Problem Code: J30.1; Problem Code Type: ICD-10; Not Available [facility] 2 20:58:07 Nausea 948895665 Completed 202102/18/2022 Problem Code: R11.0; Problem Code Type: ICD-10; Not Available [facility] 2 20:58:10 Candidia sis of vulva 2867521 Completed 202102/18/2022 DIMITRISALVATORE SCOTT [employer], [facility] 2 08:25:35 Acute bronchit is 66643464 Completed 202104/15/2022 Problem Code: J20; Problem Code Type: ICD-10; DIMITRI SOLISQUINN luke, [facility] 2 08:25:35 Cough 92930741 Completed 202102/18/2022 Problem Code: R05; Problem Code Type: ICD-10; Deann luke, [facility] 4 14:51:23 Myositis 48091446 Completed 202104/15/2022 Problem Code: M60.9; Problem Code Type: ICD-10; DIMITRI luke, [facility] 2 08:25:35 Cough 91139582 Active 2023 Problem Code: R05; Problem Code Type: ICD-10; Deann luke, [facility] 4 14:51:23 Sore throat 108635900 Active 2023 Deann Ogden null, [facility] 4 14:51:36 Acute cough Active 2024 Deann Ogden null, [facility] 5 15:25:22 Paresthe arnold 05511311 Active 2024 KERI RIBEIRO, [employer] WALL [employer]ER [address] [place] [address], [address] [place] [address] , [facility] 11:29:32 Vitamin D deficien cy 96887993 Active 2024 KERI RIBEIRO, NAOMY [address] [place] [address], [address] [place] [address] , [facility] 11:56:04 Pelvic floor dysfunct ion 665354893 Active 2024 Deann luke, [employer] 11:14:02 Cobalami n deficien cy 203071584 Active 2024 Deann luke, [employer] 17:11:29 Dysuria 37436323 Active 2024 Problem Code: R30.0; Problem Code Type: ICD-10; [facility] 16:05:22 Acute vomiting 04826364 Active 2024 Ariane Garcia APRN [address] [place] [address], [address] [place] [address] , [facility] 12:44:16 Gastroen teritis 16377710 Active 2024 Ariane Garcia APRN [address] [place] [address], [address] [place] [address] , [employer] 13:13:52 Problem Notes None recorded. Procedures Surgical History Date Name Laterality Status Provider Name and Address Organization Details Recorded Time 04/22/2024 Date of Last Pap Smear completed Deann Ogden [employer] 05/16/2024 10:37:35 Imaging Results None recorded. Procedure [...] Not Available Vitals Date Recorded Body height Heart rate Provider Name and Address Organization Details Last Updated DateTime 03/28/2025 168.91 cm 77 /min [facility] [place] [employer] 03/28/2025 09:56:33 Date Recorded Body height Provider Name an d Address Organization Details Last Updated DateTime 04/04/2025 168.91 cm [facility] [place] [employer] 04/04/2025 14:24:50 Date Recorded Body mass index (BMI) Body weight Oxygen saturation Oxygen saturation in Arterial blood by Pulse oximetry Heart rate Systolic And Diastolic Provider Name and Address Organization Details Last Updated DateTime 5 55.2 kg/m2 387216. 25 g 98 % 98 % 102 /min 123/87 mm[Hg] Clover Kang [employer] 14:32:22 Date Recorded Body height Body mass index (BMI) Body weight Heart rate Oxygen saturation Oxygen saturation in Arterial blood by Pulse oximetry Body temperature Systolic And Diastolic Provider Name and Address Organization Details Last Updated DateTime 168.91 cm 55 kg/m2 393561. 96 g 129 /min 98 % 98 % 99.2 [degF] 131/83 mm[Hg] Deann Ogden [employer] 16:10:19 Date Recorded Body height Body mass index (BMI) Body weight Heart rate Oxygen saturation Oxygen saturation in Arterial blood by Pulse oximetry Systolic And Diastolic Provider Name and Address Organization Details Last Updated DateTime 168.91 cm 55 kg/m2 224697. 96 g 113 /min 98 % 98 % 131/84 mm[Hg] Deann Ogden [facility] 5 08:48:41 Date Recorded Body height Body mass index (BMI) Body weight Body temperature Heart rate Oxygen saturation Oxygen saturation in Arterial blood by Pulse oximetry Systolic And Diastolic Provider Name and Address Organization Details Last Updated DateTime 168.91 cm 53.1 kg/m2 197851. 25 g 99.1 [degF] 105 /min 99 % 99 % 137/83 mm[Hg] Dulce Hong [employer] 12:41:46 Social History Question Answer Notes LastModified by [employer] ion Details LastModified Time Tobacco Smoking Status Never Smoker DIMITRI luke [employer] 04/15/2022 08:26:39 Do You Wear A Helmet When Biking? No [email or web address] Information not available 12/27/2024 Are You Blind [...] Of Your Most Recent Tobacco Screening? 05/24/2025 [email or web address] Information not available 05/24/2025 What Is Your [...] anxious, or unable to sleep at night)? [id number] [email or web address] Information not available 12/27/2024 Do you have difficulty concentrating, remembering or making decisions? No Information no t available 12/02/2022 Family History Relationship Description Onset Age of this Age Resolved Age Notes LastModified by Organization Details LastModified Time Unspecified Relation Family history of neurological disorder [email or web address] Not available 04/15 08:26:04 Unspecified Relation Family history of Depression [email or web address] Not available 03/31 08:26:10 Unspecified Relation Family history of Myocardial infarction [email or web address] Not available 03/31 08:26:16 Medical History Condition [...] adolescent or pediatric 3 completed Not Available [facility] 04/05/2022 22:56:38 varicella 4 completed Not Available [facility] 04/05/2022 22:56:39 MMR 7 completed Not Available [facility] 04/05/2022 22:56:40 MMR 4 completed Not Available [facility] 04/05/2022 22:56:40 Hep A, ped/adol, 2 dose 8 completed DIMITRI luke, [employer] 08/08/2022 15:17:17 Hep A, ped/adol, 2 dose 9 completed DIMITRI luke, [employer] 08/08/2022 15:17:17 HPV9 8 completed DIMITRI luke, [employer] 08/08/2022 15:17:17 COVID-19, mRNA, LNP-S, PF, 100 mcg/0.5mL dose or 50 mcg/0.25mL dose 1 completed DIMITRI SCOTT null, [employer] 08/08/2022 15:17:17 COVID-19, mRNA, LNP-S, PF, 100 mcg/0.5mL dose or 50 mcg/0.25mL dose 1 completed DIMITRI SOLISNER null, [employer] 08/08/2022 15:17:17 HPV9 1 completed DIMITRI TYLER null, [employer] 08/08/2022 15:17:17 meningococcal MCV4P 1 completed Deann [place] null, [employer] 12/04/2023 14:15:48 HPV, quadrivalent 9 completed Deann [place] null, [employer] 12/04/2023 14:15:47 DTaP 4 completed Deann [place] null, [employer] 12/04/2023 14:15:48 DTaP 7 completed Deann [place] null, [employer] 12/04/2023 14:15:48 DTaP 3 completed Deann [place] null, [employer] 12/04/2023 14:15:48 DTaP 3 completed Deann [place] null, [employer] 12/04/2023 14:15:48 DTaP 4 completed Deann [place] null, [employer] 12/04/2023 14:15:48 meningococcal MCV4P 8 completed Deann [place] null, [employer] 12/04/2023 14:15:48 Hib (PRP-OMP) 3 completed Not Available [facility] 04/05/2022 22:56:46 Tdap 9 completed DIMITRI TYLER null, [employer] 08/08/2022 15:17:17 pneumococcal conjugate PCV 7 4 completed Not Available [facility] 04/05/2022 22:56:47 pneumococcal conjugate PCV 7 3 completed Not Available [facility] 04/05/2022 22:56:47 pneumococcal conjugate PCV 7 4 completed Not Available [facility] 04/05/2022 22:56:47 pneumococcal conjugate PCV 7 3 completed Not Available [facility] 04/05/2022 22:56:47 Hib-Hep B 3 completed Not Available [facility] 04/05/2022 22:56:47 Hib-Hep B 4 completed Not Available [facility] 04/05/2022 22:56:48 COVID-19, mRNA, LNP-S, PF, 100 mcg/0.5mL dose or 50 mcg/0.25mL dose 2 completed DIMITRI SCOTT null, [employer] 08/08/2022 15:17:17 IPV 4 completed Deann [place] null, [employer] 12/04/2023 14:15:47 IPV 7 completed Deann [place] null, [employer] 12/04/2023 14:15:47 IPV 3 completed Deann [place] null, [employer] 12/04/2023 14:15:47 IPV 3 completed Deann [place] null, [employer] 12/04/2023 14:15:47 Meningococcal MCV4O 1 completed Deann [place] null, [employer] 12/04/2023 14:15:48 Meningococcal MCV4O 8 completed Deann [place] null, [employer] 12/04/2023 14:15:48 DTaP, unspecified formulation 4 completed Deann [place] null, [employer] 12/04/2023 14:15:48 DTaP, unspecified formulation 7 completed Deann [place] null, [employer] 12/04/2023 14:15:48 DTaP, unspecified formulation 3 completed Deann [place] null, [employer] 12/04/2023 14:15:48 DTaP, unspecified formulation 3 completed Deann [place] null, [employer] 12/04/2023 14:15:48 DTaP, unspecified formulation 4 completed Deann luke, [employer] 12/04/2023 14:15:48 Past Encounters Encounter ID Performer Location Encounter Start Date Encounter Closed Date Diagnosis/Indication Diagnosis SNOMED-CT Code Diagnosis ICD10 Code Diagnosis IMO Codes Diagnosis Note [id number] [place] [address] 08/08/2022 14:39:56 08/08/2022 16:03:15 Acute urinary tract infection 434818545 N39.0 Body mass index 40+ - severely obese 443149579 Z68.42 [id number] [place] [address] 0 08/23/2022 13:30:02 08/23/2022 14:04:20 Pruritic rash 41168877 L28.2 Nausea and vomiting 1693 2000 R11.2 Body mass index 40+ - severely obese 176937022 Z68.42 [id number] [place] [address] 0 09/06/2022 08:43:24 09/06/2022 09:00:23 Adult health examination 542038537 Z00.00 Uses oral contraception 7062603 Z30.41 Essential hypertension 08756742 I10 Generalize d anxiety disorder 93443822 F41.1 Hypertensive disorder 38 517971 I10 Body mass index 40+ - severely obese 351478714 Z68.42 [id number] Trisha Cortes, JEWELRY SALES [place] [address] 0 11/14/2022 16:19:31 11/14/2022 16:46:29 Acute otitis media 1058746 H66.90 Body mass index 40+ - severely obese 086221352 Z68.42 [id number] Trisha Cortes [place] [address] 0 12/02/2022 13:26:28 12/02/2022 15:38:00 Pain of ear 619440497 H92.09 Wax in ear canal 8013014 02 H61.20 Allergic rhinitis 079605 04 J30.9 [id number] Trisha Cortes [place] [address] 0 12/22/2022 15:29:15 12/22/2022 16:54:06 Contraception care management 809348360 Z30.9 [id number] Trisha Cortes [place] [address] 0 02/24/2023 14:51:38 02/24/2023 15:50:05 Low back pain 270538232 M54.50 Body mass index 40+ - severely obese 446932789 Z68.42 [id number] Trisha Cortes [place] [address] 0 03/09/2023 15:59:48 03/09/2023 17:11:37 Surveillance of contraception 127611707 Z30.40 Uses oral contraception 9457602 Z30.41 Generalize d anxiety disorder 87922196 F41.1 Hypertensive disorder 38 058784 I10 Tendinitis of right wrist region 0360523294 1879776 M67.833 Body mass index 40+ - severely obese 050027652 Z68.42 [id number] Trisha Cortes [place] [address] 0 08/07/2023 15:12:12 08/07/2023 15:52:13 Hypertensive disorder 26514689 I10 Fatigue 23250151 R53.83 Hyperglycemia 24244502 R 73.9 Hyperlipidemia 26557860 E78.5 Floaters i n visual field 410779809 H43.399 Body mass index 40+ - severely obese 115829973 Z68.42 [id number] [place] [address] 0 09/08/2023 11:12:02 09/08/2023 13:25:19 Hypertensive disorder 72466533 I10 Body mass index 40+ - severely obese 065280923 Z68.42 [id number] Trisha Cortes [place] [address] 0 11/21/2023 13:49:57 11/21/2023 15:39:31 Obesity 585200524 E66.9 Body mass index 40+ - severely obese 420825834 Z68.42 Tachycardia 4365614 R00. 0 Hypertensive disorder 38 876741 I10 [id number] Trisha Cortes [place] [address] 0 12/04/2023 13:29:57 12/05/2023 08:33:16 Cough 58883225 R05.9 Acute bronchitis 3351925 2 J20.9 Body mass index 40+ - severely obese 943011941 Z68.42 [id number] Trisha Cortes [place] [address] 0 02/29/2024 14:12:50 02/29/2024 15:58:57 Lipoma of back 602918436 D17.1 Acanthosis nigricans 402 027232 L83 declined derm referral at this time Body mass index 40+ - severely obese 330756940 Z68.42 [id number] Trisha Cortes [place] [address] 0 03/22/2024 13:35:42 03/22/2024 14:44:51 Hypertensive disorder 30677368 I10 Essential hypertension 97838484 I10 Generalize d anxiety disorder 37117142 F41.1 Skin nodule 37425755 R22 .9 Body mass index 40+ - severely obese 145583218 Z68.42 [id number] [place] [address] 04/22/2024 12:50:07 04/22/2024 13:25:55 Body mass index 40+ - severely obese 187065279 Z68.42 Screening for malignant neoplasm of cervix 062051222 Z12.4 Gynecologi c examination 06647196 Z01.001 [id number] Trisha Cortes [place] [address] 0 05/16/2024 10:28:48 05/16/2024 11:50:57 Mass of right breast 8098447985 4591646 N63.10 Plantar wa rt of right foot 6115962337 9653492 B07.0 Temporoman dibular joint disorder 06075906 M26.609 Body mass index 40+ - severely obese 483420938 Z68.42 [id number] Trisha Cortes [place] [address] 0 06/20/2024 13:04:35 06/20/2024 14:58:50 Essential hypertension 13945349 I10 Generalize d anxiety disorder 56120911 F41.1 Temporoman dibular joint disorder 57054590 M26.609 Hypertensive disorder 38 628936 I10 Body mass index 40+ - severely obese 121631774 Z68.42 [id number] Trisha Cortes [place] [address] 0 07/08/2024 14:24:37 07/08/2024 16:23:34 Cough 85774979 R05.9 Sore throat 759792397 J0 2.9 Acute sinusitis 03040852 J01.90 Body mass index 40+ - severely obese 498731464 Z68.42 [id number] Trisha Cortes [place] [address] 0 08/12/2024 12:54:22 08/12/2024 16:37:26 Cough 78723560 R05.9 Acute bronchitis 4496438 2 J20.9 Body mass index 40+ - severely obese 594666179 Z68.42 [id number] Trisha Cortes [place] [address] 0 09/24/2024 16:24:19 09/24/2024 17:14:50 Acute left otitis media 404499603 H66.92 Fatigue 61010841 R53.83 Hyperlipidemia 76014320 E78.5 Hyperglycemia 32761975 R 73.9 Vitamin D deficiency 347 55014 E55.9 Candidiasis of vagina 72 825438 B37.31 Essential hypertension 02619443 I10 Generalize d anxiety disorder 73127211 F41.1 Hypertensive disorder 38 431017 I10 Body mass index 40+ - severely obese 874836929 Z68.42 [id number] Trisha Cortes [place] [address] 0 12/06/2024 10:47:36 12/06/2024 11:48:48 Fatigue 90724906 R53.83 6999972 Vitamin D deficiency 347 68908 E55.9 00740 Cobalamin deficiency 190 596348 E53.8 69055 Iron defic iency anemia 81606984 D50.8 63850661 Essential hypertension 38007628 I10 Generalize d anxiety disorder 83546062 F41.1 Hypertensive disorder 38 040189 I10 Body mass index 40+ - severely obese 310418672 Z68.43 636853 [id number] Trisha Cortes [place] [address] 0 12/27/2024 14:16:21 12/27/2024 15:28:45 Low back pain 258842103 M54.59 1172836872 Dysuria 35043489 R30.0 21055 Body mass index 40+ - severely obese 000987831 Z68.43 981730 [id number] Trisha Cortes [place] [address] 0 01/09/2025 13:25:30 01/09/2025 14:54:12 Paresthesia 27713232 R20.2 54698 Pain of mu ltiple joints 30159555 M25.50 692120 Body mass index 40+ - severely obese 489112080 Z68.43 990132 [id number] Trisha Cortes [place] [address] 0 02/24/2025 15:14:30 02/24/2025 16:00:51 Acute cough 1441804110 19881755 R05.9 9190933317 Lower resp iratory tract infection 85112427 J22 2464 Body mass index 40+ - severely obese 527369830 Z68.43 975111 [id number] Trisha Cortes [place] [address] 0 03/03/2025 09:30:41 03/03/2025 10:05:35 Lower respiratory tract infection 29482609 J22 2464 Dehydration 90461176 E86 .0 9786 Body mass index 40+ - severely obese 716134046 Z68.43 673813 [id number] KERI RIBEIRO NP [place] [address] 03/14/2025 10:52:27 03/14/2025 12:42:57 Paresthesia 20595017 R20.2 36264 Discuss reasons to seek emergency care, patient verbalized understand ing.Lisseth k labs, follow up with PCP. Vitamin D deficiency 347 19964 E55.9 59713 Restart vit D replacemen t. [id number] [place] [address] 03/25/2025 11:02:17 03/25/2025 13:39:20 Tachycardia 7964573 R00.0 25036 Paresthesia 02076449 R20 .2 6561167 Body mass index 40+ - severely obese 627445635 Z68.43 260614 [id number] Trisha Cortes [place] [address] 0 03/28/2025 09:23:22 03/28/2025 10:41:37 Cobalamin deficiency 697051668 E53.8 274403 [id number] Trisha Cortes [address] 0 04/04/2025 14:20:47 04/04/2025 15:42:06 Cobalamin deficiency 305843248 E53.8 11105 Edema of l ower extremity 488191772 R60.0 09117 Xerostomia 16160706 R68. 2 8024 Body mass index 40+ - severely obese 383715506 Z68.43 209550 [id number] Trisha Cortes [address] 0 04/11/2025 15:53:35 04/15/2025 10:46:53 Dysuria 46059917 R30.0 66526 Cobalamin deficiency 190 951766 E53.8 Acute urin judith tract infection 695737702 N39.0 276091 Body mass index 40+ - severely obese 815532571 Z68.43 177242 [id number] Trisha Cortes [place] [address] 0 04/22/2025 08:28:32 04/22/2025 09:30:17 Cobalamin deficiency 148727162 E53.8 #4, patient will need labs to reassess Hypertensi ve renal disease 53977875 I12.9 327206 Body mass index 40+ - severely obese 040815210 Z68.43 415689 [id number] [place] [address] 0 05/24/2025 12:25:55 05/27/2025 09:11:18 Acute vomiting 68479707 R11.10 8126058 Gastroenteritis 53764266 K52.9 [id number] Buffy Yi presented with a week-long history [...] by Organization Details LastModified Time None Recorded Advance Directives Directive None Recorded Payers Insurance Date Sequence Insurance Name Policy Number Policy Horne Covered Member ID Horne Member ID Guarantor Name 05/24/2025 1 AETNA [facility] (MEDICAID HMO) Nury Yi [id number] Nury Yi 05/24/2025 [place] [employer] Nury Yi [id number] Nury Yi 03/25/2025 1 [employer] BY [employer] (MEDICAID REPLACEMENT - HMO) Nury Yi [id number] Nury Yi Notes Date Note Type Note [...] needs to take. pt voiced understanding. Trisha CortesJEFFERSON [address] [place], [address], [employer] 04/04/2025 15:55:53 04/11/2025 text/html pt here today for b12 [...] few days ago. bilateral ears WNL. Trisha CortesJEFFERSON [address] [place], [address], [employer] 04/11/2025 16:42:42 04/22/2025 text/html pt here today for last [...] would like to be evaluated by a apartment maintenance manager. she is seeing a neurologist for the tingling in jul. states that the vit b injections have not gone away since getting them. Trisha JEFFERSON Cortes [address] [place], [address], [employer] 04/22/2025 17:53:58 05/24/2025 text/html ROS as noted in the HPI History of Present IllnessElla Yi presents with gastrointestinal symptoms that began [...] not taken any antibiotics recently. Ariane Garcia, JEWELRY SALES [address] [place], [address], [facility] [employer] 05/24/2025 13:22:25 OBGyn Episode No OBEpisode recorded.
[2025-06-03 10:25] LABS: Microscopic, Urine URINE MICROSCOPIC (MICROSCOPIC)
[2025-06-03 10:54] LABS: Hematocrit 41.9 % (37.0-47.0); Hemoglobin 14.1 g/dL (12.2-16.2); Immature Granulocytes % 0.1 %; Mean Corpuscular HGB Conc 33.7 g/dL (31.8-35.4); Mean Corpuscular Hemoglobin 28.4 pg (27.0-31.2); Mean Corpuscular Volume 84.5 fl (81-99); Nucleated Red Blood Cells % 0 %; Platelet Count 363 K/mm3 (142-424); Red Blood Count 4.96 M/mm3 (4.20-5.40); Red Cell Distribution Width-SD 38.4 fL; White Blood Count 7.3 K/mm3 (4.8-10.8)
[2025-06-03 11:12] LABS: Bilirubin,Urine Negative (Negative); Color,Urine YELLOW (Yellow); Glucose,Urine (UA) Negative (Negative); Ketones,Urine Negative (Negative); Leukocyte Esterase,Urine Negative (Negative); PH,Urine 6.0 (5.0-8.5); Protein,Urine Negative (Negative); Specific Gravity, Urine 1.020 (1.005-1.030); Urobilinogen,Urine 0.2 EU/dl (0.2)
[2025-06-03 11:37] LABS: Bacteria,Urine Trace /lpf; RBC,Urine Occasional #/hpf (0-3); Squamous Epithelial Cell,Urine Occasional #/hpf (0-5); WBC,Urine Occasional #/hpf (0-3)
[2025-06-03 11:44] LABS: Alanine Aminotransferase 18 U/L (12-78); Albumin Level 4.6 g/dl (3.5-5.0); Albumin/Globulin Ratio 1.5 (1.1-1.8); Alkaline Phosphatase 87 U/L (38-126); Anion Gap 11.6 mEq/L (5-15); Aspartate Amino Transferase 25 U/L (14-36); Bilirubin,Total 0.8 mg/dl (0.2-1.3); Blood Urea Nitrogen 12 mg/dl (7-17); Calcium 9.8 mg/dl (8.4-10.2); Carbon Dioxide 26 mmol/L (22.0-30.0); Chloride 103 mmol/L (98-107); Creatinine,Serum 1.00 mg/dl (0.52-1.04); Estimated Glomerular Filt Rate 69 ml/min (>60); GFR (African American) 84 ML/MIN (>60); Globulin 3.1 g/dL (1.3-3.2); Glucose 101 mg/dl (74-100); Potassium 4.6 mmoL/L (3.5-5.1); Sodium 136 mmol/L (136-145); Total Protein,Serum 7.7 g/dl (6.3-8.2)
== END 2025-06-03 23:59 | disposition home or self-care (01) ==
LOC: LAB 10:12
PROVIDERS: PCP Nurse Practitioner Family; Visit Provider Nurse Practitioner Family
DX: N39.0 Urinary tract infection, site not specified (principal); E53.8 Deficiency of other specified B group vitamins; R00.0 Tachycardia, unspecified
CPT/HCPCS: 36415; 80053; 81001; 85025; 87086; 93225; 93227

== ENCOUNTER 2025-07-29 12:42 | Outpatient (CLI) | payer OTHER, SELFPAY ==
--- OUTSIDE RECORDS SUMMARY | 2025-06-02 09:20 | XMS_ITS | Encounter Summary ---
Author Organization [facility] Address [address] [place] [address] Care Team Providers Care Supervisor Reclamation Name Role Phone Trisha Cortes JEFFERSON Primary Care Provider + [phone] Maya Osman APRN, DNP Unavailable + [phone] Reason for Visit * Reason Comments Follow-up Back Pain Encounter Details Date Type Department Care Team (Late st Contact Info) Description 06/02/2025 9:20 AM EST Office Visit [facility] [address] [place] [address] Silvia Merlos APRN [address] [place] [address] Dry mouth (Primary Dx) Social History Tobacco Use Types Packs/Day Years Used Date Smoking Tobacco: Never Passive Smoke Exposure: Yes Smokeless Tobacco: Never Alcohol Use Standard Drinks/Week Comments Never 0 (1 standard drink = 0.6 oz pur e alcohol) PHQ-2 Answer Date Recorded Patient Health Questionnaire-2 Score 0 06/02/2025 PHQ-9 Answer Date Recorded Patient Health Questionnaire-9 Score 2 06/02/2025 AUDIT-C Answer Date Recorded Q1: How often do you have a drink containing alc ohol? 2-4 times a month 06/02/2025 Q2: How many drinks containi ng alcohol do you have on a typical day when you are drinking? 1 or 2 06/02/2025 Q3: How often do you have si x or more drinks on one occasion? Never 06/02/2025 PHQ-2A Answer Date Recorded Patient Health Questionnaire-2 Score 0 05/02/2023 Comments No Sex and Gender Information Value Date Recorded Sex Assigned at Not on file Legal Sex Female 7:35 PM EDT Gender Identity Not on file Sexual Orientation Not on file documented as of this encounter Last Filed Vital Signs Vital Sign Reading Time Taken Comments Blood Pressure 126/80 06/02/2025 10:21 AM EST Pulse 110 06/02/2025 9:33 AM EST Temperature 37.3 C (99.1 F) 06/02/2025 9:33 AM EST Respiratory Rate 17 06/02/2025 9:33 AM EST Oxygen Saturation 99% 06/02/2025 9:33 AM EST Inhaled Oxygen Concentration - - Weight 153 kg (337 lb 11.9 oz) 06/02/2025 9:33 A M EST Height 162.6 cm (5' 4 ) 06/02/2025 9:33 AM EST Body Mass Index 57.97 06/02/2025 9:33 AM EST documented in this encounter Functional Status * BP Answer Date of Assessment Author 126/80 06/02/2025 10:21 AM EST Burks, Tempest * Temp Answer Date of Assessment Author 99.1 06/02/2025 9:33 AM EST Jennifer Solis R * Temp src Answer Date of Assessment Author Oral 06/02/2025 9:33 AM EST Jennifer Solis R * Pulse Answer Date of Assessment Author 110 06/02/2025 9:33 AM EST Jennifer Solis R * Resp Answer Date of Assessment Author 17 06/02/2025 9:33 AM EST Jennifer Solis R * SpO2 Answer Date of Assessment Author 99 06/02/2025 9:33 AM EST Jennifer Solis R * Height Answer Date of Assessment Author 64 06/02/2025 9:33 AM EST Jennifer Solis R * Weight Answer Date of Assessment Author 5403.92 06/02/2025 9:33 AM EST Jennifer Solis R * BMI (Calculated) Answer Date of Assessment Author 58.1 06/02/2025 9:33 AM EST Jennifer Solis R * Percent Excess Weight Loss Answer Date of Assessment Author 0 06/02/2025 9:33 AM EST Jennifer Solis R * Total Weight Change Percent Answer Date of Assessment Author 2222 06/02/2025 9:33 AM EST Jennifer Solis R * Weight Change Since Preop Answer Date of Assessment Author 153.17 06/02/2025 9:33 AM EST Jennifer Solis R * Initial Excess Weight Answer Date of Assessment Author -54.43 06/02/2025 9:33 AM EST Kelly Solislin R * IBW in lbs (Bariatric) Answer Date of Assessment Author 120 06/02/2025 9:33 AM EST Jennifer Solis R * Weight Change Since Last Visit Answer Date of Assessment Author 153.17 06/02/2025 9:33 AM EST Jennifer Solis R * IBW in kg (Bariatric) Answer Date of Assessment Author 54.43 06/02/2025 9:33 AM Jennifer Munoz R * Percent of IBW Answer Date of Assessment Author 9,928.2 06/02/2025 9:33 AM EST Jennifer Solis R * EBW (kg) Answer Date of Assessment Author 5,402.38 06/02/2025 9:33 AM EST Jennifer Solis R * EBW (lbs) Answer Date of Assessment Author 5,396.42 06/02/2025 9:33 AM EST Jennifer Solis R * Weight Change 24 hrs Answer Date of Assessment Author -2.8 06/02/2025 9:33 AM Jennifer Munoz R * Depression Screening Question Answer Date of Assessment Author Will the patient answer the depression risk questions? Yes 06/02/2025 9:36 AM EST Jennifer Solis R * BSA (Calculated - sq m) Answer Date of Assessment Author 2.63 06/02/2025 9:33 AM EST Jennifer Solis R * BMI (Calculated) Answer Date of Assessment Author 57.95 06/02/2025 9:33 AM EST Jennifer Solis R * BP Location Answer Date of Assessment Author Right arm 06/02/2025 10:21 AM EST Burks, Tempest * IBW/kg (Calculated) Male Answer Date of Assessment Author 59.2 06/02/2025 9:33 AM Jennifer Munoz R * IBW/kg (Calculated) Female Answer Date of Assessment Author 54.7 06/02/2025 9:33 AM Jennifer Munoz R * Restart Vitals Timer Answer Date of Assessment Author Yes 06/02/2025 9:33 AM Jennifer Munoz R * IBW/kg (Calculated) Answer Date of Assessment Author 54.7 06/02/2025 9:33 AM Jennifer Munoz R * Over the past 2 weeks, how often have you been bothered by any of the following problems? Question Answer Date of Assessment Author Little interest or pleasure in doing things Not at all 06/02/2025 9:36 AM Garry Munoz Feeling down, depressed, or hopeless Not at all 06/02/2025 9:36 AM Garry Munoz Patient Health Questionnaire -2 Score 0 06/02/2025 9:36 AM Garry Munoz R * Over the past 2 weeks, how often have you been bothered by any of the following problems? Question Answer Date of Assessment Author Trouble falling or staying asleep, or sleeping too much Several days 06/02/2025 9:36 AM Jennifer Perez Feeling tired or having little energy Not at all 06/02/2025 9:36 AM Garry Munoz Poor appetite or overeating Several days 06/02/2025 9: 36 AM Jennifer Munoz Feeling bad about yourself - or that you are a failure or have let yourself or your family down Not at all 06/02/2025 9:36 AM Garry Munoz Trouble concentrating on things, such as reading the newspaper or watching television Not at all 06/02/2025 9:36 AM Garry Munoz Moving or speaking so slowly that other people could have noticed. Or the opposite - being so fidgety or restless that you have been moving around a lot more than usual Not at all 06/02/2025 9:36 AM Jennifer Perez R Thoughts that you would be better off or hurting yourself in some way Not at all 06/02/2025 9:36 AM Yudy Munoz in R Patient Health Questionnaire-9 Score 2 06/02/2025 9:36 AM Kelly Munoz R * How difficult have these problems made it for you to do your work, take care of things at home, or get along with other people? Answer Date of Assessment Author Not difficult at all 06/02/2025 9:36 AM Jennifer Patel R * AUDIT-C Score Answer Date of Assessment Author 2 06/02/2025 9:34 AM Jennifer Munoz * Alcohol Use Question Answer Date of Assessment Author Q1: How often do you have a drink containing alcohol? 2-4 times a month 06/02/2025 9:34 AM Garry Munoz Q2: How many drinks containing alcohol do you have on a typical day when you are drinking? 1 or 2 06/02/2025 9:34 AM Garry Munoz Q3: How often do you have six or more drinks on one occasion? Never 06/02/2025 9:34 AM Garry Munoz R * Weight in (lb) to have BMI = 25 Answer Date of Assessment Author 145.3 06/02/2025 9:33 AM Jennifer Munoz R * BMI (Calculated) Answer Date of Assessment Author 58.1 06/02/2025 9:33 AM Jennifer Munoz R * Percent Excess Weight Loss Answer Date of Assessment Author 0 06/02/2025 9:33 AM Jennifer Munoz R * Weight Change Since Preop Answer Date of Assessment Author 153.2 06/02/2025 9:33 AM Jennifer Munoz * Initial Excess Weight Answer Date of Assessment Author -54.43 06/02/2025 9:33 AM Jennifer Munoz * IBW in kg (Bariatric) Answer Date of Assessment Author 54.43 06/02/2025 9:33 AM Jennifer Munoz * IBW in lb (Bariatric) Answer Date of Assessment Author 120 06/02/2025 9:33 AM Jennifer Munoz R * Weight Change Since Last Visit Answer Date of Assessment Author 153.2 06/02/2025 9:33 AM EST Jennifer Solis R * Percent of IBW Answer Date of Assessment Author 281.45 06/02/2025 9:33 AM Jennifer Munoz R * EBW (kg) Answer Date of Assessment Author 98.74 06/02/2025 9:33 AM Jennifer Munoz R * EBW (lb) Answer Date of Assessment Author 217.75 06/02/2025 9:33 AM Jennifer Munoz R * Difference in Weight Since Last Visit Answer Date of Assessment Author -2.8 06/02/2025 9:33 AM Jennifer Munoz R * Temp (in Celsius) for SLEETMUTE IV Answer Date of Assessment Author 37.3 06/02/2025 9:33 AM Jennifer Munoz R * IBW/kg (Calculated) Answer Date of Assessment Author 54.7 06/02/2025 9:33 AM Jennifer Munoz R * Adult Low Range Vt 6mL/kg Answer Date of Assessment Author 328.2 06/02/2025 9:33 AM Jennifer Munoz R * Adult Moderate Range Vt 8mL/kg Answer Date of Assessment Author 437.6 06/02/2025 9:33 AM Jennifer Munoz R * Adult High Range Vt 10mL/kg Answer Date of Assessment Author 547 06/02/2025 9:33 AM Jennifer Munoz R * Pain Score Answer Date of Assessment Author 2 06/02/2025 9:34 AM Jennifer Munoz R * Vitals Timer Question Answer Date of Assessment Author Restart Vitals Timer Yes 06/02/2025 9:33 AM E Jennifer Benitez R * Patient Position Answer Date of Assessment Author Sitting 06/02/2025 10:21 AM EST Burks, Tempest * OVER THE LAST WEEK, were you able to: Question Answer Date of Assessment Author Dress yourself, including ty ing shoelaces and doing buttons? 0 06/02/2025 9:00 AM Jennifer Perez R Get in and out of bed? 0 06/02/2025 9:00 AM Jennifer Munoz Lift a full cup or glass to your mouth? 0 06/02/2025 9:00 AM Garry Munoz R Walk outdoors on flat ground? 0 06/02/2025 9:00 AM Jennifer Munoz Wash and dry your entire body? 0 06/02/2025 9:00 AM Jennifer Munoz R Bend down to cotton picker operator clothin g from the floor? 0 06/02/2025 9:00 AM Garry Munoz R Turn regular faucets on and off? 0 06/02/20 9:00 AM Jennifer Munoz Get in and out of a car, bus , train or airplane? 0 06/02/2025 9:00 AM Garry Munoz R Walk two miles or three kilometers, if you wish? 2 06/02/2025 9:00 AM Roshni Munoz Participate in recreational activities and sports as you would like, if you wish? 0 06/02/2025 9:00 AM Garry Munoz R Get a good night s sleep? 1 06/02/2025 9:00 AM Garry Munoz R Deal with feelings of anxiet y or being nervous? 0 06/02/2025 9:00 AM Garry Munoz R Deal with feelings of depres citlali or feeling blue? 0 06/02/2025 9:00 AM Garry Munoz R * How much pain have you had because of your condition OVER THE PAST WEEK? Question Answer Date of Assessment Author Pain Severity: 3 06/02/2025 9:00 AM Jennifer Junior * Considering all the ways in which illness and health conditions may affect you at this time, pleaseindicate how you are doing. Question Answer Date of Assessment Author Overall Wellbein.5 06/02/2025 9:00 AM Jennifer Munoz * RAPID3 Score Question Answer Date of Assessment Author Score (0-10) 10.2 06/02/2025 9:00 AM EST Jennifer Newman R Interpretation Moderate Severity (MS) 06/02/2025 9:00 AM EST Jennifer Solis R * Pain Screening/Additional Assessments Question Answer Date of Assessment Author Pain Screening/Assessments Pain Screening 06/02/2025 9 :34 AM EST Jennifer Solis R * Pain Screening Answer Date of Assessment Author 0-10 06/02/2025 9:34 AM EST Kelly Solislin R * BP Answer Date of Assessment Author 126/80 06/02/2025 10:21 AM EST Kimmie Tempest * Temp Answer Date of Assessment Author 99.1 06/02/2025 9:33 AM EST Jennifer Solis R * Temp src Answer Date of Assessment Author Oral 06/02/2025 9:33 AM EST Jennifer Solis R * Pulse Answer Date of Assessment Author 110 06/02/2025 9:33 AM EST Jennifer Solis R * Resp Answer Date of Assessment Author 17 06/02/2025 9:33 AM EST Jennifer Solis R * SpO2 Answer Date of Assessment Author 99 06/02/2025 9:33 AM EST Jennifer Solis R * Height Answer Date of Assessment Author 64 06/02/2025 9:33 AM EST Jennifer Solis R * Weight Answer Date of Assessment Author 5403.92 06/02/2025 9:33 AM EST Jennifer Solis R * BSA (Calculated - sq m) Answer Date of Assessment Author 2.63 06/02/2025 9:33 AM EST Jennifer Solis R * BMI (Calculated) Answer Date of Assessment Author 57.95 06/02/2025 9:33 AM EST Jennifer Solis R * BP Location Answer Date of Assessment Author Right arm 06/02/2025 10:21 AM EST Reyna Burkspest * Restart Vitals Timer Answer Date of Assessment Author Yes 06/02/2025 9:33 AM EST Jennifer Solis R * Over the past 2 weeks, how often have you been bothered by any of the following problems? Question Answer Date of Assessment Author Little interest or pleasure in doing things Not at all 06/02/2025 9:36 AM Garry Munoz Feeling down, depressed, or hopeless Not at all 06/02/2025 9:36 AM Garry Munoz Patient Health Questionnaire -2 Score 0 06/02/2025 9:36 AM Garry Munoz R * Over the past 2 weeks, how often have you been bothered by any of the following problems? Question Answer Date of Assessment Author Trouble falling or staying asleep, or sleeping too much Several days 06/02/2025 9:36 AM Jennifer Perez Feeling tired or having little energy Not at all 06/02/2025 9:36 AM Garry Munoz Poor appetite or overeating Several days 06/02/2025 9: 36 AM Jennifer Munoz Feeling bad about yourself - or that you are a failure or have let yourself or your family down Not at all 06/02/2025 9:36 AM Garry Munoz Trouble concentrating on things, such as reading the newspaper or watching television Not at all 06/02/2025 9:36 AM Garry Munoz Moving or speaking so slowly that other people could have noticed. Or the opposite - being so fidgety or restless that you have been moving around a lot more than usual Not at all 06/02/2025 9:36 AM Jennifer Perez Thoughts that you would be better off or hurting yourself in some way Not at all 06/02/2025 9:36 AM Yudy Munoz R Patient Health Questionnaire-9 Score 2 06/02/2025 9:36 AM Kelly Munoz R * How difficult have these problems made it for you to do your work, take care of things at home, or get along with other people? Answer Date of Assessment Author Not difficult at all 06/02/2025 9:36 AM Jennifer Patel * Weight in (lb) to have BMI = 25 Answer Date of Assessment Author 145.3 06/02/2025 9:33 AM Jennifer Munoz R Boy Pain Score Answer Date of Assessment Author 2 06/02/2025 9:34 AM Jennifer Munoz R * Patient Position Answer Date of Assessment Author Sitting 06/02/2025 10:21 AM EST Kimmie Tempest documented as of this encounter Mental Status * BP Answer Entry Date Author 126/80 06/02/2025 10:21 AM EST Burks, Tempest * Temp Answer Entry Date Author 99.1 06/02/2025 9:33 AM Jennifer Munoz R * Temp src Answer Entry Date Author Oral 06/02/2025 9:33 AM Jennifer Munoz R * Pulse Answer Entry Date Author 110 06/02/2025 9:33 AM Jennifer Munoz R * Resp Answer Entry Date Author 17 06/02/2025 9:33 AM Jennifer Munoz R * SpO2 Answer Entry Date Author 99 06/02/2025 9:33 AM Jennifer Munoz R * Height Answer Entry Date Author 64 06/02/2025 9:33 AM Jennifer Munoz R * Weight Answer Entry Date Author 5403.92 06/02/2025 9:33 AM Jennifer Munoz R * BMI (Calculated) Answer Entry Date Author 58.1 06/02/2025 9:33 AM Jennifer Munoz R * Percent Excess Weight Loss Answer Entry Date Author 0 06/02/2025 9:33 AM Jennifer Munoz R Boy Total Weight Change Percent Answer Entry Date Author 222106/02/2025 9:33 AM Jennifer Munoz R * Weight Change Since Preop Answer Entry Date Author 153.17 06/02/2025 9:33 AM Jennifer Munoz R * Initial Excess Weight Answer Entry Date Author -54.43 06/02/2025 9:33 AM Jennifer Munoz R * IBW in lbs (Bariatric) Answer Entry Date Author 120 06/02/2025 9:33 AM Jennifer Munoz R * Weight Change Since Last Visit Answer Entry Date Author 153.17 06/02/2025 9:33 AM EST Kelly Solislin R * IBW in kg (Bariatric) Answer Entry Date Author 54.43 06/02/2025 9:33 AM EST Jennifer Solis R * Percent of IBW Answer Entry Date Author 9,928.2 06/02/2025 9:33 AM EST Jennifer Solis R * EBW (kg) Answer Entry Date Author 5,402.38 06/02/2025 9:33 AM EST Jennifer Solis R * EBW (lbs) Answer Entry Date Author 5,396.42 06/02/2025 9:33 AM EST Jennifer Solis R * Weight Change 24 hrs Answer Entry Date Author -2.8 06/02/2025 9:33 AM EST Jennifer Solis R * Depression Screening Question Answer Entry Date Author Will the patient answer the depression risk questions? Yes 06/02/2025 9:36 AM EST Jennifer Solis R * BSA (Calculated - sq m) Answer Entry Date Author 2.63 06/02/2025 9:33 AM EST Jennifer Solis R * BMI (Calculated) Answer Entry Date Author 57.95 06/02/2025 9:33 AM EST Jennifer Solis R * BP Location Answer Entry Date Author Right arm 06/02/2025 10:21 AM EST Reyna Burkspest * IBW/kg (Calculated) Male Answer Entry Date Author 59.2 06/02/2025 9:33 AM EST Jennifer Solis R * IBW/kg (Calculated) Female Answer Entry Date Author 54.7 06/02/2025 9:33 AM EST Jennifer Solis R * Restart Vitals Timer Answer Entry Date Author Yes 06/02/2025 9:33 AM EST Jennifer Solis R * IBW/kg (Calculated) Answer Entry Date Author 54.7 06/02/2025 9:33 AM EST Jennifer Solis R * Over the past 2 weeks, how often have you been bothered by any of the following problems? Question Answer Entry Date Author Little interest or pleasure in doing things Not at all 06/02/2025 9:36 AM Garry Munoz n R Feeling down, depressed, or hopeless Not at all 06/02/2025 9:36 AM Garry Munoz Patient Health Questionnaire-2 Score 0 06/02/2025 9:36 AM Laith Munoz * Over the past 2 weeks, how often have you been bothered by any of the following problems? Question Answer Entry Date Author Trouble falling or staying asleep, or sleeping too much Several days 06/02/2025 9:36 AM Jennifer Munoz Feeling tired or having mya le energy Not at all 06/02/2025 9:36 AM Jennifer Munoz Poor appetite or overeating Several days 09/2024 9:36 AM Jennifer Munoz Feeling bad about yourself - or that you are a failure or have let yourself or your family down Not at all 06/02/2025 9:36 AM Jennifer Munoz Trouble concentrating on things, such as reading the newspaper or watching television Not at all 06/02/2025 9:36 AM Jennifer Munoz Moving or speaking so slowly that other people could have noticed. Or the opposite - being so fidgety or restless that you have been moving around a lot more than usual Not at all 06/02/2025 9:36 AM Jennifer Munoz Thoughts that you would be better off or hurting yourself in some way Not at all 06/02/2025 9:36 AM Jennifer Munoz Patient Health Questionnaire -9 Score 2 06/02/2025 9:36 AM Jennifer Munoz * Alcohol Use Concern Calculation Answer Entry Date Author 1 06/02/2025 9:34 AM Jennifer Munoz * [facility] HRSN Mental Health Concern Calculation Answer Entry Date Author 3 06/02/2025 9:36 AM Jennifer Munoz * How difficult have these problems made it for you to do your work, take care of things at home, or get along with other people? Answer Entry Date Author Not difficult at all 06/02/2025 9:36 AM EST Schu maker, Jennifer R * Skip to questions 9-10? Answer Entry Date Author 1 06/02/2025 9:34 AM Jennifer Munoz R * Restart Pain Assessment Timer Answer Entry Date Author Yes 06/02/2025 9:34 AM EST Jennifer Solis R * Weight in (lb) to have BMI = 25 Answer Entry Date Author 145.3 06/02/2025 9:33 AM Jennifer Munoz R * BMI (Calculated) Answer Entry Date Author 58.1 06/02/2025 9:33 AM EST Jennifer Solis R * Percent Excess Weight Loss Answer Entry Date Author 0 06/02/2025 9:33 AM Jennifer Munoz R * Weight Change Since Preop Answer Entry Date Author 153.2 06/02/2025 9:33 AM Jennifer Munoz R * Initial Excess Weight Answer Entry Date Author -54.43 06/02/2025 9:33 AM Jennifer Munoz R * IBW in kg (Bariatric) Answer Entry Date Author 54.43 06/02/2025 9:33 AM Jennifer Munoz R * IBW in lb (Bariatric) Answer Entry Date Author 120 06/02/2025 9:33 AM Jennifer Munoz R * Weight Change Since Last Visit Answer Entry Date Author 153.2 06/02/2025 9:33 AM Jennifer Munoz R * Percent of IBW Answer Entry Date Author 281.45 06/02/2025 9:33 AM Jennifer Munoz R * EBW (kg) Answer Entry Date Author 98.74 06/02/2025 9:33 AM Jennifer Munoz R * EBW (lb) Answer Entry Date Author 217.75 06/02/2025 9:33 AM Jennifer Munoz R * Difference in Weight Since Last Visit Answer Entry Date Author -2.8 06/02/2025 9:33 AM Jennifer Munoz R * Temp (in Celsius) for SLEETMUTE IV Answer Entry Date Author 37.3 06/02/2025 9:33 AM Jennifer Munoz R * IBW/kg (Calculated) Answer Entry Date Author 54.7 06/02/2025 9:33 AM EST Jennifer Solis R * Adult Low Range Vt 6mL/kg Answer Entry Date Author 328.2 06/02/2025 9:33 AM EST Jennifer Solis R * Adult Moderate Range Vt 8mL/kg Answer Entry Date Author 437.6 06/02/2025 9:33 AM EST Jennifer Solis R * Adult High Range Vt 10mL/kg Answer Entry Date Author 547 06/02/2025 9:33 AM EST Jennifer Solis R * Pain Score Answer Entry Date Author 2 06/02/2025 9:34 AM EST Jennifer Solis R * BP Cuff Size Answer Entry Date Author Adult 06/02/2025 10:21 AM EST Kimmie Tempest * Vitals Timer Question Answer Entry Date Author Restart Vitals Timer Yes 06/02/2025 9:[address] Jennifer Solis R * Patient Position Answer Entry Date Author Sitting 06/02/2025 10:21 AM EST Kimmie Tempest * Pain Screening Answer Entry Date Author 0-10 06/02/2025 9:34 AM EST Jennifer Carcamo R documented in this encounter Miscellaneous Notes * Progress Notes - Silvia Merlos, COMMUNITY DEVELOPMENT OFFICER - 06/02/2025 9:20 AM EST Images from the original note were not included. 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 Chronic kidney disease, stage 2 (mild) 04/16/2014 Depression with anxiety 08/07/2019 Hypertension 04/16/2014 Allergic rhinitis due to pollen 07/09/2018 Ankle joint pain 05/18/2017 Benign essential hypertension 10/03/2017 Candidiasis of vulva 01/22/2021 Childhood obesity 04/16/2014 Chronic fatigue syndrome 09/03/2019 Common cold 09/03/2018 Disorder of upper respiratory system 05/17/2018 Dysuria 01/22/2021 Epidermoid cyst of skin 11/27/2017 Gastro-esophageal reflux disease with esophagitis 09/18/2018 Healthy pediatric patient 08/04/2020 IBS (irritable bowel syndrome) 04/16/2014 Moderate major depression, single episode (CMS/HCC) 02/02/2017 Muscle pain 09/23/2019 Myositis 09/30/2021 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 Noninflammatory disorder of vagina 02/13/2018 Otitis externa of left ear 01/09/2021 Otogenic otalgia 08/26/2021 Right lower quadrant pain 10/03/2017 Sprain of distal tibiofibular ligament 06/13/2017 Tachycardia 08/05/2019 Urinary urgency 11/02/2023 Resolved Ambulatory Problems Diagnosis Date Noted Recurrent UTI 10/31/2022 Acute cystitis 11/06/2018 Colitis 12/02/2013 Cough 07/09/2018 Diarrhea 04/04/2017 Epigastric pain 08/14/2018 Nausea and vomiting 04/04/2017 Past Medical History: Diagnosis Date Abnormal weight [...] female with PMH significant for anxiety, depression, bi- polar, HTN, vitaminD deficiency, renal reflux (causing chronic kidney disease), who presents (06/02/25) for follow up at [facility]. There were no vitals filed for this visit. Allergies[1] Subjective Initially presenting at [facility] [...] side, this has occurred a few times, [id number] seconds. Feels frequent hot flashes and cold [...] visits: Last visit labs: Office Visit on 04/16/2025 Component Date Value Ref Range Status POCT Urine Color 04/16/2025 Yellow Final POCT Urine Clarity 04/16/2025 Sl.Cloudy Final POCT Urine Glucose 04/16/2025 Negative Negative mg/dL Final POCT Urine Bilirubin 04/16/2025 Negative Negative mg/dL Final POCT Urine Ketones 04/16/2025 Negative Negative mg/dL Final POCT Urine Specific [place] 04/16/2025 1.015 1.005 - 1.030 Final POCT Urine Blood 04/16/2025 Negative Negative Final POCT pH, Urine 04/16/2025 6.0 5.0 - 8.0 Final POCT Protein, Urine 04/16/2025 Negative Negative mg/dL Final POCT Urobilinogen, Urine 04/16/2025 0.2 0.2, 1.0 EU/dL Final POCT Nitrite, Urine 04/16/2025 Negative Negative Final POCT Urine Leukocyte Esterase 04/16/2025 Trace (A) Negative Final Urine, Volume 04/16/2025 0 mL Final Culture 04/16/2025 10,000 - 100,000 CFU/mL Mixed urogenital, fecal, or skin tiffanie present. Final RBC, Urine 04/16/2025 2 0 to 3 /HPF Final WBC, Urine 04/16/2025 0 - 5 0 to 5 /HPF Final Squamous Epithelial Cells 04/16/2025 3 - 5 0 to 5 /HPF Final Hyaline Casts 04/16/2025 0 - 2 0 to 5 /LPF Final Bacteria, Urine 04/16/2025 Negative Negative Final Follow up 06/02/25: 06/02/25 symptoms are about the same. Has appointment with neurology in October. Did see her eye doctor and was told prescription had worsened in the last 8 months and they plan to see her in 3 months. Feels maybe worsening blurry vision. Rheum Medication History: Review of Systems Physical Exam Constitutional: General: She is not in acute distress. Appearance: Normal appearance. She is well-developed. She is obese. She is not diaphoretic. HENT: Head: Normocephalic and atraumatic. Eyes: General: No scleral icterus. Right eye: No discharge. Left eye: No discharge. Conjunctiva/sclera: Conjunctivae normal. Pulmonary: Effort: Pulmonary effort is normal. No respiratory distress. Musculoskeletal: Comments: No tenderness or synovitis over joints of hands (MCP and DIP), wrists, elbows, shoulders or knees. Skin: General: Skin is warm and dry. Neurological: Mental Status: She is alert and oriented to person, place, and time. Psychiatric: Mood and Affect: Mood normal. Behavior: Behavior normal. Thought Content: Thought content normal. Judgment: Judgment normal. The above medical information was reviewed for this encounter and updated as appropriate: There is [facility] Go to the Rheumatology activity andcomplete the [facility] exam. Current Medications[2] Patient global assessment: 6.5/10 Rapid 3 score: 10.2/30 Swollen Joint Count: Swollen: -- Tender Joint Count: Tender: -- CDAI: CDAI Interpretation: 0-2.8 Remission 2.9 -10 Low disease activity 10.1-22.0 Moderate Activity 22.1-76.0 High Activity Assessment and Plan of Care: Plan of care developed with Buffy Yi on (06/02/25): Consult labs/imagin03/2025 show normal imaging of SI joint, hands/wrist, normal/negative CCP, HLAB27, CBC without pancytopenia. Could not find results for SSA or SSB. Labs on 12/2024/ show negativeANA, normal RF, CRP and sed rate, obtained from referral notes. 1. Back pain, unspecified back location, unspecified back pain laterality, unspecified chronicity -several hours morning back stiffness. This would be the symptom most consistent with an autoimmuneillness. Overall symptoms sound neurologic and have discussed requesting referral form primary careprovider for neurology. Hypermobility of knees, no other joints appear hypermobility, decreased flexibility of many joints. - HLA B27 Typing and XR Sacroiliac Joints 3+ Views normal. 2. Dry mouth Chronic dry mouth symptoms, likely related to multiple mediations. Also reports elevated eye pressure and would recommend patient see [facility] for management. Anti ccp and hand xray normal. - ENAII; Future 3. Spasms of the hands or feet RF, sed rate and crp all normal, symptoms not consistent with RA, completed workup with hand xray and anti-ccp, both normal. 4. Current use of vape nicotine. advised to quit 03/24/25 5. Vision changes -continue with local opthalmology and neurology. Could consider [facility] if deemed necessaryby neurology. RTC PRN if new concerning symptoms and no concern SSA/SSB. Patient is agreeable to the above treatment plan and had no further questions. Thanks for the opportunity to participate in the care of this patient! If there are any questions or concerns, please reach out to me personally. Thanks! Silvia Merlos, COMMUNITY DEVELOPMENT OFFICER Time Spent: I personally spent a total of 31 minutes on this encounter. This time includes face to face with patient, counseling and discussion and/or coordination of care. The patient was counseled about diagnostic results, [...] Dispense Refill amLODIPine (Norvasc) 10 MG tablet ARIPiprazole (Abilify) 2 MG tablet (Patient not taking: Reported on 04/16/2025) busPIRone (Buspar) 15 MG tablet citalopram (CeleXA) 20 MG tablet (Patient not taking: Reported on 04/16/2025) citalopram (CeleXA) 40 MG tablet Take 1 tablet by mouth daily. clonazePAM (KlonoPIN) 0.5 MG tablet TAKE 1/2 TABLET BY MOUTH ONCE A DAY NEEDED FOR ANXIETY cyanocobalamin (Vitamin B-12) 1000 MCG/ML injection Inject 1 mL every week by subcutaneous route for 30 days. ergocalciferol 1.25 MG (69916 UT) capsule Take 1 capsule by mouth 1 time per week. hydroCHLOROthiazide 12.5 MG PO tablet TAKE 1 TABLET BY MOUTH ONCE A DAY NEEDED FOR EDEMA hydrOXYzine HCl (Atarax) 25 MG tablet hydrOXYzine pamoate (Vistaril) 25 MG capsule 2 capsules. (Patient not taking: Reported on 04/16/2025) lisinopril 5 MG tablet 7 mg. metaxalone (Skelaxin) 400 MG tablet Start by taking 1 pill by mouth at bedtime. Increase to 1 pill 2x/day as needed, maximum of 2 pills 3x/day as needed/tolerated. 180 tablet 11 propranolol (Inderal) 10 MG tablet Take 2 tablets by mouth 2 times a day. sulfamethoxazole-trimethoprim (Bactrim DS) 800-160 MG tablet take 1 tablet by mouth every twelve hours for 10 days Vraylar 1.5 MG capsule Take 1 capsule by mouth daily. No current facility-administered medications for this visit. documented in this encounter Plan of Treatment Upcoming Encounters Date Type Department Care Team (Late st Contact Info) Description 09/26/2025 9:00 AM EST Office Visit [facility] [address] [facility] [address] [place] [address] Gladis Mascorro, COMMUNITY DEVELOPMENT OFFICER [address] [facility] [address] [place] [address] 10/30/2025 9:00 AM EDT Office Visit [facility] Urology [address] [place] [address] Maya Osman, JEFFERSON, DNP [address] [facility] [address] [place] [address] 11/07/2025 10:00 AM EDT Consult [facility] [address], [address] [place] [address] Chasity Mendoza MD [address] [facility] [address] [place] [address] documented as of this encounter Visit Diagnoses Diagnosis Dry mouth- Primary Disturbance of salivary secretion documented in this encounter Additional Health Concerns Assessment Noted Time PHQ-9 Depression Total Score: 2 06/02/20 9:36 AM EST A fall risk assessment has been complete d for the patient 06/02/2025 9:35 AM EST A Body Mass Index follow-up plan has been documented for the patient 06/02/2025 10:27 AM EST documented as of this encounter Care Teams Supervisor Reclamation Relationship Specialty Start Date End Date Trisha Cortes APRN [id number] PCP - General 03/24/25 Maya Osman APRN, DNP [id number] [place] [address] Nurse Practitioner Urology 03/24/25 documented as of this encounter
--- OUTSIDE RECORDS SUMMARY | 2025-07-29 12:44 | XMS_ITS | Clinical Summary ---
Author Organization [facility] Address [address] [place] [address] Care Team Providers Care Handle Rounder Operator Name Role Phone Lazaro Bran MD Primary Care Provider Source Comments [facility] is fully rolled out with thefollowing exceptions:General Clinical Research [facility] Allergies No known active allergies Medications [...] 2003 DTAP/Tdap/Td IMMUNIZATION (1 - Tdap) 2009 Yearly Physical Ages 3-18+ 2013 VARICELLA IMMUNIZATION (1 of 2 - 13+ 2-dose series) 2015 HPV IMMUNIZATION (1 - 3-dose series) 2017 MENINGOCOCCAL B VACCINE (1 o f 2 - Standard) 2018 HEPATITIS B IMMUNIZATION (1 of 3 - 19+ 3-dose series) 2021 AMB SEASONAL FLU VACCINE (#1) 03/31/2025 COVID-19 Vaccine (1 - 2024-2 6 season) 2025 HIB IMMUNIZATION Aged Out No [...] patient's age to complete this topic Insurance [facility]NA [facility] Care Teams Handle Rounder Operator Relationship Specialty Start Date End Date Lazaro Bran MD [address] [facility] [address] [place] [address] PCP - General External Family Practice 11/18/13
--- OUTSIDE RECORDS SUMMARY | 2025-07-29 12:45 | XMS_ITS | Encounter Summary ---
Author Organization [facility] Address [address] [place] [address] Care Team Providers Care Booking Prizer Name Role Phone Trisha Cortes APRN Primary Care Provider + [phone] OsmanMaya maldonado APRN, DNP Unavailable + [phone] Encounter Details Date Type Department Care Team (Late st Contact Info) Description 05/19/2025 Results Follow-Up [facility] Medicine Specialties [address] [place] [address] Silvia Merlos APRN [address] [place] [address] Social History Tobacco Use Types [...] Description 09/26/2025 9:00 AM EST Office Visit [facility] [address] [place] [address] Gladis Mascorro, FSR [address] [facility] [address] [place] [address] 10/30/2025 9:00 AM EDT Office Visit [facility] [address] [place] [address] Maya Osman APRN, DNP [address] [facility] [address] [place] [address] 11/07/2025 10:00 AM EDT Consult [facility] [address] [place] [address] Chasity Mendoza MD [address] [place] [address] documented as of this encounter [...] documented as of this encounter Care Teams Booking Prizer Relationship Specialty Start Date End Date Trisha Cortes APRN [id number] PCP - General 03/24/25 Maya Osman APRN, DNP [address] [facility] [place] [address] Nurse Practitioner Urology 03/24/25 documented as of this encounter
--- OUTSIDE RECORDS SUMMARY | 2025-07-29 12:45 | XMS_ITS | Encounter Summary ---
Author Organization [facility] Address [address] [place] [address] Care Team Providers Care Homebound Teacher Name Role Phone SebastianTrisha JEFFERSON Primary Care Provider + [phone] Maya Osman APRN, DNP Unavailable + [phone] Encounter Details Date Type Department Care Team (Late st Contact Info) Description 04/18/2025 Results Follow-Up [facility] Urology [address] [place] [address] Maya Osman APRN, DNP [address] [place] [address] Social History Tobacco Use Types [...] Description 09/26/2025 9:00 AM EST Office Visit [facility] [address] [place] [address] Gladis Mascorro, EARLY CHILDHOOD SPECIAL EDUCATOR [address] [facility] [address] [place] [address] 10/30/2025 9:00 AM EDT Office Visit [facility] Urology [address] [place] [address] Maya Osman APRN, DNP [address] [place] [address] 11/07/2025 10:00 AM EDT Consult [facility] [address] [place] [address] Chasity Mendoza MD [address] [place] [address] documented as of this encounter [...] documented as of this encounter Care Teams Homebound Teacher Relationship Specialty Start Date End Date Trisha Cortes APRN [id number] PCP - General 03/24/25 Maya Osman APRN, DNP [address] [facility] [place] [address] Nurse Practitioner Urology 03/24/25 documented as of this encounter
--- OUTSIDE RECORDS SUMMARY | 2025-07-29 12:45 | XMS_ITS | Encounter Summary ---
Author Organization [facility] Address [address] [place] [address] Care Team Providers Care Industrial Illuminating Engineer Name Role Phone Kassidy Rodriges JEFFERSON Primary Care Provider + [phone] Trisha Cortes APRN Primary Care Provider + [phone] Maya Osman APRN, DNP Unavailable + [phone] Reason for Referral * Consultation (Routine) - Closed Specialty Diagnoses / Procedures Referred By Racquel gilmore Referred To Contact Nephrology Diagnoses Urinary tract infection without hematuria, site unspecified Trisha [place] APRN [id number] fax: Referral ID Status Reason Start Date Expiration Date V isits Requested Visits Authorized [id number] Closed Specialty Services Required 08/09/2022 02/08/2024 1 1 Encounter Details Date Type Department Care Team (Late st Contact Info) Description 08/09/2022 Community [facility] [address] [place] [address] Trisha Cortes APRN [id number] Urinary tract infection without hematuria, site unspecified [...] Description 09/26/2025 9:00 AM EST Office Visit [facility] [address] [place] [address] Gladis Mascorro, NURSING STAFF DEVELOPMENT COORDINATOR [address] [facility] [address] [place] [address] 10/30/2025 9:00 AM EDT Office Visit [facility] [address] [place] [address] Maya Osman APRN, GWENDOLYN [address] [place] [address] 11/07/2025 10:00 AM EDT Consult [facility] [address] [place] [address] Chasity Mendoza MD [address] [place] [address] Scheduled Referrals Name Type Priority Associated Diagnoses Orde r Schedule Ambulatory referral to Nephrology Outpatient Referral Routine Urinary tract infection without hematuria, site unspecified Expected: 08/09/2022 (Approximate), Expires: 02/07/2024 documented as of this encounter Visit Diagnoses Diagnosis Urinary tract infection without hematuria, site unspecified- Primary documented in this encounter Care Teams Industrial Illuminating Engineer Relationship Specialty Start Date End Date Kassidy Rodriges APRN [address] [place] [address] [id number] PCP - General 12/11/20 03/23/25 Trisha Cortes APRN [id number] PCP - General 03/24/25 Maya Osman APRN, DNP [address] [place] [address] Nurse Practitioner Urology 03/24/25 documented as of this encounter
--- OUTSIDE RECORDS SUMMARY | 2025-07-29 12:45 | XMS_ITS | Encounter Summary ---
Author Organization [facility] Address [address] [place] [address] Care Team Providers Care Transformer Assembly Supervisor Name Role Phone Trisha Cortes JEFFERSON Primary Care Provider + [phone] Maya Osman APRN, DNP Unavailable + [phone] Encounter Details Date Type Department Care Team (Late st Contact Info) Description 07/23/2025 Orders Only [facility] [address] [place] [phone] Nemo Chavez Chronic kidney disease, stage 2 (mild) (Primary Dx) Social History Tobacco Use Types [...] Description 09/26/2025 9:00 AM EST Office Visit [facility] [address] [place] [address] Gladis Mascorro, BRANCH MECHANIC [address] [facility] [address] [place] [address] 10/30/2025 9:00 AM EDT Office Visit [facility] [address] [place] [address] Maya Osman, BRANCH MECHANIC, DNP [address] [place] [address] 11/07/2025 10:00 AM EDT Consult [facility] [address] [place] [address] Chasity Mendoza MD [address] [place] [address] Scheduled Orders Name Type Priority Associated Diagnoses Orde r Schedule Renal Function Panel, Plasma Lab Routine Chronic kidney disease, stage 2 (mild) Expected: 07/23/2025 (Approximate), Expires: 01/21/2027 CBC and Differential Lab Routine Chronic kidney disease, stage 2 (mild) Expected: 07/23/2025 (Approximate), Expires: 01/21/2027 Creatinine, Random, Urine Lab Routine Chronic kidney disease, stage 2 (mild) Expected: 07/23/2025 (Approximate), Expires: 01/21/2027 Protein, Random, Urine with Creatinine Lab Routine Chronic kidney disease, stage 2 (mild) Expected: 07/23/2025 (Approximate), Expires: 01/21/2027 Urinalysis with reflex microscopic (Culture NOT Included) Lab Routine Chronic kidney disease, stage 2 (mild) Expected: 07/23/2025 (Approximate), Expires: 01/21/2027 PTH Intact Total Lab Routine Chronic kidney disease, stage 2 (mild) Expected: 07/23/2025 (Approximate), Expires: 01/21/2027 Vitamin D 25 Hydroxy Lab Routine Chronic kidney disease, stage 2 (mild) Expected: 07/23/2025 (Approximate), Expires: 01/21/2027 documented as of this encounter Visit Diagnoses Diagnosis Chronic kidney disease, stage 2 (mild)- Primary documented in this encounter Additional Health Concerns Assessment Noted Time PHQ-9 Depression Total Score: 2 06/02/20 9:36 AM EST A fall risk assessment has been complete d for the patient 06/02/2025 9:35 AM EST A Body Mass Index follow-up plan has been documented for the patient 06/02/2025 10:27 AM EST documented as of this encounter Care Teams Transformer Assembly Supervisor Relationship Specialty Start Date End Date Tr[place]N [id number] PCP - General 03/24/25 Maya Osman APRN, DNP [address] [place] [address] Nurse Practitioner Urology 03/24/25 documented as of this encounter
--- OUTSIDE RECORDS SUMMARY | 2025-07-29 12:45 | XMS_ITS | Encounter Summary ---
Author Organization [facility] Address [address] [place] [address] Care Team Providers Care Floating Labor Gang Supervisor Name Role Phone Trisha Cortes APRN Primary Care Provider + [phone] OsmanMaya maldonado APRN, DNP Unavailable + [phone] Encounter Details Date Type Department Care Team [...] as of this encounter Functional Status * Communicable Disease Screening Question Answer Date of Assessment Author Have you been in contact wit h someone who was sick? No / Unsure 06/02/2025 9:23 AM Susan Vieira Do you have any of the follo wing new or worsening symptoms? None of these 06/02/2025 9:23 AM EST Donaldo Waters via K * Travel Screening Question Answer Date of Assessment Author Have you traveled intern[place] b[place] or domestically in the last month? No 06/02/2025 9:23 AM Susan Vieira documented as of this encounter Mental Status * Communicable Disease Screening Question Answer Entry Date Author Have you been in contact wit h someone who was sick? No / Unsure 06/02/2025 9:23 AM Susan Vieira Do you have any of the follo wing new or worsening symptoms? None of these 06/02/2025 9:23 AM Donaldo Vieira via K * Travel Screening Question Answer Entry Date Author Have you traveled intern[place] or domestically in the last month? No 06/02/2025 9:23 AM Susan Vieira documented in this encounter Plan of Treatment Upcoming Encounters Date Type Department Care Team (Late st Contact Info) Description 09/26/2025 9:00 AM EST Office Visit [facility] [address] [place] [address] Gladis Mascorro, CLINICAL FIELD SPECIALIST [address] [facility] [address] [place] [address] 10/30/2025 9:00 AM EDT Office Visit [facility] [address] [place] [address] Maya Osman, JEFFERSON, DNP [address] [place] [address] 11/07/2025 10:00 AM EDT Consult [facility] [address] [place] [address] Chasity Mendoza MD [address] [place] [address] documented as of this encounter [...] documented as of this encounter Care Teams Floating Labor Gang Supervisor Relationship Specialty Start Date End Date Trisha Cortes APRN [id number] PCP - General 03/24/25 Maya Osman APRN, DNP [address] [facility] [address] [place] [address] Nurse Practitioner Urology 03/24/25 documented as of this encounter
--- OUTSIDE RECORDS SUMMARY | 2025-07-29 12:45 | XMS_ITS | Clinical Summary ---
Author Organization [facility] Address [address] [place] [address] Care Team Providers Care Emergency Medical Technician/Driver Name Role Phone Trisha Cortes JEFFERSON Primary Care Provider + [phone] OsmanMaya maldonado APRN, DNP Unavailable + [phone] Allergies No known active allergies Medications amLODIPine (Norvasc) 10 MG tablet 3 Active busPIRone (Buspar) 15 MG tablet 3 Active lisinopril 5 MG tablet 7 mg. 3 Active clonazePAM (KlonoPIN) 0.5 MG tablet TAKE 1/2 TABLET BY MOUTH ONCE A DAY NEEDED FOR ANXIETY Active citalopram (CeleXA) 40 MG tablet Take 1 tablet by mouth daily. 5 Active ergocalciferol 1.25 MG (32148 UT) capsule Take 1 capsule by mouth 1 time per week. 5 Active hydroCHLOROthiazide 12.5 MG PO tablet TAKE 1 TABLET BY MOUTH ONCE A DAY NEEDED FOR EDEMA Active propranolol (Inderal) 10 MG tablet Take 2 tablets by mouth 2 times a day. 5 Active Vraylar 1.5 MG capsule Take 1 capsule by mouth daily. 5 Active D-Mannose 500 MG capsule Take by mouth. Active ondansetron ODT (Zofran-ODT) 4 MG disintegrating tablet DISSOLVE 1 TABLET IN MOUTH AND ALLOW TO DISSOLVE THEN SWALLOW EVERY 4 TO 6 HOURS NEEDED FOR NAUSEA AND VOMITING Active Bacillus Coagulans-Guar Gum (BENEFIBER ADVANCED PO) Take by mouth. Active methocarbamol (Robaxin) 500 MG tablet Take 1 tablet by mouth daily. Active Active Problems Problem Noted Date Diagnosed [...] Encounters Date Type Department Care Team Description 07/23/2025 Orders Only [facility] [address] [facility] [address] [place] [id number] Nemo Chavez Chronic kidney disease, stage 2 (mild) (Primary Dx) 06/02/2025 9:20 AM EST Office Visit [facility] [address] [place] [address] Silvia Merlos, SUPERINTENDENT TRANSMISSION Dry mouth (Primary Dx) 06/02/2025 Travel 05/19/2025 Results Follow-Up [facility] [address] [place] [address] Silvia Merlos, SUPERINTENDENT TRANSMISSION 05/19/2025 Orders Only [facility] [address] [place] [address] Armando Temple, RN Dry mouth; Back pain, unspecified back location, unspecified back pain laterality, unspecified chronicity; Spasms of the hands or feet from Last 3 Months Immunizations Immunization Administration [...] Description 09/26/2025 9:00 AM EST Office Visit [facility] [address] [facility] [address] [place] [address] Gladis Mascorro, SUPERINTENDENT TRANSMISSION [address] [facility] [address] [place] [address] 10/30/2025 9:00 AM EDT Office Visit [facility] [address] [place] [address] Maya Osman, JEFFERSON, DNP [address] [place] [address] 11/07/2025 10:00 AM EDT Consult [facility] [address] [place] [address] Chasity Mendoza MD [address] [place] [address] Health Maintenance Due Date Last Done Comments [facility]-HIV Screening 2002 [facility]-Hepatitis C Screening 2002 [facility]-Infant/Child/Adol SDOH Screenings 2002 [facility]-Varicella Vaccines (2 of 2 - 2-dose childhood series) 12/27/2006 02/20/2004 [facility]- SDOH Screenings 2020 [facility]-Adult SDOH Screenings 2020 [facility]-Pap Smear 2023 OQD-YMYLE-30 Vaccine ( season) 2025 09/17/2021, 01/27/2021, 12/19/2020 [facility]-Influenza Vaccine (#1) 2025 [facility]-Depression Screening 06/02/2026 06/02/2025, 09/2024 [facility]-DTaP,Tdap,and Td Vaccines (7 - Td [...] Procedure Name Priority Date/Time Associated Diagnosis Comments EXTRACTABLE NUCLEAR ANTIGEN ANTIBODIES (SSA 52, SSA 60, AND SSB) (SO) Routine 06/02/2025 10:33 AM EST Dry mouth HLA B27 TYPING Routine 05/19/2025 [...] Routine 05/19/2025 7:33 AM EDT Dry mouth from Last 3 Months Results * ENAII (06/02/2025 10:33 AM EST) SSA-52 (RO52) (HI) Antibody, IgG 2 0 - 40 AU/mL 06/04/2025 7:31 AM EST [facility]) SSA-60 (RO60) (HI) Antibody, IgG 1 0 - 40 AU/mL 06/04/2025 7:31 AM EST [facility]) SSB (LA) (HI) Antibody, IgG 10 0 - 40 AU/mL 06/04/2025 7:31 AM EST [facility]) Blood Venous blood specimen / Unknown Venipuncture / Unknown 06/02/2025 10:33 AM EST 06/02/2025 10:34 AM EST [facility]) - 06/04/2025 7:31 AM EST INTERPRETIVE INFORMATION: SSA-52 (Ro52) (HI) Antibody, IgG 29 AU/mL or Less ............. Negative 30 - 40 AU/mL ................ Equivocal 41 AU/mL or Greater .......... Positive SSA-52 (Ro52) and/or SSA-60 (Ro60) antibodies are associated with a diagnosis of Sjogren syndrome, systemic lupus erythematosus (SLE), and systemic sclerosis. SSA-52 antibody overlaps significantly with the major SSc-related antibodies. SSA-52 (Ro52) antibody occurs frequently in patients with inflammatory myopathies, often in the presence of interstitial lung disease. REFERENCE INTERVAL: SSA-60 (Ro60) (HI) Antibody, IgG 29 AU/mL or Less ............. Negative 30 - 40 AU/mL ................ Equivocal 41 AU/mL or Greater .......... Positive INTERPRETIVE INFORMATION: SSB (La) (HI) Ab, IgG 29 AU/mL or Less ............. Negative 30 - 40 AU/mL ................ Equivocal 41 AU/mL or Greater .......... Positive SSB (La) antibody is seen in 50-60% of Sjogren syndrome cases and is specific if it is the only HI antibody present. 15-25% of patients with systemic lupus erythematosus (SLE) and 5-10% of patients with progressive systemic sclerosis (PSS) also have this antibody. Performed By: [facility] [address] [place] [address] Research Biologist: Saad Noguera MD, PhD CLIA Number: [id number] Silvia Merlos APRN LAB BLOOD ORDERABLES Final Result Performing Organization Address City/Va Hospital/ZIP Co de Phone Number [facility] ([facility] [address] [place], [place] [phone] * XR Hand and Wrist Bilateral 2 Views (05/19/2025 7:33 AM EDT) Anatomical Region Laterality Modality Hand, Wrist Bilateral Digital Radiogra phy Silvia Merlos APRN IMG XR PROCEDURES Final Re sult * HLA B27 Typing (05/19/2025 7:33 AM EDT) Blood Venous blood specimen / Unknown Silvia Merlos APRN LAB BLOOD ORDERABLES Final Result Performing Organization Address City/Va Hospital/ZIP Co de Phone Number EXTERNAL LAB * Cyclic Citrul Peptide Antibody IgG (05/19/2025 7:33 AM EDT) Blood Venous blood specimen / Unknown Silvia M Gaurang PAULINO LAB BLOOD ORDERABLES Final Result EXTERNAL LAB * XR Sacroiliac Joints 3+ Views (05/19/2025 7:33 AM EDT) Anatomical Region Laterality Modality Body, Spine, Pelvis Digital Radi ography Silvia Peck Gaurang ASKEWN IMG XR PROCEDURES Final Re sult from Last 3 Months Insurance [employer] Care Teams Emergency Medical Technician/Driver Relationship Specialty Start Date End Date Trisha Cortes APRN [id number] PCP - General 03/24/25 Maya Osman APRN, DNP [address] [facility] [address] [place] [address] Nurse Practitioner Urology 03/24/25
--- NOTE | 2025-07-29 13:00 | CA_ITS ---
APPROVED REPORT EXAM: Comprehensive 2D, Doppler, and color-flow Echocardiogram Paper Roller: Siena Mix RT(R) Ht: 5 ft 7 in Wt: 330lbs BSA: 2.50 BP: 154/90 mmHg Indications: hypertension, edema, near syncope, palpitations, tachycardia 2D Dimensions LVEF (Kang's) 56.80 % F: 54 - 74 LV Volume 92.20 mL F: 46 - 106 LV Volume Index 36.9 mL/m2 F: 29 - 61 LA Volume 21.80 mL LA Volume Index 8.72 mL/m2 (M/F) 16-34 EF AP4 56.90 % EF AP2 57.8 % EF BP 56.8 % GL Strain -24.9 % M-Mode Dimensions RVDd 3.19 cm (0.9-2.6) LA Diam 3.32 cm (1.9-4.0) LVDd 4.22 cm (3.5-5.7) LVDs 2.96 cm (3.5-5.7) IVSd 1.10 cm (0.6-1.1) PWd 0.80 cm (0.6-1.1) EF (Teich) 57.40% FS 29.90% EDV (Teich) 79.50 mL ESV (Teich) 33.90 mL LV Diastology E Decel Time 190 (160-240 msec) E/A Ratio 2.0 Mitral Valve MV E Max Dawit. 131.0 (40-130 cm/s) MV A Velocity 65.0 (40-130 cm/s) E/A Ratio 2.02 MV PHT 56.0 ms Left Ventricle The left ventricle is normal size. Left ventricular systolic function is normal. The left ventricular ejection fraction is within the normal range. There is normal left ventricular wall thickness. There is normal LV segmental wall motion. The left ventricular diastolic function is normal. LVEF is 55% Right Ventricle The right ventricle is normal size. The right ventricular systolic function is normal. Atria The left atrium size is normal. The right atrium size is normal. There is no color Doppler evidence of interatrial shunt. Aortic Valve The aortic valve opens well. There is no hemodynamically significant aortic valvular stenosis. No aortic regurgitation is present. Mitral Valve The mitral valve is normal in structure. No evidence of mitral valve stenosis. Trace mitral regurgitation is present. Tricuspid Valve The tricuspid valve leaflets are thin and pliable. Trace tricuspid regurgitation. There is insufficient TR jet to estimate RVSP. Pulmonic Valve The pulmonary valve is grossly normal in structure. Trace pulmonic valve regurgitation is present. Great Vessels The aortic root is normal in size. IVC is normal in size and collapses >50% with inspiration. Pericardium There is no pericardial effusion. Conclusion Normal biventricular systolic function. No significant valvular stenosis or regurgitation. Electronically signed by : Katalina Gomez MD 07/31/2025 13:30:43
== END 2025-07-29 23:59 | disposition home or self-care (01) ==
LOC: RT 12:42
PROVIDERS: PCP Nurse Practitioner Family; Visit Provider Nurse Practitioner
DX: I10 Essential (primary) hypertension (principal); R06.09 Other forms of dyspnea; R00.0 Tachycardia, unspecified; R60.9 Edema, unspecified; R55 Syncope and collapse; R00.2 Palpitations
CPT/HCPCS: 93306